=== PATIENT | female | born 1950 | race Caucasian/White ===

== ENCOUNTER 2020-01-25 08:37 | Emergency (ER) | payer MEDICAID, SELFPAY ==
[2020-01-25] VITALS (7 sets, daily range): BP systolic 109–136; BP diastolic 57–78; PULSE 83–100; RESP 20–95; TEMP 36.6–38.4; O2SAT 28–96
--- NOTE | ~2020-01-25 | XR_ITS ---
EXAMINATION: XR chest 1V portable INDICATION: Cough and shortness of breath TECHNIQUE: Portable AP chest at 0950 hours COMPARISON: 08/12/2019 FINDINGS: The lungs are free of acute opacities. There is no pleural effusion or pneumothorax. The ca rdiomediastinal silhouette is normal. The visualized bones and soft tissues are unremarkable. There i s chronic mild elevation of the right hemidiaphragm. IMPRESSION: 1. No acute cardiopulmonary abnormality. Reviewed, dictated and finalized at location A.
--- NOTE | 2020-01-25 08:50 | ED.CHESTPAIN ---
HPI - Chest Pain General Chief Complaint: Chest Pain <Sd Minor MD - Last Filed: 01/25/20 13:41> Stated Complaint: chest pain/diff breathing <Sd Minor MD - Last Filed: 01/25/20 13:41> Time Seen by Provider: 01/25/20 08:40 <Sd Minor MD - Last Filed: 01/25/20 13:41> History of Present Illness HPI narrative: Patient is a 70-year-old female who presents the ER with complaint of shortness of breath and cough. Mainly worsening over the last 3 days. Associated with fevers and chills. No nausea/vomiting/dizziness. Symptoms are worsened by lying down flat movement. Has been practicing social distancing. No alleviating factors. No history of CHF or COPD. Patient does endorse some mild chest discomfort centrally, seems pleuritic in nature. No history of cardiac disease.. <Sd Minor MD - Last Filed: 01/25/20 13:41> Related Data Home Medications: Home Medications Medication Instructions Recorded Confirmed amlodipine 5 mg PO DAILY 08/12/19 08/12/19 levothyroxine [Synthroid] 50 mcg PO DAILY 08/12/19 08/12/19 lisinopril 40 mg PO DAILY 08/12/19 08/12/19 lorazepam 0.5 mg PO DAILY PRN 08/12/19 08/12/19 venlafaxine [Effexor XR] 75 mg PO BID 08/12/19 08/12/19 bupropion HCl mg PO 01/25/20 hydrochlorothiazide 25 mg 01/25/20 metoprolol tartrate 50 mg 01/25/20 <Sd Minor MD - Last Filed: 01/25/20 13:41> Allergies/Adverse Reactions: Allergies Allergy/AdvReac Type Severity Reaction Status Date / Time codeine Allergy Severe SOB Verified 01/25/20 09:03 pseudoephedrine Allergy Severe RASH Verified 01/25/20 09:03 oxycodone Allergy Mild HALLUCINATI Verified 01/25/20 09:03 ONS Sulfa (Sulfonamide Allergy Unknown RASH Verified 01/25/20 09:03 Antibiotics) <Sd Minor MD - Last Filed: 01/25/20 13:41> Review of Systems Review of Systems: All systems reviewed & are unremarkable except as noted in HPI and below <Sd Minor MD - Last Filed: 01/25/20 13:41> Constitutional: Constitutional: Reports chills, Reports fatigue and Reports fever(s) <Sd Minor MD - Last Filed: 01/25/20 13:41> ENT: Denies dizziness, Denies nasal congestion and Denies sore throat <Sd Minor MD - Last Filed: 01/25/20 13:41> Cardiovascular: Cardiovascular: Reports chest pain <Sd Minor MD - Last Filed: 01/25/20 13:41> [facility] Past Medical History Medical History: Medical History (Updated 01/25/20 @ 13:41 by Sd Minor MD) Anxiety Asthma Depression with anxiety GERD (gastroesophageal reflux disease) Hypertension Hypothyroidism Overactive bladder <Sd Minor MD - Last Filed: 01/25/20 13:41> Surgical History Surgical History: Surgical History (Updated 08/12/19 @ 21:55 by Deepali Mary PA-C) H/O dilation and curettage H/O shoulder surgery Right rotator cuff repair. Previous section S/P appendectomy S/P cholecystectomy Tubal ligation status <Sd Minor MD - Last Filed: 01/25/20 13:41> Social History Social History: Social History Smoking status: Never smoker Alcohol intake: never Substance use: never Substance use type: does not use Gender identity (if verbalized by the patient): Female Spiritual care concerns: No Agree to blood products: Yes <Sd Minor MD - Last Filed: 01/25/20 13:41> Exam Narrative: Exam Narrative: GENERAL: Unwell/fatigued-appearing, obese, and in no acute distress. HEAD: Normocephalic, atraumatic. ENT: Mucous membranes moist. NECK: Supple. CHEST: Clear to auscultation. No respiratory distress. HEART: Regular rate and rhythm. Normal peripheral pulses. ABDOMEN: Soft, nontender, nondistended. EXTREMITIES: Normal range of motion. No edema. SKIN: Warm, dry, no rash. NEURO: Alert and oriented x3. <Sd Minor MD - Last Filed: 01/25/20 13:41> Course Co
[2020-01-25 09:23] LABS: Basophils Percent Auto 0.2 % (0.2-1.2); Hematocrit 43.7 % (37.0-47.0); Immature Granulocyte Absolute 0.04 K/mm3 (0.00-0.031); Immature Granulocyte Percent A 0.4 % (0-0.5); Lymphocytes Absolute Auto 1.71 K/mm3 (0.9-3.2); Mean Corpuscular Hemoglobin 28.6 pg (26-34); Mean Corpuscular Volume 89.2 fl (80-100); Mean Platelet Volume 11.7 fl (7.4-10.4); Monocytes Absolute Auto 1.6 K/mm3 (0.1-0.6); Monocytes Percent Auto 13.8 % (2.6-8.5); Neutrophils Absolute Auto 8.1 K/mm3 (1.3-6.7); Neutrophils Percent Auto 70.6 % (45.5-73.1); Platelet Count Result 330 k/mm3 (150-375); Red Cell Distribution Width 13.7 % (11.5-14.5); White Blood Count 11.4 K/mm3 (4.5-10.0)
[2020-01-25 09:32] LABS: Prothrombin Time 13.3 Seconds (11.1-14.7)
[2020-01-25 09:36] LABS: Alanine Aminotransferase 17 U/L (4-35); Albumin Level 3.9 g/dL (3.5-5.1); Alkaline Phosphatase 77 U/L (38-126); Aspartate Amino Transferase 31 U/L (14-36); Bilirubin,Total 1.4 mg/dL (0.2-1.3); Blood Urea Nitrogen 24 mg/dL (7-17); Carbon Dioxide 25 mmol/L (22-30); Chloride 98 mmol/L (98-107); Estimated CRCL calculation 41 ml/min; Estimated Glomerular Filt Rate 35; Glucose 135 mg/dL (65-105); Potassium 5.3 mmol/L (3.4-5.0); Sodium 130 mmol/L (137-145)
[2020-01-25 09:48] LABS: NT Pro B Type Natriuretic Pept 164 PG/ML (5-100); Troponin I < 0.012 ng/mL (0.000-0.034)
[2020-01-25] MEDS: SODIUM CHLORIDE 0.9% IV 1,000 ML 999 ML IV CONT (09:50)
--- NOTE | 2020-01-25 10:07 | PC.NURSE ---
straight cath being performed at this time.
[2020-01-25 10:35] LABS: Add Urine Microscopic? YES; Appearance Urine Clear (Clear); Bacteria Urine Trace /hpf; Bilirubin Urine Negative (Negative); Blood Urine Negative (Negative); Color Urine Yellow (Yellow); Glucose Urine UA Negative (Negative); Hyaline Casts Urine 20-29 /lpf; Ketones Urine Trace mg/dL (Negative); Leukocyte Esterase Ur Trace LEU/UL (Negative); Mucus Urine Rare /lpf; Nitrate Urine Negative (Negative); Protein Urine 1+ mg/dL (Negative); RBC Urine 0-2 /hpf (0-2); Squamous Epithelial Cell Urine Occasional /hpf (Few); WBC Urine 0-3 /hpf
--- NOTE | 2020-01-25 10:42 | ECG_ITS ---
Measurements Intervals [place] Rate: 99 P: 49 ID: [id number] QRS: 19 QRSD: 94 T: 32 QT: 308 QTc: 395 Interpretive Statements SINUS RHYTHM BASELINE ARTIFACT- I, II, III, AVR, AVL, AVF, V1 NORMAL ECG Electronically Signed On 01-25-2020 11:18:33 CDT by Michael Coates D.O.
--- NOTE | 2020-01-25 12:24 | PC.NURSE ---
Blood being drawn at this time.
[2020-01-25 13:10] LABS: Troponin I < 0.012 ng/mL (0.000-0.034)
[2020-01-26 11:48] LABS: SARS-CoV-2 RNA PCR Negative
== END 2020-01-25 14:16 | disposition home or self-care (01) ==
PROVIDERS: Emergency Provider Emergency Medicine; PCP Family Medicine
DX: B34.9 Viral infection, unspecified (principal); Z20.828 Contact with and (suspected) exposure to other viral communicable diseases; E86.0 Dehydration; F41.9 Anxiety disorder, unspecified; K21.9 Gastro-esophageal reflux disease without esophagitis; E03.9 Hypothyroidism, unspecified; N32.81 Overactive bladder
CPT/HCPCS: 36415; 51701; 71045; 80053; 81001; 83880; 84484; 85025; 85610; 85730; 87635; 87804; 93005; 96361; 96365; 99284; C9803; J0131; J7030; U0003

== ENCOUNTER 2020-07-14 13:50 | Inpatient (IN) | payer MEDICARE, MEDICAID, SELFPAY ==
[2020-07-14] VITALS (21 sets, daily range): BP systolic 115–132; BP diastolic 35–89; PULSE 91–124; RESP 16–34; TEMP 36.6–36.9; O2SAT 97–100; BMI 43.4
--- NOTE | ~2020-07-14 | XR_ITS ---
EXAMINATION: XR ankle LT min 3V EXAM DATE: 07/14/2020 14:28 INDICATION: Initial encounter following injury, with pain of the left ankle. TECHNIQUE: Left ankle frontal, lateral and oblique projections obtained and reviewed. There is no pr ior study for comparison. FINDINGS: The left ankle mortise appears intact. There are no acute fractures or dislocations ident ified. There is no subcutaneous gas. The soft tissue is unremarkable. There are no radiopaque for eign bodies. IMPRESSION: 1. XR ankle LT min 3V exam without acute osseous findings. Reviewed, dictated and finalized at location A.
--- NOTE | ~2020-07-14 | CT_ITS ---
EXAMINATION: CT brain wo con, CT cervical spine wo con EXAM DATE: 07/14/2020 14:21 INDICATION: Fell yesterday, head injury. Neck pain. TECHNIQUE: Spiral CT of the head was performed without contrast. Axial, coronal and sagittal images were reviewed. Spiral CT of the cervical spine was performed without contrast. Axial images were rev iewed. Coronal and sagittal reformatted images were also reviewed. The dose-length product (DLP) fo r this examination was 681.00 (accession [id number]), 448.02 (accession [id number]) mGy-cm. The exposure was tailored according to patient size, and iterative reconstruction (ASIR) was used as additional dose reduction technique. Comparison is made to prior examination from 08/12/2019. FINDINGS: HEAD CT: There is no acute intraparenchymal hemorrhage. No evidence of intraparenchymal brain mass l esion. No evidence of acute infarction. There is mild to moderate periventricular and subcortical hy podensity, nonspecific but probably related to small vessel ischemic disease. There is mild to mode rate prominence of the sulci and ventricles related to cerebral atrophy. There is intracranial zapata tid arteriosclerosis. There is no mass effect or midline shift. There is no obstructive hydrocephal us suspected. There are no extra-axial collections. There are no acute calvarial fractures. The or bits are unremarkable. Soft tissue is unremarkable. The visualized sinuses and mastoid air cells ar e well aerated. CERVICAL CT: Mild limitations from patient's body habitus. There is no evidence of acute cervical fra cture. The odontoid process is intact. Pre-dens space is normal. Prevertebral soft tissue is darnell l. There are no soft tissue abnormalities identified. There is no disc space widening or traumatic vertebral body subluxation suspected. Mild to moderate cervical spondylosis. A detailed level by phuc gerard evaluation of spondylosis can be added as addendum if requested. IMPRESSION: 1. No acute intracranial findings or cervical fracture. 2. Age-related intracranial findings. 3. Mild to moderate cervical spondylosis. Reviewed, dictated and finalized at location A. IMPRESSION: 1. No acute intracranial findings or cervical fracture. 2. Age-related intracranial findings. 3. Mild to moderate cervical spondylosis.
--- NOTE | ~2020-07-14 | XR_ITS ---
EXAMINATION: XR chest 1V portable DATE: 07/14/2020 16:28 INDICATION: Dyspnea TECHNIQUE: frontal view of the chest was obtained. COMPARISON: Chest radiograph dated 01/25/2020 FINDINGS: Chronic elevation of the right hemidiaphragm. No focal airspace opacities, pulmonary edema, pleural e ffusion or pneumothorax. The cardiomediastinal silhouette is normal. Visualized bones and soft tissue s are unremarkable. IMPRESSION: 1. No acute cardiopulmonary disease. Reviewed, dictated and finalized at location A.
--- NOTE | ~2020-07-14 | XR_ITS ---
EXAMINATION: XR hip RT 2V w AP pelvis EXAM DATE: 07/14/2020 14:29 INDICATION: Initial encounter following injury, with pain of the pelvis, right hip. TECHNIQUE: Right hip frontal, 'frog leg' projections for interpretation. Frontal projection pelvis. There is no prior study for comparison. FINDINGS: Right hip arthroplasty, hardware intact. There are no acute pelvic, hip fractures or disloc ations identified. There is no subcutaneous gas. The soft tissue is unremarkable. There are no ra diopaque foreign bodies. IMPRESSION: Intact right hip arthroplasty. Reviewed, dictated and finalized at location A.
--- NOTE | ~2020-07-14 | XR_ITS ---
EXAMINATION: XR hip LT min 2V DATE: 07/14/2020 15:14 INDICATION: Left hip pain post fall TECHNIQUE: Anteroposterior and frog leg lateral views of the left hip were obtained. COMPARISON: CT dated 08/12/2019 FINDINGS: Alignment is normal. No fracture. Mild left hip osteoarthritis. Mild left sacroiliitis. IMPRESSION: 1. Mild left hip osteoarthritis. No acute osseous abnormality. 2. Chronic mild sacroiliitis. Reviewed, dictated and finalized at location A.
--- NOTE | ~2020-07-14 | XR_ITS ---
EXAMINATION: XR abdomen obstructive series DATE: 07/17/2020 17:01 INDICATION: Constipation TECHNIQUE: Upright and supine views of the abdomen were obtained. COMPARISON: None. FINDINGS: There is mild elevation of the right hemidiaphragm. No free intraperitoneal gas is identifi ed. There are air-fluid levels involving several bowel loops of the right upper quadrant and epigastr ium. No definitely dilated loops of bowel are present. A moderate volume of colonic stool is present in the descending and sigmoid colon. Changes of right hip arthroplasty are noted. IMPRESSION: 1. Air-fluid levels in the right upper quadrant and epigastrium without definitely dilated loops of b owel, possible ileus. Reviewed, dictated and finalized at location A. IMPRESSION: 1. Air-fluid levels in the right upper quadrant and epigastrium without definit jayden dilated loops of bowel, possible ileus.
--- NOTE | ~2020-07-14 | XR_ITS ---
EXAMINATION: XR abdomen obstructive series EXAM DATE: 07/18/2020 08:43 INDICATION: Constipation. TECHNIQUE: Frontal upright projection of the upper abdomen, frontal projection of the lower abdomen f or interpretation. Comparison is made to prior examination from 07/17/2020. FINDINGS: Moderate amount of colonic stool and gas. No small bowel obstruction. Calcifications in th e pelvis are believed to be phleboliths. No suspicious calcifications overlying the renal contours. T here is no organomegaly. There is right hip replacement. No free intraperitoneal air, no evidence of basilar airspace disease. IMPRESSION: Moderate amount colonic stool and gas. Reviewed, dictated and finalized at location B.
--- NOTE | ~2020-07-14 | XR_ITS ---
XR ankle LT min 3V DATE: 07/18/2020 12:23 INDICATION: Twisting injury. Lateral bruising, ecchymosis, pain TECHNIQUE: 4 views COMPARISON: None FINDINGS: Mild plantar and slight posterior calcaneal enthesopathy. There is mild lateral ankle soft tissue swelling. No recent fracture or dislocation of the ankle or disruption of the ankle mortise. No periosteal reac tion or bone destruction. IMPRESSION: Lateral soft tissue swelling; no recent fracture or dislocation Reviewed, dictated and finalized at location A.
--- NOTE | ~2020-07-14 | US_ITS ---
EXAMINATION: US venous doppler LE EXAM DATE: 07/15/2020 08:06 INDICATION: Bilateral calf pain. TECHNIQUE: Multiple grayscale, color flow and Doppler images of the lower extremity deep venous syste ms bilaterally were obtained and reviewed. There is no prior study for comparison. FINDINGS: Right side: The right common femoral, femoral and profunda veins demonstrate normal color flow, respi ratory variation, augmentation and compressibility. Compressibility, color flow confirmed within the right popliteal, posterior tibial, peroneal, and greater saphenous veins. Left side: The left common femoral, femoral and profunda veins demonstrate normal color flow, respira tory variation, augmentation and compressibility. Compressibility, color flow confirmed within the l eft popliteal, posterior tibial, peroneal, and greater saphenous veins. IMPRESSION: No lower extremity deep venous thrombosis bilaterally. Reviewed, dictated and finalized at location A.
--- NOTE | 2020-07-14 13:54 | ECG_ITS ---
Measurements Intervals [place] Rate: 106 P: 78 RI: 124 QRS: 78 QRSD: 84 T: 44 QT: 329 QTc: 438 Interpretive Statements SINUS TACHYCARDIA BORDERLINE ST-T WAVE ABNORMALITY- DIFFUSE LEADS BASELINE ARTIFACT- II, III, AVR, AVL, AVF, V1-V3 ABNORMAL ECG Electronically Signed On 07-14-2020 15:12:12 CDT by Michael Coates D.O.
[2020-07-14 14:22] LABS: Basophils Absolute Auto 0.1 K/mm3 (0.0-0.1); Basophils Percent Auto 0.3 % (0.2-1.2); Hematocrit 44.5 % (37.0-47.0); Hemoglobin 14.9 g/dL (12.0-15.0); Immature Granulocyte Absolute 0.06 K/mm3 (0.00-0.031); Immature Granulocyte Percent A 0.4 % (0-0.5); Lymphocytes Absolute Auto 1.56 K/mm3 (0.9-3.2); Lymphocytes Percent Auto 9.3 % (18.3-44.2); Mean Corpuscular HGB Conc 33.5 g/dl (32-36); Mean Corpuscular Hemoglobin 29.7 pg (26-34); Mean Corpuscular Volume 88.6 fl (80-100); Mean Platelet Volume 12.5 fl (7.4-10.4); Monocytes Absolute Auto 1.5 K/mm3 (0.1-0.6); Neutrophils Absolute Auto 13.5 K/mm3 (1.3-6.7); Platelet Count Result 316 k/mm3 (150-375); Red Blood Count 5.02 M/mm3 (4.2-5.4); Red Cell Distribution Width 13.5 % (11.5-14.5); White Blood Count 16.7 K/mm3 (4.5-10.0)
[2020-07-14 14:34] LABS: Anion Gap 17 mmol/L (8-16); Blood Urea Nitrogen 29 mg/dL (7-17); Calcium 9.6 mg/dL (8.4-10.2); Carbon Dioxide 20 mmol/L (22-30); Chloride 100 mmol/L (98-107); Estimated CRCL calculation 38 ml/min; Estimated Glomerular Filt Rate 32; Glucose 114 mg/dL (65-105); Potassium 4.1 mmol/L (3.4-5.0); Sodium 137 mmol/L (137-145)
[2020-07-14] MEDS: SODIUM CHLORIDE 0.9% IV 1,000 ML 999 ML IV CONT ×2 (14:35→15:23)
--- NOTE | 2020-07-14 14:38 | ED.GENADULT ---
HPI - General Adult General Chief complaint: Syncope Stated complaint: fell yesterday- on floor till this afternoon Time Seen by Provider: 07/14/20 13:57 Source: RN notes reviewed History of Present Illness HPI narrative: Patient presents emergency department from home via EMS for syncopal episode. Patient states she has syncopal episode at 8 AM yesterday morning. States that she was able to get up at that time. She was initially able to drag herself to the front door and yelled for help. Currently complains of pain to the left ankle with ecchymosis present as well as some mild redness to the right hip. She states that she does not recall the incident she denies any fevers or chills chest pain shortness of breath abdominal pain nausea vomiting or any other symptoms Related Data Home Medications Medication Instructions Recorded Confirmed amlodipine 5 mg PO DAILY 08/12/19 08/12/19 levothyroxine [Synthroid] 50 mcg PO DAILY 08/12/19 08/12/19 lisinopril 40 mg PO DAILY 08/12/19 08/12/19 lorazepam 0.5 mg PO DAILY PRN 08/12/19 08/12/19 venlafaxine [Effexor XR] 75 mg PO BID 08/12/19 08/12/19 bupropion HCl mg PO 01/25/20 hydrochlorothiazide 25 mg 01/25/20 metoprolol tartrate 50 mg 01/25/20 Allergies Allergy/AdvReac Type Severity Reaction Status Date / Time codeine Allergy Severe SOB Verified 07/14/20 13:54 pseudoephedrine Allergy Severe RASH Verified 07/14/20 13:54 oxycodone Allergy Mild HALLUCINATI Verified 07/14/20 13:54 ONS Sulfa (Sulfonamide Allergy Unknown RASH Verified 07/14/20 13:54 Antibiotics) Review of Systems Review of Systems: Narrative: Gen.: Denies fevers or chills Eyes: Denies eye pain or visual change ENT: Denies congestion Respiratory: Denies shortness of breath or cough CV: Denies chest pain or palpitations, reports syncope GI: Denies abdominal pain nausea, emesis or diarrhea denies burning, urgency, frequency or hematuria Musculoskeletal: See HPI Neuro: Denies numbness, tingling, weakness or focal weakness Skin: Denies rash Except as documented, all other systems reviewed and negative PMF Past Medical History Medical History Anxiety Asthma Depression with anxiety GERD (gastroesophageal reflux disease) Hypertension Hypothyroidism Overactive bladder Surgical History Surgical History (Updated 08/12/19 @ 21:55 by Deepali Mary PA-C) H/O dilation and curettage H/O shoulder surgery Right rotator cuff repair. Previous section S/P appendectomy S/P cholecystectomy Tubal ligation status Social History Social History Smoking status: Never smoker Alcohol intake: never Substance use: never Substance use type: does not use Gender identity (if verbalized by the patient): Female Spiritual care concerns: No Agree to blood products: Yes Exam Narrative: Exam Narrative: APPEARANCE: No acute distress, nontoxic, resting in bed EYES: EOMI HEENT: Normocephalic, atraumatic, OMM RESPIRATORY: No respiratory distress Clear to auscultation bilaterally with no rhonchi wheezing or rales. CARDIOVASCULAR: Regular rate and rhythm without murmurs rubs or gallops. ABDOMINAL: Soft, nontender, nondistended, no rebound or guarding MUSCULOSKELETAl: Moves all extremities. No clubbing, cyanosis or edema. Tenderness of the bilateral upper extremity, mild tenderness the right lateral hip mild erythema present full motion of the hip without pain, no tenderness right knee or ankle, mild tenderness to left lateral hip no swelling or ecchymosis present no tenderness left knee, there is swelling and ecchymosis her left medial and lateral ankle pain with flexion of the ankle, bilateral dorsalis pedis pulse 2+, neurovascular intact NEURO: Awake and alert x 4. Following commands, speech normal, no focal deficits SKIN:: Warm, dry. No rashes lesions or abrasions PSYCHIATRIC: Normal affec
[2020-07-14 14:41] LABS: INR 1.2; Prothrombin Time 14.8 Seconds (11.1-14.7)
[2020-07-14 14:41] LABS: Add Urine Microscopic? YES; Appearance Urine Cloudy (Clear); Bacteria Urine Trace /hpf; Bilirubin Urine Negative (Negative); Blood Urine 1+ (Negative); Color Urine Yellow (Yellow); Glucose Urine UA Negative (Negative); Hyaline Casts Urine 30-49 /lpf; Ketones Urine Negative (Negative); Leukocyte Esterase Ur Negative LEU/UL (Negative); Mucus Urine Rare /lpf; Nitrate Urine Negative (Negative); Protein Urine 1+ mg/dL (Negative); RBC Urine 0-2 /hpf (0-2); Specific Grav Ur 1.021 (1.001-1.035); Squamous Epithelial Cell Urine Many /hpf (Few); WBC Urine 0-3 /hpf
[2020-07-14 14:42] LABS: Partial Thromboplastin Time 29.1 SECONDS (22.3-36.8)
[2020-07-14 14:48] LABS: Alkaline Phosphatase 79 U/L (38-126); Aspartate Amino Transferase 72 U/L (14-36); Bilirubin,Total 1.2 mg/dL (0.2-1.3); Creatine Kinase 1296 U/L (30-135)
[2020-07-14 14:54] LABS: Troponin I 0.012 ng/mL (0.000-0.034)
[2020-07-14 14:55] LABS: Alanine Aminotransferase 36 U/L (4-35)
[2020-07-14] MEDS: SODIUM CHLORIDE 0.9% IV 1,000 ML 125 ML IV CONT (18:27)
--- NOTE | 2020-07-14 20:00 | PM.IMHP ---
H&P: HPI History of Present Illness Date/Time: 07/14/20 20:00 Chief complaint: Syncope, weakness. Narrative: Sigifredo Barrera is a 70-year-old female with hypertension, hypothyroidism, and anxiety presented to the emergency department earlier today via EMS from home for evaluation after syncopal episode yesterday and generalized weakness. The patient is known to myself as I admitted her to the hospital in August 2019 after syncopal episode. Since that time she has had several syncopal episodes. With her last hospitalization she described feelings compatible with vasovagal syncope and also reported that she was probably hyperventilating prior to that episode. She does admit that sometime she gets anxious and short of breath with exertion, and will hyperventilate but she does not believe it is related to her syncopal episodes. She denies having prodrome yesterday but later on to the interview she tells me ?everything went black and I went down.? She fell onto her buttock and hit her head on the closet door and she came to immediately thereafter. Unfortunately she was not able to get herself up and she lie on the floor until she had enough strength to pull herself to the front door today and yell for help. She was incontinent of a large amount of diarrhea on EMS arrival, with further questioning she said is not uncommon for her to have loose stools most days. At the time my evaluation she has no complaints and denies injury in the fall yesterday, but tells me that she did injure her left foot after she fell in a similar fashion 2 weeks ago. She denies fever and sweats but occasionally has chills. No headache or neck ache. She denies cold and flu symptoms. No recent travel or sick contacts. She denies chest pain and pleuritic pain but occasionally experiences some fluttering. She reports chronic dyspnea on exertion which is unchanged. No orthopnea, PND, or significant lower extremity edema. Review of Systems Review of Systems: Narrative: Twelve systems were reviewed with pertinent positives and negatives as per HPI. No sick contacts or recent travel. She denies cold and flu symptoms. Reports chronic dyspnea on exertion. Denies orthopnea, PND, and edema. No history of DVT. Except as documented, all other systems were reviewed and are negative. [facility] Past Medical History Medical History (Updated 07/14/20 @ 23:20 by Deepali Mary PA-C) Anxiety Asthma Chronic kidney disease, stage 3 Baseline creatinine is between 1.1 and 1.50. Depression Diastolic dysfunction Echocardiogram in August 2019 showed normal left ventricular chamber size and systolic function with an estimated ejection fraction of 65 to 70%, mild asymmetric increased septal wall thickness, grade 1 diastolic dysfunction and mild aortic valve sclerosis as well as mild pulmonic regurgitation. Diverticulitis Gastroesophageal reflux disease Hypertension Hypothyroidism Osteoarthritis Overactive bladder Surgical History Surgical History (Updated 07/14/20 @ 23:13 by Deepali Mary PA-C) History of appendectomy History of section History of cholecystectomy History of dilatation and curettage History of repair of right rotator cuff History of total right hip arthroplasty History of tubal ligation Family History Family History Father Acute myocardial infarction Congestive heart failure Hypertension Sibling Hypertension Mother Breast cancer Social History Social History (Updated 07/14/20 @ 23:14 by Deepali Mary PA-C) Social History: Surrogate decision maker: Dhaval Bush, son. Code status: Full code. Smoking status: Never smoker Second hand tobacco smoke exposure: No Alcohol intake: never Substance use: never Substance use type: does not use Additional living arrangements comments: Resides in her own home in [place]. Additional occupati
[2020-07-14 20:20] LABS: Anion Gap 8 mmol/L (8-16); Blood Urea Nitrogen 27 mg/dL (7-17); Calcium 8.4 mg/dL (8.4-10.2); Carbon Dioxide 23 mmol/L (22-30); Chloride 104 mmol/L (98-107); Estimated CRCL calculation 40 ml/min; Estimated Glomerular Filt Rate 35; Glucose 160 mg/dL (65-105); Magnesium 1.4 mg/dL (1.6-2.3); Potassium 3.6 mmol/L (3.4-5.0); Sodium 135 mmol/L (137-145)
[2020-07-14 20:27] LABS: Creatine Kinase 2236 U/L (30-135)
[2020-07-14 20:35] LABS: Troponin I 0.016 ng/mL (0.000-0.034)
[2020-07-14] MEDS: VENLAFAXINE HCL XR 75 MG CAP.ER.24H PO (20:43)
[2020-07-14] MEDS: LORazepam (*CRX) 0.5 MG TABLET PO (23:04)
[2020-07-14 23:11] LABS: Troponin I 0.014 ng/mL (0.000-0.034)
[2020-07-15] VITALS (17 sets, daily range): BP systolic 108–158; BP diastolic 54–95; PULSE 75–117; RESP 18–20; TEMP 36.2–36.6; O2SAT 94–98
[2020-07-15] MEDS: MAGNESIUM SULF 2 GM/WATER 50ML 2 GM/50 ML BAG IVPB (01:10)
[2020-07-15] MEDS: SODIUM CHLORIDE 0.9% IV 1,000 ML 125 ML IV CONT ×3 (01:14→20:26)
[2020-07-15 06:15] LABS: Basophils Percent Auto 0.4 % (0.2-1.2); Hematocrit 38.2 % (37.0-47.0); Hemoglobin 12.1 g/dL (12.0-15.0); Immature Granulocyte Absolute 0.01 K/mm3 (0.00-0.031); Immature Granulocyte Percent A 0.1 % (0-0.5); Lymphocytes Absolute Auto 1.93 K/mm3 (0.9-3.2); Lymphocytes Percent Auto 27.2 % (18.3-44.2); Mean Corpuscular HGB Conc 31.7 g/dl (32-36); Mean Corpuscular Hemoglobin 29.2 pg (26-34); Monocytes Absolute Auto 0.7 K/mm3 (0.1-0.6); Monocytes Percent Auto 9.2 % (2.6-8.5); Neutrophils Absolute Auto 4.5 K/mm3 (1.3-6.7); Neutrophils Percent Auto 63.1 % (45.5-73.1); Platelet Count Result 159 k/mm3 (150-375); Red Blood Count 4.15 M/mm3 (4.2-5.4); Red Cell Distribution Width 14.2 % (11.5-14.5); White Blood Count 7.1 K/mm3 (4.5-10.0)
[2020-07-15] MEDS: LEVOTHYROXINE SODIUM 50 MCG TABLET PO (06:23)
[2020-07-15 08:41] LABS: Alanine Aminotransferase 28 U/L (4-35); Albumin Level 2.9 g/dL (3.5-5.1); Alkaline Phosphatase 60 U/L (38-126); Anion Gap 6 mmol/L (8-16); Aspartate Amino Transferase 97 U/L (14-36); Bilirubin,Total 1.6 mg/dL (0.2-1.3); Blood Urea Nitrogen 22 mg/dL (7-17); Calcium 8.1 mg/dL (8.4-10.2); Carbon Dioxide 22 mmol/L (22-30); Chloride 105 mmol/L (98-107); Creatine Kinase 2500 U/L (30-135); Estimated CRCL calculation 47 ml/min; Estimated Glomerular Filt Rate 41; Glucose 104 mg/dL (65-105); Magnesium 2.1 mg/dL (1.6-2.3); Potassium 3.6 mmol/L (3.4-5.0); Sodium 133 mmol/L (137-145)
[2020-07-15] MEDS: VENLAFAXINE HCL XR 75 MG CAP.ER.24H PO ×2 (09:04→16:59)
[2020-07-15] MEDS: METOPROLOL TARTRATE 50 MG TAB PO (09:04)
[2020-07-15] MEDS: ACETAMINOPHEN 325 MG TABLET 650 MG PO (11:52)
--- NOTE | 2020-07-15 14:09 | PM.IMPN ---
Progress Note: A&P Assessment and Plan (1) Syncope: Code(s): R55 - Syncope and collapse Status: Acute Assessment and Plan: The patient has been admitted to the hospitalist service for further treatment and evaluation of syncopal episode and generalized weakness for which she was on the ground for the past 24 hours, now with findings of rhabdomyolysis. She reports recurrent syncopal episodes since August 2019, the etiology of which is not entirely clear. Prior to her fall she had just gotten up out of bed and was walking to the bathroom and had a syncopal episode. She denies any warning prior to her syncopal episode and she woke up on the ground. She denies being confused at that time. Orthostatics showed an increase in blood pressure with laying to sitting she was unable to stand secondary to pain. Will apply Nate hose and continue monitoring her. Telemetry showed normal sinus rhythm with a heart rate of 96, with few PVCs noted. No acute arrhythmia or abnormality. She had an echocardiogram and further workup for such in August 2019 which will not be repeated and showed no acute abnormality for syncopal episodes At this time she has some dehydration with rhabdo since she was on the ground for 24 hours will continue IV fluid hydration. Continue Nate hose because her syncopal episodes could be secondary to orthostatic hypotension/vasovagal episodes. Continue monitoring. (2) Generalized weakness: Code(s): R53.1 - Weakness Status: Acute Assessment and Plan: Could have been slightly dehydrated prior to falls with associated orthostatic hypotension or vasovagal episode. Continue with physical and occupational therapy. Care coordination is working with family in states she could probably stay with the son and get some home health before returning home on her only can Will continue monitoring and see how she does in the morning and see what the official plan will be. (3) Rhabdomyolysis: Code(s): M62.82 - Rhabdomyolysis Status: Acute Assessment and Plan: Acute from fall. CK still slightly trending up and was 2500 today. Will continue IV fluids at this time LFTs and creatinine are improving with IV fluid hydration. Continue monitoring CK level during admission. (4) Chronic kidney disease, stage 3: Code(s): N18.30 - Chronic kidney disease, stage 3 unspecified Status: Acute Assessment and Plan: Patient's creatinine is improving with IV fluid hydration. It appears to also be back at her baseline which is around 1.1. Continue IV fluid hydration due to rhabdo myelitis and monitor renal function. (5) Hypertension: Qualifiers: Hypertension type: essential hypertension Qualified Code(s): I10 - Essential (primary) hypertension Code(s): I10 - Essential (primary) hypertension Status: Chronic Assessment and Plan: Has been stable. We held her hydrochlorothiazide due to her syncopal episode and concerns for dehydration. Her lisinopril and amlodipine is also on hold. Will make adjustments if necessary to prevent hypotension and recurrent syncopal episodes. Continue monitoring. (6) Hypothyroidism: Code(s): E03.9 - Hypothyroidism, unspecified Status: Chronic Assessment and Plan: Will check TSH. Continue her levothyroxine. (7) Anxiety: Code(s): F41.9 - Anxiety disorder, unspecified Status: Chronic Assessment and Plan: Continue home medications. (8) Depression: Code(s): F32.9 - Major depressive disorder, single episode, unspecified Status: Acute Assessm
[2020-07-15 15:15] LABS: Free T4 Free Thyroxine Reflex 1.29 ng/dL (0.78-2.19)
[2020-07-15 17:00] LABS: Total Triiodothyronine (T3) 0.82 NG/ML (0.97-1.69)
[2020-07-15] MEDS: MELATONIN 3 MG TABLET PO (20:24)
[2020-07-15 21:17] LABS: Glucose Point of Care 106 (65-105)
[2020-07-16] VITALS (10 sets, daily range): BP systolic 104–136; BP diastolic 52–74; PULSE 77–93; RESP 16–18; TEMP 36.2–37.2; O2SAT 96–98
[2020-07-16] MEDS: LORazepam (*CRX) 0.5 MG TABLET PO ×2 (04:35→19:22)
[2020-07-16] MEDS: ACETAMINOPHEN 325 MG TABLET 650 MG PO ×3 (04:35→19:23)
[2020-07-16] MEDS: SODIUM CHLORIDE 0.9% IV 1,000 ML 125 ML IV CONT (04:37)
[2020-07-16 06:29] LABS: Alanine Aminotransferase 27 U/L (4-35); Albumin Level 2.6 g/dL (3.5-5.1); Alkaline Phosphatase 56 U/L (38-126); Anion Gap 5 mmol/L (8-16); Aspartate Amino Transferase 86 U/L (14-36); Bilirubin,Total 0.8 mg/dL (0.2-1.3); Blood Urea Nitrogen 19 mg/dL (7-17); Calcium 7.8 mg/dL (8.4-10.2); Carbon Dioxide 21 mmol/L (22-30); Chloride 112 mmol/L (98-107); Creatine Kinase 1330 U/L (30-135); Estimated CRCL calculation 50 ml/min; Estimated Glomerular Filt Rate 45; Glucose 98 mg/dL (65-105); Potassium 3.5 mmol/L (3.4-5.0); Sodium 138 mmol/L (137-145)
[2020-07-16] MEDS: LEVOTHYROXINE SODIUM 50 MCG TABLET PO (06:35)
[2020-07-16] MEDS: METOPROLOL TARTRATE 50 MG TAB PO (09:04)
[2020-07-16] MEDS: VENLAFAXINE HCL XR 75 MG CAP.ER.24H PO ×2 (09:04→16:01)
[2020-07-16] MEDS: TOLNAFTATE 1% POWDER 45 GM BTL 1 APPLIC TOPICAL ×2 (10:11→21:21)
--- NOTE | 2020-07-16 12:58 | PM.IMPN ---
Progress Note: A&P Assessment and Plan (1) Syncope: Code(s): R55 - Syncope and collapse Status: Acute Assessment and Plan: The patient has been admitted to the hospitalist service for further treatment and evaluation of syncopal episode and generalized weakness for which she was on the ground for the past 24 hours, now with findings of rhabdomyolysis. She reports recurrent syncopal episodes since August 2019, the etiology of which is not entirely clear. Prior to her fall she had just gotten up out of bed and was walking to the bathroom and had a syncopal episode. She denies any warning prior to her syncopal episode and she woke up on the ground. She denies being confused at that time. Orthostatics showed an increase in blood pressure with laying to sitting she was unable to stand secondary to pain. Will apply Nate hose and continue monitoring her. Telemetry showed normal sinus rhythm with a heart rate of 96, with few PVCs noted. No acute arrhythmia or abnormality. She had an echocardiogram and further workup for such in August 2019 which will not be repeated and showed no acute abnormality for syncopal episodes At this time she has some dehydration with rhabdo since she was on the ground for 24 hours will continue IV fluid hydration. Continue Nate hose because her syncopal episodes could be secondary to orthostatic hypotension/vasovagal episodes. Continue monitoring. (2) Rhabdomyolysis: Code(s): M62.82 - Rhabdomyolysis Status: Acute Assessment and Plan: Acute from fall. CK still elevated at 1300. Would like to continue some IV fluids and repeat CK in the morning and continue working with PT/OT. Will continue IV fluids at this time LFTs and creatinine are improving with IV fluid hydration. Continue monitoring CK level during admission. (3) Generalized weakness: Code(s): R53.1 - Weakness Status: Acute Assessment and Plan: Could have been slightly dehydrated prior to falls with associated orthostatic hypotension or vasovagal episode. Continue with physical and occupational therapy. Care coordination is working with family in states she could probably stay with the son and get some home health before returning home on her only can Will continue monitoring and see how she does in the morning and see what the official plan will be. (4) Chronic kidney disease, stage 3: Code(s): N18.30 - Chronic kidney disease, stage 3 unspecified Status: Acute Assessment and Plan: Patient's creatinine is improving with IV fluid hydration. It appears to also be back at her baseline which is around 1.1. Continue IV fluid hydration due to rhabdomyelitis and monitor renal function. (5) Hypertension: Qualifiers: Hypertension type: essential hypertension Qualified Code(s): I10 - Essential (primary) hypertension Code(s): I10 - Essential (primary) hypertension Status: Chronic Assessment and Plan: Has been stable. We held her hydrochlorothiazide due to her syncopal episode and concerns for dehydration. Her lisinopril and amlodipine is also on hold. Will make adjustments if necessary to prevent hypotension and recurrent syncopal episodes. Continue monitoring. (6) Hypothyroidism: Code(s): E03.9 - Hypothyroidism, unspecified Status: Chronic Assessment and Plan: TSH was slightly elevated at 5, but normal T4 showing. Will not make any adjustments at this time and will have her PCP recheck TSH in 6 weeks. Continue her levothyroxine. (7) Anxiety: Code(s): F41.9 - Anxiety disorder, unspecified Status: Chronic Assessment and Plan: Contin
[2020-07-16] MEDS: SODIUM CHLORIDE 0.9% IV 1,000 ML 100 ML IV CONT ×2 (13:54→21:26)
[2020-07-16] MEDS: MELATONIN 3 MG TABLET PO (21:21)
[2020-07-17] VITALS (10 sets, daily range): BP systolic 123–138; BP diastolic 62–78; PULSE 70–87; RESP 16–18; TEMP 36.3–36.7; O2SAT 97–99
[2020-07-17] MEDS: ACETAMINOPHEN 325 MG TABLET 650 MG PO ×3 (03:01→22:14)
[2020-07-17] MEDS: TOLNAFTATE 1% POWDER 45 GM BTL 1 APPLIC TOPICAL ×2 (05:10→20:32)
[2020-07-17] MEDS: LEVOTHYROXINE SODIUM 50 MCG TABLET PO (05:10)
[2020-07-17 06:04] LABS: Alanine Aminotransferase 26 U/L (4-35); Albumin Level 2.5 g/dL (3.5-5.1); Alkaline Phosphatase 59 U/L (38-126); Anion Gap 4 mmol/L (8-16); Aspartate Amino Transferase 64 U/L (14-36); Bilirubin,Total 0.5 mg/dL (0.2-1.3); Blood Urea Nitrogen 20 mg/dL (7-17); Calcium 7.8 mg/dL (8.4-10.2); Carbon Dioxide 21 mmol/L (22-30); Chloride 113 mmol/L (98-107); Creatine Kinase 693 U/L (30-135); Estimated CRCL calculation 51 ml/min; Estimated Glomerular Filt Rate 45; Glucose 89 mg/dL (65-105); Potassium 3.7 mmol/L (3.4-5.0); Sodium 138 mmol/L (137-145)
[2020-07-17] MEDS: SODIUM CHLORIDE 0.9% IV 1,000 ML 100 ML IV CONT (07:31)
[2020-07-17] MEDS: LORazepam (*CRX) 0.5 MG TABLET PO ×2 (08:41→22:14)
[2020-07-17] MEDS: VENLAFAXINE HCL XR 75 MG CAP.ER.24H PO ×2 (08:42→17:41)
[2020-07-17] MEDS: METOPROLOL TARTRATE 50 MG TAB PO (08:42)
[2020-07-17] MEDS: MAGNESIUM HYDROXIDE SUSP 30 ML UDC PO (12:22)
--- NOTE | 2020-07-17 15:18 | PM.IMPN ---
Progress Note: A&P Assessment and Plan (1) Syncope: Code(s): R55 - Syncope and collapse Status: Acute Assessment and Plan: The patient reports recurrent syncope since August 2019. She had an echocardiogram and further workup in August 2019 which were unrevealing for an etiology for syncope. Echocardiogram demonstrated normal LV systolic function with EF 65-70%, grade 1 diastolic dysfunction, and mild aortic valve sclerosis and mild pulmonic regurgitation. Telemetry demonstrates sinus rhythm with infrequent PVCs and no other evidence of arrhythmia. She did not have significant orthostasis on orthostatic BP reading from 07/15. Plan to continue SALOMON hose. Dehydration and hypotension were felt to be possible contributing factors to her syncope and her blood pressure is at target with her prior to admission antihypertensives on hold. She did report diarrhea prior to admission. Plan for outpatient cardiac event monitoring. Her episodes may be reflex mediated. She has not had any further episodes. (2) Rhabdomyolysis: Code(s): M62.82 - Rhabdomyolysis Status: Acute Assessment and Plan: Secondary to fall and prolonged period on the ground. CK has improved to 693. She reports some residual muscle soreness but is feeling better overall. Continue IV fluids. LFTs and renal function continue to improved with IV fluids. Plan for repeat CK tomorrow. (3) Generalized weakness: Code(s): R53.1 - Weakness Status: Acute Assessment and Plan: Likely secondary to dehydration prior to falls with associated orthostatic hypotension or vasovagal episode. Plan to continue PT/OT. She will return home with home health to continue PT/OT and will stay with her son. (4) Chronic kidney disease, stage 3: Code(s): N18.30 - Chronic kidney disease, stage 3 unspecified Status: Acute Assessment and Plan: Baseline Cr appears to be 1.1. She had CLAIR at presentation which was likely secondary to profound dehydration and rhabdomyolysis. Cr has improved with IV fluid hydration and appears close to baseline with Cr of 1.2 and BUN 20 today. Continue to monitor. Avoid nephrotoxins and renally dose medications. (5) Hypertension: Qualifiers: Hypertension type: essential hypertension Qualified Code(s): I10 - Essential (primary) hypertension Code(s): I10 - Essential (primary) hypertension Status: Chronic Assessment and Plan: Blood pressures were reviewed and are well-controlled. Her prior to admission antihypertensives are on hold due to her syncopal episode and concern for dehydration. Continue to monitor. (6) Hypothyroidism: Code(s): E03.9 - Hypothyroidism, unspecified Status: Chronic Assessment and Plan: TSH was slightly elevated at 5, free T4 1.29, and total T3 0.82. Plan to continue levothyroxine at her current dosing and plan for repeat TSH with reflex in 6 weeks with further adjustments as necessary in the outpatient setting. (7) Anxiety: Code(s): F41.9 - Anxiety disorder, unspecified Status: Chronic Assessment and Plan: Continue prior to admission lorazepam PRN. (8) Depression: Code(s): F32.9 - Major depressive disorder, single episode, unspecified Status: Acute Assessment and Plan: Mood is stable. Continue venlafaxine. (9) Elevated LFTs: Code(s): R79.89 - Other specified abnormal findings of blood chemistry Status: Acute Assessment and Plan: Most likely secondary to rhabdomyolysis. LFTs are improving. Continue IV fluid hydration. (10) Constipation: Code(s): K59.00 - Constipation, unspecified Status: Acute Assessment and Plan: Last bowel movement was 07/15. She reports LLQ discomfort consistent with constipation. Check KUB. Plan for magnesium hydroxide PRN. Subjective Date/time seen: 07/17/20 15:18 Mrs. Barrera
[2020-07-17] MEDS: polyethylene glycoL 3350 17 GM POWD.PACK PO (17:41)
[2020-07-17] MEDS: MELATONIN 3 MG TABLET PO (20:29)
[2020-07-17] MEDS: DOCUSATE SODIUM 100 MG CAPSULE PO (20:30)
[2020-07-18] VITALS: PULSE 79
[2020-07-18] MEDS: SODIUM CHLORIDE 0.9% IV 1,000 ML 100 ML IV CONT (01:05)
[2020-07-18] MEDS: ACETAMINOPHEN 325 MG TABLET 650 MG PO ×2 (02:28→13:17)
[2020-07-18 04:00] VITALS: PULSE 74
[2020-07-18 06:00] VITALS: BP 117/67; PULSE 75; RESP 16; TEMP 36.3; O2SAT 96
[2020-07-18 06:29] LABS: Hematocrit 30.8 % (37.0-47.0); Hemoglobin 9.9 g/dL (12.0-15.0); Mean Corpuscular HGB Conc 32.1 g/dl (32-36); Mean Corpuscular Hemoglobin 28.9 pg (26-34); Mean Corpuscular Volume 90.1 fl (80-100); Mean Platelet Volume 12.3 fl (7.4-10.4); Platelet Count Result 196 k/mm3 (150-375); Red Blood Count 3.42 M/mm3 (4.2-5.4); Red Cell Distribution Width 14.4 % (11.5-14.5)
[2020-07-18 06:37] LABS: Alanine Aminotransferase 25 U/L (4-35); Albumin Level 2.6 g/dL (3.5-5.1); Alkaline Phosphatase 74 U/L (38-126); Anion Gap 2 mmol/L (8-16); Aspartate Amino Transferase 44 U/L (14-36); Bilirubin,Total 0.4 mg/dL (0.2-1.3); Blood Urea Nitrogen 20 mg/dL (7-17); Calcium 7.9 mg/dL (8.4-10.2); Carbon Dioxide 25 mmol/L (22-30); Chloride 112 mmol/L (98-107); Creatine Kinase 337 U/L (30-135); Estimated CRCL calculation 57 ml/min; Estimated Glomerular Filt Rate 49; Glucose 95 mg/dL (65-105); Potassium 3.9 mmol/L (3.4-5.0); Sodium 139 mmol/L (137-145)
[2020-07-18] MEDS: LEVOTHYROXINE SODIUM 50 MCG TABLET PO (07:26)
[2020-07-18 08:00] VITALS: PULSE 74
[2020-07-18 08:15] VITALS: PULSE 76
[2020-07-18] MEDS: TOLNAFTATE 1% POWDER 45 GM BTL 1 APPLIC TOPICAL (08:15)
[2020-07-18] MEDS: VENLAFAXINE HCL XR 75 MG CAP.ER.24H PO (08:15)
[2020-07-18] MEDS: BISACODYL 10 MG SUPPOSITORY RECTAL (08:15)
[2020-07-18] MEDS: DOCUSATE SODIUM 100 MG CAPSULE PO (08:15)
[2020-07-18] MEDS: METOPROLOL TARTRATE 50 MG TAB PO (08:15)
--- NOTE | 2020-07-18 08:42 | PCOTNOTE ---
Attempted to see patient this am, however patient off floor for testing at this time.
[2020-07-18 12:00] VITALS: PULSE 71
--- NOTE | 2020-07-18 13:20 | PM.DS ---
DS: Admitting Diagnosis Admitting Diagnosis Admitting Diagnosis: Syncope: Gait instability, L ankle contusion DS: Discharge Diagnosis Discharge Diagnosis (1) Syncope: Code(s): R55 - Syncope and collapse Status: Acute Assessment and Plan: Discharge Summary (Date of service 07/18/20): Mrs. Barrera is a 70 y.o. female with PMH significant for CKD stage III, diastolic dysfunction, depression, anxiety, GERD, HTN, and hypothyroidism who presented to the emergency department via EMS for the evaluation of syncope and generalized weakness. Initial workup in the emergency department was notable for WBC 16,700 and neutrophil predominance, CLAIR with Cr 1.6 and BUN 29, CO2 20, AST 72, ALT 36, ALP 79, CK 1296, CT cervical spine without acute fracture, CT brain with age-related findings and no acute infarct, hemorrhage, or mass lesion, hip and ankle plain films without evidence of fracture, CXR without evidence of consolidation, effusion, or other abnormality, and EKG with sinus tachycardia, non-specific ST abnormality, QTc 438. She was admitted for rhabdomyolysis and syncope. She reported recurrent syncope since August 2019. She had an echocardiogram and further workup in August 2019 which were unrevealing for an etiology for syncope. Echocardiogram demonstrated normal LV systolic function with EF 65-70%, grade 1 diastolic dysfunction, and mild aortic valve sclerosis and mild pulmonic regurgitation. She was monitored on telemetry which demonstrated sinus rhythm with infrequent PVCs and no other evidence of arrhythmia. She did not have significant orthostasis on orthostatic BP reading from 07/15. SALOMON hose were continued. Dehydration and hypotension were felt to be possible contributing factors to her syncope and her blood pressure is at target with her prior to admission antihypertensives on hold. She did report diarrhea prior to admission. Outpatient cardiac event monitoring was ordered for discharge. Her episodes may be reflex mediated. She did not have any further episodes. Her CK improved with IV fluid hydration and renal function returned to baseline. She was advised to monitor her blood pressure daily and keep a blood pressure log. She planned to stay with her son at discharge for closer monitoring and assistance. She worked with PT/OT and felt much better overall with resolution of her generalized weakness. She was discharged in hemodynamically stable condition on the afternoon of 07/18/20. The results of her outpatient telemetry monitoring will be sent to her PCP. (2) Rhabdomyolysis: Code(s): M62.82 - Rhabdomyolysis Status: Resolved Assessment and Plan: Secondary to fall and prolonged period on the ground. CK improved from 1296 to 337 with IV fluid hydration. (3) Generalized weakness: Code(s): R53.1 - Weakness Status: Acute Assessment and Plan: Likely secondary to dehydration prior to falls with associated orthostatic hypotension or vasovagal episode. She was evaluatred by PT/OT here and she will return home with home health to continue PT/OT and will stay with her son. (4) Chronic kidney disease, stage 3: Code(s): N18.30 - Chronic kidney disease, stage 3 unspecified Status: Acute Assessment and Plan: Baseline Cr appears to be 1.1. She had CLAIR at presentation which was likely secondary to profound dehydration and rhabdomyolysis. Cr improved with IV fluid hydration and appears close to baseline with Cr of 1.1 and BUN 20 the day of discharge. (5) Hypertension: Qualifiers: Hypertension type: essential hypertension Qualified Code(s): I10 - Essential (primary) hypertension Code(s): I10 - Essential (primary) hypertension Status: Chronic Assessment and Plan: Blood pressures were reviewed and well-controlled with some of her [employer] antihypertensives held. Metoprolol was continued but her HCTZ, lisinopril, and amlodipine were held until her follow
== END 2020-07-18 14:20 | disposition home health service (06) | DRG 312 ==
LOC: ANHED 17:00 → ANH3MEDSUR 17:00
PROVIDERS: Physician Assistant; Admitting Provider Internal Medicine; Emergency Provider Emergency Medicine; PCP Family Medicine; Visit Provider Family Medicine
DX: I95.1 Orthostatic hypotension (principal); E86.0 Dehydration; T79.6XXA Traumatic ischemia of muscle, initial encounter; E03.9 Hypothyroidism, unspecified; I12.9 Hypertensive chronic kidney disease with stage 1 through stage 4 chronic kidney disease, or unspecified chronic kidney disease; N18.30 Chronic kidney disease, stage 3 unspecified; K21.9 Gastro-esophageal reflux disease without esophagitis; R79.89 Other specified abnormal findings of blood chemistry; K59.00 Constipation, unspecified; F41.8 Other specified anxiety disorders; N32.81 Overactive bladder; S90.02XA Contusion of left ankle, initial encounter; N28.9 Disorder of kidney and ureter, unspecified; M19.90 Unspecified osteoarthritis, unspecified site; Z96.641 Presence of right artificial hip joint; Z90.49 Acquired absence of other specified parts of digestive tract; W18.30XA Fall on same level, unspecified, initial encounter
CPT/HCPCS: 36415; 51701; 70450; 71045; 72125; 73502; 73610; 74019; 80048; 80053; 80076; 81001; 82550; 83735; 84439; 84443; 84480; 84484; 85025; 85027; 85610; 85730; 93005; 93970; 96361; 96365; 96375; 97110; 97116; 97162; 97166; 97530; 97535; 99285; A9270; G0378; J0131; J3475; J7030

== ENCOUNTER 2020-10-09 11:30 | Outpatient (CLI) | payer MEDICAID, SELFPAY ==
--- NOTE | ~2020-10-09 | XR_ITS ---
XR humerus RT DATE: 10/09/2020 11:50 INDICATION: Right arm pain TECHNIQUE: AP and lateral views COMPARISON: None FINDINGS: Diffuse osteopenia. There is evidence of chronic rotator cuff atrophy. Osteoarthritic change at the right glenohumeral joint. No fracture or dislocation, periosteal reaction or bone destruction of the right humerus is detected. IMPRESSION: Osteopenia No fracture or dislocation Osteoarthritis at right glenohumeral joint Rotator cuff atrophy Reviewed, dictated and finalized at location [facility]. ING [employer] SIGNALER
== END 2020-10-09 11:31 | disposition home or self-care (01) ==
PROVIDERS: PCP Family Medicine
DX: M79.621 Pain in right upper arm (principal); M85.811 Other specified disorders of bone density and structure, right shoulder; M19.011 Primary osteoarthritis, right shoulder; M62.511 Muscle wasting and atrophy, not elsewhere classified, right shoulder
CPT/HCPCS: 73060

== ENCOUNTER 2021-05-06 08:52 | Outpatient (CLI) | payer MEDICARE, SELFPAY ==
--- NOTE | ~2021-05-06 | MM_ITS ---
EXAMINATION: MM screening zahra BI w marisela HISTORY: Screening mammogram TECHNIQUE: Craniocaudal and mediolateral oblique 3-D tomosynthesis images were obtained and synthetic 2-D images were generated. Bilateral rotated lateral CC views. CAD analysis was submitted and interp reted. COMPARISON: No prior mammogram is available for comparison at this institution. BREAST PARENCHYMAL COMPOSITION: The breasts are almost entirely fatty. FINDINGS: There is no evidence of suspicious mass, calcification, or architectural distortion to sugg est malignancy in either breast. There has been no suspicious interval change. IMPRESSION: 1. No mammographic evidence of malignancy. 2. Recommend routine screening mammography in one year. BI-RADS Category 1: Negative Reviewed, dictated and finalized at location [facility].
== END 2021-05-06 08:53 | disposition home or self-care (01) ==
LOC: ANHIMG 08:55
PROVIDERS: PCP Family Medicine; Visit Provider Physician Assistant Medical
DX: Z12.31 Encounter for screening mammogram for malignant neoplasm of breast (principal)
CPT/HCPCS: 77063; 77067

== ENCOUNTER 2021-11-25 08:16 | Outpatient (CLI) | payer MEDICARE, MEDICAID, SELFPAY ==
[2021-11-25 08:52] LABS: Hematocrit 41.3 % (37.0-47.0); Hemoglobin 13.3 g/dL (12.0-15.0); Immature Granulocyte Absolute 0.01 K/mm3 (0.00-0.031); Immature Granulocyte Percent A 0.2 % (0-0.5); Lymphocytes Absolute Auto 2.05 K/mm3 (0.9-3.2); Lymphocytes Percent Auto 31.3 % (18.3-44.2); Mean Corpuscular HGB Conc 32.2 g/dl (32-36); Mean Corpuscular Hemoglobin 28.9 pg (26-34); Mean Corpuscular Volume 89.6 fl (80-100); Mean Platelet Volume 11.4 fl (7.4-10.4); Monocytes Absolute Auto 0.8 K/mm3 (0.1-0.6); Monocytes Percent Auto 11.6 % (2.6-8.5); Neutrophils Absolute Auto 3.7 K/mm3 (1.3-6.7); Neutrophils Percent Auto 56.9 % (45.5-73.1); Platelet Count Result 306 k/mm3 (150-375); Red Blood Count 4.61 M/mm3 (4.2-5.4); Red Cell Distribution Width 13.3 % (11.5-14.5); White Blood Count 6.5 K/mm3 (4.5-10.0)
[2021-11-25 08:57] LABS: Alanine Aminotransferase 24 U/L (4-35); Albumin Level 4.2 g/dL (3.5-5.1); Alkaline Phosphatase 82 U/L (38-126); Anion Gap 13 mmol/L (8-16); Aspartate Amino Transferase 36 U/L (14-36); Bilirubin,Total 0.6 mg/dL (0.2-1.3); Blood Urea Nitrogen 22 mg/dL (7-17); Calcium 9.9 mg/dL (8.4-10.2); Carbon Dioxide 26 mmol/L (22-30); Chloride 98 mmol/L (98-107); Cholesterol 141 mg/dL (0-200); Estimated Glomerular Filt Rate 30; Glucose 121 mg/dL (65-110); HDL Direct 52 mg/dL; Potassium 4.1 mmol/L (3.4-5.0); Sodium 137 mmol/L (137-145); Triglycerides 104 mg/dL (<150)
[2021-11-25 09:08] LABS: LDL Cholesterol Direct 59 mg/dL
[2021-11-25 09:24] LABS: Erythrocyte Sedimentation Rate 17 mm/hr (0-20)
[2021-11-25 09:28] LABS: Thyroid Stimulating Hormone 0.555 uIU/mL (0.465-4.680)
[2021-11-25 10:00] LABS: Vitamin D 25 Hydroxy 46.3 ng/mL
== END 2021-11-25 08:17 | disposition home or self-care (01) ==
PROVIDERS: PCP Family Medicine; Visit Provider Physician Assistant Medical
DX: R53.83 Other fatigue (principal); Z68.37 Body mass index [BMI] 37.0-37.9, adult; E78.00 Pure hypercholesterolemia, unspecified
CPT/HCPCS: 36415; 80053; 80061; 82306; 84443; 85025; 85652

== ENCOUNTER 2022-04-08 11:33 | Outpatient (CLI) | payer MEDICARE, MEDICAID, SELFPAY ==
[2022-04-08 12:45] LABS: Anion Gap 11 mmol/L (8-16); Blood Urea Nitrogen 38 mg/dL (7-17); Calcium 8.3 mg/dL (8.4-10.2); Carbon Dioxide 20 mmol/L (22-30); Chloride 105 mmol/L (98-107); Estimated Glomerular Filt Rate 40; Glucose 116 mg/dL (65-110); Sodium 136 mmol/L (137-145)
== END 2022-04-08 11:34 | disposition home or self-care (01) ==
PROVIDERS: PCP Family Medicine; Visit Provider Physician Assistant Medical
DX: I12.9 Hypertensive chronic kidney disease with stage 1 through stage 4 chronic kidney disease, or unspecified chronic kidney disease (principal); N18.31 Chronic kidney disease, stage 3a
CPT/HCPCS: 36415; 80048

== ENCOUNTER 2023-01-24 10:39 | Inpatient (IN) | payer MEDICARE, MEDICAID, SELFPAY ==
[2023-01-24] VITALS (24 sets, daily range): BP systolic 92–128; BP diastolic 47–97; PULSE 89–122; RESP 15–33; TEMP 36.2–36.7; O2SAT 91–98; BMI 35.2
--- NOTE | ~2023-01-24 | CT_ITS ---
EXAMINATION: CT abdomen pelvis w con DATE: 01/26/2023 16:04 INDICATION: Colonic mass TECHNIQUE: Computed tomography (CT) of the abdomen and pelvis was performed with 100 CC Omnipaque 350 intravenous contrast. Automated exposure control and iterative reconstruction technique were employe d. Exam dose: 1244.69 mGy-cm total exam DLP. COMPARISON: 08/12/2019 CT abdomen pelvis FINDINGS: Mild bibasilar atelectasis. No pericardial or pleural effusion. The gallbladder is absent, which likely accounts for mild prominence of the bile ducts. No hepatic sp jae-occupying mass lesion. No pancreatic mass lesion or calcification. There is inhomogeneous enhancement of the spleen with some peripheral areas of hypoattenuation which might be due to splenic infarcts. Normal morphology of the adrenal glands. Bilateral cortical irregularity of the kidneys, likely due to bilateral chronic pyelonephritis. No re nal mass lesion or urinary tract calculus or hydroureteronephrosis is evident. The urinary bladder, u terus and adnexal areas appear unremarkable considering the extensive streak artifact from the right hip prosthesis. There is atherosclerotic calcification but normal caliber of the abdominal aorta and iliac arteries. No intraperitoneal or retroperitoneal or pelvic mass lesion or adenopathy or ascites. No evidence of bowel obstruction or intraperitoneal free air. Occasional colon diverticula.. There is prominent soft tissue thickening of the wall of the ascending colon, suspicious for colon carcinoma. Colon workup is recommended. IMPRESSION: Suspicious thickening of the wall of the ascending colon, suggesting adenocarcinoma of t he colon. Colon workup is recommended Diverticulosis of the colon Bilateral chronic pyelonephritis Small sliding hiatal hernia Status post cholecystectomy Reviewed, dictated and finalized at [facility]. Reviewed, dictated and finalized at location [facility]. IMPRESSION: Suspicious thickening of the wall of the ascending colon, suggesti ng adenocarcinoma of the colon. Colon workup is recommended Diverticulosis of the colon Bilateral chronic pyelonephritis Small sliding hiatal hernia Status post cholecystectomy
--- NOTE | ~2023-01-24 | CT_ITS ---
EXAMINATION: CT hip RT w con DATE: 01/24/2023 13:59 INDICATION: Swelling and bruising at the right hip. Unable to move right hip. TECHNIQUE: Computed tomography (CT) of the right hip was performed without intravenous contrast. [place] tional reconstructed images were obtained in the coronal and sagittal planes. Automated exposure cont rol and iterative reconstruction technique were employed. The dose-length product was 939.37 mGy-cm. COMPARISON: CT dated 08/12/2019 FINDINGS: Noncemented right total hip arthroplasty which appears well seated in near-anatomic alignment. Second darnell metallic streak artifact mildly limits evaluation of the immediately adjacent bone and soft tissu es. No fracture identified. No evident right hip joint effusion. Moderate osteoarthritis at the right sacroiliac joint and severe multilevel bilateral lower lumbar facet osteoarthritis. Mild osteitis pu bis. Multiple diverticula along the sigmoid colon without adjacent inflammation presenting to suggest diverticulitis. Bladder, uterus and bilateral adnexa are unremarkable. No free fluid in the pelvis. No pathologically enlarged right pelvic or inguinal lymphadenopathy. There is some heterotopic ossifi cation in the subcutaneous tissues at the posterior right flank. IMPRESSION: 1. Right total hip arthroplasty with no evident acute osseous abnormality. Reviewed, dictated and finalized at location A.
--- NOTE | ~2023-01-24 | XR_ITS ---
EXAMINATION: XR hip RT 2V w AP pelvis INDICATION: Right hip pain TECHNIQUE: AP view of the pelvis and two views of the right hip are obtained. COMPARISON: 07/14/2020 FINDINGS: There is a right hip arthroplasty. Bone alignment is normal. There is no fracture. There ar e phleboliths of the left pelvis. IMPRESSION: 1. No acute osseous abnormality. Reviewed, dictated and finalized at location A.
--- NOTE | ~2023-01-24 | CT_ITS ---
EXAMINATION: CT brain wo con INDICATION: Head injury COMPARISON: 07/14/2020 TECHNIQUE: Standard unenhanced head CT. The dose-length product (DLP) was 605.33 mGy-cm. The mA was a djusted according to patient size. Iterative reconstruction technique was employed. FINDINGS: There is no acute intraparenchymal hemorrhage. No evidence of mass lesion. No evidence of a cute infarction. There is mild periventricular and subcortical hypodensity probably related to small vessel ischemic disease. There is mild prominence of the sulci and ventricles related to cerebral atr ophy. Intracranial calcified cerebral atherosclerosis is noted. There are no extra-axial collections. There is no mass effect or midline shift. The orbits and soft tissues are unremarkable. The visualiz ed sinuses and mastoid air cells are well aerated. IMPRESSION: 1. No acute intracranial abnormality. 2. Age related findings. Reviewed, dictated and finalized at location A.
--- NOTE | 2023-01-24 10:45 | ECG_ITS ---
Measurements Intervals [place] Rate: 97 P: 49 MT: 130 QRS: 35 QRSD: 85 T: 5 QT: 335 QTc: 426 Interpretive Statements SINUS RHYTHM NONSPECIFIC ST & T-WAVE ABNORMALITY COMPARED TO ECG 07/14/2020 13:53:59 THE PATIENT IS NO LONGER TACHYCARDIC T-WAVE ABNORMALITY NOW PRESENT Electronically Signed On 01-24-2023 22:16:30 CDT by Nena Siu M.D.
[2023-01-24] MEDS: MORPHINE SULFATE (*CRX) 2 MG/ML INJ IV PUSH (11:31)
[2023-01-24 11:42] LABS: Basophils Percent Auto 0.2 % (0.2-1.2); Hematocrit 26.8 % (37.0-47.0); Hemoglobin 7.4 g/dL (12.0-15.0); Immature Granulocyte Absolute 0.05 K/mm3 (0.00-0.031); Immature Granulocyte Percent A 0.4 % (0-0.5); Lymphocytes Absolute Auto 1.16 K/mm3 (0.9-3.2); Lymphocytes Percent Auto 9.1 % (18.3-44.2); Mean Corpuscular HGB Conc 27.6 g/dl (32-36); Mean Corpuscular Hemoglobin 18.6 pg (26-34); Mean Corpuscular Volume 67.3 fl (80-100); Mean Platelet Volume 10.4 fl (7.4-10.4); Monocytes Absolute Auto 1.1 K/mm3 (0.1-0.6); Monocytes Percent Auto 8.4 % (2.6-8.5); Neutrophils Absolute Auto 10.4 K/mm3 (1.3-6.7); Neutrophils Percent Auto 81.9 % (45.5-73.1); Platelet Count Result 453 k/mm3 (150-375); Red Blood Count 3.98 M/mm3 (4.2-5.4); Red Cell Distribution Width 21.2 % (11.5-14.5); White Blood Count 12.7 K/mm3 (4.5-10.0)
[2023-01-24 11:53] LABS: Alanine Aminotransferase 24 U/L (6-35); Albumin Level 3.5 g/dL (3.5-5.1); Alkaline Phosphatase 80 U/L (38-126); Anion Gap 10 mmol/L (8-16); Aspartate Amino Transferase 40 U/L (14-36); Bilirubin,Total 0.7 mg/dL (0.2-1.3); Blood Urea Nitrogen 19 mg/dL (7-17); Calcium 8.6 mg/dL (8.4-10.2); Carbon Dioxide 20 mmol/L (22-30); Chloride 105 mmol/L (98-107); Estimated CRCL calculation 46 ml/min; Estimated Glomerular Filt Rate 49; Glucose 126 mg/dL (65-110); Potassium 4.2 mmol/L (3.4-5.0); Sodium 135 mmol/L (137-145)
[2023-01-24 11:58] LABS: Anisocytosis 3+ (NORMAL); Microcytosis 2+ (NORMAL); Ovalocytes 1+ (NORMAL); Platelet Estimate Increased (Adequate); Schistocytes None Seen (NORMAL)
--- NOTE | 2023-01-24 12:48 | ED.GENADULT ---
HPI - General Adult General Chief complaint: Fall Stated complaint: hip pain after fall Time Seen by Provider: 01/24/23 10:46 History of Present Illness HPI narrative: Patient is a 73-year-old female who presents to the ER with syncope. Reports she got up from a chair was walking towards the door when she lost consciousness. She has some pain in her right hip. Denies fevers or chills or sweats. No abdominal pain. She without chest pain or chest pressure or racing of the heart. She does not take blood thinners. No headache at this time. Related Data Home Medications Medication Instructions Recorded Confirmed amlodipine 5 mg tablet 5 mg PO DAILY 08/12/19 07/14/20 levothyroxine 50 mcg tablet 50 mcg PO DAILY 08/12/19 07/14/20 (Synthroid) lisinopril 40 mg tablet 40 mg PO DAILY 08/12/19 07/14/20 lorazepam 0.5 mg tablet 0.5 mg PO PRN PRN Anxiety 08/12/19 07/14/20 venlafaxine 75 mg capsule,extended 75 mg PO BID 08/12/19 07/14/20 release 24 hr (Effexor XR) hydrochlorothiazide 25 mg tablet 25 mg PO DAILY 01/25/20 07/14/20 metoprolol tartrate 100 mg tablet 50 mg PO DAILY 01/25/20 07/14/20 Allergies Allergy/AdvReac Type Severity Reaction Status Date / Time codeine Allergy Severe SOB Verified 01/24/23 10:48 pseudoephedrine Allergy Severe RASH Verified 01/24/23 10:48 oxycodone Allergy Mild HALLUCINATI Verified 01/24/23 10:48 ONS Sulfa (Sulfonamide Allergy Unknown RASH Verified 01/24/23 10:48 Antibiotics) Review of Systems Review of Systems: All systems reviewed & are unremarkable except as noted in HPI and below Constitutional: Constitutional: Denies chills, Denies fatigue and Denies fever(s) ENT: Denies nasal congestion and Denies sore throat Cardiovascular: Cardiovascular: Denies chest pain and Denies radiating jaw, neck or arm pain Respiratory: Respiratory: Denies cough and Denies dyspnea Gastrointestinal: Gastrointestinal: Denies abdominal pain, Denies diarrhea, Denies nausea and Denies vomiting Neurologic: Reports dizziness and Reports syncope [facility] Past Medical History Medical History Anxiety Asthma Chronic kidney disease, stage 3 Baseline creatinine is between 1.1 and 1.50. Depression Diastolic dysfunction Echocardiogram in August 2019 showed normal left ventricular chamber size and systolic function with an estimated ejection fraction of 65 to 70%, mild asymmetric increased septal wall thickness, grade 1 diastolic dysfunction and mild aortic valve sclerosis as well as mild pulmonic regurgitation. Diverticulitis Gastroesophageal reflux disease Hypertension Hypothyroidism Osteoarthritis Overactive bladder Surgical History Surgical History History of appendectomy History of section History of cholecystectomy History of dilatation and curettage History of repair of right rotator cuff History of total right hip arthroplasty History of tubal ligation Family History Family History Father Acute myocardial infarction Congestive heart failure Hypertension Sibling Hypertension Mother Breast cancer Social History Social History (Updated 01/24/23 @ 13:15 by Aminta Zaragoza NP) Social History: 2 sons 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 Surrogate decision maker: Dhaval Bush, son. Code status: Full code. Smoking status: Never smoker Second hand tobacco smoke exposure: No Alcohol intake: never Substance use: never Substance use type: does not use Additional living arrangements comments: Resides in her own home in [place]. 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 Gender identity (if verbalized by the patient): Female Sexual Orientation (if Verbalized by the Patient): Straight or Heterosexual Spiritual care concerns: No Agree to blood pr
[2023-01-24 13:06] LABS: Immature Reticulocyte Fraction 26.4 % (3.0-15.9); Reticulocyte Hemoglobin Conten 21.2 pg (28.2-35.7); Reticulocyte Percent 1.89 % (0.7-4.3); Reticulocytes Absolute 0.07 B/L (32.2-175.7)
--- NOTE | 2023-01-24 13:10 | PM.IMHP ---
H&P: HPI History of Present Illness Date/Time: 01/24/23 13:10 Chief Complaint: Fall Narrative: This is a 73-year-old female patient who lives home alone. The patient stated that she has been complaining of dizziness. The patient reported that she got up from the chair and was walking towards the door when she lost consciousness. The patient has had a total hip replacement and is now complaining of right hip pain. The patient stated that she laid on the floor for at least 2 days. She denies any fever chills. The patient has not been able to get up off the floor. No chest pain or palpitations. She does not take any blood thinners. Her white count is 12.7. H&H is 7.426.8. Patient's last known normal hemoglobin was 2 months ago with her H&H was 13.3 and 41.3. Reticular count is 21.2. Her sodium is noted to be 135. Her ferritin was found to be 6.69. Her iron is 13 and iron saturation is 3. Head CT was read as no acute intracranial abnormality. Age-related findings. Hip and pelvis x-ray no acute osseous abnormality. The patient is not able to reach her right leg remove it. Patient is unable to walk on that right hip she has swelling and bruising to the right hip. A CT of the hip was performed awaiting radiology review. The patient was given morphine in the emergency room. The patient is being admitted to observation status on the date of service of 01/24/2023. Review of Systems Review of Systems: All systems reviewed & are unremarkable except as noted in HPI and below Constitutional: Constitutional: Reports as per HPI and Reports no additional constitutional complaints Eyes: Eyes: Reports as per HPI and Reports no additional eye complaints ENT: Reports system reviewed and no additional complaints, except as documented and Reports Normal hearing present Cardiovascular: Cardiovascular: Reports no additional cardiovascular complaints Respiratory: Respiratory: Reports no additional respiratory complaints and Reports no additional respiratory complaints Gastrointestinal: Gastrointestinal: Reports as per HPI and Reports no additional gastrointestinal complaints Musculoskeletal: Musculoskeletal: Reports no additional musculoskeletal complaints Integumentary/Breasts: Skin/Breast: Reports system reviewed and no additional complaints, except as docu and Reports as per HPI Neurologic: Reports system reviewed and no additional complaints, except as documented, Reports as per HPI and Reports Normal hearing present Psychiatric: Psychiatric: Reports no additional psychiatric complaints and Reports as per HPI Endocrine: Endocrine: Reports no additional endocrine complaints Hematologic/Lymphatic: Hematologic/Lymphatic: Reports no additional hematologic/lymphatic complaints Allergic/Immunologic: Allergic/Immunologic: Reports no additional allergic/immunologic complaints [facility] Past Medical History Medical History (Updated 01/24/23 @ 15:22 by Aminta Zaragoza NP) Anxiety Asthma Chronic kidney disease, stage 3 Baseline creatinine is between 1.1 and 1.50. Depression Diastolic dysfunction Echocardiogram in August 2019 showed normal left ventricular chamber size and systolic function with an estimated ejection fraction of 65 to 70%, mild asymmetric increased septal wall thickness, grade 1 diastolic dysfunction and mild aortic valve sclerosis as well as mild pulmonic regurgitation. Diverticulitis Gastroesophageal reflux disease Hyperlipidemia Hypertension Hypothyroidism Osteoarthritis Overactive bladder Surgical History Surgical History History of appendectomy History of section History of cholecystectomy History of dilatation and curettage History of repair of right rotator cuff History of total right hip arthroplasty History of tubal ligation Family History Family History Father Acute myocardial infarct
[2023-01-24 13:14] LABS: Lactate Dehydrogenase 279 U/L (120-246)
[2023-01-24 13:18] LABS: Iron 13 ug/dL (37-170)
[2023-01-24 13:27] LABS: Percent Iron Saturation 3 % (20-50)
[2023-01-24 13:37] LABS: Creatine Kinase 367 U/L (30-135)
[2023-01-24 13:54] LABS: Ferritin 6.69 ng/mL (11.1-264)
--- NOTE | 2023-01-24 14:05 | ADMGEN ---
This patient, Sigifredo Bush, was admitted to Medical Room 348-01. Patient/family oriented to hospital policies and general routines including ID bracelet, bed and alarms, visiting hours, pain management, procedures, bathroom and other care routines, personal items, smoking policy, room service/diet, and visiting hours. Information on how to activate the Rapid Response Team has been discussed. Patient/Family are encouraged to report perceived risks to care and to ask questions if they do not understand what they are told or what they should do.
[2023-01-24 14:22] LABS: Folic Acid 11.6 ng/mL (2.76->20)
[2023-01-24] MEDS: SODIUM CHLORIDE 0.9% IV 500 ML 50 ML IV CONT (14:40)
[2023-01-24 16:32] LABS: Hematocrit 26.3 % (37.0-47.0); Hemoglobin 7.1 g/dL (12.0-15.0)
[2023-01-24] MEDS: HYDROcodone/acetaminophen (*CRX) 5-325 MG TABLET 1 TAB PO ×2 (16:58→22:21)
[2023-01-24] MEDS: VENLAFAXINE HCL XR 75 MG CAP.ER.24H PO (16:59)
--- NOTE | 2023-01-24 20:39 | PC.NURSE ---
NOTED ORDER FOR BLOOD PRODUCTS. ATTEMPTED TO ELECTRIC [employer]PERATOR BLOOD PRODUCTS. ANTIGEN SCREEN NOT DONE.
[2023-01-24] MEDS: FAMOTIDINE 20 MG/2 ML VIAL IV PUSH (22:16)
[2023-01-24 22:19] LABS: Hematocrit 25.2 % (37.0-47.0)
[2023-01-25] VITALS (20 sets, daily range): BP systolic 112–140; BP diastolic 51–76; PULSE 96–113; RESP 16–22; TEMP 36.2–37; O2SAT 91–100
[2023-01-25] MEDS: LORazepam (*CRX) 0.5 MG TABLET PO (07:32)
--- NOTE | 2023-01-25 07:39 | WPDANESEPPF ---
Anes - Initial Pre Proc Eval Procedure: Operation Date: 01/25/23 08:00 Proposed Procedures p Esophagogastroduodenoscopy - Clyde Hooks MD Date/Time: 01/25/23 07:39 Surgeon: Fatou Sutton DO Pre Op Diagnosis: Syncope,Anemia,Orthostasis Patient Data Age: 73 Gender: F Height: 1.63 m Weight: 93 kg Last Vital Signs Temp 36.6 C 01/25/23 06:40 Pulse 101 H 01/25/23 06:40 Resp 16 01/25/23 06:40 BP 113/59 L 01/25/23 06:40 Pulse Ox 99 01/25/23 06:40 O2 Del Method Room Air 01/24/23 20:00 Allergies Allergy/AdvReac Type Severity Reaction Status Date / Time codeine Allergy Severe SOB Verified 01/24/23 10:48 pseudoephedrine Allergy Severe RASH Verified 01/24/23 10:48 oxycodone Allergy Mild HALLUCINATI Verified 01/24/23 10:48 ONS Sulfa (Sulfonamide Allergy Unknown RASH Verified 01/24/23 10:48 Antibiotics) Home Medications Medication Instructions Recorded Confirmed Type amlodipine 5 mg tablet 10 mg PO DAILY 08/12/19 01/24/23 History levothyroxine 50 mcg tablet 75 mcg PO DAILY 08/12/19 01/24/23 History (Synthroid) lorazepam 0.5 mg tablet 0.5 mg PO PRN PRN Anxiety 08/12/19 01/24/23 History venlafaxine 75 mg capsule,extended 75 mg PO BID 08/12/19 01/24/23 History release 24 hr (Effexor XR) metoprolol tartrate 100 mg tablet 50 mg PO DAILY 01/25/20 01/24/23 History atorvastatin 20 mg tablet 20 mg PO QAM 01/24/23 01/24/23 History clonidine HCl 0.1 mg tablet 0.1 mg PO TID 01/24/23 01/24/23 History losartan 100 mg tablet 100 mg PO QAM 01/24/23 01/24/23 History tolnaftate 1 % topical powder 1 applic topical Q12HR PRN Rash 01/24/23 01/24/23 History Laboratory Tests 01/24/23 01/24/23 01/24/23 11:23 11:24 11:24 WBC 12.7 K/mm3 H K/mm3 (4.5-10.0) RBC 3.98 M/mm3 L M/mm3 (4.2-5.4) Hgb 7.4 g/dL L D g/dL (12.0-15.0) Hct 26.8 % L % (37.0-47.0) MCV 67.3 fl L fl (80-100) MCH 18.6 pg L pg (26-34) MCHC 27.6 g/dl L g/dl (32-36) RDW 21.2 % H % (11.5-14.5) Plt Count 453 k/mm3 H k/mm3 (150-375) MPV 10.4 fl fl (7.4-10.4) Immature Gran % (Auto) 0.4 % % (0-0.5) Neut % (Auto) 81.9 % H % (45.5-73.1) Lymph % (Auto) 9.1 % L % (18.3-44.2) [place] % (Auto) 8.4 % % (2.6-8.5) Eos % (Auto) 0.0 % % (0-4.4) Baso % (Auto) 0.2 % % (0.2-1.2) Lymph # (Auto) 1.16 K/mm3 K/mm3 (0.9-3.2) [place] # (Auto) 1.1 K/mm3 H K/mm3 (0.1-0.6) Eos # (Auto) 0.0 K/mm3 K/mm3 (0-0.3) Baso # (Auto) 0.0 K/mm3 K/mm3 (0.0-0.1) Abs Immat Gran (auto) 0.05 K/mm3 H K/mm3 (0.00-0.031) Absolute Neuts (auto) 10.4 K/mm3 H K/mm3 (1.3-6.7) Absolute Nucleated RBC 0.0 K/mm3 K/mm3 (0.0-0.012) Nucleated RBC % 0.0 % % (0.0-0.2) Platelet Estimate Increased (Adequate) Anisocytosis 3+ (NORMAL) Microcytosis 2+ (NORMAL) Ovalocytes 1+ (NORMAL) Schistocytes None seen (NORMAL) Absolute Retic Percent Retic Immature Retic Fraction Retic Hgb Content Sodium 135 mmol/L L mmol/L (137-145) Potassium 4.2 mmol/L mmol/L (3.4-5.0) Chloride 105 mmol/L mmol/L (98-107) Carbon Dioxide 20 mmol/L L mmol/L (22-30) Anion Gap 10 mmol/L mmol/L (8-16) BUN 19 mg/dL H D mg/dL (7-17) Creatinine 1.10 mg/dL H mg/dL (0.7-1.0) Estim Creat Clear Calc 46 ml/min ml/min Estimated GFR 49 L (59 - ) Glucose 126 mg/dL H mg/dL (65-110) Calcium 8.6 mg/dL mg/dL (8.4-10.2) Iron TIBC % Saturation Ferritin Total Bilirubin 0.7 mg/dL mg/dL (0.2-1.3) AST 40 U/L H U/L (14-36) ALT 24 U/L U/L
--- NOTE | 2023-01-25 07:55 | WPDGICN ---
Assessment and Plan Assessment and plan (1) Melena: Code(s): K92.1 - Melena Status: Acute Assessment and Plan: probably upper gib on iv protonix will proceed with urgent EGD to assess site of bleeding monitor for more signs of bleeding (2) Acute blood loss anemia: Code(s): D62 - Acute posthemorrhagic anemia Status: Acute Assessment and Plan: she is getting blood transfusion trend h/h urgent EGD (3) Syncope: Code(s): R55 - Syncope and collapse Status: Acute Assessment and Plan: CT head negative probably related to gib will monitor (4) Orthostatic syncope: Code(s): I95.1 - Orthostatic hypotension Status: Acute Assessment and Plan: improved after medical therapy GI Consult Note Consult date/time: 01/25/23 07:55 Reason for consult: gib, acute blood loss anemia HPI: Sigifredo Bush is a 73 year old female with history of HTN who was found in the floor at home (she lives home alone) after she had episode of syncope when she was walking after new onset of dizziness.? She had a total hip replacement and also was complaining of right hip pain. She does not take any blood thinners.?Blood work showed white count 12.7.? Hb 7.4.? Patient's last known normal hemoglobin was 2 months ago with her H&H was 13.3 and 41.3. Ferritin 6.69.? Her iron is 13. Head CT was read as no acute intracranial abnormality.? Age-related findings.? Hip and pelvis x-ray no acute osseous abnormality.? She noted dark stools, no hematemesis or abdominal pain. She could not remember if had a colonoscopy but if she did was over 10 years ago. She is getting blood transfusion. Review of Systems Review of Systems: All systems reviewed & are unremarkable except as noted in HPI and below Constitutional: Constitutional: Denies chills, Denies fatigue and Denies fever(s) Eyes: Eyes: Denies blurry vision ENT: Denies nasal congestion and Denies sore throat Cardiovascular: Cardiovascular: Denies chest pain and Denies radiating jaw, neck or arm pain Respiratory: Respiratory: Denies cough and Denies dyspnea Gastrointestinal: Gastrointestinal: Denies abdominal pain, Denies diarrhea, Denies nausea and Denies vomiting Genitourinary: Genitourinary: Denies hematuria Musculoskeletal: Musculoskeletal: Reports arthralgias Integumentary/Breasts: Skin/Breast: Denies rash Neurologic: Reports dizziness and Reports syncope Psychiatric: Psychiatric: Denies behavioral changes [facility] Past Medical History Medical History (Updated 01/25/23 @ 08:25 by Clyde Hooks MD) Acute blood loss anemia Anxiety Asthma Chronic kidney disease, stage 3 Baseline creatinine is between 1.1 and 1.50. Depression Diastolic dysfunction Echocardiogram in August 2019 showed normal left ventricular chamber size and systolic function with an estimated ejection fraction of 65 to 70%, mild asymmetric increased septal wall thickness, grade 1 diastolic dysfunction and mild aortic valve sclerosis as well as mild pulmonic regurgitation. Diverticulitis Gastroesophageal reflux disease Hyperlipidemia Hypertension Hypothyroidism Melena Osteoarthritis Overactive bladder Surgical History Surgical History History of appendectomy History of section History of cholecystectomy History of dilatation and curettage History of repair of right rotator cuff History of total right hip arthroplasty History of tubal ligation Family History Family History Father Acute myocardial infarction Congestive heart failure Hypertension Sibling Hypertension Mother Breast cancer Social History Social History (Updated 01/24/23 @ 14:59 by Aminta Zaragoza NP) Social History: She has 2 sons and is . 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 Surrogate decision maker: Dhaval Fitzgerald
--- NOTE | 2023-01-25 08:31 | PCOTNOTE ---
Attempted OT evaluation; pt. out of room for testing. Per RN hold evaluation until later afternoon or tomorrow. Will attempt again as able
[2023-01-25] MEDS: LACTATED RINGERS 1,000 ML 150 ML IV CONT (08:34)
[2023-01-25] MEDS: HYDROcodone/acetaminophen (*CRX) 5-325 MG TABLET 1 TAB PO ×3 (10:14→21:08)
[2023-01-25] MEDS: ATORVASTATIN 20 MG TABLET PO (10:16)
[2023-01-25] MEDS: VENLAFAXINE HCL XR 75 MG CAP.ER.24H PO ×2 (10:16→17:26)
[2023-01-25] MEDS: LEVOTHYROXINE SODIUM 75 MCG TABLET PO (10:16)
[2023-01-25] MEDS: FAMOTIDINE 20 MG/2 ML VIAL IV PUSH ×2 (10:17→21:03)
[2023-01-25] MEDS: amLODIPine BESYLATE 5 MG TABLET 10 MG PO (10:17)
[2023-01-25] MEDS: FERROUS SULFATE 324 MG TABLET PO (10:18)
[2023-01-25 10:23] LABS: Basophils Absolute Auto 0.1 K/mm3 (0.0-0.1); Basophils Percent Auto 0.6 % (0.2-1.2); Immature Granulocyte Absolute 0.05 K/mm3 (0.00-0.031); Immature Granulocyte Percent A 0.5 % (0-0.5); Lymphocytes Absolute Auto 1.41 K/mm3 (0.9-3.2); Mean Corpuscular HGB Conc 29.4 g/dl (32-36); Mean Corpuscular Hemoglobin 21.1 pg (26-34); Mean Corpuscular Volume 71.6 fl (80-100); Mean Platelet Volume 10.7 fl (7.4-10.4); Monocytes Absolute Auto 1.1 K/mm3 (0.1-0.6); Monocytes Percent Auto 10.9 % (2.6-8.5); Neutrophils Absolute Auto 7.4 K/mm3 (1.3-6.7); Nucleated Red Blood Cells Perc 0.3 % (0.0-0.2); Platelet Count Result 389 k/mm3 (150-375); Red Blood Count 4.75 M/mm3 (4.2-5.4); Red Cell Distribution Width 23.6 % (11.5-14.5)
[2023-01-25] MEDS: EUCERIN CREAM 120 GM JAR 1 APPLIC TOPICAL (10:28)
[2023-01-25 10:35] LABS: Alanine Aminotransferase 24 U/L (6-35); Albumin Level 3.4 g/dL (3.5-5.1); Alkaline Phosphatase 82 U/L (38-126); Anion Gap 7 mmol/L (8-16); Aspartate Amino Transferase 53 U/L (14-36); Bilirubin,Total 2.1 mg/dL (0.2-1.3); Blood Urea Nitrogen 17 mg/dL (7-17); Calcium 8.4 mg/dL (8.4-10.2); Carbon Dioxide 24 mmol/L (22-30); Chloride 105 mmol/L (98-107); Creatine Kinase 295 U/L (30-135); Estimated CRCL calculation 50 ml/min; Estimated Glomerular Filt Rate 55; Glucose 129 mg/dL (65-110); Magnesium 1.6 mg/dL (1.6-2.3); Potassium 3.8 mmol/L (3.4-5.0); Sodium 136 mmol/L (137-145)
[2023-01-25 10:36] LABS: Lactic Acid Reflex 1.5 mmol/L (0.7-2.0)
[2023-01-25 10:47] LABS: Anisocytosis 3+ (NORMAL); Hypochromasia 1+ (NORMAL); Platelet Estimate Adequate (Adequate); Schistocytes None Seen (NORMAL)
--- NOTE | 2023-01-25 11:00 | PM.IMPN ---
Progress Note: A&P Assessment and Plan (1) Orthostatic syncope: Code(s): I95.1 - Orthostatic hypotension Status: Acute Assessment and Plan: Positive orthostatic blood pressures, likely secondary to acute blood loss anemia, monitor (2) Anemia: Code(s): D64.9 - Anemia, unspecified Status: Acute Assessment and Plan: Appreciate GI consultation, EGD 01/25 and colonoscopy 01/26 (3) Depression: Code(s): F32.9 - Major depressive disorder, single episode, unspecified Status: Acute Assessment and Plan: Continue with Effexor (4) Generalized weakness: Code(s): R53.1 - Weakness Status: Acute Assessment and Plan: Likely secondary to positive orthostatic blood pressure from acute blood loss anemia Appreciate PT/OT/care coordination consultations (5) Syncope: Code(s): R55 - Syncope and collapse Status: Acute Assessment and Plan: As above (6) Chronic kidney disease, stage 3: Code(s): N18.30 - Chronic kidney disease, stage 3 unspecified Status: Acute Assessment and Plan: Improving, monitor (7) Rhabdomyolysis: Code(s): M62.82 - Rhabdomyolysis Status: Resolved Assessment and Plan: Resolving (8) Anxiety: Code(s): F41.9 - Anxiety disorder, unspecified Status: Chronic Assessment and Plan: Continue with lorazepam (9) Depression with anxiety: Code(s): F41.8 - Other specified anxiety disorders Status: Chronic Assessment and Plan: Continue with Effexor (10) Hypothyroidism: Code(s): E03.9 - Hypothyroidism, unspecified Status: Chronic Assessment and Plan: Continue levothyroxine, TSH wnl (11) Hypertension: Qualifiers: Hypertension type: essential hypertension Qualified Code(s): I10 - Essential (primary) hypertension Code(s): I10 - Essential (primary) hypertension Status: Chronic Assessment and Plan: Hold antihypertensives while hypotensive, restart when able (12) Hyperlipidemia: Code(s): E78.5 - Hyperlipidemia, unspecified Status: Acute Assessment and Plan: Continue with atorvastatin and monitor liver function tests. Plan DVT prophylaxis with SCDs GI prophylaxis not indicated Code status full code Subjective Date/time seen: 01/25/23 11:00 Interval history: 73-year-old female from home past medical history of heart failure, GERD, kidney disease is presenting with lightheadedness and dizziness with possible syncopal episode due to unwitnessed fall, found to be anemic in the ER. No overnight events noted. No chest pain or shortness of breath. No nausea, vomiting or diarrhea. No fevers or chills. She continues to feel similarly to when she presented. Review of Systems Review of Systems: 12 point review of systems was assessed and was negative except as noted in the HPI Exam Narrative: General: No acute distress, alert and oriented per baseline HEENT: Atraumatic, normocephalic, mucous membranes moist CV: Regular rate and rhythm, S1, S2 Lungs: Clear to auscultation bilaterally, no rales or crackles noted, no wheezes, good air entry Abdomen: Soft, nontender, nondistended Extremities: Normal to inspection Skin: No rashes noted, no lesions or wounds seen Psych: Euthymic, normal affect Objective Data Vital Signs Vital Signs: Vital Signs - 24 hr 01/24/23 11:57 01/24/23 11:58 01/24/23 11:02 Temperature Pulse Rate 95 114 H 98 Respiratory Rate 18 Blood Pressure 122/65 104/55 L Pulse Oximetry Oxygen Delivery Oxygen Flow Rate 01/24/23 11:20 01/24/23 11:26 01/24/23 11:30 Temperature Pulse Rate 94 92 95 Respiratory Rate 22 H 20 21 H Blood Pressure 128/51 L Pulse Oximetry 96 96 95 Oxygen Delivery Oxygen Flow Rate 01/24/23 11:31 01/24/23 11:45 01/24/23
[2023-01-25] MEDS: BISACODYL 5 MG TABLET EC 20 MG PO (17:25)
[2023-01-25] MEDS: polyethylene glycoL 3350 238 GM BOTTLE PO (17:25)
[2023-01-26] VITALS (13 sets, daily range): BP systolic 127–156; BP diastolic 56–86; PULSE 104–135; RESP 18–33; TEMP 36.3–36.9; O2SAT 91–97
[2023-01-26] MEDS: HYDROcodone/acetaminophen (*CRX) 5-325 MG TABLET 1 TAB PO ×4 (00:49→21:15)
[2023-01-26] MEDS: LORazepam (*CRX) 0.5 MG TABLET PO ×2 (00:51→21:15)
[2023-01-26] MEDS: LEVOTHYROXINE SODIUM 75 MCG TABLET PO (05:50)
--- NOTE | 2023-01-26 08:20 | WPDANESPN ---
Anes - Prog Note Post-Op Date/Time: 01/26/23 08:20 Cardiovascular status: normal Respiratory status: normal Airway patency: baseline Mental status: baseline Post-Op hydration status: normal Vital Signs: Last Vital Signs Temp 98.4 F 01/25/23 20:43 Pulse 116 H 01/26/23 04:00 Resp 22 H 01/25/23 20:43 BP 139/66 01/25/23 20:43 Pulse Ox 93 01/25/23 20:43 O2 Del Method Room Air 01/26/23 07:38 O2 Flow Rate 2 01/25/23 08:51 Pain Score (VAS): 0/10 I/O: Intake & Output 01/25/23 01/26/23 01/26/23 23:59 07:59 15:59 Intake Total 1340 Balance 1340 Laboratory Tests 01/25/23 10:17 01/25/23 10:17 01/24/23 01/25/23 01/25/23 13:00 10:17 10:17 WBC RBC Hgb Hct MCV MCH MCHC RDW Plt Count MPV Immature Gran % (Auto) Neut % (Auto) Lymph % (Auto) [facility] % (Auto) Eos % (Auto) Baso % (Auto) Lymph # (Auto) [facility] # (Auto) Eos # (Auto) Baso # (Auto) Abs Immat Gran (auto) Absolute Neuts (auto) Absolute Nucleated RBC Nucleated RBC % Platelet Estimate Hypochromasia Anisocytosis Schistocytes Sodium Potassium Chloride Carbon Dioxide Anion Gap BUN Creatinine Estim Creat Clear Calc Estimated GFR Glucose Lactic Acid 1.5 Calcium Magnesium Total Bilirubin AST ALT Alkaline Phosphatase Total Creatine Kinase Total Protein Albumin TSH (Reflex) 2.040 Crossmatch See Detail 01/25/23 01/25/23 10:17 10:17 WBC 10.0 RBC 4.75 Hgb 10.0 L D Hct 34.0 L MCV 71.6 L D MCH 21.1 L D MCHC 29.4 L RDW 23.6 H Plt Count 389 H MPV 10.7 H Immature Gran % (Auto) 0.5 Neut % (Auto) 74.0 H Lymph % (Auto) 14.[address] [facility] % (Auto) 10.9 H Eos % (Auto) 0.0 Baso % (Auto) 0.6 Lymph # (Auto) 1.41 [facility] # (Auto) 1.1 H Eos # (Auto) 0.0 Baso # (Auto) 0.1 Abs Immat Gran (auto) 0.05 H Absolute Neuts (auto) 7.4 H Absolute Nucleated RBC 0.0 Nucleated RBC % 0.3 H Platelet Estimate Adequate Hypochromasia 1+ Anisocytosis 3+ Schistocytes None seen Sodium 136 L Potassium 3.8 Chloride 105 Carbon Dioxide 24 Anion Gap 7 L BUN 17 Creatinine 1.00 Estim Creat Clear Calc 50 Estimated GFR 55 L Glucose 129 H Lactic Acid Calcium 8.4 Magnesium 1.6 Total Bilirubin 2.1 H AST 53 H ALT 24 Alkaline Phosphatase 82 Total Creatine Kinase 295 H Total Protein 7.0 Albumin 3.4 L TSH (Reflex) Crossmatch Post-procedural complaints: none Patient Feedback: Patient satisfied with anesthetic care.
[2023-01-26] MEDS: polyethylene glycoL 3350 238 GM BOTTLE PO (09:23)
[2023-01-26] MEDS: EUCERIN CREAM 120 GM JAR 1 APPLIC TOPICAL (09:24)
--- NOTE | 2023-01-26 12:44 | PC.NURSE ---
Patient off of unit to GI lab
[2023-01-26] MEDS: LACTATED RINGERS 1,000 ML 150 ML IV CONT (13:13)
--- NOTE | 2023-01-26 13:13 | WPDANESEPPF ---
Anes - Initial Pre Proc Eval Procedure: Operation Date: 01/25/23 08:00 Proposed Procedures p Esophagogastroduodenoscopy - Clyde Hooks MD Operation Date: 01/26/23 14:45 Proposed Procedures p Colonoscopy - Coy Burt MD Date/Time: 01/26/23 13:13 Surgeon: Fatou Sutton DO Pre Op Diagnosis: Syncope,Anemia,Orthostasis Patient Data Age: 73 Gender: F Height: 1.63 m Weight: 93 kg Last Vital Signs Temp 97.4 F L 01/26/23 13:01 Pulse 116 H 01/26/23 13:01 Resp 22 H 01/26/23 13:01 BP 127/76 01/26/23 13:01 Pulse Ox 95 01/26/23 13:01 O2 Del Method Room Air 01/26/23 13:01 O2 Flow Rate 2 01/25/23 08:51 Allergies Allergy/AdvReac Type Severity Reaction Status Date / Time codeine Allergy Severe SOB Verified 01/26/23 12:59 pseudoephedrine Allergy Severe RASH Verified 01/26/23 12:59 oxycodone Allergy Mild HALLUCINATI Verified 01/26/23 12:59 ONS Sulfa (Sulfonamide Allergy Unknown RASH Verified 01/26/23 12:59 Antibiotics) Home Medications Medication Instructions Recorded Confirmed Type amlodipine 5 mg tablet 10 mg PO DAILY 08/12/19 01/24/23 History levothyroxine 50 mcg tablet 75 mcg PO DAILY 08/12/19 01/24/23 History (Synthroid) lorazepam 0.5 mg tablet 0.5 mg PO PRN PRN Anxiety 08/12/19 01/24/23 History venlafaxine 75 mg capsule,extended 75 mg PO BID 08/12/19 01/24/23 History release 24 hr (Effexor XR) metoprolol tartrate 100 mg tablet 50 mg PO DAILY 01/25/20 01/24/23 History atorvastatin 20 mg tablet 20 mg PO QAM 01/24/23 01/24/23 History clonidine HCl 0.1 mg tablet 0.1 mg PO TID 01/24/23 01/24/23 History losartan 100 mg tablet 100 mg PO QAM 01/24/23 01/24/23 History tolnaftate 1 % topical powder 1 applic topical Q12HR PRN Rash 01/24/23 01/24/23 History Patient hx anesthesia problems: none Family hx anesthesia problems: none Results Review: All pre-operative results and documents have been reviewed as part of the pre-operative evaluation. [facility] Past Medical History Medical History (Updated 01/25/23 @ 08:25 by Clyde Hooks MD) Acute blood loss anemia Anxiety Asthma Chronic kidney disease, stage 3 Baseline creatinine is between 1.1 and 1.50. Depression Diastolic dysfunction Echocardiogram in August 2019 showed normal left ventricular chamber size and systolic function with an estimated ejection fraction of 65 to 70%, mild asymmetric increased septal wall thickness, grade 1 diastolic dysfunction and mild aortic valve sclerosis as well as mild pulmonic regurgitation. Diverticulitis Gastroesophageal reflux disease Hyperlipidemia Hypertension Hypothyroidism Melena Osteoarthritis Overactive bladder Surgical History Surgical History History of appendectomy History of section History of cholecystectomy History of dilatation and curettage History of repair of right rotator cuff History of total right hip arthroplasty History of tubal ligation Family History Family History Father Acute myocardial infarction Congestive heart failure Hypertension Sibling Hypertension Mother Breast cancer Social History Social History (Updated 01/24/23 @ 14:59 by Aminta Zaragoza NP) Social History: She has 2 sons and is . 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 Surrogate decision maker: Dhaval Bush, son. Code status: Full code. Smoking status: Never smoker Second hand tobacco smoke exposure: No Alcohol intake: never Substance use: never Substance use type: does not use Lack of Transportation: No Lack of Food: Never True Current Housing: I Have Housing Concerned About Future Housing: No Difficulty Paying Gas/Electric Bills: No Difficulty Paying for Meds: No Currently Unemployed: No Education: Decline to Answer Difficulty w/ Childcare or Family Care: No [place]
--- NOTE | 2023-01-26 13:30 | PM.IMPN ---
Progress Note: A&P Assessment and Plan (1) Orthostatic syncope: Code(s): I95.1 - Orthostatic hypotension Status: Acute Assessment and Plan: Positive orthostatic blood pressures, likely secondary to acute blood loss anemia, monitor (2) Anemia: Code(s): D64.9 - Anemia, unspecified Status: Acute Assessment and Plan: Appreciate GI consultation, EGD 01/25 and colonoscopy 01/26 (3) Depression: Code(s): F32.9 - Major depressive disorder, single episode, unspecified Status: Acute Assessment and Plan: Continue with Effexor (4) Generalized weakness: Code(s): R53.1 - Weakness Status: Acute Assessment and Plan: Likely secondary to positive orthostatic blood pressure from acute blood loss anemia Appreciate PT/OT/care coordination consultations (5) Syncope: Code(s): R55 - Syncope and collapse Status: Acute Assessment and Plan: As above (6) Chronic kidney disease, stage 3: Code(s): N18.30 - Chronic kidney disease, stage 3 unspecified Status: Acute Assessment and Plan: Improving, monitor (7) Rhabdomyolysis: Code(s): M62.82 - Rhabdomyolysis Status: Resolved Assessment and Plan: Resolving (8) Anxiety: Code(s): F41.9 - Anxiety disorder, unspecified Status: Chronic Assessment and Plan: Continue with lorazepam (9) Depression with anxiety: Code(s): F41.8 - Other specified anxiety disorders Status: Chronic Assessment and Plan: Continue with Effexor (10) Hypothyroidism: Code(s): E03.9 - Hypothyroidism, unspecified Status: Chronic Assessment and Plan: Continue levothyroxine, TSH wnl (11) Hypertension: Qualifiers: Hypertension type: essential hypertension Qualified Code(s): I10 - Essential (primary) hypertension Code(s): I10 - Essential (primary) hypertension Status: Chronic Assessment and Plan: Hold antihypertensives while hypotensive, restart when able (12) Hyperlipidemia: Code(s): E78.5 - Hyperlipidemia, unspecified Status: Acute Assessment and Plan: Continue with atorvastatin and monitor liver function tests. Subjective Date/time seen: 01/26/23 13:30 Interval history: 73-year-old female from home past medical history of heart failure, GERD, kidney disease is presenting with lightheadedness and dizziness with possible syncopal episode due to unwitnessed fall, found to be anemic in the ER. Pt going for colonoscopy today had egd yesterday for anemia today hopeful DC tomorrow Review of Systems Review of Systems: weakness tiredness All systems reviewed & are unremarkable except as noted in HPI and below Exam Narrative: General: Chronically ill appearing CV: Regular rate and rhythm, S1, S2 Lungs: Clear to auscultation bilaterally, no rales or crackles noted, no wheezes, good air entry Abdomen: Soft, nontender, nondistended Extremities: Normal to inspection Skin: No rashes noted, no lesions or wounds seen Objective Data Vital Signs Vital Signs: Vital Signs - 24 hr 01/25/23 15:48 01/25/23 16:00 01/25/23 20:43 Temperature 37.0 C 36.9 C Pulse Rate 108 H 107 H 113 H Respiratory Rate 18 22 H Blood Pressure 112/51 L 139/66 Pulse Oximetry 91 93 Oxygen Delivery 01/25/23 20:00 01/25/23 20:00 01/26/23 00:00 Temperature Pulse Rate 111 H 105 H Respiratory Rate Blood Pressure Pulse Oximetry Oxygen Delivery Room Air 01/26/23 04:00 01/26/23 07:38 01/26/23 09:24 Temperature Pulse Rate 116 H Respiratory Rate Blood Pressure Pulse Oximetry Oxygen Delivery Room Air Room Air 01/26/23 08:00 01/26/23 12:00 01/26/23 13:01 Temperature 36.3 C L Pulse Rate 126 H 110 H 116 H Respiratory Rate 22 H Blood Pressure 127/76 Pulse Oximetry 95 Oxy
--- NOTE | 2023-01-26 15:00 | PC.NURSE ---
Patient returned to unit from GI lab
[2023-01-26 15:49] LABS: Carcinoembryonic Antigen 10.4 ng/mL (0.0-3.0)
[2023-01-26] MEDS: VENLAFAXINE HCL XR 75 MG CAP.ER.24H PO (17:16)
[2023-01-26] MEDS: FAMOTIDINE 20 MG/2 ML VIAL IV PUSH (21:15)
[2023-01-26] MEDS: SODIUM CHLORIDE 0.9% IV 1,000 ML 999 ML IV CONT (21:44)
[2023-01-27] VITALS (12 sets, daily range): BP systolic 130–143; BP diastolic 59–69; PULSE 84–119; RESP 16–20; TEMP 36.3–36.9; O2SAT 92–97
[2023-01-27] MEDS: HYDROcodone/acetaminophen (*CRX) 5-325 MG TABLET 1 TAB PO ×2 (05:29→20:48)
[2023-01-27] MEDS: LEVOTHYROXINE SODIUM 75 MCG TABLET PO (05:29)
[2023-01-27 06:25] LABS: Hematocrit 35.4 % (37.0-47.0); Hemoglobin 10.1 g/dL (12.0-15.0); Mean Corpuscular HGB Conc 28.5 g/dl (32-36); Mean Corpuscular Hemoglobin 21.2 pg (26-34); Mean Corpuscular Volume 74.4 fl (80-100); Mean Platelet Volume 10.1 fl (7.4-10.4); Platelet Count Result 373 k/mm3 (150-375); Red Blood Count 4.76 M/mm3 (4.2-5.4); Red Cell Distribution Width 24.9 % (11.5-14.5); White Blood Count 15.4 K/mm3 (4.5-10.0)
[2023-01-27 06:38] LABS: Anion Gap 6 mmol/L (8-16); Blood Urea Nitrogen 8 mg/dL (7-17); Carbon Dioxide 25 mmol/L (22-30); Chloride 103 mmol/L (98-107); Estimated CRCL calculation 62 ml/min; Estimated Glomerular Filt Rate > 60; Glucose 126 mg/dL (65-110); Potassium 3.4 mmol/L (3.4-5.0); Sodium 134 mmol/L (137-145)
[2023-01-27] MEDS: FERROUS SULFATE 324 MG TABLET PO (08:25)
[2023-01-27] MEDS: amLODIPine BESYLATE 5 MG TABLET 10 MG PO (08:25)
[2023-01-27] MEDS: ATORVASTATIN 20 MG TABLET PO (08:25)
[2023-01-27] MEDS: VENLAFAXINE HCL XR 75 MG CAP.ER.24H PO ×2 (08:25→18:25)
[2023-01-27] MEDS: FAMOTIDINE 20 MG/2 ML VIAL IV PUSH ×2 (08:25→20:48)
[2023-01-27] MEDS: EUCERIN CREAM 120 GM JAR 1 APPLIC TOPICAL (08:26)
[2023-01-27] MEDS: METOPROLOL TARTRATE 50 MG TAB PO (12:14)
--- NOTE | 2023-01-27 12:58 | PM.IMPN ---
Progress Note: A&P Assessment and Plan (1) Orthostatic syncope: Code(s): I95.1 - Orthostatic hypotension Status: Acute Assessment and Plan: Continue to watch orthostatics on standing Sp fluid Hydration Hb is 10 now (2) Anemia: Code(s): D64.9 - Anemia, unspecified Status: Acute Assessment and Plan: Appreciate GI consultation, EGD 01/25 and colonoscopy 01/26 unfortunately colonoscopy is positive for colonic mass (3) Depression: Code(s): F32.9 - Major depressive disorder, single episode, unspecified Status: Acute Assessment and Plan: Continue with Effexor (4) Generalized weakness: Code(s): R53.1 - Weakness Status: Acute Assessment and Plan: continue to watch orthostatics Appreciate PT/OT/care coordination consultations (5) Syncope: Code(s): R55 - Syncope and collapse Status: Acute Assessment and Plan: As above (6) Chronic kidney disease, stage 3: Code(s): N18.30 - Chronic kidney disease, stage 3 unspecified Status: Acute Assessment and Plan: Improving, monitor (7) Rhabdomyolysis: Code(s): M62.82 - Rhabdomyolysis Status: Resolved Assessment and Plan: Resolving (8) Anxiety: Code(s): F41.9 - Anxiety disorder, unspecified Status: Chronic Assessment and Plan: Continue with lorazepam (9) Depression with anxiety: Code(s): F41.8 - Other specified anxiety disorders Status: Chronic Assessment and Plan: Continue with Effexor (10) Hypothyroidism: Code(s): E03.9 - Hypothyroidism, unspecified Status: Chronic Assessment and Plan: Continue levothyroxine, TSH wnl (11) Hypertension: Qualifiers: Hypertension type: essential hypertension Qualified Code(s): I10 - Essential (primary) hypertension Code(s): I10 - Essential (primary) hypertension Status: Chronic Assessment and Plan: Hold antihypertensives while hypotensive, restart when able (12) Hyperlipidemia: Code(s): E78.5 - Hyperlipidemia, unspecified Status: Acute Assessment and Plan: Continue with atorvastatin and monitor liver function tests. Subjective Date/time seen: 01/27/23 12:58 Interval history: 73-year-old female from home past medical history of heart failure, GERD, kidney disease is presenting with lightheadedness and dizziness with possible syncopal episode due to unwitnessed fall, found to be anemic in the ER. Pt is sp EGD and colonoscopy Unfortunately colonoscopy shows diverticulosis and colonic mass GI on board I will consult oncology today Pt is also very weak unable to walk much Review of Systems Review of Systems: Weakness, pt feels some fullness on evacuation of stools Exam Narrative: General: Chronically ill appearing tired and weak elderly lady CV: Regular rate and rhythm, S1, S2 Lungs: Clear to auscultation bilaterally, no rales or crackles noted, no wheezes, good air entry Abdomen: Soft, nontender, nondistended Extremities: Normal to inspection Skin: No rashes noted, no lesions or wounds seen Objective Data Vital Signs Vital Signs: Vital Signs - 24 hr 01/26/23 13:01 01/26/23 14:04 01/26/23 14:14 Temperature 36.3 C L Pulse Rate 116 H 115 H 116 H Respiratory Rate 22 H 33 H 21 H Blood Pressure 127/76 132/59 L 140/65 Pulse Oximetry 95 94 97 Oxygen Delivery Room Air Simple Face Mask Simple Face Mask Oxygen Flow Rate 8 6 01/26/23 14:24 01/26/23 14:34 01/26/23 14:42 Temperature Pulse Rate 120 H 107 H 122 H Respiratory Rate 24 H 23 H 22 H Blood Pressure 149/86 H 156/61 H 138/56 L Pulse Oximetry 91 93 97 Oxygen Delivery Nasal Cannula Nasal Cannula Nasal Cannula Oxygen Flow Rate 6 8 2 01/26/23 15:36 01/26/23 20:00 01/26/23 22:00 Temperature 36.9 C 36.9 C Pulse Rate 112 H 104 H R
--- NOTE | 2023-01-27 12:59 | WPDGIPROGNO ---
Progress Note: A&P Assessment and Plan (1) Colonic mass: Code(s): K63.89 - Other specified diseases of intestine Status: Acute Assessment and Plan: new diagnosis, pending biopsies but consistent with malignancy, also had CT Scan will ask surgery and oncology to see (2) Acute blood loss anemia: Code(s): D62 - Acute posthemorrhagic anemia Status: Acute Assessment and Plan: better after blood transfusion (3) Occult GI bleeding: Code(s): R19.5 - Other fecal abnormalities Status: Acute Assessment and Plan: from colon mass no active bleeding (4) Orthostatic syncope: Code(s): I95.1 - Orthostatic hypotension Status: Acute Assessment and Plan: resolved Subjective Date/time seen: 01/27/23 12:59 Interval history: colonoscopy yesterday with malignant appearing mass, no new events today Review of Systems Review of Systems: All systems reviewed & are unremarkable except as noted in HPI and below Exam Const: General: comfortable HENMT: Face/Nose/Sinus: Normal nares present Eyes: General: appearance normal, both eyes and all related structures Neck: Neck: supple Resp: Effort & Inspection: normal respiratory effort Cardio: Rate: regular rate GI: GI Palp: Yes Soft to palpation, No Tenderness to palpation present (GI) and No Guarding due to palpation present (GI) Auscultation: normal bowel sounds Skin: General skin exam: no rashes or lesions noted Neuro: Speech: normal speech Extrem: General: normal to inspection Other: pain rt hip Psych: Affect: normal affect Objective Data Vital Signs Vital Signs: Vital Signs - 24 hr 01/26/23 13:01 01/26/23 14:04 01/26/23 14:14 Temperature 97.4 F L Pulse Rate 116 H 115 H 116 H Respiratory Rate 22 H 33 H 21 H Blood Pressure 127/76 132/59 L 140/65 Pulse Oximetry 95 94 97 Oxygen Delivery Room Air Simple Face Mask Simple Face Mask Oxygen Flow Rate 8 6 01/26/23 14:24 01/26/23 14:34 01/26/23 14:42 Temperature Pulse Rate 120 H 107 H 122 H Respiratory Rate 24 H 23 H 22 H Blood Pressure 149/86 H 156/61 H 138/56 L Pulse Oximetry 91 93 97 Oxygen Delivery Nasal Cannula Nasal Cannula Nasal Cannula Oxygen Flow Rate 6 8 2 01/26/23 15:36 01/26/23 20:00 01/26/23 22:00 Temperature 98.4 F 98.5 F Pulse Rate 112 H 104 H Respiratory Rate 18 22 H Blood Pressure 133/70 130/64 Pulse Oximetry 92 93 Oxygen Delivery Room Air Oxygen Flow Rate 01/26/23 20:00 01/27/23 00:00 01/27/23 04:00 Temperature Pulse Rate 135 H 119 H 107 H Respiratory Rate Blood Pressure Pulse Oximetry Oxygen Delivery Oxygen Flow Rate 01/27/23 06:00 01/27/23 12:14 Temperature 98.5 F Pulse Rate 92 109 H Respiratory Rate 20 Blood Pressure 130/61 Pulse Oximetry 97 Oxygen Delivery Oxygen Flow Rate Intake/Output Intake/Output: Intake & Output 01/24/23 01/25/23 01/26/23 01/27/23 23:59 23:59 23:59 23:59 Intake Total 440 2915 540 120 Balance 440 2915 540 120 Meds/Results Medications: Active Medications Generic Name Dose Route Start Last Admin Trade Name Freq PRN Reason Stop Dose Admin Acetaminophen 650 mg 01/24/23 12:52 Acetaminophen 325 Mg Tablet PO Q4H PRN Mild Pain (1-3) or Fever Hydrocodone Bitart/Acetaminophen 1 tab 01/24/23 12:52 01/27/23 05:29 Hydrocodone/Acetaminophen (*Crx) 5-325 Mg Tablet PO 1 tab Q4H PRN Administration Pain Rated 4-6 Amlodipine Besylate 10 mg 01/25/23 09:00 01/27/23 08:25 Amlodipine Besylate 5 Mg Tablet PO 10 mg DAILY STEFANO Administration Atorvastatin Calcium 20 mg 01/25/23 09:00 01/27/23 08:25 Atorvastatin 20 Mg Tablet PO 20 mg QAM STEFANO Administration Famotidine 20 mg 01/24/23 21:00 01/27/23 08:25 Famotidine 20 Mg/2 Ml Vial IV PUSH 20 mg Q12HR STEFANO Administration Ferrous Sulfate 324 mg 01/25/23 08:00 01/27/23 08:25 Ferrous Sulfate 324 Mg Tablet PO
--- NOTE | 2023-01-27 13:17 | PCPTNOTE ---
Attempted to see patient at this time, however patient was very emotional and anxious, and reported she got bad news today. Patient too emotional at this time to work with therapy, will check back.
[2023-01-27] MEDS: LORazepam (*CRX) 0.5 MG TABLET PO ×2 (13:20→20:48)
--- NOTE | 2023-01-27 14:34 | PM.CNGS ---
Assessment and Plan Assessment and plan (1) Colonic mass: Code(s): K63.89 - Other specified diseases of intestine Status: Acute Assessment and Plan: Patient found to have a malignant-appearing colon mass on colonoscopy yesterday. Biopsies still pending. CEA elevated at 10.4. CT scan of the abdomen and pelvis suggests a mass is in the ascending colon suspicious for adenocarcinoma. No CT evidence of distant metastasis. She has not been having any obstructive symptoms and there was no evidence of an obstruction on CT. Oncology has also been consulted. Discussed with the patient that this is likely colon cancer and we discussed surgical versus nonoperative options. We would recommend proceeding with a hand-assisted laparoscopic right hemicolectomy under general anesthesia by Dr. Paris. Since she has eaten a solid diet, I gave her the option of trying to prep her for surgery over the next few days and proceeding with this while she is an inpatient versus coming back as an outpatient for surgery. She would prefer to stay and have the surgery done while she is here. We will start prepping her tomorrow and switch her back to a clear liquid diet in preparation for surgery. We have added her onto the surgery schedule for Thursday afternoon. (2) Acute blood loss anemia: Code(s): D62 - Acute posthemorrhagic anemia Status: Acute Assessment and Plan: Likely related to the colon mass. Received 2 units of PRBCs since admission and hemoglobin is currently stable at 10.1 today. (3) Rhabdomyolysis: Code(s): M62.82 - Rhabdomyolysis Status: Resolved (4) Chronic kidney disease, stage 3: Code(s): N18.30 - Chronic kidney disease, stage 3 unspecified Status: Acute (5) Hypertension: Qualifiers: Hypertension type: essential hypertension Qualified Code(s): I10 - Essential (primary) hypertension Code(s): I10 - Essential (primary) hypertension Status: Chronic (6) Syncope: Code(s): R55 - Syncope and collapse Status: Acute Plan I have discussed the patient's case and plan of care with Dr. Paris. Thank you for allowing us to see the patient in consultation and we will continue to follow along with you. History of Present Illness Consult details Consult date: 01/27/23 Reason for consult: other (Colon mass) Requesting physician: Clyde Hooks MD Narrative: This is a 73-year-old woman with a history of hypertension and hyperlipidemia who presented to the ER on 01/24/23 for evaluation of a syncopal episode. She apparently lost consciousness at home and fell on her right side. She was lying on the floor for two days prior to being brought into the ER by EMS. She was found to be anemic and had an elevated total CK on her initial workup. Her hemoglobin had dropped from 13.3 to 7.4 in comparison to labs two months ago. She was admitted and GI was consulted. She was also complaining of right hip pain and inability to move her right leg with a history of a right hip arthroplasty. She had x-rays and CT of her right hip that were negative for any acute findings. Head CT was also negative for any acute findings. Her hemoglobin has been as low as 7.0 and she received 2 units of PRBCs two days ago. Her hemoglobin has been stable since. She had an EGD two days ago that showed gastric retention, but no other findings. She then had a colonoscopy yesterday that showed a partially-obstructing malignant appearing mass in the transverse colon. Biopsies were taken and spot ink was injected. CT scan abdomen and pelvis was subsequently ordered and showed suspicious thickening of the wall of the ascending colon, suggesting adenocarcinoma of the colon. No evidence of an obstruction or distant metastasis. Also incidentally noted was diverticulosis, bilateral chronic pyelonephritis, small sliding hiatal hernia. CEA 10.4. Our service was consulted today for the colon mass. Biopsies are still pendin
[2023-01-27] MEDS: ONDANSETRON INJ 4 MG/2 ML VIAL IV PUSH (14:49)
[2023-01-28] VITALS (12 sets, daily range): BP systolic 129–143; BP diastolic 49–61; PULSE 72–92; RESP 18–20; TEMP 36.2–36.6; O2SAT 90–98
[2023-01-28] MEDS: LEVOTHYROXINE SODIUM 75 MCG TABLET PO (05:49)
[2023-01-28 07:25] LABS: Hematocrit 33.3 % (37.0-47.0); Hemoglobin 9.5 g/dL (12.0-15.0); Mean Corpuscular HGB Conc 28.5 g/dl (32-36); Mean Corpuscular Hemoglobin 20.7 pg (26-34); Mean Corpuscular Volume 72.4 fl (80-100); Mean Platelet Volume 10.4 fl (7.4-10.4); Platelet Count Result 299 k/mm3 (150-375); Red Cell Distribution Width 25.9 % (11.5-14.5); White Blood Count 6.9 K/mm3 (4.5-10.0)
[2023-01-28 07:35] LABS: Anion Gap 3 mmol/L (8-16); Blood Urea Nitrogen 10 mg/dL (7-17); Carbon Dioxide 29 mmol/L (22-30); Chloride 105 mmol/L (98-107); Estimated CRCL calculation 62 ml/min; Estimated Glomerular Filt Rate > 60; Glucose 100 mg/dL (65-110); Potassium 3.5 mmol/L (3.4-5.0); Sodium 137 mmol/L (137-145)
--- NOTE | 2023-01-28 07:47 | PM.IMPN ---
Progress Note: A&P Assessment and Plan (1) Orthostatic syncope: Code(s): I95.1 - Orthostatic hypotension Status: Acute Assessment and Plan: Continue to watch orthostatics on standing Sp fluid Hydration Hb is 10 now (2) Anemia: Code(s): D64.9 - Anemia, unspecified Status: Acute Assessment and Plan: Appreciate GI consultation, EGD 01/25 and colonoscopy 01/26 unfortunately colonoscopy is positive for colonic mass (3) Depression: Code(s): F32.9 - Major depressive disorder, single episode, unspecified Status: Acute Assessment and Plan: Continue with Effexor (4) Generalized weakness: Code(s): R53.1 - Weakness Status: Acute Assessment and Plan: continue to watch orthostatics Appreciate PT/OT/care coordination consultations (5) Syncope: Code(s): R55 - Syncope and collapse Status: Acute Assessment and Plan: As above (6) Chronic kidney disease, stage 3: Code(s): N18.30 - Chronic kidney disease, stage 3 unspecified Status: Acute Assessment and Plan: Improving, monitor (7) Rhabdomyolysis: Code(s): M62.82 - Rhabdomyolysis Status: Resolved Assessment and Plan: Resolving (8) Anxiety: Code(s): F41.9 - Anxiety disorder, unspecified Status: Chronic Assessment and Plan: Continue with lorazepam (9) Depression with anxiety: Code(s): F41.8 - Other specified anxiety disorders Status: Chronic Assessment and Plan: Continue with Effexor (10) Hypothyroidism: Code(s): E03.9 - Hypothyroidism, unspecified Status: Chronic Assessment and Plan: Continue levothyroxine, TSH wnl (11) Hypertension: Qualifiers: Hypertension type: essential hypertension Qualified Code(s): I10 - Essential (primary) hypertension Code(s): I10 - Essential (primary) hypertension Status: Chronic Assessment and Plan: Hold antihypertensives while hypotensive, restart when able (12) Hyperlipidemia: Code(s): E78.5 - Hyperlipidemia, unspecified Status: Acute Assessment and Plan: Continue with atorvastatin and monitor liver function tests. Subjective Date/time seen: 01/28/23 07:47 no new complaints Exam Narrative: General: Chronically ill appearing tired and weak elderly lady CV: Regular rate and rhythm, S1, S2 Lungs: Clear to auscultation bilaterally, no rales or crackles noted, no wheezes, good air entry Abdomen: Soft, nontender, nondistended Extremities: Normal to inspection Skin: No rashes noted, no lesions or wounds seen Objective Data Vital Signs Vital Signs: Vital Signs - 24 hr 01/27/23 12:14 01/27/23 14:00 01/27/23 15:56 Temperature 97.3 F L Pulse Rate 109 H 87 Respiratory Rate 16 Blood Pressure 136/69 Pulse Oximetry 95 94 Oxygen Delivery Nasal Cannula Oxygen Flow Rate 1 01/27/23 08:00 01/27/23 12:00 01/27/23 16:00 Temperature Pulse Rate 106 H 105 H 84 Respiratory Rate Blood Pressure Pulse Oximetry Oxygen Delivery Oxygen Flow Rate 01/27/23 20:58 01/27/23 21:02 01/27/23 20:00 Temperature 97.3 F L Pulse Rate 86 85 Respiratory Rate 16 Blood Pressure 140/59 L 143/59 H Pulse Oximetry 94 Oxygen Delivery Oxygen Flow Rate 01/27/23 20:00 01/28/23 04:18 01/28/23 00:00 Temperature 97.8 F Pulse Rate 89 74 Respiratory Rate 18 Blood Pressure 132/54 L Pulse Oximetry 92 92 Oxygen Delivery Nasal Cannula Oxygen Flow Rate 2 01/28/23 04:00 Temperature Pulse Rate 72 Respiratory Rate Blood Pressure Pulse Oximetry Oxygen Delivery Oxygen Flow Rate Intake/Output Intake/Output: Intake & Output 01/25/23 01/26/23 01/27/23 01/28/23 23:59 23:59 23:59 23:59 Intake Total 2915 540 440 Output Total 450 Balance 2915 540 440 -450
[2023-01-28] MEDS: FAMOTIDINE 20 MG/2 ML VIAL IV PUSH ×2 (08:53→20:28)
[2023-01-28] MEDS: amLODIPine BESYLATE 5 MG TABLET 10 MG PO (08:53)
[2023-01-28] MEDS: FERROUS SULFATE 324 MG TABLET PO (08:53)
[2023-01-28] MEDS: VENLAFAXINE HCL XR 75 MG CAP.ER.24H PO ×2 (08:53→17:14)
[2023-01-28] MEDS: ATORVASTATIN 20 MG TABLET PO (08:53)
[2023-01-28] MEDS: EUCERIN CREAM 120 GM JAR 1 APPLIC TOPICAL (08:54)
[2023-01-28] MEDS: METOPROLOL TARTRATE 50 MG TAB PO (08:54)
--- NOTE | 2023-01-28 12:38 | PDONCCN ---
HPI - Date of Consult Date/Time: 01/28/23 12:38 Requesting Physician: Fatou Sutton DO Primary Care Provider: Fabricio AmesMD - Consult Narrative Reason for consult: Colon cancer Narrative: Sigifredo Bush is a 73 year old female with history of hyperlipidemia, hypertension, hypothyroidism and gastroesophageal reflux disease brought into the hospital status post fall. According the patient she has been dealing with intermittent blood in the stool for last 4 years duration and was treated for diverticulitis by the primary care physician but she continues to have the bleeding. She also had intermittent constipation. She had her last colonoscopy done about [address] scan of the hip was performed that showed no acute bone abnormalities. CT abdomen and pelvis showed suspicious thickening of the wall of the ascending colon without any pelvic lymphadenopathy. EGD showed gastric retention. Colonoscopy showed malignant appearing mass in the transverse colon and biopsy came back positive for carcinoma. Labs showed hemoglobin of 7.0. CEA was elevated at 10.4. Review of Systems - Review of Systems All systems reviewed & are unremarkable except as noted in HPI and bel - Neurologic Reports system reviewed and no additional complaints, except as documented, Reports hearing normal, Reports syncope, Denies abnormal gait, Denies behavioral changes, Denies headache(s), Denies focal weakness, Denies numbness, Denies tingling PMFSH Medical History: Medical History (Last Reviewed 01/27/23 @ 14:35 by AN Carrera) Anxiety Asthma Chronic kidney disease, stage 3 Baseline creatinine is between 1.1 and 1.50. Colonic mass Depression Diastolic dysfunction Echocardiogram in August 2019 showed normal left ventricular chamber size and systolic function with an estimated ejection fraction of 65 to 70%, mild asymmetric increased septal wall thickness, grade 1 diastolic dysfunction and mild aortic valve sclerosis as well as mild pulmonic regurgitation. Diverticulitis Gastroesophageal reflux disease Hyperlipidemia Hypertension Hypothyroidism Osteoarthritis Overactive bladder Surgical History: Surgical History (Last Reviewed 01/27/23 @ 15:28 by AN Carrera) History of appendectomy History of section History of cholecystectomy Open cholecystectomy with incidental appendectomy History of dilatation and curettage History of repair of right rotator cuff History of total right hip arthroplasty History of tubal ligation Family History: Family History (Last Reviewed 01/27/23 @ 15:28 by AN Carrera) Father Acute myocardial infarction Congestive heart failure Hypertension Sibling Hypertension Mother Breast cancer - Social History Social History: Social History (Last Reviewed 01/27/23 @ 15:28 by AN Carrera) Gender Identity: Gender identity (if verbalized by the patient): Female Sexual Orientation: Sexual Orientation (if Verbalized by the Patient): Straight or Heterosexual Alcohol Use: Alcohol intake: never Substance Use: Substance use: never Substance use type: does not use Others: Spiritual care concerns: No Agree to blood products: Yes Smoking Status: Smoking status: Never smoker Second hand tobacco smoke exposure: No Social Determinants of Health: Has the Lack of Transportation Kept You From Medical Appointments or From Getting Medications?: No Within the Past 12 Months, Were You Worried Whether Your Food Would Run Out Before You Got Money to Buy More?: Never True What is Your Housing Situation Today?: I Have Housing Are You Worried That in the Next 2 Months, You May Not Have Your Own Housing to Live In?: No Do You Have Trouble Paying Your Heating Or Electricity Bill?: No Do You Have Trouble Paying For Medicines?: No Are You Currently Unemployed and Looking for Work?: No
--- NOTE | 2023-01-28 12:46 | PM.PNGS ---
Progress Note: A&P Assessment and Plan (1) Colonic mass: Code(s): K63.89 - Other specified diseases of intestine Status: Acute Assessment and Plan: Continue clear liquids She was added to the surgery schedule tomorrow. Will start her bowel prep. (2) Acute blood loss anemia: Code(s): D62 - Acute posthemorrhagic anemia Status: Acute Assessment and Plan: H/H remains stable. (3) Rhabdomyolysis: Code(s): M62.82 - Rhabdomyolysis Status: Resolved (4) Chronic kidney disease, stage 3: Code(s): N18.30 - Chronic kidney disease, stage 3 unspecified Status: Acute (5) Hypertension: Qualifiers: Hypertension type: essential hypertension Qualified Code(s): I10 - Essential (primary) hypertension Code(s): I10 - Essential (primary) hypertension Status: Chronic Plan I have discussed the patient's case and plan of care with Dr. Paris. Subjective Subjective Date/Time Seen: 01/28/23 10:46 Patient reports: no new complaints, flatus, no bowel movement and nausea Interval history: Patient seen this morning. She vomited yesterday afternoon and was then put back on clear liquids. She denies any vomiting overnight or this morning. She does still have some nausea. Passing flatus, but no BM since her colonoscopy. No other complaints at this time. Review of Systems Review of Systems: ROS unchanged Exam Const: General: comfortable, no acute distress and awake Orientation/consciousness: patient oriented x3 GI: Inspection: non-distended GI Palp: Yes Soft to palpation, No Tenderness to palpation present (GI), No Guarding due to palpation present (GI) and No Rebound tenderness present Auscultation: normal bowel sounds Neuro: General: moves all extremities and no focal motor deficits Extrem: General: no edema Psych: Mental Status: mental status grossly normal Insight: Good insight present (Psych) Objective Data Vital Signs Vital Signs: Vital Signs - 24 hr 01/27/23 14:00 01/27/23 15:56 01/27/23 16:00 Temperature 97.3 F L Pulse Rate 87 84 Respiratory Rate 16 Blood Pressure 136/69 Pulse Oximetry 95 94 Oxygen Delivery Nasal Cannula Oxygen Flow Rate 1 01/27/23 20:58 01/27/23 21:02 01/27/23 20:00 Temperature 97.3 F L Pulse Rate 86 85 Respiratory Rate 16 Blood Pressure 140/59 L 143/59 H Pulse Oximetry 94 Oxygen Delivery Oxygen Flow Rate 01/27/23 20:00 01/28/23 04:18 01/28/23 00:00 Temperature 97.8 F Pulse Rate 89 74 Respiratory Rate 18 Blood Pressure 132/54 L Pulse Oximetry 92 92 Oxygen Delivery Nasal Cannula Oxygen Flow Rate 2 01/28/23 04:00 01/28/23 08:54 01/28/23 08:00 Temperature Pulse Rate 72 92 Respiratory Rate Blood Pressure Pulse Oximetry 90 Oxygen Delivery Nasal Cannula Oxygen Flow Rate 2 01/28/23 08:00 Temperature Pulse Rate 83 Respiratory Rate Blood Pressure Pulse Oximetry Oxygen Delivery Oxygen Flow Rate Intake/Output Intake/Output: Intake & Output 01/25/23 01/26/23 01/27/23 01/28/23 23:59 23:59 23:59 23:59 Intake Total 2915 540 440 240 Output Total 1150 Balance 2915 540 440 -910 Meds/Results Medications: Active Medications Generic Name Dose Route Start Last Admin Trade Name Freq PRN Reason Stop Dose Admin Acetaminophen 650 mg 01/24/23 12:52 Acetaminophen 325 Mg Tablet PO Q4H PRN Mild Pain (1-3) or Fever Hydrocodone Bitart/Acetaminophen 1 tab 01/24/23 12:52 01/27/23 20:48 Hydrocodone/Acetaminophen (*Crx) 5-325 Mg Tablet PO 1 tab Q4H PRN Administration Pain Rated 4-6 Amlodipine Besylate 10 mg 01/25/23 09:00 01/28/23 08:53 Amlodipine Besylate 5 Mg Tablet PO 10 mg DAILY STEFANO Administration Atorvastatin Calcium 20 mg 01/25/23 09:00 01/28/23 08:53 Atorvastatin 20 Mg Tablet PO 20 mg QAM STEFANO Administration Bisacodyl 20 mg 01/28/23 14:00 Bisacodyl
--- NOTE | 2023-01-28 13:11 | WPDGIPROGNO ---
Progress Note: A&P Assessment and Plan (1) Colonic mass: Code(s): K63.89 - Other specified diseases of intestine Status: Acute Assessment and Plan: new diagnosis, bx c/w colon cancer surgery is planning partial colectomy tomorrow also was evaluated by oncology [place], call if questions (2) Acute blood loss anemia: Code(s): D62 - Acute posthemorrhagic anemia Status: Acute Assessment and Plan: better after blood transfusion (3) Occult GI bleeding: Code(s): R19.5 - Other fecal abnormalities Status: Acute Assessment and Plan: from colon mass no active bleeding (4) Orthostatic syncope: Code(s): I95.1 - Orthostatic hypotension Status: Acute Assessment and Plan: resolved Subjective Date/time seen: 01/28/23 13:11 Interval history: no changes Review of Systems Review of Systems: All systems reviewed & are unremarkable except as noted in HPI and below Exam Const: General: comfortable HENMT: Face/Nose/Sinus: Normal nares present Eyes: General: appearance normal, both eyes and all related structures Neck: Neck: supple Resp: Effort & Inspection: normal respiratory effort Cardio: Rate: regular rate GI: GI Palp: Yes Soft to palpation, No Tenderness to palpation present (GI) and No Guarding due to palpation present (GI) Auscultation: normal bowel sounds Skin: General skin exam: no rashes or lesions noted Neuro: Speech: normal speech Extrem: General: normal to inspection Other: pain rt hip Psych: Affect: normal affect Objective Data Vital Signs Vital Signs: Vital Signs - 24 hr 01/27/23 14:00 01/27/23 15:56 01/27/23 16:00 Temperature 97.3 F L Pulse Rate 87 84 Respiratory Rate 16 Blood Pressure 136/69 Pulse Oximetry 95 94 Oxygen Delivery Nasal Cannula Oxygen Flow Rate 1 01/27/23 20:58 01/27/23 21:02 01/27/23 20:00 Temperature 97.3 F L Pulse Rate 86 85 Respiratory Rate 16 Blood Pressure 140/59 L 143/59 H Pulse Oximetry 94 Oxygen Delivery Oxygen Flow Rate 01/27/23 20:00 01/28/23 04:18 01/28/23 00:00 Temperature 97.8 F Pulse Rate 89 74 Respiratory Rate 18 Blood Pressure 132/54 L Pulse Oximetry 92 92 Oxygen Delivery Nasal Cannula Oxygen Flow Rate 2 01/28/23 04:00 01/28/23 08:54 01/28/23 08:00 Temperature Pulse Rate 72 92 Respiratory Rate Blood Pressure Pulse Oximetry 90 Oxygen Delivery Nasal Cannula Oxygen Flow Rate 2 01/28/23 08:00 01/28/23 12:00 Temperature Pulse Rate 83 73 Respiratory Rate Blood Pressure Pulse Oximetry Oxygen Delivery Oxygen Flow Rate Intake/Output Intake/Output: Intake & Output 01/25/23 01/26/23 01/27/23 01/28/23 23:59 23:59 23:59 23:59 Intake Total 2915 540 440 240 Output Total 1150 Balance 2915 540 440 -910 Meds/Results Medications: Active Medications Generic Name Dose Route Start Last Admin Trade Name Freq PRN Reason Stop Dose Admin Acetaminophen 650 mg 01/24/23 12:52 Acetaminophen 325 Mg Tablet PO Q4H PRN Mild Pain (1-3) or Fever Hydrocodone Bitart/Acetaminophen 1 tab 01/24/23 12:52 01/27/23 20:48 Hydrocodone/Acetaminophen (*Crx) 5-325 Mg Tablet PO 1 tab Q4H PRN Administration Pain Rated 4-6 Amlodipine Besylate 10 mg 01/25/23 09:00 01/28/23 08:53 Amlodipine Besylate 5 Mg Tablet PO 10 mg DAILY STEFANO Administration Atorvastatin Calcium 20 mg 01/25/23 09:00 01/28/23 08:53 Atorvastatin 20 Mg Tablet PO 20 mg QAM STEFANO Administration Bisacodyl 20 mg 01/28/23 14:00 Bisacodyl 5 Mg Tablet Ec PO 01/28/23 14:01 ONCE ONE Ciprofloxacin 500 mg 01/28/23 14:00 Ciprofloxacin 500 Mg Tab PO 01/28/23 14:01 ONCE ONE Famotidine 20 mg 01/24/23 21:00 01/28/23 08:53 Famotidine 20 Mg/2 Ml Vial IV PUSH 20 mg Q12HR STEFANO Administration Ferrous Sulfate 324 mg 01/25/23 08:00 01/28/23 08:53
[2023-01-28] MEDS: polyethylene glycoL 3350 238 GM BOTTLE PO (15:31)
[2023-01-28] MEDS: metroNIDAZOLE 250 MG TABLET 500 MG PO ×3 (15:32→22:26)
[2023-01-28] MEDS: CIPROFLOXACIN 500 MG TAB PO (15:32)
[2023-01-28] MEDS: BISACODYL 5 MG TABLET EC 20 MG PO (15:34)
[2023-01-28] MEDS: ONDANSETRON INJ 4 MG/2 ML VIAL IV PUSH (17:14)
--- NOTE | 2023-01-28 18:46 | PC.NURSE ---
Pt encouraged to drink bowel prep. Pt struggling to get through even a small amount. Pt aware we may have to call MD.
[2023-01-28] MEDS: HYDROcodone/acetaminophen (*CRX) 5-325 MG TABLET 1 TAB PO (22:26)
[2023-01-28] MEDS: LACTATED RINGERS 1,000 ML 80 ML IV CONT (23:27)
[2023-01-29] VITALS (23 sets, daily range): BP systolic 104–149; BP diastolic 46–75; PULSE 61–97; RESP 16–22; TEMP 36.4–37; O2SAT 88–100
[2023-01-29] MEDS: LORazepam (*CRX) 0.5 MG TABLET PO (04:55)
[2023-01-29] MEDS: LEVOTHYROXINE SODIUM 75 MCG TABLET PO (05:53)
[2023-01-29] MEDS: HYDROcodone/acetaminophen (*CRX) 5-325 MG TABLET 1 TAB PO (06:01)
--- NOTE | 2023-01-29 06:20 | ECG_ITS ---
Measurements Intervals [place] Rate: 82 P: 57 TN: 155 QRS: 11 QRSD: 78 T: 20 QT: 370 QTc: 433 Interpretive Statements SINUS RHYTHM NONSPECIFIC ST AND T WAVE ABNORMALITY COMPARED TO ECG 01/24/2023 10:43:06 NO SIGNIFICANT CHANGES Electronically Signed On 01-29-2023 18:26:54 CDT by Paulette Sierra M.D.
[2023-01-29] MEDS: amLODIPine BESYLATE 5 MG TABLET 10 MG PO (08:18)
[2023-01-29] MEDS: METOPROLOL TARTRATE 50 MG TAB PO (08:18)
[2023-01-29] MEDS: VENLAFAXINE HCL XR 75 MG CAP.ER.24H PO ×2 (08:18→16:46)
[2023-01-29] MEDS: EUCERIN CREAM 120 GM JAR 1 APPLIC TOPICAL (08:20)
--- NOTE | 2023-01-29 09:16 | WPDANESEPPF ---
Anes - Initial Pre Proc Eval Procedure: Operation Date: 01/25/23 08:00 Proposed Procedures p Esophagogastroduodenoscopy - Clyde Hooks MD Operation Date: 01/26/23 14:45 Proposed Procedures p Colonoscopy - Coy Burt MD Operation Date: 01/29/23 10:30 Proposed Procedures p Hand Assisted Laparoscopic Right Hemicolectomy - Jose Maria Paris DO Operation Date: 01/30/23 14:30 Proposed Procedures p Hand Assisted Laparoscopic Right Hemicolectomy - Jose Maria Paris DO Date/Time: 01/29/23 09:16 Surgeon: Fatou Sutton DO Pre Op Diagnosis: Syncope,Anemia,Orthostasis Patient Data Age: 73 Gender: F Height: 1.63 m Weight: 93 kg Last Vital Signs Temp 36.4 C L 01/29/23 04:10 Pulse 93 01/29/23 08:18 Resp 16 01/29/23 08:00 BP 143/66 H 01/29/23 04:10 Pulse Ox 91 01/29/23 08:00 O2 Del Method Room Air 01/29/23 08:00 O2 Flow Rate 2 01/28/23 20:00 Allergies Allergy/AdvReac Type Severity Reaction Status Date / Time codeine Allergy Severe SOB Verified 01/26/23 12:59 pseudoephedrine Allergy Severe RASH Verified 01/26/23 12:59 oxycodone Allergy Mild HALLUCINATI Verified 01/26/23 12:59 ONS Sulfa (Sulfonamide Allergy Unknown RASH Verified 01/26/23 12:59 Antibiotics) Home Medications Medication Instructions Recorded Confirmed Type amlodipine 5 mg tablet 10 mg PO DAILY 08/12/19 01/24/23 History levothyroxine 50 mcg tablet 75 mcg PO DAILY 08/12/19 01/24/23 History (Synthroid) lorazepam 0.5 mg tablet 0.5 mg PO PRN PRN Anxiety 08/12/19 01/24/23 History venlafaxine 75 mg capsule,extended 75 mg PO BID 08/12/19 01/24/23 History release 24 hr (Effexor XR) metoprolol tartrate 100 mg tablet 50 mg PO DAILY 01/25/20 01/24/23 History atorvastatin 20 mg tablet 20 mg PO QAM 01/24/23 01/24/23 History clonidine HCl 0.1 mg tablet 0.1 mg PO TID 01/24/23 01/24/23 History losartan 100 mg tablet 100 mg PO QAM 01/24/23 01/24/23 History tolnaftate 1 % topical powder 1 applic topical Q12HR PRN Rash 01/24/23 01/24/23 History Laboratory Tests 01/28/23 07:16 Blood Type O Positive Antibody Screen Positive Antibody Identification Pending Antigen Identification Pending MIGUEL, IgG Interpret Not Performed MIGUEL, Poly Interpret Negative MIGUEL, Complement Interp Pending Patient hx anesthesia problems: none Family hx anesthesia problems: none Results Review: All pre-operative results and documents have been reviewed as part of the pre-operative evaluation. [facility] Past Medical History Medical History Anxiety Asthma Chronic kidney disease, stage 3 Baseline creatinine is between 1.1 and 1.50. Colonic mass Depression Diastolic dysfunction Echocardiogram in August 2019 showed normal left ventricular chamber size and systolic function with an estimated ejection fraction of 65 to 70%, mild asymmetric increased septal wall thickness, grade 1 diastolic dysfunction and mild aortic valve sclerosis as well as mild pulmonic regurgitation. Diverticulitis Gastroesophageal reflux disease Hyperlipidemia Hypertension Hypothyroidism Osteoarthritis Overactive bladder Surgical History Surgical History History of appendectomy History of section History of cholecystectomy Open cholecystectomy with incidental appendectomy History of dilatation and curettage History of repair of right rotator cuff History of total right hip arthroplasty History of tubal ligation Family History Family History Father Acute myocardial infarction Congestive heart failure Hypertension Sibling Hypertension Mother Breast cancer Social History Social History Social History: She has 2 sons and is . 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
--- NOTE | 2023-01-29 09:39 | WPDHPUPDATE1 ---
History and Physical Update Update Date/Time: 01/29/23 09:39 History and Physical has been reviewed, including an updated exam of the patient. There are NO changes in the patient's condition. Risks, benefits, and alternatives have been discussed and questions answered. Patient agrees to proceed with procedure.
[2023-01-29] MEDS: ceFAZolin 2 GM/D5W 50 ML 2 GM/50 ML BAG IVPB (10:09)
[2023-01-29] MEDS: metroNIDAZOLE 500 MG/ISO 100ML 500 MG/100 ML BAG 100 MG IVPB (10:31)
[2023-01-29] MEDS: BUPIVACAINE/EPINEPHRINE 0.5% 50 ML VIAL 30 ML INFILTRATE (10:45)
--- NOTE | 2023-01-29 10:59 | PM.IMPN ---
Progress Note: A&P Assessment and Plan (1) Orthostatic syncope: Code(s): I95.1 - Orthostatic hypotension Status: Acute Assessment and Plan: Continue to watch orthostatics on standing Sp fluid Hydration Hb is 10 now (2) Anemia: Code(s): D64.9 - Anemia, unspecified Status: Acute Assessment and Plan: Appreciate GI consultation, EGD 01/25 and colonoscopy 01/26 unfortunately colonoscopy is positive for colonic mass (3) Depression: Code(s): F32.9 - Major depressive disorder, single episode, unspecified Status: Acute Assessment and Plan: Continue with Effexor (4) Generalized weakness: Code(s): R53.1 - Weakness Status: Acute Assessment and Plan: continue to watch orthostatics Appreciate PT/OT/care coordination consultations (5) Syncope: Code(s): R55 - Syncope and collapse Status: Acute Assessment and Plan: As above (6) Chronic kidney disease, stage 3: Code(s): N18.30 - Chronic kidney disease, stage 3 unspecified Status: Acute Assessment and Plan: Improving, monitor (7) Rhabdomyolysis: Code(s): M62.82 - Rhabdomyolysis Status: Resolved Assessment and Plan: Resolving (8) Anxiety: Code(s): F41.9 - Anxiety disorder, unspecified Status: Chronic Assessment and Plan: Continue with lorazepam (9) Depression with anxiety: Code(s): F41.8 - Other specified anxiety disorders Status: Chronic Assessment and Plan: Continue with Effexor (10) Hypothyroidism: Code(s): E03.9 - Hypothyroidism, unspecified Status: Chronic Assessment and Plan: Continue levothyroxine, TSH wnl (11) Hypertension: Qualifiers: Hypertension type: essential hypertension Qualified Code(s): I10 - Essential (primary) hypertension Code(s): I10 - Essential (primary) hypertension Status: Chronic Assessment and Plan: Hold antihypertensives while hypotensive, restart when able (12) Hyperlipidemia: Code(s): E78.5 - Hyperlipidemia, unspecified Status: Acute Assessment and Plan: Continue with atorvastatin and monitor liver function tests. Subjective Date/time seen: 01/29/23 10:59 No complaints Exam Narrative: General: Chronically ill appearing tired and weak elderly lady CV: Regular rate and rhythm, S1, S2 Lungs: Clear to auscultation bilaterally, no rales or crackles noted, no wheezes, good air entry Abdomen: Soft, nontender, nondistended Extremities: Normal to inspection Skin: No rashes noted, no lesions or wounds seen Objective Data Vital Signs Vital Signs: Vital Signs - 24 hr 01/28/23 12:00 01/28/23 14:00 01/28/23 14:00 Temperature 97.6 F Pulse Rate 73 84 Respiratory Rate 20 Blood Pressure 129/53 L 129/53 L Pulse Oximetry 97 Oxygen Delivery Oxygen Flow Rate 01/28/23 15:16 01/28/23 16:00 01/28/23 20:17 Temperature 97.1 F L Pulse Rate 78 82 Respiratory Rate 18 Blood Pressure 133/49 L 139/60 Pulse Oximetry 98 Oxygen Delivery Oxygen Flow Rate 01/28/23 20:22 01/28/23 20:00 01/28/23 20:00 Temperature Pulse Rate 85 91 85 Respiratory Rate 18 Blood Pressure 143/61 H Pulse Oximetry 98 Oxygen Delivery Nasal Cannula Oxygen Flow Rate 2 01/29/23 00:00 01/29/23 04:10 01/29/23 04:00 Temperature 97.5 F L Pulse Rate 86 97 80 Respiratory Rate 16 Blood Pressure 143/66 H Pulse Oximetry 95 Oxygen Delivery Oxygen Flow Rate 01/29/23 08:18 01/29/23 08:00 01/29/23 09:16 Temperature 97.6 F Pulse Rate 93 93 88 Respiratory Rate 16 18 Blood Pressure 131/61 Pulse Oximetry 91 94 Oxygen Delivery Room Air Room Air Oxygen Flow Rate Intake/Output Intake/Output: Intake & Output 01/26/23 01/27/23 01/28/23 01/29/23 23:59 23:59 23:59 23:59 In
--- NOTE | 2023-01-29 12:11 | SUR.OPER ---
250mL of clear yellow urine drained from nettles catheter in operating room
--- NOTE | 2023-01-29 12:20 | W.PM.PROC2 ---
Procedure Note - Detailed Date of Procedure 01/29/23 Pre-op Diagnosis Ascending colon adenocarcinoma, anemia Post-op Diagnosis Same Procedure Performed Hand assisted laparoscopic right hemicolectomy with ileocolic anastomosis Surgeon Jose Maria Paris, DO Anesthesia General and Local (Exparel) Indications This is a 73-year-old woman who presented to the emergency department with a syncopal episode. On presentation she was found to be very anemic. He was admitted further workup was performed. She underwent EGD and colonoscopy and was found to have a malignant-appearing mass in the transverse colon. CT showed that the mass was likely in the ascending colon but showed no other evidence of metastases. Her CEA level was 10. Discussions were made with the patient about treatment options and decision was made to keep the patient in the hospital and proceed with hand assisted laparoscopic right hemicolectomy. Findings Hand assisted laparoscopic right hemicolectomy was performed. The mass and tattoo region was identified up near the hepatic flexure. She had some omental adhesions from prior open cholecystectomy, but no other intra-abdominal abnormalities noted. A right hemicolectomy was performed and specimen was sent to the lab for pathology. A [id number] ileocolic anastomosis was performed. Description of Procedure Procedure as well as risks benefits and alternatives were explained to the patient. Written consent was obtained and placed in chart prior to procedure. Patient was brought back to surgical suite. She was placed supine on operating table. Time-out was done to confirm patient procedure. She was then intubated by the anesthesia department. Her abdomen was prepped and draped in sterile fashion using chlorhexidine prep. A 7 centimeter vertical incision was made centered on the umbilicus using a 15 blade scalpel. Electrocautery was used for hemostasis and for dissection down through Dee Dee's fascia. The linea alba was identified, and incised using electrocautery. Two Gavin clamps were used to lift the fascia anteriorly, and the peritoneum was then entered using electrocautery. The abdomen was inspected and no acute abnormalities were noted. The wound protector was placed at this incision, and the GelPort was applied with a 5 millimeter port placed through it. Carbon dioxide insufflation was used to create a pneumoperitoneum. The camera was inserted and the abdominal cavity was inspected. The tattooed region was identified on the ascending colon near the hepatic flexure, and no other abnormalities were noted. The patient was placed in Trendelenburg position and rotated slightly to the left. A 5 millimeter incision was made in the lower midline and a 5 millimeter trocar was inserted under direct visualization. Another 5 millimeter incision was made in the left lower quadrant, and a 5 millimeter trocar was inserted under direct visualization. 0.5% bupivacaine with epinephrine was infiltrated locally around each of the incisions. After carefully inspecting the abdominal cavity, I began my dissection from a medial to lateral direction along the ileocolic pedicle. The cecum was tented anteriorly and laterally and this allowed me to visualize the ileocolic pedicle. The medial side and inferior side of the peritoneum was scored using hook electrocautery and the retroperitoneal plane was entered. Careful dissection was performed using hook electrocautery in this relatively avascular plane. The duodenum was identified and swept posteriorly. I then continued to dissect proximally along the ileocolic pedicle. I isolated the ileocolic vein and artery individually and performed a high ligation using bipolar cautery. Hemostasis appeared adequate. I then continued the medial to lateral dissection maintaining this avascular plane. I also dissected along the transverse colon to the right side all the way to the level of the hepatic flexure. The terminal il
[2023-01-29] MEDS: LACTATED RINGERS 1,000 ML 30 ML IV CONT (12:36)
--- NOTE | 2023-01-29 13:00 | PCRCNOTE ---
RT called from recovery stating that pt needed BIPAP. RT arrived, pt placed on BIPAP 10/ R 12 60%. Pt confused due to anesthesia. RN's stating that she was breathing very shallow and they could not bring sats above 85%. Upon placing BIPAP, pt's sats increased to 95-100% on 60% Fi02. Pt being monitored on BIPAP at this time by RT and staffing analyst. RN stating that we will allow her to rest on BIPAP until she is arousable and sats are consistently stable.
--- NOTE | 2023-01-29 14:39 | PCRCNOTE ---
NIV placed in standby by RN while in recovery and placed pt on simple mask. RT transferring NIV to pt room and keeping in S/B in case of desat/breathing issues due to surgery.
[2023-01-29] MEDS: LACTATED RINGERS 1,000 ML 100 ML IV CONT (16:44)
[2023-01-29] MEDS: ceFAZolin 1 GM/NS 50 ML 1 GM/50 ML BAG IVPB (17:49)
[2023-01-29] MEDS: ACETAMINOPHEN 500 MG TABLET PO ×2 (17:49→23:34)
[2023-01-29] MEDS: HYDROcodone/acetaminophen (*CRX) 7.5-325 MG TABLET 1 TAB PO (20:41)
--- NOTE | 2023-01-29 23:58 | PC.NURSE ---
Attempted to get patient up to chair per doctor's order. Patient initially agreed and then immediately refused as soon as we tried to help her sit up. Educated patient on importance of activity post surgery but patient unwilling to try at this time. Pt reports pain at a 3/10, scheduled tylenol given. Pt agreeable to try later this morning.
[2023-01-30] VITALS (17 sets, daily range): BP systolic 95–146; BP diastolic 58–76; PULSE 68–111; RESP 16–18; TEMP 36.4–36.8; O2SAT 92–97
[2023-01-30] MEDS: ceFAZolin 1 GM/NS 50 ML 1 GM/50 ML BAG IVPB (02:30)
[2023-01-30] MEDS: LACTATED RINGERS 1,000 ML 100 ML IV CONT (02:43)
[2023-01-30] MEDS: ACETAMINOPHEN 500 MG TABLET PO ×4 (05:24→23:53)
[2023-01-30] MEDS: LEVOTHYROXINE SODIUM 75 MCG TABLET PO (05:26)
[2023-01-30 05:45] LABS: Basophils Percent Auto 0.3 % (0.2-1.2); Eosinophils Absolute Auto 0.1 K/mm3 (0-0.3); Eosinophils Percent Auto 0.7 % (0-4.4); Hematocrit 32.6 % (37.0-47.0); Hemoglobin 9.3 g/dL (12.0-15.0); Immature Granulocyte Absolute 0.08 K/mm3 (0.00-0.031); Immature Granulocyte Percent A 0.7 % (0-0.5); Immature Platelet Fraction Pct 9.1 % (0.9-11.2); Lymphocytes Absolute Auto 0.76 K/mm3 (0.9-3.2); Lymphocytes Percent Auto 6.5 % (18.3-44.2); Mean Corpuscular HGB Conc 28.5 g/dl (32-36); Mean Corpuscular Hemoglobin 21.4 pg (26-34); Mean Corpuscular Volume 74.9 fl (80-100); Monocytes Percent Auto 8.5 % (2.6-8.5); Neutrophils Absolute Auto 9.7 K/mm3 (1.3-6.7); Neutrophils Percent Auto 83.3 % (45.5-73.1); Platelet Count Result 260 k/mm3 (150-375); Red Blood Count 4.35 M/mm3 (4.2-5.4); Red Cell Distribution Width 27.4 % (11.5-14.5); White Blood Count 11.6 K/mm3 (4.5-10.0)
[2023-01-30 06:06] LABS: Anion Gap 5 mmol/L (8-16); Blood Urea Nitrogen 10 mg/dL (7-17); Carbon Dioxide 25 mmol/L (22-30); Chloride 104 mmol/L (98-107); Estimated CRCL calculation 73 ml/min; Estimated Glomerular Filt Rate > 60; Glucose 124 mg/dL (65-110); Potassium 4.1 mmol/L (3.4-5.0); Sodium 134 mmol/L (137-145)
[2023-01-30 06:50] LABS: Anisocytosis 2+ (NORMAL); Hypochromasia 1+ (NORMAL); Microcytosis 1+ (NORMAL); Platelet Estimate Adequate (Adequate)
[2023-01-30 06:51] LABS: Burr Cells 1+ (NORMAL); Schistocytes None Seen (NORMAL)
[2023-01-30] MEDS: HYDROcodone/acetaminophen (*CRX) 7.5-325 MG TABLET 1 TAB PO (06:55)
--- NOTE | 2023-01-30 08:25 | PM.PNGS ---
Progress Note: A&P Assessment and Plan (1) Primary adenocarcinoma of ascending colon: Code(s): C18.2 - Malignant neoplasm of ascending colon Status: Acute Assessment and Plan: Start full liquids today and stop IV fluids Increase activity, continue PT/OT Await return of bowel function Final pathology pending (2) Acute blood loss anemia: Code(s): D62 - Acute posthemorrhagic anemia Status: Acute Assessment and Plan: hemodynamically stable after surgery can resume Iron once bowel function is returning (3) Syncope: Code(s): R55 - Syncope and collapse Status: Acute Subjective Subjective Date/Time Seen: 01/30/23 08:25 Interval history: Having pain at incision. No nausea or vomiting. No bloating. No flatus or BM yet. Exam GI: Inspection: non-distended GI Palp: Yes Soft to palpation and Yes Tenderness to palpation present (GI) (incisional) Objective Data Vital Signs Vital Signs: Vital Signs - 24 hr 01/29/23 09:16 01/29/23 12:36 01/29/23 12:47 Temperature 36.4 C 36.7 C Pulse Rate 88 73 Respiratory Rate 18 18 Blood Pressure 131/61 114/67 Pulse Oximetry 94 88 L 97 Oxygen Delivery Room Air Simple Face Mask Simple Face Mask Oxygen Flow Rate 10 15 Fraction of Inspired Oxygen 01/29/23 12:50 01/29/23 13:00 01/29/23 13:15 Temperature Pulse Rate 62 61 Respiratory Rate 19 20 Blood Pressure 131/59 L 132/69 Pulse Oximetry 100 100 100 Oxygen Delivery BiPAP BiPAP BiPAP Oxygen Flow Rate Fraction of Inspired Oxygen 60 60 60 01/29/23 12:50 01/29/23 12:45 01/29/23 13:47 Temperature Pulse Rate 71 69 66 Respiratory Rate 17 16 21 H Blood Pressure 106/46 L 104/51 L Pulse Oximetry 100 92 98 Oxygen Delivery BiPAP Simple Face Mask Simple Face Mask Oxygen Flow Rate 15 6 Fraction of Inspired Oxygen 01/29/23 13:30 01/29/23 14:00 01/29/23 14:15 Temperature Pulse Rate 61 69 72 Respiratory Rate 19 20 21 H Blood Pressure 138/58 L 130/75 135/57 L Pulse Oximetry 100 95 95 Oxygen Delivery BiPAP Simple Face Mask Simple Face Mask Oxygen Flow Rate 6 4 Fraction of Inspired Oxygen 60 01/29/23 14:28 01/29/23 14:46 01/29/23 15:05 Temperature 36.7 C 36.4 C 36.4 C Pulse Rate 69 73 78 Respiratory Rate 20 22 H 20 Blood Pressure 132/62 138/59 L 132/60 Pulse Oximetry 94 100 97 Oxygen Delivery Simple Face Mask Oxygen Flow Rate 4 Fraction of Inspired Oxygen 01/29/23 16:16 01/29/23 16:00 01/29/23 19:38 Temperature 37.0 C 36.6 C Pulse Rate 86 77 88 Respiratory Rate 20 16 Blood Pressure 141/69 H 149/68 H Pulse Oximetry 98 94 Oxygen Delivery Oxygen Flow Rate Fraction of Inspired Oxygen 01/29/23 20:00 01/29/23 20:00 01/30/23 00:00 Temperature Pulse Rate 86 88 88 Respiratory Rate 16 Blood Pressure Pulse Oximetry 94 Oxygen Delivery Nasal Cannula Oxygen Flow Rate 1 Fraction of Inspired Oxygen 60 01/30/23 00:15 01/30/23 04:00 01/30/23 05:44 Temperature 36.4 C L 36.7 C Pulse Rate 96 87 98 Respiratory Rate 16 16 Blood Pressure 146/62 H 144/68 H Pulse Oximetry 97 94 Oxygen Delivery Oxygen Flow Rate Fraction of Inspired Oxygen 01/30/23 06:24 Temperature Pulse Rate Respiratory Rate Blood Pressure Pulse Oximetry 92 Oxygen Delivery Oxygen Flow Rate Fraction of Inspired Oxygen Intake/Output Intake/Output: Intake & Output 01/27/23 01/28/23 01/29/23 01/30/23 23:59 23:59 23:59 23:59 Intake Total 440 547 134 8600 Output Total 1750 200 800 Balance 440 -8653 067 0011 Meds/Results Medications: Active Medications Generic Name Dose Route Start Last Admin Trade Name Freq PRN Reason Stop Dose Admin Acetaminophen 500 mg 01/29/23 18:00 01/30/23 05:24 Acetaminophen 500 Mg Tablet PO 500 mg Q6HR STEFANO Administration Hydrocodone Bitart/Acetaminophen 1 tab 01/29/23 14:31 Hydrocodone/Acetaminophen (*Crx) 5-325 Mg Tablet PO Q4H PRN
[2023-01-30] MEDS: MORPHINE SULFATE (*CRX) 2 MG/ML INJ IV PUSH (09:42)
[2023-01-30] MEDS: ENOXAPARIN 40 MG/0.4 ML SYRINGE SUB-Q (09:43)
[2023-01-30] MEDS: VENLAFAXINE HCL XR 75 MG CAP.ER.24H PO ×2 (09:44→17:37)
[2023-01-30] MEDS: METOPROLOL TARTRATE 50 MG TAB PO (09:44)
[2023-01-30] MEDS: amLODIPine BESYLATE 5 MG TABLET 10 MG PO (09:44)
[2023-01-30] MEDS: ATORVASTATIN 20 MG TABLET PO (09:45)
[2023-01-30] MEDS: EUCERIN CREAM 120 GM JAR 1 APPLIC TOPICAL (09:46)
[2023-01-30] MEDS: LORazepam (*CRX) 0.5 MG TABLET PO (11:46)
--- NOTE | 2023-01-30 12:04 | PM.IMPN ---
Progress Note: A&P Assessment and Plan (1) Orthostatic syncope: Code(s): I95.1 - Orthostatic hypotension Status: Acute Assessment and Plan: Resolved (2) Anemia: Code(s): D64.9 - Anemia, unspecified Status: Acute Assessment and Plan: Status post colon resection for colonic mass. (3) Depression: Code(s): F32.9 - Major depressive disorder, single episode, unspecified Status: Acute Assessment and Plan: Continue with Effexor (4) Generalized weakness: Code(s): R53.1 - Weakness Status: Acute Assessment and Plan: continue to watch orthostatics Appreciate PT/OT/care coordination consultations (5) Syncope: Code(s): R55 - Syncope and collapse Status: Acute Assessment and Plan: As above (6) Chronic kidney disease, stage 3: Code(s): N18.30 - Chronic kidney disease, stage 3 unspecified Status: Acute Assessment and Plan: Improving, monitor (7) Rhabdomyolysis: Code(s): M62.82 - Rhabdomyolysis Status: Resolved Assessment and Plan: Resolving (8) Anxiety: Code(s): F41.9 - Anxiety disorder, unspecified Status: Chronic Assessment and Plan: Continue with lorazepam (9) Depression with anxiety: Code(s): F41.8 - Other specified anxiety disorders Status: Chronic Assessment and Plan: Continue with Effexor (10) Hypothyroidism: Code(s): E03.9 - Hypothyroidism, unspecified Status: Chronic Assessment and Plan: Continue levothyroxine, TSH wnl (11) Hypertension: Qualifiers: Hypertension type: essential hypertension Qualified Code(s): I10 - Essential (primary) hypertension Code(s): I10 - Essential (primary) hypertension Status: Chronic Assessment and Plan: Hold antihypertensives while hypotensive, restart when able (12) Hyperlipidemia: Code(s): E78.5 - Hyperlipidemia, unspecified Status: Acute Assessment and Plan: Continue with atorvastatin and monitor liver function tests. (13) Primary adenocarcinoma of ascending colon: Code(s): C18.2 - Malignant neoplasm of ascending colon Status: Acute Assessment and Plan: Status post colon resection. Subjective Date/time seen: 01/30/23 12:04 Still having some abdominal pain. Doing well after her surgery. Exam Narrative: General: Chronically ill appearing tired and weak elderly lady CV: Regular rate and rhythm, S1, S2 Lungs: Clear to auscultation bilaterally, no rales or crackles noted, no wheezes, good air entry Abdomen: Soft, nontender, nondistended Extremities: Normal to inspection Skin: No rashes noted, no lesions or wounds seen Objective Data Vital Signs Vital Signs: Vital Signs - 24 hr 01/29/23 12:36 01/29/23 12:47 01/29/23 12:50 Temperature 98.1 F Pulse Rate 73 Respiratory Rate 18 Blood Pressure 114/67 Pulse Oximetry 88 L 97 100 Oxygen Delivery Simple Face Mask Simple Face Mask BiPAP Oxygen Flow Rate 10 15 Fraction of Inspired Oxygen 60 01/29/23 13:00 01/29/23 13:15 01/29/23 12:50 Temperature Pulse Rate 62 61 71 Respiratory Rate 19 20 17 Blood Pressure 131/59 L 132/69 Pulse Oximetry 100 100 100 Oxygen Delivery BiPAP BiPAP BiPAP Oxygen Flow Rate Fraction of Inspired Oxygen 60 60 01/29/23 12:45 01/29/23 13:47 01/29/23 13:30 Temperature Pulse Rate 69 66 61 Respiratory Rate 16 21 H 19 Blood Pressure 106/46 L 104/51 L 138/58 L Pulse Oximetry 92 98 100 Oxygen Delivery Simple Face Mask Simple Face Mask BiPAP Oxygen Flow Rate 15 6 Fraction of Inspired Oxygen 60 01/29/23 14:00 01/29/23 14:15 01/29/23 14:28 Temperature 98.1 F Pulse Rate 69 72 69 Respiratory Rate 20 21 H 20 Blood Pressure 130/75 135/57 L 132/62 Pulse Oximetry 95 95 94 Oxygen Delivery Simple Face Mask Simple Face Mask Si
[2023-01-31] VITALS (10 sets, daily range): BP systolic 123–141; BP diastolic 51–66; PULSE 74–97; RESP 18–20; TEMP 36.6–37.1; O2SAT 93–98
[2023-01-31] MEDS: ACETAMINOPHEN 500 MG TABLET PO ×4 (06:01→23:58)
[2023-01-31] MEDS: LEVOTHYROXINE SODIUM 75 MCG TABLET PO (06:01)
[2023-01-31 06:59] LABS: Hematocrit 28.4 % (37.0-47.0); Hemoglobin 8.1 g/dL (12.0-15.0); Mean Corpuscular HGB Conc 28.5 g/dl (32-36); Mean Corpuscular Hemoglobin 21.4 pg (26-34); Mean Corpuscular Volume 74.9 fl (80-100); Mean Platelet Volume 10.6 fl (7.4-10.4); Platelet Count Result 317 k/mm3 (150-375); Red Blood Count 3.79 M/mm3 (4.2-5.4); Red Cell Distribution Width 27.4 % (11.5-14.5); White Blood Count 10.6 K/mm3 (4.5-10.0)
[2023-01-31 07:08] LABS: Anion Gap 3 mmol/L (8-16); Blood Urea Nitrogen 11 mg/dL (7-17); Calcium 8.1 mg/dL (8.4-10.2); Carbon Dioxide 30 mmol/L (22-30); Chloride 104 mmol/L (98-107); Estimated CRCL calculation 58 ml/min; Estimated Glomerular Filt Rate > 60; Glucose 102 mg/dL (65-110); Potassium 3.5 mmol/L (3.4-5.0); Sodium 137 mmol/L (137-145)
[2023-01-31] MEDS: ENOXAPARIN 40 MG/0.4 ML SYRINGE SUB-Q (08:45)
[2023-01-31] MEDS: METOPROLOL TARTRATE 50 MG TAB PO (08:46)
[2023-01-31] MEDS: amLODIPine BESYLATE 5 MG TABLET 10 MG PO (08:46)
[2023-01-31] MEDS: ATORVASTATIN 20 MG TABLET PO (08:47)
[2023-01-31] MEDS: EUCERIN CREAM 120 GM JAR 1 APPLIC TOPICAL (08:47)
[2023-01-31] MEDS: VENLAFAXINE HCL XR 75 MG CAP.ER.24H PO ×2 (08:47→17:38)
[2023-01-31] MEDS: HYDROcodone/acetaminophen (*CRX) 5-325 MG TABLET 1 TAB PO (09:00)
--- NOTE | 2023-01-31 09:46 | PM.IMPN ---
Progress Note: A&P Assessment and Plan (1) Orthostatic syncope: Code(s): I95.1 - Orthostatic hypotension Status: Acute Assessment and Plan: Resolved (2) Anemia: Code(s): D64.9 - Anemia, unspecified Status: Acute Assessment and Plan: Status post colon resection for colonic mass. (3) Depression: Code(s): F32.9 - Major depressive disorder, single episode, unspecified Status: Acute Assessment and Plan: Continue with Effexor (4) Generalized weakness: Code(s): R53.1 - Weakness Status: Acute Assessment and Plan: continue to watch orthostatics Appreciate PT/OT/care coordination consultations (5) Syncope: Code(s): R55 - Syncope and collapse Status: Acute Assessment and Plan: As above (6) Chronic kidney disease, stage 3: Code(s): N18.30 - Chronic kidney disease, stage 3 unspecified Status: Acute Assessment and Plan: Improving, monitor (7) Rhabdomyolysis: Code(s): M62.82 - Rhabdomyolysis Status: Resolved Assessment and Plan: Resolving (8) Anxiety: Code(s): F41.9 - Anxiety disorder, unspecified Status: Chronic Assessment and Plan: Continue with lorazepam (9) Depression with anxiety: Code(s): F41.8 - Other specified anxiety disorders Status: Chronic Assessment and Plan: Continue with Effexor (10) Hypothyroidism: Code(s): E03.9 - Hypothyroidism, unspecified Status: Chronic Assessment and Plan: Continue levothyroxine, TSH wnl (11) Hypertension: Qualifiers: Hypertension type: essential hypertension Qualified Code(s): I10 - Essential (primary) hypertension Code(s): I10 - Essential (primary) hypertension Status: Chronic Assessment and Plan: Hold antihypertensives while hypotensive, restart when able (12) Hyperlipidemia: Code(s): E78.5 - Hyperlipidemia, unspecified Status: Acute Assessment and Plan: Continue with atorvastatin and monitor liver function tests. (13) Primary adenocarcinoma of ascending colon: Code(s): C18.2 - Malignant neoplasm of ascending colon Status: Acute Assessment and Plan: Status post colon resection. Subjective Date/time seen: 01/31/23 09:47 Feeling better, no nausea vomiting Exam Narrative: General: Chronically ill appearing tired and weak elderly lady CV: Regular rate and rhythm, S1, S2 Lungs: Clear to auscultation bilaterally, no rales or crackles noted, no wheezes, good air entry Abdomen: Soft, nontender, nondistended Extremities: Normal to inspection Skin: No rashes noted, no lesions or wounds seen Objective Data Vital Signs Vital Signs: Vital Signs - 24 hr 01/30/23 11:14 01/30/23 14:21 01/30/23 13:00 Temperature Pulse Rate 96 Respiratory Rate Blood Pressure 142/62 H Pulse Oximetry Oxygen Delivery Nasal Cannula Nasal Cannula Oxygen Flow Rate 1 1 Fraction of Inspired Oxygen 01/30/23 15:04 01/30/23 13:08 01/30/23 12:00 Temperature Pulse Rate 90 111 H 87 Respiratory Rate Blood Pressure 139/65 95/58 L Pulse Oximetry Oxygen Delivery Oxygen Flow Rate Fraction of Inspired Oxygen 01/30/23 16:00 01/30/23 10:00 01/30/23 14:00 Temperature 98.0 F 98 F Pulse Rate 75 68 70 Respiratory Rate 16 16 Blood Pressure 142/65 H 140/62 Pulse Oximetry 92 94 Oxygen Delivery Oxygen Flow Rate Fraction of Inspired Oxygen 01/30/23 18:00 01/30/23 20:00 01/30/23 20:00 Temperature 98.2 F 98.1 F Pulse Rate 72 94 88 Respiratory Rate 16 18 Blood Pressure 138/76 141/61 H Pulse Oximetry 93 96 Oxygen Delivery Oxygen Flow Rate Fraction of Inspired Oxygen 01/30/23 20:00 01/31/23 00:00 01/31/23 04:00 Temperature Pulse Rate 88 83 75 Respiratory Rate 18 Blood Pressure P
[2023-01-31] MEDS: LORazepam (*CRX) 0.5 MG TABLET PO (10:52)
--- NOTE | 2023-01-31 11:22 | PM.PNGS ---
Progress Note: A&P Assessment and Plan (1) Primary adenocarcinoma of ascending colon: Code(s): C18.2 - Malignant neoplasm of ascending colon Status: Acute Assessment and Plan: exam benign, cont to await ROBF, encourage OOB/IS Subjective Subjective Date/Time Seen: 01/31/23 11:22 feels ok, some incisional soreness, no bowel fxn, diane full liquids Review of Systems Review of Systems: All systems reviewed & are unremarkable except as noted in HPI and below Exam Const: General: cooperative, comfortable and no acute distress Resp: Auscultation: clear to auscultation bilaterally Cardio: Rate: regular rate Rhythm: regular rhythm GI: Inspection: normal to inspection, distended and incision GI Palp: Yes abdominal tenderness, Yes Soft to palpation, Yes Tenderness to palpation present (GI), No Guarding due to palpation present (GI) and No Rigid due to palpation Objective Data Vital Signs Vital Signs: Vital Signs - 24 hr 01/30/23 14:21 01/30/23 13:00 01/30/23 15:04 Temperature Pulse Rate 96 90 Respiratory Rate Blood Pressure 142/62 H 139/65 Pulse Oximetry Oxygen Delivery Nasal Cannula Oxygen Flow Rate 1 Fraction of Inspired Oxygen 01/30/23 13:08 01/30/23 12:00 01/30/23 16:00 Temperature Pulse Rate 111 H 87 75 Respiratory Rate Blood Pressure 95/58 L Pulse Oximetry Oxygen Delivery Oxygen Flow Rate Fraction of Inspired Oxygen 01/30/23 14:00 01/30/23 18:00 01/30/23 20:00 Temperature 36.6 C 36.8 C Pulse Rate 70 72 94 Respiratory Rate 16 16 Blood Pressure 140/62 138/76 Pulse Oximetry 94 93 Oxygen Delivery Oxygen Flow Rate Fraction of Inspired Oxygen 01/30/23 20:00 01/30/23 20:00 01/31/23 00:00 Temperature 36.7 C Pulse Rate 88 88 83 Respiratory Rate 18 18 Blood Pressure 141/61 H Pulse Oximetry 96 96 Oxygen Delivery Nasal Cannula Oxygen Flow Rate 1 Fraction of Inspired Oxygen 60 01/31/23 04:00 01/31/23 08:46 01/31/23 08:00 Temperature Pulse Rate 75 90 97 Respiratory Rate Blood Pressure Pulse Oximetry Oxygen Delivery Oxygen Flow Rate Fraction of Inspired Oxygen Intake/Output Intake/Output: Intake & Output 01/28/23 01/29/23 01/30/2301/31/23 23:59 23:59 23:59 23:59 Intake Total 521 114 3726 240 Output Total 5718 370 8343 400 Balance -1854 348 5751 -160 Meds/Results Medications: Active Medications Generic Name Dose Route Start Last Admin Trade Name Freq PRN Reason Stop Dose Admin Acetaminophen 500 mg 01/29/23 18:00 01/31/23 06:01 Acetaminophen 500 Mg Tablet PO 500 mg Q6HR STEFANO Administration Hydrocodone Bitart/Acetaminophen 1 tab 01/29/23 14:31 01/31/23 09:00 Hydrocodone/Acetaminophen (*Crx) 5-325 Mg Tablet PO 1 tab Q4H PRN Administration Pain Rated 4-6 Hydrocodone Bitart/Acetaminophen 1 tab 01/29/23 14:31 01/30/23 06:55 Hydrocodone/Acetaminophen (*Crx) 7.5-325 Mg Tablet PO 1 tab Q4H PRN Administration Pain Rated 7-10 Amlodipine Besylate 10 mg 01/25/23 09:00 01/31/23 08:46 Amlodipine Besylate 5 Mg Tablet PO 10 mg DAILY STEFANO Administration Atorvastatin Calcium 20 mg 01/25/23 09:00 01/31/23 08:47 Atorvastatin 20 Mg Tablet PO 20 mg QAM STEFANO Administration Enoxaparin Sodium 40 mg 01/30/23 09:00 01/31/23 08:45 Enoxaparin 40 Mg/0.4 Ml Syringe SUB-Q 40 mg DAILY STEFANO Administration Levothyroxine Sodium 75 mcg 01/25/23 06:30 01/31/23 06:01 Levothyroxine Sodium 75 Mcg Tablet PO 75 mcg DAILY@0630 STEFANO Administration Lorazepam 0.5 mg 01/24/23 15:26 01/31/23 10:52 Lorazepam (*Crx) 0.5 Mg Tablet PO 0.5 mg Q6H PRN Administration Anxiety Metoprolol Tartrate 50 mg 01/27/23 11:15 01/31/23 08:46 Metoprolol Tartrate 50 Mg Tab PO 50 mg DAILY STEFANO Administration Morphine Sulfate 2 mg 01/29/23 14:31 01/30/23 09:42 Morphine Sulfate (*Crx) 2 Mg/Ml Inj IV PUSH 2 mg Q2H
[2023-01-31] MEDS: HYDROcodone/acetaminophen (*CRX) 7.5-325 MG TABLET 1 TAB PO (13:35)
[2023-02-01] VITALS (11 sets, daily range): BP systolic 130–143; BP diastolic 55–71; PULSE 74–98; RESP 18–20; TEMP 36.6–36.8; O2SAT 95–100
[2023-02-01 05:46] LABS: Hematocrit 28.6 % (37.0-47.0); Hemoglobin 8.1 g/dL (12.0-15.0); Mean Corpuscular HGB Conc 28.3 g/dl (32-36); Mean Corpuscular Hemoglobin 21.3 pg (26-34); Mean Corpuscular Volume 75.3 fl (80-100); Mean Platelet Volume 10.3 fl (7.4-10.4); Platelet Count Result 337 k/mm3 (150-375); Red Cell Distribution Width 27.1 % (11.5-14.5); White Blood Count 7.7 K/mm3 (4.5-10.0)
[2023-02-01] MEDS: LEVOTHYROXINE SODIUM 75 MCG TABLET PO (05:56)
[2023-02-01] MEDS: ACETAMINOPHEN 500 MG TABLET PO ×3 (05:56→17:45)
[2023-02-01 06:07] LABS: Anion Gap 2 mmol/L (8-16); Blood Urea Nitrogen 15 mg/dL (7-17); Calcium 7.7 mg/dL (8.4-10.2); Carbon Dioxide 30 mmol/L (22-30); Chloride 105 mmol/L (98-107); Estimated CRCL calculation 73 ml/min; Estimated Glomerular Filt Rate > 60; Glucose 92 mg/dL (65-110); Potassium 3.5 mmol/L (3.4-5.0); Sodium 137 mmol/L (137-145)
[2023-02-01] MEDS: ENOXAPARIN 40 MG/0.4 ML SYRINGE SUB-Q (08:37)
[2023-02-01] MEDS: amLODIPine BESYLATE 5 MG TABLET 10 MG PO (08:37)
[2023-02-01] MEDS: METOPROLOL TARTRATE 50 MG TAB PO (08:38)
[2023-02-01] MEDS: VENLAFAXINE HCL XR 75 MG CAP.ER.24H PO ×2 (08:38→17:45)
[2023-02-01] MEDS: ATORVASTATIN 20 MG TABLET PO (08:38)
[2023-02-01] MEDS: EUCERIN CREAM 120 GM JAR 1 APPLIC TOPICAL (08:40)
--- NOTE | 2023-02-01 10:33 | PM.PNGS ---
Progress Note: A&P Assessment and Plan (1) Primary adenocarcinoma of ascending colon: Code(s): C18.2 - Malignant neoplasm of ascending colon Status: Acute Assessment and Plan: better today, +bowel fxn, ADAT, OOB/IS Subjective Subjective Date/Time Seen: 02/01/23 10:33 feels better today, +multiple BMs yesterday Review of Systems Review of Systems: All systems reviewed & are unremarkable except as noted in HPI and below Exam Const: General: cooperative, comfortable and no acute distress Resp: Auscultation: clear to auscultation bilaterally Cardio: Rate: regular rate Rhythm: regular rhythm GI: Inspection: normal to inspection, non-distended and incision GI Palp: Yes abdominal tenderness, Yes Soft to palpation, Yes Tenderness to palpation present (GI), No Guarding due to palpation present (GI) and No Rigid due to palpation Objective Data Vital Signs Vital Signs: Vital Signs - 24 hr 01/31/23 12:00 01/31/23 15:26 01/31/23 16:00 Temperature 37.1 C Pulse Rate 86 90 82 Respiratory Rate 20 Blood Pressure 124/65 Pulse Oximetry 93 Oxygen Delivery Oxygen Flow Rate Fraction of Inspired Oxygen 01/31/23 20:00 01/31/23 20:09 01/31/23 20:00 Temperature 36.6 C Pulse Rate 86 74 97 Respiratory Rate 20 Blood Pressure 141/66 H 123/51 L Pulse Oximetry 98 Oxygen Delivery Oxygen Flow Rate Fraction of Inspired Oxygen 01/31/23 20:00 02/01/23 00:00 02/01/23 04:00 Temperature Pulse Rate 74 74 86 Respiratory Rate 20 Blood Pressure Pulse Oximetry 98 Oxygen Delivery Room Air Oxygen Flow Rate Fraction of Inspired Oxygen 60 02/01/23 05:50 02/01/23 08:38 02/01/23 09:49 Temperature 36.6 C Pulse Rate 83 87 94 Respiratory Rate 20 Blood Pressure 143/62 H Pulse Oximetry 98 95 Oxygen Delivery Nasal Cannula Oxygen Flow Rate 1 Fraction of Inspired Oxygen Intake/Output Intake/Output: Intake & Output 01/29/23 01/30/23 01/31/23 02/01/23 23:59 23:59 23:59 23:59 Intake Total 690 3782 1240 480 Output Total 200 1800 1800 Balance 490 1982 -560 480 Meds/Results Medications: Active Medications Generic Name Dose Route Start Last Admin Trade Name Freq PRN Reason Stop Dose Admin Acetaminophen 500 mg 01/29/23 18:00 02/01/23 05:56 Acetaminophen 500 Mg Tablet PO 500 mg Q6HR STEFANO Administration Hydrocodone Bitart/Acetaminophen 1 tab 01/29/23 14:31 01/31/23 09:00 Hydrocodone/Acetaminophen (*Crx) 5-325 Mg Tablet PO 1 tab Q4H PRN Administration Pain Rated 4-6 Hydrocodone Bitart/Acetaminophen 1 tab 01/29/23 14:31 01/31/23 13:35 Hydrocodone/Acetaminophen (*Crx) 7.5-325 Mg Tablet PO 1 tab Q4H PRN Administration Pain Rated 7-10 Amlodipine Besylate 10 mg 01/25/23 09:00 02/01/23 08:37 Amlodipine Besylate 5 Mg Tablet PO 10 mg DAILY STEFANO Administration Atorvastatin Calcium 20 mg 01/25/23 09:00 02/01/23 08:38 Atorvastatin 20 Mg Tablet PO 20 mg QAM STEFANO Administration Enoxaparin Sodium 40 mg 01/30/23 09:00 02/01/23 08:37 Enoxaparin 40 Mg/0.4 Ml Syringe SUB-Q 40 mg DAILY STEFANO Administration Levothyroxine Sodium 75 mcg 01/25/23 06:30 02/01/23 05:56 Levothyroxine Sodium 75 Mcg Tablet PO 75 mcg DAILY@0630 [facility] Administration Lorazepam 0.5 mg 01/24/23 15:26 01/31/23 10:52 Lorazepam (*Crx) 0.5 Mg Tablet PO 0.5 mg Q6H PRN Administration Anxiety Metoprolol Tartrate 50 mg 01/27/23 11:15 02/01/23 08:38 Metoprolol Tartrate 50 Mg Tab PO 50 mg DAILY STEFANO Administration Morphine Sulfate 2 mg 01/29/23 14:31 01/30/23 09:42 Morphine Sulfate (*Crx) 2 Mg/Ml Inj IV PUSH 2 mg Q2H PRN Administration Pain Rated 4-6 Morphine Sulfate 4 mg 01/29/23 14:31 Morphine Sulfate (*Crx) 4 Mg/Ml Inj IV PUSH Q2H PRN Pain Rated 7-10 Multi-Ingred Cream/Lotion/Oil/Oint 1 applic 01/25/23 09:00 02/01/23 08:40 Eucerin Cream 120 Gm Jar
--- NOTE | 2023-02-01 11:38 | PM.IMPN ---
Progress Note: A&P Assessment and Plan (1) Orthostatic syncope: Code(s): I95.1 - Orthostatic hypotension Status: Acute Assessment and Plan: Resolved (2) Anemia: Code(s): D64.9 - Anemia, unspecified Status: Acute Assessment and Plan: Status post colon resection for colonic mass. (3) Depression: Code(s): F32.9 - Major depressive disorder, single episode, unspecified Status: Acute Assessment and Plan: Continue with Effexor (4) Generalized weakness: Code(s): R53.1 - Weakness Status: Acute Assessment and Plan: continue to watch orthostatics Appreciate PT/OT/care coordination consultations (5) Syncope: Code(s): R55 - Syncope and collapse Status: Acute Assessment and Plan: As above (6) Chronic kidney disease, stage 3: Code(s): N18.30 - Chronic kidney disease, stage 3 unspecified Status: Acute Assessment and Plan: Improving, monitor (7) Rhabdomyolysis: Code(s): M62.82 - Rhabdomyolysis Status: Resolved Assessment and Plan: Resolving (8) Anxiety: Code(s): F41.9 - Anxiety disorder, unspecified Status: Chronic Assessment and Plan: Continue with lorazepam (9) Depression with anxiety: Code(s): F41.8 - Other specified anxiety disorders Status: Chronic Assessment and Plan: Continue with Effexor (10) Hypothyroidism: Code(s): E03.9 - Hypothyroidism, unspecified Status: Chronic Assessment and Plan: Continue levothyroxine, TSH wnl (11) Hypertension: Qualifiers: Hypertension type: essential hypertension Qualified Code(s): I10 - Essential (primary) hypertension Code(s): I10 - Essential (primary) hypertension Status: Chronic Assessment and Plan: Hold antihypertensives while hypotensive, restart when able (12) Hyperlipidemia: Code(s): E78.5 - Hyperlipidemia, unspecified Status: Acute Assessment and Plan: Continue with atorvastatin and monitor liver function tests. (13) Primary adenocarcinoma of ascending colon: Code(s): C18.2 - Malignant neoplasm of ascending colon Status: Acute Assessment and Plan: Status post colon resection. Subjective Date/time seen: 02/01/23 11:38 No complaints Exam Narrative: General: Chronically ill appearing tired and weak elderly lady CV: Regular rate and rhythm, S1, S2 Lungs: Clear to auscultation bilaterally, no rales or crackles noted, no wheezes, good air entry Abdomen: Soft, nontender, nondistended Extremities: Normal to inspection Skin: No rashes noted, no lesions or wounds seen Objective Data Vital Signs Vital Signs: Vital Signs - 24 hr 01/31/23 12:00 01/31/23 15:26 01/31/23 16:00 Temperature 98.7 F Pulse Rate 86 90 82 Respiratory Rate 20 Blood Pressure 124/65 Pulse Oximetry 93 Oxygen Delivery Oxygen Flow Rate Fraction of Inspired Oxygen 01/31/23 20:00 01/31/23 20:09 01/31/23 20:00 Temperature 97.8 F Pulse Rate 86 74 97 Respiratory Rate 20 Blood Pressure 141/66 H 123/51 L Pulse Oximetry 98 Oxygen Delivery Oxygen Flow Rate Fraction of Inspired Oxygen 01/31/23 20:00 02/01/23 00:00 02/01/23 04:00 Temperature Pulse Rate 74 74 86 Respiratory Rate 20 Blood Pressure Pulse Oximetry 98 Oxygen Delivery Room Air Oxygen Flow Rate Fraction of Inspired Oxygen 60 02/01/23 05:50 02/01/23 08:38 02/01/23 09:49 Temperature 97.9 F Pulse Rate 83 87 94 Respiratory Rate 20 Blood Pressure 143/62 H Pulse Oximetry 98 95 Oxygen Delivery Nasal Cannula Oxygen Flow Rate 1 Fraction of Inspired Oxygen Intake/Output Intake/Output: Intake & Output 01/29/23 01/30/23 01/31/23 02/01/23 23:59 23:59 23:59 23:59 Intake Total 785 3782 1240 480 Output Total 200 1800 1800
[2023-02-01] MEDS: ONDANSETRON INJ 4 MG/2 ML VIAL IV PUSH (21:45)
[2023-02-02] VITALS (8 sets, daily range): BP systolic 126–131; BP diastolic 57–72; PULSE 82–90; RESP 20; TEMP 36.6–36.9; O2SAT 95–98
[2023-02-02] MEDS: HYDROcodone/acetaminophen (*CRX) 5-325 MG TABLET 1 TAB PO ×2 (00:26→15:35)
[2023-02-02] MEDS: ACETAMINOPHEN 500 MG TABLET PO ×2 (05:19→12:00)
[2023-02-02] MEDS: LEVOTHYROXINE SODIUM 75 MCG TABLET PO (05:20)
[2023-02-02 05:58] LABS: Hematocrit 29.4 % (37.0-47.0); Hemoglobin 8.5 g/dL (12.0-15.0); Mean Corpuscular HGB Conc 28.9 g/dl (32-36); Mean Corpuscular Hemoglobin 21.9 pg (26-34); Mean Corpuscular Volume 75.8 fl (80-100); Mean Platelet Volume 10.8 fl (7.4-10.4); Platelet Count Result 386 k/mm3 (150-375); Red Blood Count 3.88 M/mm3 (4.2-5.4); Red Cell Distribution Width 27.8 % (11.5-14.5); White Blood Count 8.7 K/mm3 (4.5-10.0)
[2023-02-02 06:08] LABS: Anion Gap 0 mmol/L (8-16); Blood Urea Nitrogen 17 mg/dL (7-17); Calcium 7.8 mg/dL (8.4-10.2); Carbon Dioxide 33 mmol/L (22-30); Chloride 102 mmol/L (98-107); Estimated CRCL calculation 73 ml/min; Estimated Glomerular Filt Rate > 60; Glucose 104 mg/dL (65-110); Potassium 3.9 mmol/L (3.4-5.0); Sodium 135 mmol/L (137-145)
[2023-02-02] MEDS: VENLAFAXINE HCL XR 75 MG CAP.ER.24H PO (08:25)
[2023-02-02] MEDS: ATORVASTATIN 20 MG TABLET PO (08:25)
[2023-02-02] MEDS: amLODIPine BESYLATE 5 MG TABLET 10 MG PO (08:25)
[2023-02-02] MEDS: METOPROLOL TARTRATE 50 MG TAB PO (08:25)
[2023-02-02] MEDS: EUCERIN CREAM 120 GM JAR 1 APPLIC TOPICAL (08:25)
[2023-02-02] MEDS: ENOXAPARIN 40 MG/0.4 ML SYRINGE SUB-Q (08:26)
--- NOTE | 2023-02-02 11:31 | PM.DS ---
DS: Admitting Diagnosis Discharge Date February 02, 2023 Admitting Diagnosis Adenocarcinoma of the colon DS: Discharge Diagnosis Discharge Diagnosis (1) Orthostatic syncope: Code(s): I95.1 - Orthostatic hypotension Status: Acute Assessment and Plan: Resolved (2) Anemia: Code(s): D64.9 - Anemia, unspecified Status: Acute Assessment and Plan: Status post colon resection for colonic mass. (3) Depression: Code(s): F32.9 - Major depressive disorder, single episode, unspecified Status: Acute Assessment and Plan: Continue with Effexor (4) Generalized weakness: Code(s): R53.1 - Weakness Status: Acute Assessment and Plan: continue to watch orthostatics Appreciate PT/OT/care coordination consultations (5) Syncope: Code(s): R55 - Syncope and collapse Status: Acute Assessment and Plan: As above (6) Chronic kidney disease, stage 3: Code(s): N18.30 - Chronic kidney disease, stage 3 unspecified Status: Acute Assessment and Plan: Improving, monitor (7) Rhabdomyolysis: Code(s): M62.82 - Rhabdomyolysis Status: Resolved Assessment and Plan: Resolving (8) Anxiety: Code(s): F41.9 - Anxiety disorder, unspecified Status: Chronic Assessment and Plan: Continue with lorazepam (9) Depression with anxiety: Code(s): F41.8 - Other specified anxiety disorders Status: Chronic Assessment and Plan: Continue with Effexor (10) Hypothyroidism: Code(s): E03.9 - Hypothyroidism, unspecified Status: Chronic Assessment and Plan: Continue levothyroxine, TSH wnl (11) Hypertension: Qualifiers: Hypertension type: essential hypertension Qualified Code(s): I10 - Essential (primary) hypertension Code(s): I10 - Essential (primary) hypertension Status: Chronic Assessment and Plan: Hold antihypertensives while hypotensive, restart when able (12) Hyperlipidemia: Code(s): E78.5 - Hyperlipidemia, unspecified Status: Acute Assessment and Plan: Continue with atorvastatin and monitor liver function tests. (13) Primary adenocarcinoma of ascending colon: Code(s): C18.2 - Malignant neoplasm of ascending colon Status: Acute Assessment and Plan: Status post colon resection. DS: Summary Hospital Course Hospital Course: 73-year-old female came in with colonic mass. Underwent colon resection. Also found to be dehydrated and orthostatic and anemic. This has subsequently improved. Patient will need to follow up with surgery and get appropriate referral for any type of oncologic evaluation as an outpatient. She is tolerating diet going to the bathroom without any issues. Time Spent with Patient Time attestation: Total time spent providing and/or coordinating discharge services: Exam Narrative: General: Chronically ill appearing tired and weak elderly lady CV: Regular rate and rhythm, S1, S2 Lungs: Clear to auscultation bilaterally, no rales or crackles noted, no wheezes, good air entry Abdomen: Soft, nontender, nondistended Extremities: Normal to inspection Skin: No rashes noted, no lesions or wounds seen DS: Data Data Completed and Pending Completed studies during hospitalization: Pending at discharge 01/26/23 14:00 Surgical [PTH] Routine Pending studies at discharge: Pending at discharge 01/29/23 11:33 Surgical [PTH] Routine Labs on day of discharge: Labs from last 24 hours 02/02/23 02/02/23 05:46 05:46 WBC 8.7 RBC 3.88 L Hgb 8.5 L Hct 29.4 L MCV 75.8 L MCH 21.9 L MCHC 28.9 L RDW 27.8 H Plt Count 386 H MPV 10.8 H Sodium 135 L Potassium 3.9 Chloride 102 Carbon Dioxide 33 H Anion Gap 0 L BUN 17 Creatinine 0.70 Estim Creat Clear Calc 73 Es
--- NOTE | 2023-02-02 12:51 | PM.PNGS ---
Progress Note: A&P Assessment and Plan (1) Primary adenocarcinoma of ascending colon: Code(s): C18.2 - Malignant neoplasm of ascending colon Status: Acute Assessment and Plan: Continues to improve. Tolerating a solid diet and bowels are moving. Pathology still pending. Okay from our standpoint to discharge the patient today. Plan is for the patient to discharge to [facility] for rehab and eventually go to her son's house once able. Follow-up in [address] Paris. Plan I have discussed the patient's case and plan of care with Dr. Paris. Subjective Subjective Date/Time Seen: 02/02/23 12:51 Post Op day: 4 (Hand assisted laparoscopic right hemicolectomy with ileocolic anastomosis) Patient reports: no new complaints, feels better, tolerating a regular diet, voiding w/o difficulty, flatus, bowel movement and afebrile Review of Systems Review of Systems: All systems reviewed & are unremarkable except as noted in HPI and below Exam Const: General: comfortable and no acute distress Orientation/consciousness: patient oriented x3 GI: Inspection: non-distended and incision (dry and intact) GI Palp: Yes Soft to palpation, No Tenderness to palpation present (GI) and No Guarding due to palpation present (GI) Auscultation: normal bowel sounds Extrem: General: no edema Psych: Mental Status: mental status grossly normal Insight: Good insight present (Psych) Objective Data Vital Signs Vital Signs: Vital Signs - 24 hr 02/01/23 14:00 02/01/23 16:00 02/01/23 20:17 Temperature 98.2 F 97.8 F Pulse Rate 80 84 92 Respiratory Rate 18 20 Blood Pressure 130/55 L 141/66 H Pulse Oximetry 100 98 Oxygen Delivery Oxygen Flow Rate Fraction of Inspired Oxygen 02/01/23 20:00 02/01/23 20:00 02/01/23 20:00 Temperature Pulse Rate 98 87 92 Respiratory Rate 20 Blood Pressure 142/71 H Pulse Oximetry 98 Oxygen Delivery Nasal Cannula Oxygen Flow Rate 1 Fraction of Inspired Oxygen 60 02/02/23 00:00 02/02/23 04:00 02/02/23 05:47 Temperature 97.9 F Pulse Rate 90 82 83 Respiratory Rate 20 Blood Pressure 131/57 L Pulse Oximetry 98 Oxygen Delivery Oxygen Flow Rate Fraction of Inspired Oxygen 02/02/23 08:25 02/02/23 08:00 02/02/23 08:00 Temperature Pulse Rate 84 82 Respiratory Rate Blood Pressure Pulse Oximetry 95 Oxygen Delivery Room Air Oxygen Flow Rate Fraction of Inspired Oxygen Intake/Output Intake/Output: Intake & Output 01/30/23 01/31/23 02/01/23 02/02/23 23:59 23:59 23:59 23:59 Intake Total 3782 1240 1200 1240 Output Total 1800 1800 Balance 1982 -560 1200 1240 Meds/Results Medications: Active Medications Generic Name Dose Route Start Last Admin Trade Name Freq PRN Reason Stop Dose Admin Acetaminophen 500 mg 01/29/23 18:00 02/02/23 12:00 Acetaminophen 500 Mg Tablet PO 500 mg Q6HR STEFANO Administration Hydrocodone Bitart/Acetaminophen 1 tab 01/29/23 14:31 02/02/23 00:26 Hydrocodone/Acetaminophen (*Crx) 5-325 Mg Tablet PO 1 tab Q4H PRN Administration Pain Rated 4-6 Hydrocodone Bitart/Acetaminophen 1 tab 01/29/23 14:31 01/31/23 13:35 Hydrocodone/Acetaminophen (*Crx) 7.5-325 Mg Tablet PO 1 tab Q4H PRN Administration Pain Rated 7-10 Amlodipine Besylate 10 mg 01/25/23 09:00 02/02/23 08:25 Amlodipine Besylate 5 Mg Tablet PO 10 mg DAILY STEFANO Administration Atorvastatin Calcium 20 mg 01/25/23 09:00 02/02/23 08:25 Atorvastatin 20 Mg Tablet PO 20 mg QAM STEFANO Administration Enoxaparin Sodium 40 mg 01/30/23 09:00 02/02/23 08:26 Enoxaparin 40 Mg/0.4 Ml Syringe SUB-Q 40 mg DAILY STEFANO Administration Levothyroxine Sodium 75 mcg 01/25/23 06:30 02/02/23 05:20 Levothyroxine Sodium 75 Mcg Tablet PO 75 mcg DAILY@0630 STEFANO Administration Lorazepam 0.5 mg 01/24/23 15:26 01/31/23 10:52 Lorazepam (*Crx) 0.5 Mg Tablet PO 0.5 mg
[2023-02-02 14:29] LABS: EDCOVIDSCREEN Negative (Negative)
== END 2023-02-02 16:59 | disposition home health service (06) | DRG 330 ==
LOC: ANHED 12:56 → ANH3MED 13:19
PROVIDERS: Family Medicine; Internal Medicine Gastroenterology; Nurse Practitioner; Surgery; Admitting Provider Student in an Organized Health Care Education/Training Program; Emergency Provider Emergency Medicine; PCP Family Medicine; Visit Provider Chiropractor
PROC: 0DJ08ZZ Inspection of Upper Intestinal Tract, Via Natural or Artificial Opening Endoscopic (ICD-10-PCS; CPT 43235; principal; 2023-01-25 08:00)
PROC: 0DJD8ZZ Inspection of Lower Intestinal Tract, Via Natural or Artificial Opening Endoscopic (ICD-10-PCS; CPT 45378; principal; 2023-01-26 14:45)
PROC: 0DTF4ZZ Resection of Right Large Intestine, Percutaneous Endoscopic Approach (ICD-10-PCS; CPT 44204; principal; 2023-01-29 10:30)
DX: C18.4 Malignant neoplasm of transverse colon (principal); D62 Acute posthemorrhagic anemia; M62.82 Rhabdomyolysis; K31.84 Gastroparesis; K57.30 Diverticulosis of large intestine without perforation or abscess without bleeding; I95.1 Orthostatic hypotension; F32.9 Major depressive disorder, single episode, unspecified; N18.30 Chronic kidney disease, stage 3 unspecified; F41.8 Other specified anxiety disorders; E03.9 Hypothyroidism, unspecified; I12.9 Hypertensive chronic kidney disease with stage 1 through stage 4 chronic kidney disease, or unspecified chronic kidney disease; E78.5 Hyperlipidemia, unspecified; Z20.822 Contact with and (suspected) exposure to COVID-19; Z79.899 Other long term (current) drug therapy
CPT/HCPCS: 36415; 36430; 70450; 73502; 73701; 74177; 80048; 80053; 82378; 82550; 82607; 82728; 82746; 83540; 83550; 83605; 83615; 83735; 84443; 85014; 85018; 85025; 85027; 85046; 85055; 86850; 86880; 86900; 86901; 86902; 86920; 86922; 86999; 87426; 88305; 88309; 93005; 94002; 96374; 97110; 97161; 97164; 97165; 97530; 97535; 99285; A9270; C9290; C9803; G0378; J0690; J1100; J1650; J2250; J2270; J2405; J2704; J2710; J3010; J7030; J7040; J7120; P9016; Q9967

== ENCOUNTER 2023-03-07 19:09 | Emergency (ER) | payer MEDICARE, MEDICAID, SELFPAY ==
--- NOTE | ~2023-03-07 | XR_ITS ---
EXAMINATION: XR chest 1V portable DATE: 03/07/2023 19:35 INDICATION: Syncope TECHNIQUE: Portable AP upright view of the chest was obtained. COMPARISON: Chest radiograph dated 07/14/2020 FINDINGS: The lungs remain clear with no focal airspace opacities, pulmonary edema, pleural effusion or pneumot horax. The cardiomediastinal silhouette is normal. Mild to moderate degenerative skeletal changes in the spine and at both shoulders. IMPRESSION: 1. No acute cardiopulmonary disease. Reviewed, dictated and finalized at location A.
--- NOTE | ~2023-03-07 | CT_ITS ---
EXAMINATION: CT abdomen pelvis w con DATE: 03/07/2023 20:16 INDICATION: Abdominal pain, nausea and vomiting TECHNIQUE: Computed tomography (CT) of the abdomen and pelvis was performed with 100 mL Omnipaque-350 intravenous contrast. Automated exposure control and iterative reconstruction technique were employe d. The dose-length product was 946.45 mGy-cm. COMPARISON: 01/26/2023 FINDINGS: Lung bases are clear. Heart size is normal. No pericardial or pleural effusion. No significant change in mild intrahepatic ductal or ductal dilation likely related to prior cholecystectomy with normal c aliber common bile duct and no evident obstructing stones or masses. Pancreas, spleen, bilateral adre nal glands are normal. Multiple small region of cortical scarring at both kidneys likely sequela of p rior infection or infarction. Interval proximal right hemicolectomy with ileocolic anastomosis in the right abdomen. No dilated bowel to suggest obstruction. There is moderate diverticulosis along the s igmoid colon without adjacent inflammatory change to suggest diverticulitis. There is some fluid cons istent with nonspecific diarrhea in the descending and proximal sigmoid colon where there appears be mild associated wall thickening and subtle hyperemia to vasa recta consistent with a mild colitis. Po rtions of the deep pelvis are obscured by metallic streak artifact from a right total hip arthroplast y. Bladder, uterus and bilateral adnexa are unremarkable. No abscess or free intraperitoneal gas or f luid. Chronic mild superior endplate compression fractures at the left sides of L2 and L3. There is a dditional superior endplate compression fracture with 20% anterior and central vertebral body height loss at T12 which is new since the prior study from one month prior. IMPRESSION: 1. Fluid in the descending and proximal sigmoid colon where there is mild wall thickening and subtle hyperemia to the basilar recta suspicious for a mild colitis. 2. Acute to subacute T12 compression fracture with 20% anterior to central vertebral body height loss which is new since the prior study on 01/26/2023. Reviewed, dictated and finalized at location A. IMPRESSION: 1. Fluid in the descending and proximal sigmoid colon where there is mild wall thickening and subtle hyperemia to the basilar recta suspicious for a mild coli tis. 2. Acute to subacute T12 compression fracture with 20% anterior to central vert ebral body height loss which is new since the prior study on 01/26/2023.
[2023-03-07 19:09] VITALS: PULSE 74; RESP 18; TEMP 36.5; O2SAT 100
[2023-03-07 19:16] VITALS: BP 204/180
--- NOTE | 2023-03-07 19:16 | ECG_ITS ---
Measurements Intervals [place] Rate: 73 P: 17 MS: 139 QRS: 19 QRSD: 79 T: 39 QT: 367 QTc: 407 Interpretive Statements SINUS RHYTHM BASELINE ARTIFACT- I, II, III, AVR, AVL, AVF, V1-V6 NORMAL ECG COMPARED TO ECG 01/29/2023 06:41:14 NO SIGNIFICANT CHANGES Electronically Signed On 03-08-2023 7:01:11 CDT by Michael Coates D.O.
--- NOTE | 2023-03-07 19:28 | ED.GENADULT ---
HPI - General Adult General Chief complaint: Fall Stated complaint: NAUSEA/DIZZINESS/FALL History of Present Illness HPI narrative: 73-year-old female with history of colon cancer with colon resection presented the emergency department for evaluation of abdominal pain and generalized weakness. Patient states that she had been feeling well today but started having some lower abdominal pain. Patient states she went to walk to the bathroom but had some onset of lightheaded dizziness and decided to go lay in the bed and states that she almost passed out when she made to the bed. Patient denies striking head denies loss consciousness. Patient states that she has no chest pain or shortness of breath. Patient denies any history of CA. Patient states that she does feel improved, patient reports she does have some anxiety related to the situation and patient is also complaining of some lower abdominal pain that is significantly improved compared to earlier in the day. Related Data Home Medications Medication Instructions Recorded Confirmed amlodipine 5 mg tablet 10 mg PO DAILY 08/12/19 02/20/23 levothyroxine 50 mcg tablet 75 mcg PO DAILY 08/12/19 02/20/23 (Synthroid) lorazepam 0.5 mg tablet 0.5 mg PO PRN PRN Anxiety 08/12/19 02/20/23 venlafaxine 75 mg capsule,extended 75 mg PO BID 08/12/19 02/20/23 release 24 hr (Effexor XR) metoprolol tartrate 100 mg tablet 50 mg PO DAILY 01/25/20 02/20/23 atorvastatin 20 mg tablet 20 mg PO QAM 01/24/23 02/20/23 clonidine HCl 0.1 mg tablet 0.1 mg PO TID 01/24/23 02/20/23 losartan 100 mg tablet 100 mg PO QAM 01/24/23 02/20/23 tolnaftate 1 % topical powder 1 applic topical Q12HR PRN Rash 01/24/23 02/20/23 Allergies Allergy/AdvReac Type Severity Reaction Status Date / Time codeine Allergy Severe SOB Verified 02/20/23 14:04 pseudoephedrine Allergy Severe RASH Verified 02/20/23 14:04 oxycodone Allergy Mild HALLUCINATI Verified 02/20/23 14:04 ONS Sulfa (Sulfonamide Allergy Unknown RASH Verified 02/20/23 14:04 Antibiotics) Review of Systems Review of Systems: All systems reviewed & are unremarkable except as noted in HPI and below PMFSH Past Medical History Medical History Anxiety Asthma Chronic kidney disease, stage 3 Baseline creatinine is between 1.1 and 1.50. Colonic mass Depression Diastolic dysfunction Echocardiogram in August 2019 showed normal left ventricular chamber size and systolic function with an estimated ejection fraction of 65 to 70%, mild asymmetric increased septal wall thickness, grade 1 diastolic dysfunction and mild aortic valve sclerosis as well as mild pulmonic regurgitation. Diverticulitis Gastroesophageal reflux disease Hyperlipidemia Hypertension Hypothyroidism Osteoarthritis Overactive bladder Surgical History Surgical History History of appendectomy History of section History of cholecystectomy Open cholecystectomy with incidental appendectomy History of colon surgery 01/29/23 Hand assisted laparoscopic right hemicolectomy with ileocolic anastomosis History of dilatation and curettage History of repair of right rotator cuff History of total right hip arthroplasty History of tubal ligation Family History Family History Father Acute myocardial infarction Congestive heart failure Hypertension Sibling Hypertension Mother Breast cancer Social History Social History Social History: She has 2 sons and is . 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 Surrogate decision maker: Dhaval Bush, son. Code status: Full code. Smoking status: Never smoker Second hand tobacco smoke exposure: No Alcohol intake: never Substance use: never Substance use type: does not use Lack of Trans
[2023-03-07 19:35] LABS: Basophils Percent Auto 0.5 % (0.2-1.2); Hemoglobin 8.7 g/dL (12.0-15.0); Immature Granulocyte Absolute 0.03 K/mm3 (0.00-0.031); Immature Granulocyte Percent A 0.4 % (0-0.5); Lymphocytes Absolute Auto 1.19 K/mm3 (0.9-3.2); Mean Corpuscular HGB Conc 28.1 g/dl (32-36); Mean Corpuscular Hemoglobin 21.3 pg (26-34); Mean Corpuscular Volume 75.8 fl (80-100); Mean Platelet Volume 10.3 fl (7.4-10.4); Monocytes Percent Auto 12.2 % (2.6-8.5); Neutrophils Absolute Auto 6.2 K/mm3 (1.3-6.7); Neutrophils Percent Auto 72.9 % (45.5-73.1); Platelet Count Result 452 k/mm3 (150-375); Red Blood Count 4.09 M/mm3 (4.2-5.4); Red Cell Distribution Width 22.7 % (11.5-14.5); White Blood Count 8.5 K/mm3 (4.5-10.0)
[2023-03-07 19:45] LABS: Alanine Aminotransferase 25 U/L (6-35); Albumin Level 3.7 g/dL (3.5-5.1); Alkaline Phosphatase 102 U/L (38-126); Anion Gap 6 mmol/L (8-16); Aspartate Amino Transferase 33 U/L (14-36); Bilirubin,Total 0.5 mg/dL (0.2-1.3); Blood Urea Nitrogen 16 mg/dL (7-17); Calcium 8.7 mg/dL (8.4-10.2); Carbon Dioxide 26 mmol/L (22-30); Chloride 106 mmol/L (98-107); Estimated CRCL calculation 50 ml/min; Estimated Glomerular Filt Rate 55; Glucose 109 mg/dL (65-110); Lipase 117 U/L (23-300); Sodium 138 mmol/L (137-145)
[2023-03-07 19:52] LABS: Hypochromasia 1+ (NORMAL); Platelet Estimate Increased (Adequate); Schistocytes None Seen (NORMAL)
[2023-03-07 19:53] LABS: Anisocytosis 3+ (NORMAL)
[2023-03-07 20:50] LABS: Appearance Urine Clear (Clear); Bacteria Urine None Seen /hpf; Bilirubin Urine Negative (Negative); Blood Urine Negative (Negative); Color Urine Yellow (Yellow); Glucose Urine UA Negative (Negative); Ketones Urine Trace mg/dL (Negative); Leukocyte Esterase Ur Negative LEU/UL (Negative); Nitrate Urine Negative (Negative); Non Pathogenic Casts 0-2; Protein Urine Trace mg/dL (Negative); RBC Urine 0-2 /hpf (0-2); Squamous Epithelial Cell Urine None seen /hpf (Few); WBC Urine 0-5 /hpf; pH Urine 6.5 (5.0-9.0)
[2023-03-07 20:58] LABS: Add Urine Microscopic? YES; Specific Grav Ur 1.055 (1.001-1.035)
[2023-03-07 21:27] VITALS: BP 124/64; PULSE 78; RESP 16; O2SAT 100
[2023-03-07] MEDS: AMOXICILLIN/CLAVULANATE K 875-125 MG TAB 1 TABLET PO (21:28)
== END 2023-03-07 21:41 | disposition home or self-care (01) ==
PROVIDERS: Emergency Provider Emergency Medicine; PCP Otolaryngology
DX: K52.9 Noninfective gastroenteritis and colitis, unspecified (principal); F41.9 Anxiety disorder, unspecified; J45.909 Unspecified asthma, uncomplicated; I13.10 Hypertensive heart and chronic kidney disease without heart failure, with stage 1 through stage 4 chronic kidney disease, or unspecified chronic kidney disease; N18.30 Chronic kidney disease, stage 3 unspecified; F32.A Depression, unspecified; E03.9 Hypothyroidism, unspecified; M19.90 Unspecified osteoarthritis, unspecified site
CPT/HCPCS: 36415; 71045; 74177; 80053; 81001; 83690; 85025; 93005; 99284; A9270; Q9967

== ENCOUNTER 2025-07-15 16:10 | Inpatient (IN) | payer MEDICARE, MEDICAID, SELFPAY ==
[2025-07-15] VITALS (18 sets, daily range): BP systolic 108–149; BP diastolic 54–79; PULSE 66–89; RESP 12–23; TEMP 36.7–37.1; O2SAT 82–97
--- NOTE | ~2025-07-15 | XR_ITS ---
EXAMINATION: XR chest 2V, 07/15/2025 16:58 CDT HISTORY: weakness COMPARISON: No comparisons available. Technique: 2 views obtained. Findings: The lungs are clear, no effusion. No pneumothorax. Heart is normal size. Mediastinal and hilar contours are within normal limits. Bony thorax no acute abnormality. Impression: No acute cardiopulmonary abnormality. Reviewed, dictated and finalized at location P. Impression: No acute cardiopulmonary abnormality.
--- NOTE | ~2025-07-15 | CT_ITS ---
Sigifredo Bush EXAMINATION: CT abdomen pelvis w con COMPARISON: None HISTORY: Abdominal pain TECHNIQUE: Axial images were obtained through the abdomen, pelvis post administration of IV contrast. Oral contrast was also administered. Coronal reconstruction images were obtained from the axial views. CT scan performed using dose optimization techniques including the following automated exposure control; adjustment of mA and/or kV; use of iterative reconstruction technique. Automatic exposure control was used to reduce radiation dose. Permanent radiation dose record is archived to PACS. FINDINGS: CT abdomen: LUNG BASES: The lung bases are clear. The visualized portions of the heart and pericardium are unremarkable. LIVER: Mild hepatic steatosis. Portal vein patent. No intrahepatic biliary duct dilatation. SPLEEN: Unremarkable. KIDNEYS: Right Kidney: Right kidney there are solid-appearing renal lesions noted the largest in the mid to superior pole measuring 1.5 x 1.6 cm incompletely evaluated concerning for neoplasm. The right kidney is lobulated with sequelae of previous insult noted. Left Kidney: Left kidney is lobulated with sequelae of previous insult. ADRENAL GLANDS: Unremarkable. PANCREAS: Moderate pancreatic atrophy. GALLBLADDER/BILIARY: Unremarkable. No biliary dilatation. STOMACH AND ESOPHAGUS: Visualized stomach and esophagus within normal limits. BOWEL/MESENTERY: There are inflammatory changes surrounding the sigmoid colon consistent with colitis, there is no perforation or abscess identified. Postsurgical changes noted involving the large bowel. Appendix not identified. Remaining mesentery normal. No thickened or dilated loops of small bowel. There is a small fluid collection adjacent to the sigmoid colon measuring 2 x 2 cm consistent with small probable abscess. ADENOPATHY/RETROPERITONEUM: No lymphadenopathy. AORTA/VASCULATURE: Normal caliber aorta. FREE FLUID OR FREE AIR: Small amount of free fluid in the pelvis.. CT pelvis: SOLID ORGANS/REPRODUCTIVE: Uterine cavity is abnormally prominent in this postmenopausal patient, outpatient pelvic ultrasound recommended. No adnexal mass. BLADDER: Hyperemia of the bladder noted with circumferential bladder wall thickening. OSSEOUS STRUCTURES: Right hip arthroplasty. OVERLYING SOFT TISSUES: Unremarkable. IMPRESSION: 1. Colitis with superimposed probable diverticulitis. Small abscess detailed above. 2. Lobulation of the renal contours, distinction from right renal neoplasm limited. Contrast-enhanced MRI recommended Reviewed, dictated and finalized at location P. IMPRESSION: 1. Colitis with superimposed probable diverticulitis. Small abscess detailed ab ove. 2. Lobulation of the renal contours, distinction from right renal neoplasm limi markel. Contrast-enhanced MRI recommended
--- NOTE | 2025-07-15 16:13 | ECG_ITS ---
Test Date: 2025-07-15 16:17:04 Measurements Intervals [place] Rate: 78 P: 57 VT: 135 QRS: 19 QRSD: 93 T: 28 QT: 373 QTc: 426 Interpretive Statements SINUS RHYTHM CONSIDER INFERIOR INFARCT, AGE INDETERMINATE BASELINE ARTIFACT- I, II, III, AVR, AVL, AVF, V1-V6 ABNORMAL ECG No previous ECG available for comparison Electronically Signed On 07-16-2025 08:27:33 CDT by Michael Caotes D.O.
--- NOTE | 2025-07-15 16:26 | ED.GENADULT ---
HPI - General Adult General Chief complaint: Weakness Stated complaint: weakness Time Seen by Provider: 07/15/25 16:13 History of Present Illness HPI narrative: Patient is a 75-year-old female who presents emergency department with chief complaint nausea vomiting diarrhea for the last several days patient states she unable to get off couch this reports that she has had incontinence of urine reports that she has had bowel movement on herself. Patient states she had cramping throughout her abdomen reports no fever reports that she has had no recent antibiotics Related Data Home Medications ?Medication ?Instructions ?Recorded ?Confirmed ?Last Taken ?Type amlodipine 5 mg tablet 10 mg PO DAILY 08/12/19 03/27/23 07/12/20 09:00 History levothyroxine 50 mcg tablet 75 mcg PO DAILY 08/12/19 03/27/23 07/12/20 09:00 History (Synthroid) lorazepam 0.5 mg tablet 0.5 mg PO PRN PRN Anxiety 08/12/19 03/27/23 Unknown History venlafaxine 75 mg capsule,extended 75 mg PO BID 08/12/19 03/27/23 07/12/20 09:00 History release 24 hr (Effexor XR) metoprolol tartrate 100 mg tablet 50 mg PO DAILY 01/25/20 03/27/23 07/12/20 09:00 History atorvastatin 20 mg tablet 20 mg PO QAM 01/24/23 03/27/23 Unknown History clonidine HCl 0.1 mg tablet 0.1 mg PO TID 01/24/23 03/27/23 Unknown History losartan 100 mg tablet 100 mg PO QAM 01/24/23 03/27/23 Unknown History tolnaftate 1 % topical powder 1 applic topical Q12HR PRN Rash 01/24/23 03/27/23 Unknown History Allergies Allergy/AdvReac Type Severity Reaction Status Date / Time codeine Allergy Severe SOB Verified 07/15/25 16:39 pseudoephedrine Allergy Severe RASH Verified 07/15/25 16:39 oxycodone Allergy Mild HALLUCINATI Verified 07/15/25 16:39 ONS Sulfa (Sulfonamide Allergy Unknown RASH Verified 07/15/25 16:39 Antibiotics) Review of Systems Review of Systems: A 10 system review of systems was completed on the patient and is negative except for what is stated in the HPI. Nursing and ancillary documentation was reviewed. [facility] Past Medical History Medical History Colonic mass Hyperlipidemia Depression Chronic kidney disease, stage 3 Baseline creatinine is between 1.1 and 1.50. Diastolic dysfunction Echocardiogram in August 2019 showed normal left ventricular chamber size and systolic function with an estimated ejection fraction of 65 to 70%, mild asymmetric increased septal wall thickness, grade 1 diastolic dysfunction and mild aortic valve sclerosis as well as mild pulmonic regurgitation. Osteoarthritis Diverticulitis Gastroesophageal reflux disease Anxiety Asthma Overactive bladder Hypothyroidism Hypertension Surgical History Surgical History History of colon surgery 01/29/23 Hand assisted laparoscopic right hemicolectomy with ileocolic anastomosis History of total right hip arthroplasty History of section History of tubal ligation History of cholecystectomy Open cholecystectomy with incidental appendectomy History of appendectomy History of repair of right rotator cuff History of dilatation and curettage Family History Family History Father Acute myocardial infarction Congestive heart failure Hypertension Sibling Hypertension Mother Breast cancer Social History Social History Social History: She has 2 sons and is . 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 Surrogate decision maker: Dhaval Bush, son. Code status: Full code. Smoking status: Never smoker Second hand tobacco smoke exposure: No Alcohol intake: never Substance use: never Substance use type: does not use Lack of Transportation: No Lack of Food: Never True Current Housing: I Have Housing Concerned About Future Housing: No Difficulty Paying Gas/Electric Bills: No Difficulty Paying for Meds: No Currently Unemployed: No Education: Decline to Answer Difficulty w/ Childcare or Family Care: No Additional living arrangements comments: Resides in her own home in [place]. 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 Gender identity (if verbalized by the patient): Female Sexual Orientation (if Verbalized by the Patient): Straight or Heterosexual Spiritual care concerns: No Agree to blood products: Yes Exam Narrative: GENERAL: Well-appearing, well-nourished, and in no acute distress. HEAD: Normocephalic, atraumatic. EYES: PERRLA and EOMI. ENT: Nares clear, no rhinorrhea or epistaxis. Mucous membranes moist. NECK: Supple. CHEST: Clear to auscultation. No respiratory distress. HEART: Regular rate and rhythm. No murmur heard. Normal peripheral pulses. ABDOMEN: Soft, diffuse mild tenderness, nondistended, normal active bowel sounds. EXTREMITIES: Normal range of motion. No edema. SKIN: Warm, dry, no rash. NEURO: No focal deficits. Alert and oriented x3. PSYCH: Normal mood and affect. Course Vital Signs Vital signs: Vital Signs Pulse Rate 82 07/15/25 16:13 Respiratory Rate 12 07/15/25 16:13 Blood Pressure 147/74 H 07/15/25 16:13 Pulse Oximetry 97 07/15/25 16:13 Temperature 37.1 C 07/15/25 16:14 Pulse Rate 80 07/15/25 17:18 Respiratory Rate 17 07/15/25 17:18 Blood Pressure 131/54 L 07/15/25 17:18 Pulse Oximetry 96 07/15/25 17:18 Medical Decision Making Vital Signs Vital Signs: Vital Signs Pulse Rate 82 07/15/25 16:13 Respiratory Rate 12 07/15/25 16:13 Blood Pressure 147/74 H 07/15/25 16:13 Pulse Oximetry 97 07/15/25 16:13 Temperature 37.1 C 07/15/25 16:14 Pulse Rate 80 07/15/25 17:18 Respiratory Rate 17 07/15/25 17:18 Blood Pressure 131/54 L 07/15/25 17:18 Pulse Oximetry 96 07/15/25 17:18 Lab Data 07/15/25 16:35 07/15/25 16:35 Labs: Lab Results 07/15/25 07/15/25 07/15/25 Range/Units 16:35 16:35 16:35 WBC 9.3 (4.5-10.0) K/mm3 RBC 4.41 (4.2-5.4) M/mm3 Hgb 12.6 D (12.0-15.0) g/dL Hct 39.2 (37.0-47.0) % MCV 88.9 (80-100) fl MCH 28.6 (26-34) pg MCHC 32.1 (32-36) g/dl RDW 13.2 (11.5-14.5) % Plt Count 435 H (150-375) k/mm3 MPV 10.9 H (7.4-10.4) fl Immature Gran % (Auto) 0.4 (0-0.5) % Neut % (Auto) 74.8 H (45.5-73.1) % Lymph % (Auto) 14.0 L (18.3-44.2) % [place] % (Auto) 10.2 H (2.6-8.5) % Eos % (Auto) 0.0 (0-4.4) % Baso % (Auto) 0.6 (0.2-1.2) % Lymph # (Auto) 1.31 (0.9-3.2) K/mm3 [place] # (Auto) 1.0 H (0.1-0.6) K/mm3 Eos # (Auto) 0.0 (0-0.3) K/mm3 Baso # (Auto) 0.1 (0.0-0.1) K/mm3 Abs Immat Gran (auto) 0.04 H (0.00-0.031) K/mm3 Absolute Neuts (auto) 7.0 H (1.3-6.7) K/mm3 Absolute Nucleated RBC 0.000 (0.0-0.012) K/mm3 Nucleated RBC % 0.0 (0.0-0.2) % Sodium Cancelled 134 L Potassium Cancelled 2.9 L Chloride Cancelled Carbon Dioxide Anion Gap BUN Creatinine Estim Creat Clear Calc Estimated GFR Glucose Lactic Acid (0.7-2.0) mmol/L Calcium Magnesium (1.6-2.3) mg/dL Total Bilirubin AST ALT Alkaline Phosphatase Troponin I (0.000-0.034) ng/mL Total Protein Albumin Lipase (23-300) U/L Urine Color (Yellow) Urine Appearance (Clear) Urine pH (5.0-9.0) Ur Specific [place] (1.001-1.035) Urine Protein (Negative) mg/dL Urine Glucose (UA) (Negative) mg/dL Urine Ketones (Negative) mg/dL Ur Blood (Man) (Negative) Urine Nitrate (Negative) Urine Bilirubin (Negative) Urine Urobilinogen (<2.0) mg/dL Leukocyte Esterase Rfl (Negative) ROMEO/UL Influenza A (RT-PCR) (Negative) Influenza B (RT-PCR) (Negative) RSV (RT-PCR) (Negative) SARS-CoV-2 RNA (RT-PCR) (Negative) 07/15/25 07/15/25 07/15/25 Range/Units 16:35 16:35 16:35 WBC (4.5-10.0) K/mm3 RBC (4.2-5.4) M/mm3 Hgb (12.0-15.0) g/dL Hct (37.0-47.0) % MCV (80-100) fl MCH (26-34) pg MCHC (32-36) g/dl RDW (11.5-14.5) % Plt Count (150-375) k/mm3 MPV (7.4-10.4) fl Immature Gran % (Auto) (0-0.5) % Neut % (Auto) (45.5-73.1) % Lymph % (Auto) (18.3-44.2) % [place] % (Auto) (2.6-8.5) % Eos % (Auto) (0-4.4) % Baso % (Auto) (0.2-1.2) % Lymph # (Auto) (0.9-3.2) K/mm3 [place] # (Auto) (0.1-0.6) K/mm3 Eos # (Auto) (0-0.3) K/mm3 Baso # (Auto) (0.0-0.1) K/mm3 Abs Immat Gran (auto) (0.00-0.031) K/mm3 Absolute Neuts (auto) (1.3-6.7) K/mm3 Absolute Nucleated RBC (0.0-0.012) K/mm3 Nucleated RBC % (0.0-0.2) % Sodium Potassium Chloride 101 Carbon Dioxide Cancelled 23 Anion Gap Cancelled 10 BUN Cancelled Creatinine Estim Creat Clear Calc Estimated GFR Glucose Lactic Acid (0.7-2.0) mmol/L Calcium Magnesium (1.6-2.3) mg/dL Total Bilirubin AST ALT Alkaline Phosphatase Troponin I (0.000-0.034) ng/mL Total Protein Albumin Lipase (23-300) U/L Urine Color (Yellow) Urine Appearance (Clear) Urine pH (5.0-9.0) Ur Specific [place] (1.001-1.035) Urine Protein (Negative) mg/dL Urine Glucose (UA) (Negative) mg/dL Urine Ketones (Negative) mg/dL Ur Blood (Man) (Negative) Urine Nitrate (Negative) Urine Bilirubin (Negative) Urine Urobilinogen (<2.0) mg/dL Leukocyte Esterase Rfl (Negative) ROMEO/UL Influenza A (RT-PCR) (Negative) Influenza B (RT-PCR) (Negative) RSV (RT-PCR) (Negative) SARS-CoV-2 RNA (RT-PCR) (Negative) 07/15/25 07/15/25 07/15/25 Range/Units 16:35 16:35 16:35 WBC (4.5-10.0) K/mm3 RBC (4.2-5.4) M/mm3 Hgb (12.0-15.0) g/dL Hct (37.0-47.0) % MCV (80-100) fl MCH (26-34) pg MCHC (32-36) g/dl RDW (11.5-14.5) % Plt Count (150-375) k/mm3 MPV (7.4-10.4) fl Immature Gran % (Auto) (0-0.5) % Neut % (Auto) (45.5-73.1) % Lymph % (Auto) (18.3-44.2) % [place] % (Auto) (2.6-8.5) % Eos % (Auto) (0-4.4) % Baso % (Auto) (0.2-1.2) % Lymph # (Auto) (0.9-3.2) K/mm3 [place] # (Auto) (0.1-0.6) K/mm3 Eos # (Auto) (0-0.3) K/mm3 Baso # (Auto) (0.0-0.1) K/mm3 Abs Immat Gran (auto) (0.00-0.031) K/mm3 Absolute Neuts (auto) (1.3-6.7) K/mm3 Absolute Nucleated RBC (0.0-0.012) K/mm3 Nucleated RBC % (0.0-0.2) % Sodium Potassium Chloride Carbon Dioxide Anion Gap BUN 14 Creatinine Cancelled 1.61 H Estim Creat Clear Calc Cancelled Not Reportable Estimated GFR Cancelled Glucose Lactic Acid (0.7-2.0) mmol/L Calcium Magnesium (1.6-2.3) mg/dL Total Bilirubin AST ALT Alkaline Phosphatase Troponin I (0.000-0.034) ng/mL Total Protein Albumin Lipase (23-300) U/L Urine Color (Yellow) Urine Appearance (Clear) Urine pH (5.0-9.0) Ur Specific [place] (1.001-1.035) Urine Protein (Negative) mg/dL Urine Glucose (UA) (Negative) mg/dL Urine Ketones (Negative) mg/dL Ur Blood (Man) (Negative) Urine Nitrate (Negative) Urine Bilirubin (Negative) Urine Urobilinogen (<2.0) mg/dL Leukocyte Esterase Rfl (Negative) ROMEO/UL Influenza A (RT-PCR) (Negative) Influenza B (RT-PCR) (Negative) RSV (RT-PCR) (Negative) SARS-CoV-2 RNA (RT-PCR) (Negative) 07/15/25 07/15/25 07/15/25 Range/Units 16:35 16:35 16:35 WBC (4.5-10.0) K/mm3 RBC (4.2-5.4) M/mm3 Hgb (12.0-15.0) g/dL Hct (37.0-47.0) % MCV (80-100) fl MCH (26-34) pg MCHC (32-36) g/dl RDW (11.5-14.5) % Plt Count (150-375) k/mm3 MPV (7.4-10.4) fl Immature Gran % (Auto) (0-0.5) % Neut % (Auto) (45.5-73.1) % Lymph % (Auto) (18.3-44.2) % [place] % (Auto) (2.6-8.5) % Eos % (Auto) (0-4.4) % Baso % (Auto) (0.2-1.2) % Lymph # (Auto) (0.9-3.2) K/mm3 [place] # (Auto) (0.1-0.6) K/mm3 Eos # (Auto) (0-0.3) K/mm3 Baso # (Auto) (0.0-0.1) K/mm3 Abs Immat Gran (auto) (0.00-0.031) K/mm3 Absolute Neuts (auto) (1.3-6.7) K/mm3 Absolute Nucleated RBC (0.0-0.012) K/mm3 Nucleated RBC % (0.0-0.2) % Sodium Potassium Chloride Carbon Dioxide Anion Gap BUN Creatinine Estim Creat Clear Calc Estimated GFR 31 L Glucose Cancelled 142 H Lactic Acid 2.3 H (0.7-2.0) mmol/L Calcium Cancelled 7.9 L Magnesium 0.8 L (1.6-2.3) mg/dL Total Bilirubin Cancelled AST ALT Alkaline Phosphatase Troponin I (0.000-0.034) ng/mL Total Protein Albumin Lipase (23-300) U/L Urine Color (Yellow) Urine Appearance (Clear) Urine pH (5.0-9.0) Ur Specific [place] (1.001-1.035) Urine Protein (Negative) mg/dL Urine Glucose (UA) (Negative) mg/dL Urine Ketones (Negative) mg/dL Ur Blood (Man) (Negative) Urine Nitrate (Negative) Urine Bilirubin (Negative) Urine Urobilinogen (<2.0) mg/dL Leukocyte Esterase Rfl (Negative) ROMEO/UL Influenza A (RT-PCR) (Negative) Influenza B (RT-PCR) (Negative) RSV (RT-PCR) (Negative) SARS-CoV-2 RNA (RT-PCR) (Negative) 07/15/25 07/15/25 07/15/25 Range/Units 16:35 16:35 16:35 WBC (4.5-10.0) K/mm3 RBC (4.2-5.4) M/mm3 Hgb (12.0-15.0) g/dL Hct (37.0-47.0) % MCV (80-100) fl MCH (26-34) pg MCHC (32-36) g/dl RDW (11.5-14.5) % Plt Count (150-375) k/mm3 MPV (7.4-10.4) fl Immature Gran % (Auto) (0-0.5) % Neut % (Auto) (45.5-73.1) % Lymph % (Auto) (18.3-44.2) % [place] % (Auto) (2.6-8.5) % Eos % (Auto) (0-4.4) % Baso % (Auto) (0.2-1.2) % Lymph # (Auto) (0.9-3.2) K/mm3 [place] # (Auto) (0.1-0.6) K/mm3 Eos # (Auto) (0-0.3) K/mm3 Baso # (Auto) (0.0-0.1) K/mm3 Abs Immat Gran (auto) (0.00-0.031) K/mm3 Absolute Neuts (auto) (1.3-6.7) K/mm3 Absolute Nucleated RBC (0.0-0.012) K/mm3 Nucleated RBC % (0.0-0.2) % Sodium Potassium Chloride Carbon Dioxide Anion Gap BUN Creatinine Estim Creat Clear Calc Estimated GFR Glucose Lactic Acid (0.7-2.0) mmol/L Calcium Magnesium (1.6-2.3) mg/dL Total Bilirubin 1.0 AST Cancelled 28 ALT Cancelled 19 Alkaline Phosphatase Cancelled Troponin I (0.000-0.034) ng/mL Total Protein Albumin Lipase (23-300) U/L Urine Color (Yellow) Urine Appearance (Clear) Urine pH (5.0-9.0) Ur Specific [place] (1.001-1.035) Urine Protein (Negative) mg/dL Urine Glucose (UA) (Negative) mg/dL Urine Ketones (Negative) mg/dL Ur Blood (Man) (Negative) Urine Nitrate (Negative) Urine Bilirubin (Negative) Urine Urobilinogen (<2.0) mg/dL Leukocyte Esterase Rfl (Negative) ROMEO/UL Influenza A (RT-PCR) (Negative) Influenza B (RT-PCR) (Negative) RSV (RT-PCR) (Negative) SARS-CoV-2 RNA (RT-PCR) (Negative) 07/15/25 07/15/25 07/15/25 Range/Units 16:35 16:35 16:35 WBC (4.5-10.0) K/mm3 RBC (4.2-5.4) M/mm3 Hgb (12.0-15.0) g/dL Hct (37.0-47.0) % MCV (80-100) fl MCH (26-34) pg MCHC (32-36) g/dl RDW (11.5-14.5) % Plt Count (150-375) k/mm3 MPV (7.4-10.4) fl Immature Gran % (Auto) (0-0.5) % Neut % (Auto) (45.5-73.1) % Lymph % (Auto) (18.3-44.2) % [place] % (Auto) (2.6-8.5) % Eos % (Auto) (0-4.4) % Baso % (Auto) (0.2-1.2) % Lymph # (Auto) (0.9-3.2) K/mm3 [place] # (Auto) (0.1-0.6) K/mm3 Eos # (Auto) (0-0.3) K/mm3 Baso # (Auto) (0.0-0.1) K/mm3 Abs Immat Gran (auto) (0.00-0.031) K/mm3 Absolute Neuts (auto) (1.3-6.7) K/mm3 Absolute Nucleated RBC (0.0-0.012) K/mm3 Nucleated RBC % (0.0-0.2) % Sodium Potassium Chloride Carbon Dioxide Anion Gap BUN Creatinine Estim Creat Clear Calc Estimated GFR Glucose Lactic Acid (0.7-2.0) mmol/L Calcium Magnesium (1.6-2.3) mg/dL Total Bilirubin AST ALT Alkaline Phosphatase 84 Troponin I < 0.012 (0.000-0.034) ng/mL Total Protein Cancelled 6.7 Albumin Cancelled 3.1 L Lipase 70 (23-300) U/L Urine Color Yellow (Yellow) Urine Appearance Clear (Clear) Urine pH 6.0 (5.0-9.0) Ur Specific [place] 1.006 (1.001-1.035) Urine Protein Negative (Negative) mg/dL Urine Glucose (UA) Negative (Negative) mg/dL Urine Ketones Negative (Negative) mg/dL Ur Blood (Man) Negative (Negative) Urine Nitrate Negative (Negative) Urine Bilirubin Negative (Negative) Urine Urobilinogen 0.2 (<2.0) mg/dL Leukocyte Esterase Rfl Negative (Negative) ROMEO/UL Influenza A (RT-PCR) Negative (Negative) Influenza B (RT-PCR) Negative (Negative) RSV (RT-PCR) Negative (Negative) SARS-CoV-2 RNA (RT-PCR) Negative (Negative) Discharge Plan Discharge Clinical Impression: Colitis, Hypomagnesemia, Hypokalemia Patient Disposition: Still a Patient Condition: Stable Patient Language: Salvadorean Prescriptions: No Action venlafaxine [Effexor XR] 75 mg Capsule,Extended Release 24hr 75 mg PO BID amlodipine 5 mg Tablet 10 mg PO DAILY Rx Instructions: dose increased to 10 mg levothyroxine [Synthroid] 50 mcg Tablet 75 mcg PO DAILY Rx Instructions: dose increased to 75 mg lorazepam 0.5 mg Tablet 0.5 mg PO PRN PRN (Reason: Anxiety) metoprolol tartrate 100 mg tablet 50 mg PO DAILY Patient Comments: PT is taking 50 mg daily ( half a tablet for cost savings) tolnaftate 1 % powder 1 applic topical Q12HR PRN (Reason: Rash) Rx Instructions: Area of redness under bilateral breasts and groin as needed clonidine HCl 0.1 mg tablet 0.1 mg PO TID atorvastatin 20 mg tablet 20 mg PO QAM losartan 100 mg tablet 100 mg PO QAM Follow-up/Referrals: Marcial,Harjinder Schultz MD [Non-Staff, Ear, Nose, Throat]
[2025-07-15] MEDS: ONDANSETRON INJ 4 MG/2 ML VIAL IV PUSH (16:41)
[2025-07-15] MEDS: SODIUM CHLORIDE 0.9% IV 1,000 ML 999 ML IV CONT (16:42)
[2025-07-15 16:43] LABS: Add Urine Microscopic? NO; Appearance Urine Clear (Clear); Glucose Urine UA Negative (Negative); Leukocyte Esterase Ur Negative LEU/UL (Negative); Nitrate Urine Negative (Negative); Specific Grav Ur 1.006 (1.001-1.035)
[2025-07-15 16:44] LABS: Hematocrit 39.2 % (37.0-47.0); Hemoglobin 12.6 g/dL (12.0-15.0); Immature Granulocyte Percent A 0.4 % (0-0.5); Lymphocytes Absolute Auto 1.31 K/mm3 (0.9-3.2); Mean Corpuscular HGB Conc 32.1 g/dl (32-36); Mean Corpuscular Hemoglobin 28.6 pg (26-34); Mean Corpuscular Volume 88.9 fl (80-100); Nucleated Red Blood Cells Absolute Auto 0.000 K/mm3 (0.0-0.012); Nucleated Red Blood Cells Perc 0.0 % (0.0-0.2); Platelet Count Result 435 k/mm3 (150-375); Red Blood Count 4.41 M/mm3 (4.2-5.4); White Blood Count 9.3 K/mm3 (4.5-10.0)
--- OUTSIDE RECORDS SUMMARY | 2025-07-15 16:49 | XMS_ITS | Clinical Summary ---
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 Name Role Phone Unavailable Primary Care Provider Unavailabl e Social History Tobacco Use Types Packs/Day Years Used Date Smoking Tobacco: Never Assessed Comments Unknown Sex and Gender Information Value Date Recorded Sex Assigned at Not on file Legal Sex Female 8:10 PM CDT Gender Identity Not on file Sexual Orientation Not on file Plan of Treatment Health Maintenance Due Date Last Done Comments Colorectal Cancer Screening Colonoscopy (10 Years) 1950 Hepatitis C 01/19/1970 DTaP, Tdap and Td Vaccines ( 1 - Tdap) 01/19/1971 Mammogram Screening 1992 Pneumococcal Vaccine: 50+ Ye ars (1 of 1 - PCV) 01/19/2002 Zoster Vaccines (1 of 2) 01/19/2002 Dexa Scan (General) 01/19/2017 COVID-19 Vaccine (2023-2 5 season) 2025 RSV Immunization or 60+ Years (1 - 1-dose 75+ series) 01/19/2027 Meningococcal B Vaccine Aged Out No l onger eligible based on patient's age to complete this topic Meningococcal Vaccine Aged Out No ashish larissa eligible based on patient's age to complete this topic RSV Immunizations Under 20 Months Aged Out No longer eligible based on patient's age to complete this topic
--- OUTSIDE RECORDS SUMMARY | 2025-07-15 16:49 | XMS_ITS | Clinical Summary ---
Author Organization [facility] [place] [facility] Address [address] [place] [id number] Care Team Providers Care Food Selector Name Role Phone Grover Randhawa Primary Care Provider [phone] Allergies Active Allergy Reactions Criticality Noted Date Comments Codeine Shortness of breath High 07/26/2020 Gemifloxacin Anaphylaxis High 01/11/2019 Oxycodone Hallucinations Medium 01/11/2019 Sulfa (Sulfonamide Antibiotics) Anaphylaxis High 11/2018 Medications miscellaneous medical supply misc Admit to in patient rehabilitation to [facility] and treatment 1 each 2022 Active acetaminophen (TYLENOL) 325 mg tablet Take 2 tablets (650 mg total) by mouth every 4 (four) hours as needed for pain 2022 Active polyethylene glycol (MIRALAX) 17 gram/dose powderIndications:Slow transit constipation Take 17 g by mouth daily 2022 Active Additional Information Patient not taking.Reported on 03/14/2025 senna-docusate (PERICOLACE) 8.6-50 mgIndications:Slow transit constipation Take 2 tablets by mouth daily 2022 Active Additional Information Patient not taking.Reported on 03/14/2025 amLODIPine (NORVASC) 10 mg tabletIndications:Javan gn essential HTN Take 1 tablet (10 mg total) by mouth daily 90 tablet 3 2024 Active celecoxib (CeleBREX) 200 mg capsuleIndications:Radhika jarvis osteoarthritis of right shoulder Take 1 capsule (200 mg total) by mouth daily 90 capsule 3 2024 Active atorvastatin (LIPITOR) 20 mg tabletIndications:Pure hypercholesterolemia Take 1 tablet (20 mg total) by mouth daily 90 tablet [address] (PROTONIX) 40 mg EC tabletIndications:Juan Miguel roesophageal reflux disease without esophagitis Take 1 tablet (40 mg total) by mouth daily 90 tablet 3 2024 Active venlafaxine (EFFEXOR) 75 mg tabletIndications:Mode rate episode of recurrent major depressive disorder (HCC) Take 1 tablet (75 mg total) by mouth 2 (two) times a day 180 tablet 3 2024 Active metoprolol (LOPRESSOR) 100 mg tabletIndications:Javan gn essential HTN Take 0.5 tablets (50 mg total) by mouth daily 45 tablet 3 2024 Active levothyroxine (SYNTHROID) 100 mcg tabletIndications:Acqu ired hypothyroidism TAKE 1 TABLET BY MOUTH ONCE DAILY IN THE MORNING BEFORE BREAKFAST 90 tablet 2024 Active losartan (COZAAR) 100 mg tabletIndications:Javan gn essential HTN Take 1 tablet by mouth once daily 90 tablet 2024 Active busPIRone (BUSPAR) 7.5 mg tabletIndications:SHANNAN (generalized anxiety disorder) Take 1 tablet by mouth twice daily 60 tablet 2024 Active busPIRone (BUSPAR) 7.5 mg tabletIndications:SHANNAN (generalized anxiety disorder) Take 1 tablet by mouth twice daily 60 tablet 07/05 Discontinued Active Problems Problem Noted Date Diagnosed Date Primary osteoarthritis, left shoulder 01/19/2024 Assessment & Plan (11/22/2024 1:46 PM CHIEF OF STAFF DOCTOR): RISKS AND BENEFITS OF PROCEDURE WERE EXPLAINED TO PATIENT AND CONSENT FORM WAS SIGNED. AREA WAS PREPPED WITH BETADINE TO SKIN AND DRAPED IN A STERILE MANOR. 1 1/2CC kenolog AND 1 1/2 CC LIDOCAINE WAS INJECTED INTO left shoulder JOINT WITH LATERAL APPROACH. PATIENT TOLERATED PROCEDURE WELL WITHOUT COMPLICATION. APPROPRIATE BANDAGE APPLIED. PATIENT ADVISED TO CALL WITH ANY CONCERNS/COMPLICATIONS. Assessment & Plan (08/01/2024 12:22 PM CDT): Chronic worsening Inject today RISKS AND BENEFITS OF PROCEDURE WERE EXPLAINED TO PATIENT AND CONSENT FORM WAS SIGNED. AREA WAS PREPPED WITH BETADINE TO SKIN AND DRAPED IN A STERILE MANOR. 1 1/2CC kenolog AND 1 1/2 CC LIDOCAINE WAS INJECTED INTO left shoulder JOINT WITH LATERAL APPROACH. PATIENT TOLERATED PROCEDURE WELL WITHOUT COMPLICATION. APPROPRIATE BANDAGE APPLIED. PATIENT ADVISED TO CALL WITH ANY CONCERNS/COMPLICATIONS. Assessment & Plan (04/28/2024 1:34 PM CDT): Chronic worsening Inject today RISKS AND BENEFITS OF PROCEDURE WERE EXPLAINED TO PATIENT AND CONSENT FORM WAS SIGNED. AREA WAS PREPPED WITH BETADINE TO SKIN AND DRAPED IN A STERILE MANOR. 1 1/2CC kenolog AND 1 1/2 CC LIDOCAINE WAS INJECTED INTO left shoulder JOINT WITH LATERAL APPROACH. PATIENT TOLERATED PROCEDURE WELL WITHOUT COMPLICATION. APPROPRIATE BANDAGE APPLIED. PATIENT ADVISED TO CALL WITH ANY CONCERNS/COMPLICATIONS. Assessment & Plan (01/19/2024 4:19 PM CDT): Chronic worsening Inject today RISKS AND BENEFITS OF PROCEDURE WERE EXPLAINED TO PATIENT AND CONSENT FORM WAS SIGNED. AREA WAS PREPPED WITH BETADINE TO SKIN AND DRAPED IN A STERILE MANOR. 1 1/2CC kenolog AND 1 1/2 CC LIDOCAINE WAS INJECTED INTO left shoulder JOINT WITH LATERAL APPROACH. PATIENT TOLERATED PROCEDURE WELL WITHOUT COMPLICATION. APPROPRIATE BANDAGE APPLIED. PATIENT ADVISED TO CALL WITH ANY CONCERNS/COMPLICATIONS. Iron deficiency anemia secon ryan to inadequate dietary iron intake 01/19/2024 Assessment & Plan (11/22/2024 1:40 PM CHIEF OF STAFF DOCTOR): Chronic last labs stable Order labs today Assessment & Plan (01/19/2024 9:51 PM CDT): Chronic stable and well controlled Continue iron supplement Class 3 severe obesity due t o excess calories with serious comorbidity and body mass index (BMI) of 40.0 to 44.9 in adult 01/19/2024 Assessment & Plan (11/22/2024 1:48 PM CHIEF OF STAFF DOCTOR): Chronic uncontrolled, reduce processed carb/starch, exercise as diane, whole foods Assessment & Plan (04/28/2024 1:36 PM CDT): Chronic uncontrolled, reduce processed carb/starch, exercise as diane, whole foods Limited mobility Assessment & Plan (01/19/2024 4:36 PM CDT): Chronic uncontrolled, reduce processed carb/starch, exercise as diane, whole foods Slow transit constipation 02/24/2023 Assessment & Plan (02/25/2023 10:58 PM CDT): Much improved, continue daily MiraLax, senna S Assessment & Plan (02/24/2023 11:18 AM CDT): We will give suppository x1, add daily MiraLax, senna S q.h.s. Primary insomnia 02/23/2023 Assessment & Plan (02/25/2023 10:59 PM CDT): Much improved with scheduled melatonin Assessment & Plan (02/23/2023 11:38 AM CDT): Will add scheduled melatonin. Encouraged improved sleep hygiene. Other specified anemias 02/09/2023 Assessment & Plan (02/17/2023 12:05 PM CDT): H/H continues to slowly improve. Assessment & Plan (02/11/2023 1:17 PM CDT): H&H slowly improving, no active bleeding noted. Continue only SCDs for DVT prophylaxis Assessment & Plan (02/09/2023 4:40 PM CDT): Hemoglobin stable at 7.5. Will not start on DVT prophylaxis for now. Continue SCDs. Monitor H&H Adenocarcinoma of colon 02/07/2023 Assessment & Plan (02/25/2023 10:59 PM CDT): Incision is healed, occasional constipation relieved by OTC medications. Follow- up in March per surgery office. Assessment & Plan (02/23/2023 9:35 PM CDT): Patient had follow-up last Thursday, no further treatment plans made, will need routine lab work and follow-up which is scheduled in March. Incision has healed. Assessment & Plan (02/07/2023 9:21 PM CDT): colonoscopy on 01/26, biopsy result positive for adenocarcinoma. Follow up surgery on 02/16/2023 Assessment & Plan (02/07/2023 12:15 PM CDT): Surgery fu 02/16. Fall, initial encounter 02/03/2023 Assessment & Plan (02/09/2023 4:39 PM CDT): Imaging ruled out any acute fracture or dislocation. Complains of right hip, right lower back pain. Continue Tylenol 650 Q 6, lidocaine patch topical. Continue PT/OT Assessment & Plan (02/07/2023 12:14 PM CDT): PT/OT. Primary osteoarthritis of both hips 09/26/2021 Assessment & Plan (04/28/2024 1:37 PM CDT): Chronic Needs handicap placard Assessment & Plan (10/01/2022 3:32 PM CHIEF OF STAFF DOCTOR): Chronic and worsening Order xray left hip Assessment & Plan (09/26/2021 3:11 PM CHIEF OF STAFF DOCTOR): Chronic conditon Not well controlled S/p right hip replacement 2011 Would benefit From seated wheeled walker for reduction in pain, reduction in fall risk, to improve completion of ADLS. Pure hypercholesterolemia 01/22/2021 Assessment & Plan (02/25/2023 10:56 PM CDT): Stable, continue statin Assessment & Plan (02/07/2023 9:15 PM CDT): Chronic, stable. Continue Lipitor 20 mg daily Assessment & Plan (04/01/2022 4:57 PM CDT): Chronic stable continue atorvastatin Assessment & Plan (09/26/2021 3:18 PM CHIEF OF STAFF DOCTOR): Chronic condition on statin Order lipid panel Assessment & Plan (05/02/2021 2:44 PM CDT): Chronic condition improved at goal LDL less than 70 continue with Lipitor Assessment & Plan (01/22/2021 10:42 AM CDT): Chronic condition Not at goal of ldl<100 Start lipitor 20mg Start coq10 Order lipid cmp in 3 mo Hypertensive kidney disease with stage 3a chronic kidney disease 01/22/2021 Assessment & Plan (01/19/2024 9:51 PM CDT): Chronic stable improved GFR increased from 30-40. Assessment & Plan (02/25/2023 10:58 PM CDT): Renal function stable, p.o. intake is improved. Follow-up labs on day of discharge Assessment & Plan (02/24/2023 8:30 PM CDT): Push p.o. fluid, repeat labs 02/27/2023 to assure patient is not becoming dehydrated. Assessment & Plan (02/23/2023 9:49 PM CDT): Creatinine increased, we will place Lasix on hold, continue to monitor Assessment & Plan (07/02/2022 12:55 PM CDT): Chronic stable improved GFR increased from 30-40. Assessment & Plan (12/30/2021 3:24 PM CDT): Chronic condition with worsening of the renal function her last GFR is 53 this GFR is 30. Patient states no ibuprofen or other NSAIDs. States he is drinking significant water. Assessment & Plan (09/26/2021 3:18 PM CHIEF OF STAFF DOCTOR): Chronic condition Order CBC CMP Assessment & Plan (01/22/2021 10:45 AM CDT): Reviewed dietary restriction including low protein, low sodium and reduced processed foods Increase h20 intake minimiu, 64 oz per day Primary osteoarthritis of right shoulder Assessment & Plan (11/22/2024 1:46 PM CHIEF OF STAFF DOCTOR): RISKS AND BENEFITS OF PROCEDURE WERE EXPLAINED TO PATIENT AND CONSENT FORM WAS SIGNED. AREA WAS PREPPED WITH BETADINE TO SKIN AND DRAPED IN A STERILE MANOR. 1 1/2CC kenolog AND 1 1/2 CC LIDOCAINE WAS INJECTED INTO right shoulder JOINT WITH LATERAL APPROACH. PATIENT TOLERATED PROCEDURE WELL WITHOUT COMPLICATION. APPROPRIATE BANDAGE APPLIED. PATIENT ADVISED TO CALL WITH ANY CONCERNS/COMPLICATIONS. Assessment & Plan (08/01/2024 12:23 PM CDT): Chronic worsening Order xray tamar shoulders RISKS AND BENEFITS OF PROCEDURE WERE EXPLAINED TO PATIENT AND CONSENT FORM WAS SIGNED. AREA WAS PREPPED WITH BETADINE TO SKIN AND DRAPED IN A STERILE MANOR. 1 1/2CC kenolog AND 1 1/2 CC LIDOCAINE WAS INJECTED INTO right shoulder JOINT WITH LATERAL APPROACH. PATIENT TOLERATED PROCEDURE WELL WITHOUT COMPLICATION. APPROPRIATE BANDAGE APPLIED. PATIENT ADVISED TO CALL WITH ANY CONCERNS/COMPLICATIONS. Assessment & Plan (04/28/2024 1:34 PM CDT): Chronic worsening Order xray tamar shoulders RISKS AND BENEFITS OF PROCEDURE WERE EXPLAINED TO PATIENT AND CONSENT FORM WAS SIGNED. AREA WAS PREPPED WITH BETADINE TO SKIN AND DRAPED IN A STERILE MANOR. 1 1/2CC kenolog AND 1 1/2 CC LIDOCAINE WAS INJECTED INTO right shoulder JOINT WITH LATERAL APPROACH. PATIENT TOLERATED PROCEDURE WELL WITHOUT COMPLICATION. APPROPRIATE BANDAGE APPLIED. PATIENT ADVISED TO CALL WITH ANY CONCERNS/COMPLICATIONS. Assessment & Plan (01/19/2024 4:19 PM CDT): Chronic worsening Order xray tamar shoulders RISKS AND BENEFITS OF PROCEDURE WERE EXPLAINED TO PATIENT AND CONSENT FORM WAS SIGNED. AREA WAS PREPPED WITH BETADINE TO SKIN AND DRAPED IN A STERILE MANOR. 1 1/2CC kenolog AND 1 1/2 CC LIDOCAINE WAS INJECTED INTO right shoulder JOINT WITH LATERAL APPROACH. PATIENT TOLERATED PROCEDURE WELL WITHOUT COMPLICATION. APPROPRIATE BANDAGE APPLIED. PATIENT ADVISED TO CALL WITH ANY CONCERNS/COMPLICATIONS. Assessment & Plan (09/24/2023 11:53 AM CHIEF OF STAFF DOCTOR): Chronic with current worsening Patient requesting injection Continue Celebrex RISKS AND BENEFITS OF PROCEDURE WERE EXPLAINED TO PATIENT AND CONSENT FORM WAS SIGNED. AREA WAS PREPPED WITH BETADINE TO SKIN AND DRAPED IN A STERILE MANOR. 1 1/2CC kenolog AND 1 1/2 CC LIDOCAINE WAS INJECTED INTO right shoulder JOINT WITH LATERAL APPROACH. PATIENT TOLERATED PROCEDURE WELL WITHOUT COMPLICATION. APPROPRIATE BANDAGE APPLIED. PATIENT ADVISED TO CALL WITH ANY CONCERNS/COMPLICATIONS. Assessment & Plan (06/25/2023 11:23 AM CDT): Chronic and not wellcontrolled with current exacerbation Start celebrex 200mg Should injection tod RISKS AND BENEFITS OF PROCEDURE WERE EXPLAINED TO PATIENT AND CONSENT FORM WAS SIGNED. AREA WAS PREPPED WITH BETADINE TO SKIN AND DRAPED IN A STERILE MANOR. 1 1/2CC kenolog AND 1 1/2 CC LIDOCAINE WAS INJECTED INTO right shoulder JOINT WITH LATERAL APPROACH. PATIENT TOLERATED PROCEDURE WELL WITHOUT COMPLICATION. APPROPRIATE BANDAGE APPLIED. PATIENT ADVISED TO CALL WITH ANY CONCERNS/COMPLICATIONS. Assessment & Plan (07/02/2022 12:53 PM CDT): Chronic condition persistent symptoms with pain decreased range of motion Inject shoulder today. RISKS AND BENEFITS OF PROCEDURE WERE EXPLAINED TO PATIENT AND CONSENT FORM WAS SIGNED. AREA WAS PREPPED WITH BETADINE TO SKIN AND DRAPED IN A STERILE MANOR. 1 1/2CC kenolog AND 1 1/2 CC LIDOCAINE WAS INJECTED INTO right shoulder JOINT WITH LATERAL APPROACH. PATIENT TOLERATED PROCEDURE WELL WITHOUT COMPLICATION. APPROPRIATE BANDAGE APPLIED. PATIENT ADVISED TO CALL WITH ANY CONCERNS/COMPLICATIONS. Assessment & Plan (04/01/2022 4:56 PM CDT): Chronic condition acute worsening. RISKS AND BENEFITS OF PROCEDURE WERE EXPLAINED TO PATIENT AND CONSENT FORM WAS SIGNED. AREA WAS PREPPED WITH BETADINE TO SKIN AND DRAPED IN A STERILE MANOR. 1 1/2CC kenolog AND 1 1/2 CC LIDOCAINE WAS INJECTED INTO right shoulder JOINT WITH LATERAL APPROACH. PATIENT TOLERATED PROCEDURE WELL WITHOUT COMPLICATION. APPROPRIATE BANDAGE APPLIED. PATIENT ADVISED TO CALL WITH ANY CONCERNS/COMPLICATIONS. Assessment & Plan (12/30/2021 3:23 PM CDT): Chronic condition with current exacerbation Cortisone injection right shoulder today RISKS AND BENEFITS OF PROCEDURE WERE EXPLAINED TO PATIENT AND CONSENT FORM WAS SIGNED. AREA WAS PREPPED WITH BETADINE TO SKIN AND DRAPED IN A STERILE MANOR. 1 1/2CC kenolog AND 1 1/2 CC LIDOCAINE WAS INJECTED INTO right shoulder JOINT WITH LATERAL APPROACH. PATIENT TOLERATED PROCEDURE WELL WITHOUT COMPLICATION. APPROPRIATE BANDAGE APPLIED. PATIENT ADVISED TO CALL WITH ANY CONCERNS/COMPLICATIONS. Assessment & Plan (01/22/2021 10:52 AM CDT): Chronic condition Uncontrolled with pain and reduced rom RISKS AND BENEFITS OF PROCEDURE WERE EXPLAINED TO PATIENT AND CONSENT FORM WAS SIGNED. AREA WAS PREPPED WITH BETADINE TO SKIN AND DRAPED IN A STERILE MANOR. 1 1/2CC kenolog AND 1 1/2 CC LIDOCAINE WAS INJECTED INTO right shoulder JOINT WITH LATERAL APPROACH. PATIENT TOLERATED PROCEDURE WELL WITHOUT COMPLICATION. APPROPRIATE BANDAGE APPLIED. PATIENT ADVISED TO CALL WITH ANY CONCERNS/COMPLICATIONS. Tendinitis of right rotator cuff 10/22/2020 Overview (10/22/2020): Assessment & Plan (05/02/2021 2:45 PM CDT): Chronic condition persistent Joint injection today. RISKS AND BENEFITS OF PROCEDURE WERE EXPLAINED TO PATIENT AND CONSENT FORM WAS SIGNED. AREA WAS PREPPED WITH BETADINE TO SKIN AND DRAPED IN A STERILE MANOR. 1 1/2CC kenolog AND 1 1/2 CC LIDOCAINE WAS INJECTED INTO Right shoulder JOINT WITH LATERAL APPROACH. PATIENT TOLERATED PROCEDURE WELL WITHOUT COMPLICATION. APPROPRIATE BANDAGE APPLIED. PATIENT ADVISED TO CALL WITH ANY CONCERNS/COMPLICATIONS. Assessment & Plan (10/22/2020 11:40 AM CHIEF OF STAFF DOCTOR): RISKS AND BENEFITS OF PROCEDURE WERE EXPLAINED TO PATIENT AND CONSENT FORM WAS SIGNED. AREA WAS PREPPED WITH BETADINE TO SKIN AND DRAPED IN A STERILE MANOR. 1 1/2CC kenolog AND 1 1/2 CC LIDOCAINE WAS INJECTED INTO right shoulder JOINT WITH LATERAL APPROACH. PATIENT TOLERATED PROCEDURE WELL WITHOUT COMPLICATION. APPROPRIATE BANDAGE APPLIED. PATIENT ADVISED TO CALL WITH ANY CONCERNS/COMPLICATIONS. Moderate episode of recurrent major depressive d isorder 12/28/2019 Assessment & Plan (11/22/2024 1:40 PM CHIEF OF STAFF DOCTOR): Chronic stable and currently well controlled Continue venlafaxine Assessment & Plan (06/25/2023 11:18 AM CDT): Chronic and not well controlled Decrease venlafaxine 1 tab bid Start abilify 2mg Assessment & Plan (02/07/2023 9:19 PM CDT): Continue venlafaxine 75 mg b.i.d. Assessment & Plan (10/01/2022 3:35 PM CHIEF OF STAFF DOCTOR): Chronic stable Continue andf refill venlafazine Assessment & Plan (07/02/2022 12:55 PM CDT): Chronic stable well controlled continue with Effexor. Patient reports no suicidal thoughts. Assessment & Plan (04/01/2022 4:57 PM CDT): Chronic condition stable continue venlafaxine Assessment & Plan (10/01/2020 11:19 AM CHIEF OF STAFF DOCTOR): Well controlled on current regimen, no rx changes needed. Continue lifestyle modifications improved Assessment & Plan (09/03/2020 11:56 AM CHIEF OF STAFF DOCTOR): D/c wellbutrin Assessment & Plan (08/09/2020 11:17 AM CDT): Well controlled on current regimen, no rx changes needed. Continue lifestyle modifications Assessment & Plan (07/26/2020 12:08 PM CDT): Well controlled on current regimen, no rx changes needed. Continue lifestyle modifications Benign essential HTN 01/30/2016 Assessment & Plan (11/22/2024 1:39 PM CHIEF OF STAFF DOCTOR): Chronic and well controlled Continue clonidione, Losartan, and metoprolol Assessment & Plan (04/28/2024 1:36 PM CDT): Chronic and well controlled Continue clonidione, Losartan, and metoprolol Assessment & Plan (01/19/2024 9:51 PM CDT): Chronic and well controlled Continue clonidione, Losartan, and metoprolol Assessment & Plan (09/24/2023 11:42 AM CHIEF OF STAFF DOCTOR): Chronic and well controlled Continue clonidione, Losartan, and metoprolol Assessment & Plan (02/25/2023 10:56 PM CDT): Blood pressure well controlled, continue only metoprolol, losartan, Norvasc. Lasix and clonidine have been discontinued Assessment & Plan (02/23/2023 9:47 PM CDT): Blood pressure lower at times, Lasix being held due to increased creatinine, continue metoprolol, losartan. Continue Norvasc but add hold parameters. Clonidine remains on hold Assessment & Plan (02/20/2023 8:31 PM CDT): Blood pressure remained stable, continue Lasix, metoprolol, losartan, Norvasc. Assessment & Plan (02/17/2023 12:05 PM CDT): BP had been lower - clonidine placed on hold. BP now controlled without hypotension. Continue Norvasc, losartan, metoprolol and lasix. Assessment & Plan (02/11/2023 1:18 PM CDT): Blood pressure generally well controlled, continue Norvasc, clonidine, furosemide, losartan, metoprolol Assessment & Plan (02/07/2023 9:15 PM CDT): Blood pressure controlled. Continue clonidine 0.1 mg, amlodipine 10 mg Lopressor 50 mg, Lasix 20 mg every other day, meds accordingly Assessment & Plan (02/07/2023 12:13 PM CDT): BP elevated currently. Monitor. Assessment & Plan (10/01/2022 3:35 PM CHIEF OF STAFF DOCTOR): Chronic and well controlled Continue and refill clonidione, Losartan, and metoprolol Assessment & Plan (07/02/2022 12:55 PM CDT): Chronic condition stable well controlled at goal Continue clonidine and amlodipine and losartan. Assessment & Plan (04/01/2022 4:56 PM CDT): Chronic condition stable well controlled continue metoprolol losartan amlodipine Assessment & Plan (12/30/2021 3:19 PM CDT): Chronic and uncontrolled with hypotension and bradycardia Decrease clonidine to 0.1mg tid Assessment & Plan (09/26/2021 3:18 PM CHIEF OF STAFF DOCTOR): Chronic condition well-controlled at goal continue losartan continue metoprolol and amlodipine. Assessment & Plan (05/02/2021 2:44 PM CDT): Chronic condition stable well controlled continue current regimen Assessment & Plan (10/22/2020 11:35 AM CHIEF OF STAFF DOCTOR): Well controlled on current regimen, no rx changes needed. Continue lifestyle modifications Order cmp, cbc Assessment & Plan (10/01/2020 11:21 AM CHIEF OF STAFF DOCTOR): Increase losartan 100mg Assessment & Plan (08/23/2020 10:53 AM CHIEF OF STAFF DOCTOR): Start amlodipine 10 mg q.d.. Patient advised to call us seek EMS or emergency room if blood pressure elevates be on pressure that is currently being red. Patient also advised to seek above as wound well with any chest pain, shortness of breath or headaches that are unusual for her. If her blood pressure does not respond in the next 10 days we will start workup for secondary hypertension. Assessment & Plan (08/09/2020 11:14 AM CDT): Start losartan 50mg Assessment & Plan (08/01/2020 12:06 PM CDT): Advised patient to increase her clonidine to 0.2 mg 3 times a day. Advised to make that change immediately she will take 2 tablets now they will recheck blood pressure in 1-2 hours. Also home health will be coming today to evaluate this. I will wait to hear back from them to see doubling up is able to get control of her blood pressure reduce her risk at this point. Assessment & Plan (07/26/2020 12:07 PM CDT): D/c amlodipine D/c hctz D/c lisinopril Start clonidine 0.1mg tid Assessment & Plan (11/08/2019 5:09 PM CHIEF OF STAFF DOCTOR): Start metoprolol 50 mg q.d. Reduce amlodipine 5mg SHANNAN (generalized anxiety disorder) 01/30/2016 Assessment & Plan (11/22/2024 1:36 PM CHIEF OF STAFF DOCTOR): Chronic stable with intermittent exaceration D/c lorazepam Assessment & Plan (02/25/2023 10:59 PM CDT): Stable, continue Effexor, p.r.n. lorazepam Assessment & Plan (02/24/2023 8:31 PM CDT): Overall stable, continue p.r.n. lorazepam, scheduled Effexor Assessment & Plan (02/17/2023 12:08 PM CDT): Mood overall stable - concerned anxiety contributing to GI symptoms. Encouraged pt to request prn lorazepam if needed, continue scheduled effexor Assessment & Plan (02/11/2023 1:21 PM CDT): Mood stable, pt cooperative with care. Continue venlafaxine, p.r.n. lorazepam Assessment & Plan (02/09/2023 4:40 PM CDT): Continue Ativan 0.5 mg b.i.d. p.r.n.. Prescription sent Assessment & Plan (07/02/2022 12:55 PM CDT): Chronic stable well controlled continue lorazepam on a p.r.n. basis. Assessment & Plan (04/01/2022 4:56 PM CDT): Chronic condition continue Ativan Assessment & Plan (10/22/2020 11:35 AM CHIEF OF STAFF DOCTOR): Well controlled on current regimen, no rx changes needed. Continue lifestyle modifications Assessment & Plan (10/01/2020 11:19 AM CHIEF OF STAFF DOCTOR): Decrease buspar 7.5mg bid Assessment & Plan (09/03/2020 11:55 AM CHIEF OF STAFF DOCTOR): Increase buspar 15mg bid. Refill lorazepam Assessment & Plan (08/09/2020 11:13 AM CDT): Start buspar 7.5mg bid Gastroesophageal reflux disease without esophagi tis 01/30/2016 Assessment & Plan (11/22/2024 1:39 PM CHIEF OF STAFF DOCTOR): Chornic stable and well controlled Continue pantorprazole Assessment & Plan (02/25/2023 10:57 PM CDT): Symptoms improved, continue PPI. Assessment & Plan (02/20/2023 8:30 PM CDT): Symptoms improved, continue nightly Pepcid, daily PPI, p.r.n. Zofran. Assessment & Plan (02/17/2023 12:04 PM CDT): Pt now with increased nausea. Will add nightly pepcid, prn zofran. Continue PPI daily. Monitor. Assessment & Plan (02/07/2023 9:17 PM CDT): Symptoms controlled with Protonix 40 mg daily Assessment & Plan (10/01/2022 3:37 PM CHIEF OF STAFF DOCTOR): Chronic with recent worsening Start protonix 40mg qd Start carafate 2 weeks Acquired hypothyroidism 01/30/2016 Assessment & Plan (04/28/2024 1:35 PM CDT): Chronic and on levothyyroxine Tsh at goal Assessment & Plan (01/19/2024 9:51 PM CDT): Chronic and on levothyyroxine Tsh at goal Assessment & Plan (09/24/2023 11:43 AM CHIEF OF STAFF DOCTOR): Chronic and on levothyyroxine Tsh at goal Assessment & Plan (02/25/2023 10:57 PM CDT): TSH stable, continue levothyroxine 75 mcg daily Assessment & Plan (02/09/2023 4:39 PM CDT): TSH 4.66, T4 1.74 both elevated>> today recheck TSH 3.69. Continue levothyroxine 75 mcg daily, follow-up PCP outpatient Assessment & Plan (10/01/2022 3:35 PM CHIEF OF STAFF DOCTOR): Chronic and on levothyyroxine Order tsh Assessment & Plan (04/01/2022 4:56 PM CDT): Chronic condition stable continue with levothyroxine Assessment & Plan (09/26/2021 3:18 PM CHIEF OF STAFF DOCTOR): Chronic condition unknown control last TSH at goal Order TSH Assessment & Plan (05/02/2021 2:44 PM CDT): Chronic condition improved with increased dose of levothyroxine Assessment & Plan (01/22/2021 10:55 AM CDT): Chronic condition Not at goal with elevated tsh Increase to 75mcg Repeat tsh in 3 mo Assessment & Plan (10/22/2020 11:35 AM CHIEF OF STAFF DOCTOR): Continue thyroid Order tsh today Assessment & Plan (10/01/2020 11:19 AM CHIEF OF STAFF DOCTOR): Compliant with dosing. Continue with current dose. Continue with ice cutter empty stomach dosing Assessment & Plan (08/09/2020 11:13 AM CDT): Well controlled on current regimen, no rx changes needed. Continue lifestyle modifications Assessment & Plan (07/26/2020 12:11 PM CDT): Well controlled on current regimen, no rx changes needed. Continue lifestyle modifications OAB (overactive bladder) 01/30/2016 Acute on chronic congestive heart failure Assessment & Plan (02/25/2023 10:56 PM CDT): Compensated, will remain off Lasix. Continue to monitor electrolytes, renal function, weight as an outpatient Assessment & Plan (02/20/2023 8:32 PM CDT): Remains controlled, continue Lasix. Continue to monitor weight, renal function, electrolytes. Therapies are in place, monitor patient's progress Assessment & Plan (02/17/2023 12:06 PM CDT): Now compensated, no increased edema. Continue low dose lasix 20mg every other day. Cr mildly elevated at 1.1 - continue to monitor renal function and electrolytes. Assessment & Plan (02/07/2023 9:14 PM CDT): Patient c/o exertional dyspnea and cough for about a week. Had bilateral lower extremity swelling and bibasilar crackles. ProBNP elevated. TTE with EF 65-70%, grade 1 DD. Treated with IV Lasix, later transition to oral Lasix 20 mg every other day, continue losartan, beta-alex monitor lytes weight, renal function. Assessment & Plan (02/07/2023 12:13 PM CDT): Appears compensated now. Transthoracic echo which revealed a EF of 65-70%, grade 1 diastolic dysfunction. Continue Lasix 20mg every other day, ARB, BB, stain. Montior. Immunizations Immunization Administration Dates Next Due Influenza, Unspecified 08/01/2024(Deferr ed: Patient decision),09/24/2023(Deferred: Patient decision),06/18/2022(Deferred: Patient decision),06/12/2022(Deferred: Patient decision),06/12/2022(Deferred: Patient decision),06/12/2020(Deferred: Patient Refused) Moderna SARS-CoV-2 Monovalen t Vaccination (12+ YRS) 03/24/2021,02/24/2021 Surgical History Surgery Date Site/Laterality Comments TOTAL HIP ARTHROPLASTY Right ROTATOR CUFF REPAIR Right CHOLECYSTECTOMY APPENDECTOMY SECTION x1 HM FIT COLON RECTAL CANCER SCREENING COLON SURGERY 01/29/2023 Medical History Medical History Date Comments Anxiety GERD (gastroesophageal reflux disease) Hypertension Thyroid disease Overactive bladder Family History Medical History Relation Name Comments No Known Problems Brother Heart disease Father Hypertension Mother No Known Problems Son 1 Diabetes Son 2 Relation Name Status Comments Brother Alive Father Mother Son 1 Alive Son 2 Alive Social History Tobacco Use Types Packs/Day Years Used Date Smoking Tobacco: Never Smokeless Tobacco: Never Tobacco Cessation:Counseling Given: Not Answered Alcohol Use Standard Drinks/Week Comments Not Currently 0 (1 standard drink = 0.6 oz pur e alcohol) Social Connection and Isolation Panel Answer Date Recorded In a typical week, how many times do you talk on the phone with family, friends, or neighbors? Three times a week 02/04/2023 How often do you get togethe r with friends or relatives? Twice a week 02/04/2023 How often do you attend chur ch or methodist services? Never 02/04/2023 Do you belong to any clubs o r organizations such as religious groups, unions, fraternal or athletic groups, or school groups? No 02/04/2023 How often do you attend meet ings of the clubs or organizations you belong to? Never 02/04/2023 Are you , , di vorced, , never , or living with a partner? 02/04/2023 AUDIT-C Answer Date Recorded Q1: How often do you have a drink containing alcohol? Never 01/26/2025 Q2: How many drinks containi ng alcohol do you have on a typical day when you are drinking? Patient does not drink Q3: How often do you have si x or more drinks on one occasion? Never 01/26/2025 Overall Financial Resource Strain (CARDIA) Answe r Date Recorded How hard is it for you to pa y for the very basics like food, housing, medical care, and heating? Not hard at all 02/04/2023 PHQ-2 Answer Date Recorded PHQ-2 Total Score (If total score is 3 or more points, staff should administer the PHQ-9) 0 01/26/2025 Hunger Vital Sign Answer Date Recorded Within the past 12 months, y ou worried that your food would run out before you got the money to buy more. Never true 02/05/20 23 Within the past 12 months, t he food you bought just didn't last and you didn't have money to get more. Never true 02/04/2023 PRAPARE - Transportation Answer Date Re corded In the past 12 months, has l ack of transportation kept you from medical appointments or from getting medications? No 01/11 In the past 12 months, has l ack of transportation kept you from meetings, work, or from getting things needed for daily living? No 02/04/2023 Housing Stability Vital Sign Answer Ede e Recorded In the last 12 months, was t here a time when you were not able to pay the mortgage or rent on time? No 02/04/2023 In the last 12 months, how many places have you lived? 1 02/04/2023 In the last 12 months, was t here a time when you did not have a steady place to sleep or slept in a penitentiary (including now)? No 02/04/2023 PHQ-9 Answer Date Recorded PHQ-9 Total Score 12 08/01/2024 Personal Safety Answer Date Recorded Have you ever been in or are you currently in a harmful physical or emotional relationship or is someone making you feel afraid or unsafe? Denies 02/03/2023 Comments Unknown Sex and Gender Information Value Date Recorded Sex Assigned at Not on file Legal Sex Female 8:13 PM CHIEF OF STAFF DOCTOR Gender Identity Not on file Sexual Orientation Not on file Obstetrics History Last Filed Vital Signs Vital Sign Reading Time Taken Comments Blood Pressure 118/74 03/14/2025 12:30 PM CDT Pulse 78 03/14/2025 12:30 PM CDT Temperature 36.1 C (97 F) 11/22/2024 12:43 PM CHIEF OF STAFF DOCTOR Respiratory Rate 18 03/14/2025 12:3 0 PM CDT Oxygen Saturation 94% 11/22/2024 12: 43 PM CHIEF OF STAFF DOCTOR Inhaled Oxygen Concentration - - Weight 111.5 kg (245 lb 14.4 oz) 2024 12:30 PM CDT Height 162.6 cm (5' 4.02) 03/14/2025 1 2:30 PM CDT Body Mass Index 42.19 03/14/2025 12:30 PM CDT Plan of Treatment Health Maintenance Due Date Last Done Comments DTaP/Tdap/Td Vaccine (1 - Tdap) 01/19/1963 Hepatitis B Screening 01/19/1970 Zoster Vaccine (1 of 2) 01/19/2002 Breast Cancer Screening-Mammogram 05/06/2022 021 Covid-19 Vaccine (3 - 2024-2 6 season) 2025 03/24/2021, 02/24/2021 Influenza Vaccine (#1) 2025 Fall Risk Assessment 08/01/2025 08/01/2024, 06/25/2023, 03/06/2023, Additional history exists Well Visit 65+ 08/01/2025 08/01/2024, 06/25/2023 Depression Screening 01/26/2026 01/26/2025, 08/01/2024, 08/01/2024, Additional history exists Hepatitis C Screening Completed 04/17/2021 Colon Cancer Screening-CT Colonography Discontinued 01/26/2023 Colon Cancer Screening-Colonoscopy Discontinued 01/26/2023 Colon Cancer Screening-DNA Stool Discontinued 01/27/20 Colon Cancer Screening-FIT Discontinued 01/26/2023 Colon Cancer Screening-Sigmoidoscopy Discontinued 01/26/2023 Osteoporosis Screening-Bone Density Scan Discontinued Pneumococcal vaccine 65+ Discontinued Procedures Procedure Name Priority Date/Time Associated Diagnosis Comments COLONOSCOPY Routine 01/26/2023 DIAGNOSTIC MAMMOGRAM Schedule Routine, Read Routine (OP Routine) 05/06/2021 HEPATITIS C ANTIBODY Routine 04/17/2021 9:15 AM CDT Need for hepatitis C screening test from Last 3 Months or Most Recently Relevant to Health Maintenance Results * Colonoscopy (01/26/2023) Anatomical Region Laterality Modality Other us Historical Provider ENDOSCOPY PROCEDURES Debbie l Result * Diagnostic Mammogram (05/06/2021) Anatomical Region Laterality Modality Breast Mammography Historical Provider IMG MAMMO PROCEDURES Debbie l Result * Hepatitis C antibody (04/17/2021 9:15 AM CDT) Hep C Ab Nonreactive Nonreactive OLIMPIACHAY JOSHUA Comment: Interpretive Data Nonreactive: Antibodies to HCV not detected. Does NOT exclude the possibility of recent exposure to HCV. Equivocal: Equivocal for HCV antibodies. Supplemental molecular testing will be automatically performed to determine infection status in accordance with current CDC screening recommendations. Reactive: Positive for HCV antibodies. This may represent current or past HCV infection. Supplemental molecular testing will be automatically performed to determine current infection status in accordance with current CDC screening recommendations. Interpretive data was last revised on 2019. Blood specimen (specimen) 04/17/2021 9:15 AM CDT 04/17/2021 11:37 AM CDT [facility] BEATRIZ AGUILAR Final Result JULISSA [address] [facility] [place] [address] from Last 3 Months or Most Recently Relevant to Health Maintenance Insurance MEDICARE [facility] Address: [address] [address] [facility] MEDICARE [facility] Advance Directives For more information, please contact: [phone] * Full Code (Latest Code Status on File) Date Activated Date Inactivated Comments 02/04/2023 1:21 AM 02/05/2023 8:18 PM Care Teams Food Selector Relationship Specialty Start Date End Date Grover Randhawa PA [address] [place] [address] PCP - General Family Medicine 06/16/25
--- OUTSIDE RECORDS SUMMARY | 2025-07-15 16:49 | XMS_ITS | Clinical Summary ---
Author Organization [facility] (Formerly [facility]) Thomas grissom [facility] Address [address] [place] [address] Care Team Providers Care Industrial Relations Officer Name Role Phone Unavailable Primary Care Provider Unavailabl e Social History Tobacco Use Types Packs/Day Years Used Date Smoking Tobacco: Never Assessed Comments Unknown Sex and Gender Information Value Date Recorded Sex Assigned at Not on file Legal Sex Female 1:58 PM CDT Gender Identity Not on file Sexual Orientation Not on file Plan of Treatment Health Maintenance Due Date Last Done Comments DTAP/TDAP/TD VACCINES (1 - Tdap) 01/19/1971 BREAST CANCER SCREENING 1992 COLORECTAL SCREENING 01/19/1997 Colorectal Cancer Screening 01/19/1997 FIT-DNA Q 3 years 01/19/1997 FIT/FOBT Q 1 year 01/19/1997 Flex Sig/CT Colonography Q 5 years 01/19/1997 PNEUMOCOCCAL VACCINE 50+ YEARS (1 of 1 - PCV) 01/20/20 02 ZOSTER VACCINE (1 of 2) 01/19/2002 OSTEOPOROSIS SCREENING 01/19/2017 INFLUENZA VACCINE (#1) 2025 RSV VACCINE (60+ or ) (1 - 1-dose 75+ series) 01/19/2027 Insurance MEDICAID [place] MEDICARE PART A AND B
[2025-07-15 17:01] LABS: Alanine Aminotransferase 19 U/L (6-35); Albumin Level 3.1 g/dL (3.5-5.1); Alkaline Phosphatase 84 U/L (38-126); Anion Gap 10 mmol/L (4-12); Aspartate Amino Transferase 28 U/L (14-36); Bilirubin,Total 1.0 mg/dL (0.2-1.3); Blood Urea Nitrogen 14 mg/dL (7-17); Calcium 7.9 mg/dL (8.4-10.2); Carbon Dioxide 23 mmol/L (22-30); Chloride 101 mmol/L (98-107); Estimated Glomerular Filt Rate 31; Glucose 142 mg/dL (65-110); Lipase 70 U/L (23-300); Magnesium 0.8 mg/dL (1.6-2.3); Potassium 2.9 mmol/L (3.4-5.0); Sodium 134 mmol/L (137-145); Total Protein 6.7 g/dL (6.3-8.2)
[2025-07-15] MEDS: MAGNESIUM SULF 2 GM/WATER 50ML 2 GM/50 ML BAG IVPB (17:17)
[2025-07-15 17:18] LABS: Influenza A QL RT-PCR Negative (Negative); Influenza B QL RT-PCR Negative (Negative); RSV RNA, RT-PCR Negative (Negative); SARS-CoV-2 RNA PCR Negative (Negative)
[2025-07-15 17:41] LABS: Troponin I < 0.012 ng/mL (0.000-0.034)
[2025-07-15] MEDS: KCL 20 MEQ/SW 100 ML 100 ML 50 MEQ IVPB (17:49)
--- NOTE | 2025-07-15 18:03 | PM.IMHP ---
H&P: HPI History of Present Illness Date/Time: 07/15/25 18:03 Chief Complaint: N/V/D, Abdominal Cramping Narrative: 75 y/o F with PMH of CKD stage 3, diastolic dysfunction, hyperlipidemia, diverticulitis, GERD, colon cancer s/p resection, asthma, anxiety/depression, OAB, hypothyroidism, and hypertension presents here with nausea, vomiting, diarrhea, and abdominal cramping. The patient presents here from home on 07/15 for further evaluation of nausea, vomiting, diarrhea, and abdominal cramping. She reports onset 2-3 weeks ago. Abdominal cramping is accompanied by abdominal pain. She describes this as achy, cramping, lower and bilateral but more so on the right, nonradiating, and intermittent. She estimates within the last 24 hours she has had 5-6 episodes of diarrhea. She is also reporting generalized weakness that has been ongoing for the past few weeks, became more significant this morning. She was unable to get off of the couch due to the weakness. Denies associated hematochezia or melena. She denies associated fever, chills, body aches, or urinary symptoms. She reports a history significant for diverticulitis, last episode 2-3 months ago. She reports it was uncomplicated, did not require admission, and treated with PO antibiotics. Initial VS at presentation: To move 98.8? F, HR 82, R 12, 147/74, and 97% on RA. ED workup showed: WBC 9.3, hemoglobin 12.6, potassium 2.9, creatinine 1.61 and GFR 31 (previously 1.0 and GFR 55 in 2022), lactic 2.3, calcium 7.9/albumin 3.1, magnesium 0.18 and initial troponin negative. UA unremarkable. Viral PCR negative. CXR showed no acute cardiopulmonary abnormality. CT of the abdomen/pelvis showed some colitis with superimposed probable diverticulitis, small abscess, lobulation of the renal contours decision from right renal neoplasm limited. Review of Systems Review of Systems: All systems reviewed & are unremarkable except as noted in HPI and below [facility] Past Medical History Medical History Colonic mass Hyperlipidemia Depression Chronic kidney disease, stage 3 Baseline creatinine is between 1.1 and 1.50. Diastolic dysfunction Echocardiogram in August 2019 showed normal left ventricular chamber size and systolic function with an estimated ejection fraction of 65 to 70%, mild asymmetric increased septal wall thickness, grade 1 diastolic dysfunction and mild aortic valve sclerosis as well as mild pulmonic regurgitation. Osteoarthritis Diverticulitis Gastroesophageal reflux disease Anxiety Asthma Overactive bladder Hypothyroidism Hypertension Surgical History Surgical History History of colon surgery 01/29/23 Hand assisted laparoscopic right hemicolectomy with ileocolic anastomosis History of total right hip arthroplasty History of section History of tubal ligation History of cholecystectomy Open cholecystectomy with incidental appendectomy History of appendectomy History of repair of right rotator cuff History of dilatation and curettage Family History Family History Father Acute myocardial infarction Congestive heart failure Hypertension Sibling Hypertension Mother Breast cancer Social History Social History Social History: She has 2 sons and is . 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 Surrogate decision maker: Dhaval Bush, son. Code status: Full code. Smoking status: Never smoker Second hand tobacco smoke exposure: No Alcohol intake: never Substance use: never Substance use type: does not use Lack of Transportation: No Lack of Food: Never True Current Housing: I Have Housing Concerned About Future Housing: No Difficulty Paying Gas/Electric Bills: No Difficulty Paying for Meds: No Currently Unemployed: No Education: Decline to Answer Difficulty w/ Childcare or Family Care: No Additional living arrangements comments: Resides in her own home in [place]. 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 Gender identity (if verbalized by the patient): Female Sexual Orientation (if Verbalized by the Patient): Straight or Heterosexual Spiritual care concerns: No Agree to blood products: Yes Meds Home Medications and Allergies Home Medications ?Medication ?Instructions ?Recorded ?Confirmed ?Type amlodipine 5 mg tablet 10 mg PO DAILY 08/12/19 03/27/23 History levothyroxine 50 mcg tablet 75 mcg PO DAILY 08/12/19 03/27/23 History (Synthroid) lorazepam 0.5 mg tablet 0.5 mg PO PRN PRN Anxiety 08/12/19 03/27/23 History venlafaxine 75 mg capsule,extended 75 mg PO BID 08/12/19 03/27/23 History release 24 hr (Effexor XR) metoprolol tartrate 100 mg tablet 50 mg PO DAILY 01/25/20 03/27/23 History atorvastatin 20 mg tablet 20 mg PO QAM 01/24/23 03/27/23 History clonidine HCl 0.1 mg tablet 0.1 mg PO TID 01/24/23 03/27/23 History losartan 100 mg tablet 100 mg PO QAM 01/24/23 03/27/23 History tolnaftate 1 % topical powder 1 applic topical Q12HR PRN Rash 01/24/23 03/27/23 History Allergies Allergy/AdvReac Type Severity Reaction Status Date / Time codeine Allergy Severe SOB Verified 07/15/25 16:39 pseudoephedrine Allergy Severe RASH Verified 07/15/25 16:39 oxycodone Allergy Mild HALLUCINATI Verified 07/15/25 16:39 ONS Sulfa (Sulfonamide Allergy Unknown RASH Verified 07/15/25 16:39 Antibiotics) Vital Signs Vital Signs - 24 hr 07/15/25 16:13 07/15/25 16:14 07/15/25 17:18 Temperature 98.8 F Pulse Rate 82 81 80 Respiratory Rate 12 13 17 Blood Pressure 147/74 H 147/74 H 131/54 L Pulse Oximetry 97 96 96 Exam Const: General: comfortable and no acute distress Other: , female, elderly, nontoxic appearance HENMT: Face/Nose/Sinus: Normal nares present Mouth: Yes dry mucous membranes Eyes: General: appearance normal, both eyes and all related structures Sclera: sclerae normal Pupils: Equal, round and reactive pupils present EOM: EOMs intact bilaterally Resp: Effort & Inspection: normal respiratory effort Auscultation: clear to auscultation bilaterally Cardio: Rate: regular rate Rhythm: regular rhythm Other: S1-S2 present without murmur, rub, ectopy GI: Other: Abdomen soft, nondistended, normoactive bowel sounds in all quadrants. Tender in the lower quadrants, more so suprapubic. Skin: General skin exam: normal color and no rashes or lesions noted Wounds: no wounds Neuro: Speech: normal speech Motor exam (neuro): 5/5 motor strength present throughout Sensory Exam: normal sensation Other: A/Ox4 Extrem: General: normal to inspection Psych: Mental Status: mental status grossly normal Affect: normal affect Other: good to fair insight and judgement, pleasant H&P: Results Labs Labs: Short CBC 07/15/25 Range/Units 16:35 WBC 9.3 (4.5-10.0) K/mm3 Hgb 12.6 D (12.0-15.0) g/dL Hct 39.2 (37.0-47.0) % Plt Count 435 H (150-375) k/mm3 BMP 07/15/25 07/15/25 07/15/25 16:35 16:35 16:35 Sodium Cancelled 134 L Potassium Cancelled 2.9 L Chloride Cancelled Carbon Dioxide BUN Creatinine Glucose Calcium 07/15/25 07/15/25 07/15/25 16:35 16:35 16:35 Sodium Potassium Chloride 101 Carbon Dioxide Cancelled 23 BUN Cancelled 14 Creatinine Cancelled Glucose Calcium 07/15/25 07/15/25 07/15/25 16:35 16:35 16:35 Sodium Potassium Chloride Carbon Dioxide BUN Creatinine 1.61 H Glucose Cancelled 142 H Calcium Cancelled 7.9 L Cardiac Enzymes 07/15/25 Range/Units 16:35 Troponin I < 0.012 (0.000-0.034) ng/mL Liver Function 07/15/25 07/15/25 07/15/25 Range/Units 16:35 16:35 16:35 Total Bilirubin Cancelled 1.0 AST Cancelled 28 ALT Cancelled Alkaline Phosphatase Albumin 07/15/25 07/15/25 07/15/25 Range/Units 16:35 16:35 16:35 Total Bilirubin AST ALT 19 Alkaline Phosphatase Cancelled 84 Albumin Cancelled 3.1 L Urine 07/15/25 Range/Units 16:35 Urine Color Yellow (Yellow) Urine Appearance Clear (Clear) Urine pH 6.0 (5.0-9.0) Ur Specific [place] 1.006 (1.001-1.035) Urine Protein Negative (Negative) mg/dL Urine Glucose (UA) Negative (Negative) mg/dL Assessment and Plan Assessment and plan (1) Colitis: Code(s): K52.9 - Noninfective gastroenteritis and colitis, unspecified Status: Acute Assessment and Plan: - CT abd/pelvis: 1. Colitis with superimposed probable diverticulitis. Small abscess detailed above >> There are inflammatory changes surrounding the sigmoid colon consistent with colitis, there is no perforation or abscess identified. Postsurgical changes noted involving the large bowel. Appendix not identified. Remaining mesentery normal. No thickened or dilated loops of small bowel. There is a small fluid collection adjacent to the sigmoid colon measuring 2 x 2 cm consistent with small probable abscess. 2. Lobulation of the renal contours, distinction from right renal neoplasm limited. Contrast-enhanced MRI recommended - started on Zosyn on 07/15 - IV fluids: 1L bolus, now on 125 mL/hr - lactic 2.3 upon admission, trend down. did not meet SIRS criteria, blood cultures were obtained in the ED, follow. checking procalcitonin. - clear liquid diet, NPO at midnight - general surgery consulted due to abscess presence - pain medication prn - daily clinical reassessment for improvement (2) Chronic kidney disease, stage 3: Qualifiers: Chronic kidney disease stage 3 subtype: unspecified whether 3a or 3b Qualified Code(s): N18.30 - Chronic kidney disease, stage 3 unspecified Code(s): N18.30 - Chronic kidney disease, stage 3 unspecified Status: Acute Assessment and Plan: CLAIR superimposed on CKD. High suspicion for hypovolemia due to ongoing nausea, vomiting, diarrhea secondary to colitis. Trial IV fluids over the next 24 hours, if no improvement consider further workup in nephrology consultation. - creatinine 1.61, BUN 14, GFR 31 upon admission - baseline creatinine: 0.7 - 1.0 - IV fluids: 1L bolus, now on 125 mL/hr - trend renal function - trend electrolytes, correct as needed (3) Hypomagnesemia: Code(s): E83.42 - Hypomagnesemia Status: Acute Assessment and Plan: - Mag 0.8 upon admission, given 2 g IVPB in the ED. Recheck this evening -> remains low, giving 1G IVPB. Suspect depletion secondary to vomiting/diarrhea. - trend (4) Hypokalemia: Code(s): E87.6 - Hypokalemia Status: Acute Assessment and Plan: - K 2.9 upon admission, given 20 meq IVPB in the ED. Recheck this evening, remains low -> giving 40 PO. Suspect depletion secondary to vomiting/diarrhea. - trend (5) Hypertension: Qualifiers: Hypertension type: essential hypertension Qualified Code(s): I10 - Essential (primary) hypertension Code(s): I10 - Essential (primary) hypertension Status: Chronic Assessment and Plan: - chronic, currently 131/54, stable. - continue home medications - monitor (6) Hyperlipidemia: Qualifiers: Hyperlipidemia type: unspecified Qualified Code(s): E78.5 - Hyperlipidemia, unspecified Code(s): E78.5 - Hyperlipidemia, unspecified Status: Chronic Assessment and Plan: - continue atorvastatin (7) Hypothyroidism: Qualifiers: Hypothyroidism type: unspecified Qualified Code(s): E03.9 - Hypothyroidism, unspecified Code(s): E03.9 - Hypothyroidism, unspecified Status: Chronic Assessment and Plan: - continue Synthroid Plan Diet: clear liquid, NPO at midnight GI Prophylaxis: n/a DVT Prophylaxis: SCDs IV fluids: 1L bolus -> 125 mL/hr Lines/Tubes: peripheral IV Code Status: full code Quality VTE Prophylaxis VTE prophylaxis: mechanical ordered Hospitalist MIPS Advance Care Plan I have confirmed that the patient's Advanced Care Plan is present, code status is documented, or surrogate decision maker is listed in patient medical record.: Yes Medication Reconciliation I have utilized all available resources to obtain, update and review the patients current medications (includes all prescriptions, OTC, herbals, cannabis, and nutritional supplements).: Yes
[2025-07-15] MEDS: PROCHLORPERAZINE EDISYLATE 10 MG/2 ML VIAL IV PUSH (18:11)
[2025-07-15 18:26] LABS: Anion Gap 6 mmol/L (4-12); Blood Urea Nitrogen 13 mg/dL (7-17); Calcium 7.4 mg/dL (8.4-10.2); Carbon Dioxide 28 mmol/L (22-30); Chloride 100 mmol/L (98-107); Estimated CRCL calculation 34 ml/min; Estimated Glomerular Filt Rate 33; Glucose 101 mg/dL (65-110); Magnesium 1.3 mg/dL (1.6-2.3); Potassium 2.9 mmol/L (3.4-5.0); Sodium 134 mmol/L (137-145)
[2025-07-15] MEDS: PIPERACILLIN/TAZOBACTAM SOD 3.375 GM in SODIUM CHLORIDE 0.9% IV 50 ML 100 ML IVPB (18:39)
[2025-07-15] MEDS: SODIUM CHLORIDE 0.9% IV 1,000 ML 125 ML IV CONT (19:24)
[2025-07-15 19:34] LABS: Procalcitonin 0.1 ng/mL
[2025-07-15] MEDS: POTASSIUM CHLORIDE 20 MEQ ER TABLET 40 MEQ PO (19:46)
[2025-07-15] MEDS: MAGNESIUM SULF 1 GM/D5W 100 ML 1 GM/100 ML BAG IVPB (19:52)
--- NOTE | 2025-07-15 20:09 | PC.NURSE ---
Pt did not tolerate Potassium infusion well and complaint of burning at IV site even with NS running at 125ml/hr and K slowed to 25ml/hr. Per Dr. Hein, okay to increase NS fluid rate to 200ml/hr. Pt is tolerating infusion better at this time. Denies additional needs.
[2025-07-15] MEDS: SODIUM CHLORIDE 0.9% IV 1,000 ML 200 ML IV CONT (22:00)
[2025-07-16] VITALS (8 sets, daily range): BP systolic 128–144; BP diastolic 55–60; PULSE 81–94; RESP 16–18; TEMP 36.3–37.1; O2SAT 93–99
[2025-07-16] MEDS: PIPERACILLIN/TAZOBACTAM SOD 2.25 GM in SODIUM CHLORIDE 0.9% IV 50 ML 100 ML IVPB ×4 (00:01→20:20)
[2025-07-16 06:49] LABS: Hematocrit 36.2 % (37.0-47.0); Hemoglobin 11.2 g/dL (12.0-15.0); Immature Granulocyte Percent A 0.5 % (0-0.5); Lymphocytes Absolute Auto 1.13 K/mm3 (0.9-3.2); Mean Corpuscular HGB Conc 30.9 g/dl (32-36); Mean Corpuscular Hemoglobin 28.4 pg (26-34); Mean Corpuscular Volume 91.6 fl (80-100); Nucleated Red Blood Cells Absolute Auto 0.000 K/mm3 (0.0-0.012); Nucleated Red Blood Cells Perc 0.0 % (0.0-0.2); Platelet Count Result 382 k/mm3 (150-375); Red Blood Count 3.95 M/mm3 (4.2-5.4); White Blood Count 10.6 K/mm3 (4.5-10.0)
[2025-07-16 07:11] LABS: Alanine Aminotransferase 12 U/L (6-35); Albumin Level 2.7 g/dL (3.5-5.1); Alkaline Phosphatase 77 U/L (38-126); Anion Gap 8 mmol/L (4-12); Aspartate Amino Transferase 28 U/L (14-36); Bilirubin,Total 1.0 mg/dL (0.2-1.3); Blood Urea Nitrogen 12 mg/dL (7-17); Calcium 7.4 mg/dL (8.4-10.2); Carbon Dioxide 22 mmol/L (22-30); Chloride 105 mmol/L (98-107); Estimated CRCL calculation 35 ml/min; Estimated Glomerular Filt Rate 34; Glucose 99 mg/dL (65-110); Magnesium 1.8 mg/dL (1.6-2.3); Potassium 3.7 mmol/L (3.4-5.0); Sodium 135 mmol/L (137-145); Total Protein 6.0 g/dL (6.3-8.2)
--- NOTE | 2025-07-16 07:14 | P.PNIM_ITS ---
Progress Note: A&P Assessment and Plan (1) Colitis: Code(s): K52.9 - Noninfective gastroenteritis and colitis, unspecified Status: Acute Assessment and Plan: - CT abd/pelvis showed colitis with superimposed diverticulitis, small abscess. - IV fluids: 1L bolus, now on 125 mL/hr - lactic 2.3 upon admission, trended down. did not meet SIRS criteria, blood cultures were obtained in the ED, follow. checking procalcitonin. - clear liquid diet, NPO at midnight - general surgery consulted due to abscess presence - pain medication PRN (2) Chronic kidney disease, stage 3: Qualifiers: Chronic kidney disease stage 3 subtype: unspecified whether 3a or 3b Qualified Code(s): N18.30 - Chronic kidney disease, stage 3 unspecified Code(s): N18.30 - Chronic kidney disease, stage 3 unspecified Status: Acute Assessment and Plan: - creatinine 1.61, BUN 14, GFR 31 upon admission - baseline creatinine: 0.7 - 1.0 - trend renal function - trend electrolytes, correct as needed - dehydration likely contributing, some improvement with IV fluids - patient required straight cath overnight. Monitor bladder scans and straight cath PRN - continue IV fluids until diet is advanced (3) Hypertension: Qualifiers: Hypertension type: essential hypertension Qualified Code(s): I10 - Essential (primary) hypertension Code(s): I10 - Essential (primary) hypertension Status: Chronic Assessment and Plan: - BP stable - continue home medications once able to take PO - monitor (4) Hypothyroidism: Qualifiers: Hypothyroidism type: unspecified Qualified Code(s): E03.9 - Hypothyroidism, unspecified Code(s): E03.9 - Hypothyroidism, unspecified Status: Chronic Assessment and Plan: - continue Synthroid (5) Abnormal CT of the abdomen: Code(s): R93.5 - Abnormal findings on diagnostic imaging of other abdominal regions, including retroperitoneum Status: Acute Assessment and Plan: - CT showed lobulation of the renal contours, cannot rule out right renal neoplasm. Contrast-enhanced MRI recommended. Plan DVT Prophylaxis: SCDs Code Status: full code Dispo: likely home in 1-2 days. Follow-up PT/OT recs. Subjective Date/time seen: 07/16/25 07:14 Interval history: Patient seen and examined at bedside. Pain resolved. Denied further nausea/vomiting. Had BM last night. Reported urinary retention overnight. Review of Systems Review of Systems: All systems reviewed & are unremarkable except as noted in HPI and below Exam Narrative: General: NAD Eyes: EOMI ENT: neck supple Cardiovascular: Regular rate and rhythm Respiratory: Clear to auscultation, respirations even and unlabored on RA Gastrointestinal: Soft, non tender Genitourinary: no suprapubic tenderness Musculoskeletal: No edema Skin: warm, dry Neuro: Alert. Psych: Mood appropriate Objective Data Vital Signs Vital Signs: Vital Signs - 24 hr 07/15/25 16:13 07/15/25 16:14 07/15/25 17:18 Temperature 98.8 F Pulse Rate 82 81 80 Respiratory Rate 12 13 17 Blood Pressure 147/74 H 147/74 H 131/54 L Pulse Oximetry 97 96 96 Oxygen Delivery 07/15/25 17:31 07/15/25 18:30 07/15/25 18:31 Temperature Pulse Rate 75 67 66 Respiratory Rate 12 22 H 23 H Blood Pressure 121/60 110/67 Pulse Oximetry 93 82 L 89 L Oxygen Delivery 07/15/25 18:45 07/15/25 18:52 07/15/25 19:00 Temperature Pulse Rate 68 66 66 Respiratory Rate 14 20 21 H Blood Pressure 110/67 Pulse Oximetry 93 89 L 91 Oxygen Delivery 07/15/25 19:15 07/15/25 19:16 07/15/25 19:30 Temperature Pulse Rate 69 70 Respiratory Rate 20 19 16 Blood Pressure 134/67 Pulse Oximetry 93 93 96 Oxygen Delivery 07/15/25 19:45 07/15/25 20:00 07/15/25 20:01 Temperature Pulse Rate 68 69 69 Respiratory Rate 12 13 13 Blood Pressure 149/70 H Pulse Oximetry 97 95 Oxygen Delivery 07/15/25 20:15 07/15/25 20:18 07/15/25 22:29 Temperature Pulse Rate 68 72 Respiratory Rate 22 H 17 Blood Pressure 108/72 Pulse Oximetry 91 95 Oxygen Delivery Room Air 07/15/25 22:46 07/16/25 04:00 Temperature 98.1 F Pulse Rate 89 81 Respiratory Rate 16 Blood Pressure 130/79 Pulse Oximetry 97 Oxygen Delivery Intake/Output Intake/Output: Intake & Output 07/13/25 07/14/25 07/15/25 07/16/25 23:59 23:59 23:59 23:59 Intake Total 1565.0 50 Output Total 100 380 Balance 1465.0 -330 Meds/Results Medications: Active Medications Generic Name Dose Route Start Last Admin Trade Name Freq PRN Reason Stop Dose Admin Acetaminophen 650 mg 07/15/25 17:56 Acetaminophen 325 Mg Tablet PO Q4H PRN Mild Pain (1-3) or Fever Sodium Chloride 1,000 mls @ 125 mls/hr 07/15/25 18:00 07/15/25 22:00 Normal Saline Iv IV CONT 200 mls/hr .Q8H STEFANO Administration Piperacillin Sod/Tazobactam 50 mls @ 100 mls/hr 07/16/25 01:00 07/16/25 06:05 Sod 2.25 gm/ Sodium Chloride IVPB 100 mls/hr Q6H STEFANO Administration Morphine Sulfate 2 mg 07/15/25 18:05 Morphine Sulfate (*Crx) 4 Mg/Ml Inj IV PUSH Q2H PRN Pain Rated 7-10 Ondansetron HCl 4 mg 07/15/25 18:00 Ondansetron Inj 4 Mg/2 Ml Vial IV PUSH Q4H PRN Nausea Radiology Results: ITS Impressions Chest X-Ray 07/15/25 17:15 Impression: No acute cardiopulmonary abnormality. Abdomen/Pelvis CT 07/15/25 17:34 IMPRESSION: 1. Colitis with superimposed probable diverticulitis. Small abscess detailed above. 2. Lobulation of the renal contours, distinction from right renal neoplasm limited. Contrast-enhanced MRI recommended Labs Labs: Laboratory Results - last 24 hr 07/15/25 07/15/25 07/15/25 16:35 16:35 16:35 WBC 9.3 RBC 4.41 Hgb 12.6 D Hct 39.2 MCV 88.9 MCH 28.6 MCHC 32.1 RDW 13.2 Plt Count 435 H MPV 10.9 H Immature Gran % (Auto) 0.4 Neut % (Auto) 74.8 H Lymph % (Auto) 14.0 L [place] % (Auto) 10.2 H Eos % (Auto) 0.0 Baso % (Auto) 0.6 Lymph # (Auto) 1.31 [place] # (Auto) 1.0 H Eos # (Auto) 0.0 Baso # (Auto) 0.1 Abs Immat Gran (auto) 0.04 H Absolute Neuts (auto) 7.0 H Absolute Nucleated RBC 0.000 Nucleated RBC % 0.0 Sodium Cancelled 134 L Potassium Cancelled 2.9 L Chloride Cancelled Carbon Dioxide Anion Gap BUN Creatinine Estim Creat Clear Calc Estimated GFR Glucose Lactic Acid Calcium Magnesium Total Bilirubin AST ALT Alkaline Phosphatase Troponin I Total Protein Albumin Lipase Procalcitonin Urine Color Urine Appearance Urine pH Ur Specific [place] Urine Protein Urine Glucose (UA) Urine Ketones Ur Blood (Man) Urine Nitrate Urine Bilirubin Urine Urobilinogen Leukocyte Esterase Rfl Influenza A (RT-PCR) Influenza B (RT-PCR) RSV (RT-PCR) SARS-CoV-2 RNA (RT-PCR) 07/15/25 07/15/25 07/15/25 16:35 16:35 16:35 WBC RBC Hgb Hct MCV MCH MCHC RDW Plt Count MPV Immature Gran % (Auto) Neut % (Auto) Lymph % (Auto) [place] % (Auto) Eos % (Auto) Baso % (Auto) Lymph # (Auto) [place] # (Auto) Eos # (Auto) Baso # (Auto) Abs Immat Gran (auto) Absolute Neuts (auto) Absolute Nucleated RBC Nucleated RBC % Sodium Potassium Chloride 101 Carbon Dioxide Cancelled 23 Anion Gap Cancelled 10 BUN Cancelled Creatinine Estim Creat Clear Calc Estimated GFR Glucose Lactic Acid Calcium Magnesium Total Bilirubin AST ALT Alkaline Phosphatase Troponin I Total Protein Albumin Lipase Procalcitonin Urine Color Urine Appearance Urine pH Ur Specific [place] Urine Protein Urine Glucose (UA) Urine Ketones Ur Blood (Man) Urine Nitrate Urine Bilirubin Urine Urobilinogen Leukocyte Esterase Rfl Influenza A (RT-PCR) Influenza B (RT-PCR) RSV (RT-PCR) SARS-CoV-2 RNA (RT-PCR) 07/15/25 07/15/25 07/15/25 16:35 16:35 16:35 WBC RBC Hgb Hct MCV MCH MCHC RDW Plt Count MPV Immature Gran % (Auto) Neut % (Auto) Lymph % (Auto) [place] % (Auto) Eos % (Auto) Baso % (Auto) Lymph # (Auto) [place] # (Auto) Eos # (Auto) Baso # (Auto) Abs Immat Gran (auto) Absolute Neuts (auto) Absolute Nucleated RBC Nucleated RBC % Sodium Potassium Chloride Carbon Dioxide Anion Gap BUN 14 Creatinine Cancelled 1.61 H Estim Creat Clear Calc Cancelled Not Reportable Estimated GFR Cancelled Glucose Lactic Acid Calcium Magnesium Total Bilirubin AST ALT Alkaline Phosphatase Troponin I Total Protein Albumin Lipase Procalcitonin Urine Color Urine Appearance Urine pH Ur Specific [place] Urine Protein Urine Glucose (UA) Urine Ketones Ur Blood (Man) Urine Nitrate Urine Bilirubin Urine Urobilinogen Leukocyte Esterase Rfl Influenza A (RT-PCR) Influenza B (RT-PCR) RSV (RT-PCR) SARS-CoV-2 RNA (RT-PCR) 07/15/25 07/15/25 07/15/25 16:35 16:35 16:35 WBC RBC Hgb Hct MCV MCH MCHC RDW Plt Count MPV Immature Gran % (Auto) Neut % (Auto) Lymph % (Auto) [place] % (Auto) Eos % (Auto) Baso % (Auto) Lymph # (Auto) [place] # (Auto) Eos # (Auto) Baso # (Auto) Abs Immat Gran (auto) Absolute Neuts (auto) Absolute Nucleated RBC Nucleated RBC % Sodium Potassium Chloride Carbon Dioxide Anion Gap BUN Creatinine Estim Creat Clear Calc Estimated GFR 31 L Glucose Cancelled 142 H Lactic Acid 2.3 H Calcium Cancelled 7.9 L Magnesium 0.8 L Total Bilirubin Cancelled AST ALT Alkaline Phosphatase Troponin I Total Protein Albumin Lipase Procalcitonin Urine Color Urine Appearance Urine pH Ur Specific [place] Urine Protein Urine Glucose (UA) Urine Ketones Ur Blood (Man) Urine Nitrate Urine Bilirubin Urine Urobilinogen Leukocyte Esterase Rfl Influenza A (RT-PCR) Influenza B (RT-PCR) RSV (RT-PCR) SARS-CoV-2 RNA (RT-PCR) 07/15/25 07/15/25 07/15/25 16:35 16:35 16:35 WBC RBC Hgb Hct MCV MCH MCHC RDW Plt Count MPV Immature Gran % (Auto) Neut % (Auto) Lymph % (Auto) [place] % (Auto) Eos % (Auto) Baso % (Auto) Lymph # (Auto) [place] # (Auto) Eos # (Auto) Baso # (Auto) Abs Immat Gran (auto) Absolute Neuts (auto) Absolute Nucleated RBC Nucleated RBC % Sodium Potassium Chloride Carbon Dioxide Anion Gap BUN Creatinine Estim Creat Clear Calc Estimated GFR Glucose Lactic Acid Calcium Magnesium Total Bilirubin 1.0 AST Cancelled 28 ALT Cancelled 19 Alkaline Phosphatase Cancelled Troponin I Total Protein Albumin Lipase Procalcitonin Urine Color Urine Appearance Urine pH Ur Specific [place] Urine Protein Urine Glucose (UA) Urine Ketones Ur Blood (Man) Urine Nitrate Urine Bilirubin Urine Urobilinogen Leukocyte Esterase Rfl Influenza A (RT-PCR) Influenza B (RT-PCR) RSV (RT-PCR) SARS-CoV-2 RNA (RT-PCR) 07/15/25 07/15/25 07/15/25 16:35 16:35 16:35 WBC RBC Hgb Hct MCV MCH MCHC RDW Plt Count MPV Immature Gran % (Auto) Neut % (Auto) Lymph % (Auto) [place] % (Auto) Eos % (Auto) Baso % (Auto) Lymph # (Auto) [place] # (Auto) Eos # (Auto) Baso # (Auto) Abs Immat Gran (auto) Absolute Neuts (auto) Absolute Nucleated RBC Nucleated RBC % Sodium Potassium Chloride Carbon Dioxide Anion Gap BUN Creatinine Estim Creat Clear Calc Estimated GFR Glucose Lactic Acid Calcium Magnesium Total Bilirubin AST ALT Alkaline Phosphatase 84 Troponin I < 0.012 Total Protein Cancelled 6.7 Albumin Cancelled 3.1 L Lipase 70 Procalcitonin 0.1 Urine Color Yellow Urine Appearance Clear Urine pH 6.0 Ur Specific [place] 1.006 Urine Protein Negative Urine Glucose (UA) Negative Urine Ketones Negative Ur Blood (Man) Negative Urine Nitrate Negative Urine Bilirubin Negative Urine Urobilinogen 0.2 Leukocyte Esterase Rfl Negative Influenza A (RT-PCR) Negative Influenza B (RT-PCR) Negative RSV (RT-PCR) Negative SARS-CoV-2 RNA (RT-PCR) Negative 07/15/25 07/15/25 07/16/25 18:05 18:51 05:52 WBC 10.6 H RBC 3.95 L Hgb 11.2 L Hct 36.2 L MCV 91.6 MCH 28.4 MCHC 30.9 L RDW 13.5 Plt Count 382 H MPV 11.5 H Immature Gran % (Auto) 0.5 Neut % (Auto) 78.6 H Lymph % (Auto) 10.6 L [place] % (Auto) 9.9 H Eos % (Auto) 0.0 Baso % (Auto) 0.4 Lymph # (Auto) 1.13 [place] # (Auto) 1.1 H Eos # (Auto) 0.0 Baso # (Auto) 0.0 Abs Immat Gran (auto) 0.05 H Absolute Neuts (auto) 8.4 H Absolute Nucleated RBC 0.000 Nucleated RBC % 0.0 Sodium 134 L 135 L Potassium 2.9 L 3.7 Chloride 100 105 Carbon Dioxide 28 22 Anion Gap 6 8 BUN 13 12 Creatinine 1.55 H 1.51 H Estim Creat Clear Calc 34 35 Estimated GFR 33 L 34 L Glucose 101 99 Lactic Acid 1.4 Calcium 7.4 L 7.4 L Magnesium 1.3 L 1.8 Total Bilirubin 1.0 AST 28 ALT 12 Alkaline Phosphatase 77 Troponin I Total Protein 6.0 L Albumin 2.7 L Lipase Procalcitonin Urine Color Urine Appearance Urine pH Ur Specific [place] Urine Protein Urine Glucose (UA) Urine Ketones Ur Blood (Man) Urine Nitrate Urine Bilirubin Urine Urobilinogen Leukocyte Esterase Rfl Influenza A (RT-PCR) Influenza B (RT-PCR) RSV (RT-PCR) SARS-CoV-2 RNA (RT-PCR) Quality VTE Prophylaxis VTE prophylaxis: mechanical ordered
--- NOTE | 2025-07-16 13:24 | WPDCN ---
Assessment and Plan Assessment and plan (1) Diverticulitis of sigmoid colon: Code(s): K57.32 - Diverticulitis of large intestine without perforation or abscess without bleeding Status: Acute Assessment and Plan: Patient appears to have sigmoid diverticulitis. She may have had a small perforation with a small fluid collection in the pelvis. Does not appear to be a large organized abscess which can be drained. Clinically she has improved today. She is on Zosyn for IV antibiotics. Her white blood cell count did increase from 9300 to 22299 today. However she has no evidence of sepsis. Continue Zosyn for IV antibiotic coverage. Will let her have a few ice chips but otherwise keep her NPO today. If she continues to improve then can maybe start on clear liquids tomorrow. She has a history of colon cancer and had a right hemicolectomy hand assisted laparoscopic surgery by Dr. Paris 2 years ago. She has not had a colonoscopy since that surgery. She might need a colonoscopy prior to discharge she could be prepped versus as an outpatient. Continue supportive management. No acute surgical abdomen at this time. HPI Data of Consult Date/Time: 07/16/25 13:24 Requesting Physician: Shireen Clinton MD Primary Care Provider: Grover Randhawa, PA Consult Narrative Reason for consult: Sigmoid diverticulitis with small pelvic fluid collection Narrative: Sigifredo Bush is a 75 year old female admitted to the hospital through the emergency room with worsening lower abdominal pain mostly located in left lower quadrant the abdomen. No nausea or vomiting. She has had 2 bowel movements today which were loose. No blood in her bowel movements. Patient states she has had episodes of diverticulitis for several years. Her last 1 was about 2 years ago. She also stated that 2 years ago she underwent a colon resection for colon cancer by Dr. Paris. Review of the record shows that Dr. Paris did a hand assisted laparoscopic right hemicolectomy with ileocolonic anastomosis. Patient has not had a colonoscopy since that surgery. She did see oncology but I do not see any notes that she needed any adjuvant treatment after her surgery. Presently she states her pain is much improved over yesterday. No fever or tachycardia. She wants something to drink. White blood cell count on admission was 9300. It has increased to 10,600 today. Review of Systems Review of Systems: The remainder of the review of systems to include constitutional, HEENT, cardiovascular, respiratory, GI, , integumentary, musculoskeletal, endocrine, immunologic, hematologic, psychiatric, and neurologic are all negative except for which is mentioned above in the HPI. [facility] Past Medical History Medical History Colonic mass Hyperlipidemia Depression Chronic kidney disease, stage 3 Baseline creatinine is between 1.1 and 1.50. Diastolic dysfunction Echocardiogram in August 2019 showed normal left ventricular chamber size and systolic function with an estimated ejection fraction of 65 to 70%, mild asymmetric increased septal wall thickness, grade 1 diastolic dysfunction and mild aortic valve sclerosis as well as mild pulmonic regurgitation. Osteoarthritis Diverticulitis Gastroesophageal reflux disease Anxiety Asthma Overactive bladder Hypothyroidism Hypertension Surgical History Surgical History History of colon surgery 01/29/23 Hand assisted laparoscopic right hemicolectomy with ileocolic anastomosis History of total right hip arthroplasty History of section History of tubal ligation History of cholecystectomy Open cholecystectomy with incidental appendectomy History of appendectomy History of repair of right rotator cuff History of dilatation and curettage Family History Family History Father Acute myocardial infarction Congestive heart failure Hypertension Sibling Hypertension Mother Breast cancer Social History Social History Social History: She has 2 sons and is . 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 Surrogate decision maker: Dhaval Bush, son. Code status: Full code. Smoking status: Never smoker Second hand tobacco smoke exposure: No Alcohol intake: never Substance use: never Substance use type: does not use Lack of Transportation: No Lack of Food: Never True Current Housing: I Have Housing Concerned About Future Housing: No Difficulty Paying Gas/Electric Bills: No Difficulty Paying for Meds: No Currently Unemployed: No Education: High School Diploma/GED Difficulty w/ Childcare or Family Care: No Additional living arrangements comments: Resides in her own home in [place]. 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 Gender identity (if verbalized by the patient): Female Sexual Orientation (if Verbalized by the Patient): Straight or Heterosexual Spiritual care concerns: No Agree to blood products: Yes Meds Home Medications and Allergies Home Medications ?Medication ?Instructions ?Recorded ?Confirmed ?Type amlodipine 5 mg tablet 10 mg PO DAILY 08/12/19 07/15/25 History levothyroxine 50 mcg tablet 100 mcg PO DAILY 08/12/19 07/15/25 History (Synthroid) lorazepam 0.5 mg tablet 0.5 mg PO PRN PRN Anxiety 08/12/19 07/15/25 History Held on 07/15/25. Instructions: Patient no longer taking venlafaxine 75 mg capsule,extended 75 mg PO BID 08/12/19 07/15/25 History release 24 hr (Effexor XR) metoprolol tartrate 100 mg tablet 50 mg PO DAILY 01/25/20 07/15/25 History atorvastatin 20 mg tablet 20 mg PO .nightly 01/24/23 07/15/25 History losartan 100 mg tablet 100 mg PO QAM 01/24/23 07/15/25 History Held on 07/15/25. Instructions: Patient no longer taking tolnaftate 1 % topical powder 1 applic topical Q12HR PRN Rash 01/24/23 07/15/25 History buspirone 7.5 mg tablet 7.5 mg PO BID 07/15/25 07/15/25 History celecoxib 200 mg capsule 200 mg PO Q24H 07/15/25 07/15/25 History pantoprazole 40 mg tablet,delayed 40 mg PO DAILY 07/15/25 07/15/25 History release Allergies Allergy/AdvReac Type Severity Reaction Status Date / Time codeine Allergy Severe SOB Verified 07/15/25 21:23 pseudoephedrine Allergy Severe RASH Verified 07/15/25 21:23 oxycodone Allergy Mild HALLUCINATI Verified 07/15/25 21:23 ONS Sulfa (Sulfonamide Allergy Unknown RASH Verified 07/15/25 21:23 Antibiotics) Vital Signs Vital Signs - 24 hr 07/15/25 16:13 07/15/25 16:14 07/15/25 17:18 Temperature 37.1 C Pulse Rate 82 81 80 Respiratory Rate 12 13 17 Blood Pressure 147/74 H 147/74 H 131/54 L Pulse Oximetry 97 96 96 Oxygen Delivery 07/15/25 17:31 07/15/25 18:30 07/15/25 18:31 Temperature Pulse Rate 75 67 66 Respiratory Rate 12 22 H 23 H Blood Pressure 121/60 110/67 Pulse Oximetry 93 82 L 89 L Oxygen Delivery 07/15/25 18:45 07/15/25 18:52 07/15/25 19:00 Temperature Pulse Rate 68 66 66 Respiratory Rate 14 20 21 H Blood Pressure 110/67 Pulse Oximetry 93 89 L 91 Oxygen Delivery 07/15/25 19:15 07/15/25 19:16 07/15/25 19:30 Temperature Pulse Rate 69 70 Respiratory Rate 20 19 16 Blood Pressure 134/67 Pulse Oximetry 93 93 96 Oxygen Delivery 07/15/25 19:45 07/15/25 20:00 07/15/25 20:01 Temperature Pulse Rate 68 69 69 Respiratory Rate 12 13 13 Blood Pressure 149/70 H Pulse Oximetry 97 95 Oxygen Delivery 07/15/25 20:15 07/15/25 20:18 07/15/25 22:29 Temperature Pulse Rate 68 72 Respiratory Rate 22 H 17 Blood Pressure 108/72 Pulse Oximetry 91 95 Oxygen Delivery Room Air 07/15/25 22:46 07/16/25 04:00 07/16/25 06:00 Temperature 36.7 C 37.1 C Pulse Rate 89 81 88 Respiratory Rate 16 16 Blood Pressure 130/79 130/55 L Pulse Oximetry 97 95 Oxygen Delivery Exam Const: General: comfortable and no acute distress HENMT: Ears: TM's normal bilaterally Face/Nose/Sinus: Normal nares present Mouth: Yes moist mucous membranes Eyes: General: appearance normal, both eyes and all related structures Sclera: sclerae normal Pupils: Equal, round and reactive pupils present EOM: EOMs intact bilaterally Neck: Neck: supple and no JVD Resp: Effort & Inspection: normal respiratory effort Auscultation: clear to auscultation bilaterally Cardio: Rate: regular rate Rhythm: regular rhythm GI: Other: Abdomen is soft and nondistended. Morbidly obese. Well-healed surgical scars without evidence of incisional hernias. Minimal tenderness to palpation left lower quadrant suprapubic regions of the abdomen. No rebound tenderness and no guarding. Exam is pretty benign. Skin: General skin exam: normal color and no rashes or lesions noted Neuro: General: gait normal Speech: normal speech Motor exam (neuro): 5/5 motor strength present throughout Sensory Exam: normal sensation Extrem: General: normal to inspection Psych: Mental Status: mental status grossly normal Affect: normal affect Results Labs 07/16/25 05:52 07/16/25 05:52 Labs: Short CBC 07/15/25 07/16/25 Range/Units 16:35 05:52 WBC 9.3 10.6 H (4.5-10.0) K/mm3 Hgb 12.6 D 11.2 L (12.0-15.0) g/dL Hct 39.2 36.2 L (37.0-47.0) % Plt Count 435 H 382 H (150-375) k/mm3 BMP 07/15/25 07/15/25 07/15/25 16:35 16:35 16:35 Sodium Cancelled 134 L Potassium Cancelled 2.9 L Chloride Cancelled Carbon Dioxide BUN Creatinine Glucose Calcium 07/15/25 07/15/25 07/15/25 16:35 16:35 16:35 Sodium Potassium Chloride 101 Carbon Dioxide Cancelled 23 BUN Cancelled 14 Creatinine Cancelled Glucose Calcium 07/15/25 07/15/25 07/15/25 16:35 16:35 16:35 Sodium Potassium Chloride Carbon Dioxide BUN Creatinine 1.61 H Glucose Cancelled 142 H Calcium Cancelled 7.9 L 07/15/25 07/16/25 18:05 05:52 Sodium 134 L 135 L Potassium 2.9 L 3.7 Chloride 100 105 Carbon Dioxide 28 22 BUN 13 12 Creatinine 1.55 H 1.51 H Glucose 101 99 Calcium 7.4 L 7.4 L Cardiac Enzymes 07/15/25 Range/Units 16:35 Troponin I < 0.012 (0.000-0.034) ng/mL Liver Function 07/15/25 07/15/25 07/15/25 Range/Units 16:35 16:35 16:35 Total Bilirubin Cancelled 1.0 AST Cancelled 28 ALT Cancelled Alkaline Phosphatase Albumin 07/15/25 07/15/25 07/15/25 Range/Units 16:35 16:35 16:35 Total Bilirubin AST ALT 19 Alkaline Phosphatase Cancelled 84 Albumin Cancelled 3.1 L 07/16/25 Range/Units 05:52 Total Bilirubin 1.0 AST 28 ALT 12 Alkaline Phosphatase 77 Albumin 2.7 L Urine 07/15/25 Range/Units 16:35 Urine Color Yellow (Yellow) Urine Appearance Clear (Clear) Urine pH 6.0 (5.0-9.0) Ur Specific [place] 1.006 (1.001-1.035) Urine Protein Negative (Negative) mg/dL Urine Glucose (UA) Negative (Negative) mg/dL Imaging Radiologist's impression: CT Scan Report Signed Patient: Sigifredo Bush : 1950 MR#: [id number] Age: 75 Acct:[id number] Loc: [facility] ADM Date: 07/15/[address]: Ordering Physician: Jose R Hein MD Date of Service: 07/15/25 Procedure(s): CT abdomen pelvis w con Accession Number(s): [id number] cc: Edis, Grover DEUTSCH; Jose R Hein MD~ Sigifredo Bush EXAMINATION: CT abdomen pelvis w con COMPARISON: None HISTORY: Abdominal pain TECHNIQUE: Axial images were obtained through the abdomen, pelvis post administration of IV contrast. Oral contrast was also administered. Coronal reconstruction images were obtained from the axial views. CT scan performed using dose optimization techniques including the following automated exposure control; adjustment of mA and/or kV; use of iterative reconstruction technique. Automatic exposure control was used to reduce radiation dose. Permanent radiation dose record is archived to PACS. FINDINGS: CT abdomen: LUNG BASES: The lung bases are clear. The visualized portions of the heart and pericardium are unremarkable. LIVER: Mild hepatic steatosis. Portal vein patent. No intrahepatic biliary duct dilatation. SPLEEN: Unremarkable. KIDNEYS: Right Kidney: Right kidney there are solid-appearing renal lesions noted the largest in the mid to superior pole measuring 1.5 x 1.6 cm incompletely evaluated concerning for neoplasm. The right kidney is lobulated with sequelae of previous insult noted. Left Kidney: Left kidney is lobulated with sequelae of previous insult. ADRENAL GLANDS: Unremarkable. PANCREAS: Moderate pancreatic atrophy. GALLBLADDER/BILIARY: Unremarkable. No biliary dilatation. STOMACH AND ESOPHAGUS: Visualized stomach and esophagus within normal limits. BOWEL/MESENTERY: There are inflammatory changes surrounding the sigmoid colon consistent with colitis, there is no perforation or abscess identified. Postsurgical changes noted involving the large bowel. Appendix not identified. Remaining mesentery normal. No thickened or dilated loops of small bowel. There is a small fluid collection adjacent to the sigmoid colon measuring 2 x 2 cm consistent with small probable abscess. ADENOPATHY/RETROPERITONEUM: No lymphadenopathy. AORTA/VASCULATURE: Normal caliber aorta. FREE FLUID OR FREE AIR: Small amount of free fluid in the pelvis.. CT pelvis: SOLID ORGANS/REPRODUCTIVE: Uterine cavity is abnormally prominent in this postmenopausal patient, outpatient pelvic ultrasound recommended. No adnexal mass. BLADDER: Hyperemia of the bladder noted with circumferential bladder wall thickening. OSSEOUS STRUCTURES: Right hip arthroplasty. OVERLYING SOFT TISSUES: Unremarkable. IMPRESSION: 1. Colitis with superimposed probable diverticulitis. Small abscess detailed above. 2. Lobulation of the renal contours, distinction from right renal neoplasm limited. Contrast-enhanced MRI recommended Reviewed, dictated and finalized at location P. Please be advised this is a medical document. It is intended for [id number] communication. It is written in medical language and may contain unfamiliar abbreviations or verbiage. Medical documents are intended to carry relevant information, facts as evident, and the clinical opinion of the practitioner at the time of the encounter. This report may have been done utilizing a voice recognition system. Attempts have been made to correct errors. However, there may be uncorrected grammatical, spelling, and recognition errors present. The file time of this note does not necessarily represent the time of service. Dictated By: Adi Zuñiga MD 07/15/25 1734 Signed By: <Electronically signed by Adi Zuñiga MD in [place]> 07/15/25 1738
[2025-07-16] MEDS: ACETAMINOPHEN 325 MG TABLET 650 MG PO ×2 (14:35→23:50)
[2025-07-16] MEDS: SODIUM CHLORIDE 0.9% IV 1,000 ML 100 ML IV CONT ×2 (14:38→20:21)
[2025-07-16] MEDS: busPIRone HCL 2.5 MG TABLET PO (18:01)
[2025-07-16] MEDS: VENLAFAXINE HCL XR 75 MG CAP.ER.24H PO (21:23)
[2025-07-17] VITALS (10 sets, daily range): BP systolic 130–149; BP diastolic 62–63; PULSE 69–94; RESP 16–20; TEMP 36.1–37.4; O2SAT 93–96; BMI 39.7
[2025-07-17] MEDS: PIPERACILLIN/TAZOBACTAM SOD 2.25 GM in SODIUM CHLORIDE 0.9% IV 50 ML 100 ML IVPB ×4 (01:27→18:02)
[2025-07-17] MEDS: DICLOFENAC SODIUM 1% 100 GM GEL (*BKC) 1 APPLIC TOPICAL ×5 (02:57→20:37)
[2025-07-17] MEDS: SODIUM CHLORIDE 0.9% IV 1,000 ML 100 ML IV CONT ×2 (03:51→18:02)
[2025-07-17] MEDS: LEVOTHYROXINE SODIUM 100 MCG TABLET PO (05:37)
[2025-07-17 07:15] LABS: Hematocrit 34.6 % (37.0-47.0); Hemoglobin 10.7 g/dL (12.0-15.0); Immature Granulocyte Percent A 0.4 % (0-0.5); Lymphocytes Absolute Auto 1.22 K/mm3 (0.9-3.2); Mean Corpuscular HGB Conc 30.9 g/dl (32-36); Mean Corpuscular Hemoglobin 28.5 pg (26-34); Mean Corpuscular Volume 92.3 fl (80-100); Nucleated Red Blood Cells Absolute Auto 0.000 K/mm3 (0.0-0.012); Nucleated Red Blood Cells Perc 0.0 % (0.0-0.2); Platelet Count Result 349 k/mm3 (150-375); Red Blood Count 3.75 M/mm3 (4.2-5.4); White Blood Count 8.9 K/mm3 (4.5-10.0)
[2025-07-17 07:40] LABS: Alanine Aminotransferase 10 U/L (6-35); Albumin Level 2.6 g/dL (3.5-5.1); Alkaline Phosphatase 86 U/L (38-126); Anion Gap 7 mmol/L (4-12); Aspartate Amino Transferase 24 U/L (14-36); Bilirubin,Total 1.0 mg/dL (0.2-1.3); Blood Urea Nitrogen 8 mg/dL (7-17); Calcium 7.6 mg/dL (8.4-10.2); Carbon Dioxide 21 mmol/L (22-30); Chloride 109 mmol/L (98-107); Estimated CRCL calculation 39 ml/min; Estimated Glomerular Filt Rate 37; Glucose 87 mg/dL (65-110); Potassium 3.2 mmol/L (3.4-5.0); Sodium 137 mmol/L (137-145); Total Protein 5.8 g/dL (6.3-8.2)
--- NOTE | 2025-07-17 07:58 | P.PNIM_ITS ---
Progress Note: A&P Assessment and Plan (1) Colitis: Code(s): K52.9 - Noninfective gastroenteritis and colitis, unspecified Status: Acute Assessment and Plan: - CT abd/pelvis showed colitis with superimposed diverticulitis, small abscess. - I s/p IV fluids - lactic 2.3 upon admission, trended down. did not meet SIRS criteria, blood cultures were obtained in the ED, follow. checking procalcitonin. - clear liquid diet, NPO at midnight - general surgery consulted due to abscess presence. No surgical intervention planned. CLD. Advance diet per general surgery recs - continue Zosyn - pain medication PRN (2) Chronic kidney disease, stage 3: Qualifiers: Chronic kidney disease stage 3 subtype: unspecified whether 3a or 3b Qualified Code(s): N18.30 - Chronic kidney disease, stage 3 unspecified Code(s): N18.30 - Chronic kidney disease, stage 3 unspecified Status: Acute Assessment and Plan: - creatinine 1.61, BUN 14, GFR 31 upon admission - baseline creatinine: 0.7 - 1.0 - trend renal function - trend electrolytes, correct as needed - dehydration likely contributing, some improvement with IV fluids - patient required straight cath overnight. Monitor bladder scans and straight cath PRN - continue IV fluids until diet is advanced (3) Hypertension: Qualifiers: Hypertension type: essential hypertension Qualified Code(s): I10 - Essential (primary) hypertension Code(s): I10 - Essential (primary) hypertension Status: Chronic Assessment and Plan: - BP stable - continue home Norvasc, metoprolol - monitor (4) Hypothyroidism: Qualifiers: Hypothyroidism type: unspecified Qualified Code(s): E03.9 - Hypothyroidism, unspecified Code(s): E03.9 - Hypothyroidism, unspecified Status: Chronic Assessment and Plan: - continue Synthroid (5) Abnormal CT of the abdomen: Code(s): R93.5 - Abnormal findings on diagnostic imaging of other abdominal regions, including retroperitoneum Status: Acute Assessment and Plan: - CT showed lobulation of the renal contours, cannot rule out right renal neoplasm. Contrast-enhanced MRI recommended. (6) Generalized weakness: Code(s): R53.1 - Weakness Status: Acute Assessment and Plan: - patient normally ambulatory with a walker, now having significant weakness. Also having lightheadedness upon standing. - Orthostatic vitals pending Plan DVT Prophylaxis: SCDs Code Status: full code Dispo: likely home in 1-2 days. Follow-up PT/OT recs. Subjective Date/time seen: 07/17/25 07:58 Interval history: Patient seen and examined up in chair this AM. Abdominal pain resolved. Having some loose stools. Also getting lightheaded upon standing. Review of Systems Review of Systems: All systems reviewed & are unremarkable except as noted in HPI and below Exam Narrative: General: NAD Eyes: EOMI ENT: neck supple Cardiovascular: Regular rate and rhythm Respiratory: Clear to auscultation, respirations even and unlabored on RA Gastrointestinal: Soft, non tender Genitourinary: no suprapubic tenderness Musculoskeletal: No edema Skin: warm, dry Neuro: Alert. Psych: Mood appropriate Objective Data Vital Signs Vital Signs: Vital Signs - 24 hr 07/16/25 08:00 07/16/25 08:00 07/16/25 12:00 Temperature Pulse Rate 87 88 Respiratory Rate Blood Pressure Pulse Oximetry Oxygen Delivery Room Air 07/16/25 14:00 07/16/25 16:00 07/16/25 19:55 Temperature 97.9 F Pulse Rate 93 82 86 Respiratory Rate 18 Blood Pressure 144/60 H Pulse Oximetry 93 Oxygen Delivery 07/16/25 22:00 07/17/25 00:00 07/17/25 04:00 Temperature 97.4 F L Pulse Rate 94 90 86 Respiratory Rate 16 Blood Pressure 128/59 L Pulse Oximetry 99 Oxygen Delivery Intake/Output Intake/Output: Intake & Output 07/14/25 07/15/25 07/16/25 07/17/25 23:59 23:59 23:59 23:59 Intake Total 1565.0 2131.7 800 Output Total 100 380 Balance 1465.0 1751.7 800 Meds/Results Medications: Active Medications Generic Name Dose Route Start Last Admin Trade Name Freq PRN Reason Stop Dose Admin Acetaminophen 650 mg 07/15/25 17:56 07/16/25 23:50 Acetaminophen 325 Mg Tablet PO 650 mg Q4H PRN Administration Mild Pain (1-3) or Fever Amlodipine Besylate 10 mg 07/17/25 09:00 Amlodipine Besylate 10 Mg Tablet PO DAILY STEFANO Buspirone HCl 2.5 mg 07/16/25 17:00 07/16/25 18:01 Buspirone Hcl 2.5 Mg Tablet PO 2.5 mg BID STEFANO Administration Buspirone HCl 5 mg 07/16/25 17:00 07/16/25 18:01 Buspirone Hcl 5 Mg Tablet PO 5 mg BID STEFANO Administration Diclofenac Sodium 1 applic 07/17/25 02:55 07/17/25 02:57 Diclofenac Sodium 1% 100 Gm Gel (*Bkc) TOPICAL 1 applic QID STEFANO Administration Sodium Chloride 1,000 mls @ 100 mls/hr 07/15/25 18:00 07/17/25 03:51 Normal Saline Iv IV CONT 100 mls/hr .Q10H STEFANO Administration Piperacillin Sod/Tazobactam 50 mls @ 100 mls/hr 07/16/25 01:00 07/17/25 06:41 Sod 2.25 gm/ Sodium Chloride IVPB 100 mls/hr Q6H STEFANO Administration Levothyroxine Sodium 100 mcg 07/17/25 06:30 07/17/25 05:37 Levothyroxine Sodium 100 Mcg Tablet PO 100 mcg DAILY@0630 STEFANO Administration Metoprolol Tartrate 50 mg 07/17/25 09:00 Metoprolol Tartrate 50 Mg Tab PO DAILY [facility] Morphine Sulfate 2 mg 07/15/25 18:05 Morphine Sulfate (*Crx) 4 Mg/Ml Inj IV PUSH Q2H PRN Pain Rated 7-10 Ondansetron HCl 4 mg 07/15/25 18:00 Ondansetron Inj 4 Mg/2 Ml Vial IV PUSH Q4H PRN Nausea Pantoprazole Sodium 40 mg 07/17/25 09:00 Pantoprazole 40 Mg Tablet PO DAILY [facility] Potassium Chloride 40 meq 07/17/25 07:56 Potassium Chloride 20 Meq Packet (For Liquid) PO 07/17/25 07:57 ONCE ONE Venlafaxine HCl 75 mg 07/16/25 21:00 07/16/25 21:23 Venlafaxine Hcl Xr 75 Mg Cap.Er.24h PO 75 mg Q12HR STEFANO Administration Radiology Results: ITS Impressions Chest X-Ray 07/15/25 17:15 Impression: No acute cardiopulmonary abnormality. Abdomen/Pelvis CT 07/15/25 17:34 IMPRESSION: 1. Colitis with superimposed probable diverticulitis. Small abscess detailed above. 2. Lobulation of the renal contours, distinction from right renal neoplasm limited. Contrast-enhanced MRI recommended Labs Labs: Laboratory Results - last 24 hr 10/04/0507/17/25 07/17/25 00:14 05:36 06:22 WBC 8.9 RBC 3.75 L Hgb 10.7 L Hct 34.6 L MCV 92.3 MCH 28.5 MCHC 30.9 L RDW 13.7 Plt Count 349 MPV 11.4 H Immature Gran % (Auto) 0.4 Neut % (Auto) 72.9 Lymph % (Auto) 13.6 L [place] % (Auto) 12.5 H Eos % (Auto) 0.0 Baso % (Auto) 0.6 Lymph # (Auto) 1.22 [place] # (Auto) 1.1 H Eos # (Auto) 0.0 Baso # (Auto) 0.1 Abs Immat Gran (auto) 0.04 H Absolute Neuts (auto) 6.5 Absolute Nucleated RBC 0.000 Nucleated RBC % 0.0 Sodium 137 Potassium 3.2 L Chloride 109 H Carbon Dioxide 21 L Anion Gap 7 BUN 8 Creatinine 1.38 H Estim Creat Clear Calc 39 Estimated GFR 37 L Glucose 87 POC Capillary Glucose 97 86 Calcium 7.6 L Total Bilirubin 1.0 AST 24 ALT 10 Alkaline Phosphatase 86 Total Protein 5.8 L Albumin 2.6 L Quality VTE Prophylaxis VTE prophylaxis: mechanical ordered
[2025-07-17] MEDS: busPIRone HCL 2.5 MG TABLET PO ×2 (08:38→17:11)
[2025-07-17] MEDS: VENLAFAXINE HCL XR 75 MG CAP.ER.24H PO ×2 (08:38→20:37)
[2025-07-17] MEDS: PANTOPRAZOLE 40 MG TABLET PO (08:39)
[2025-07-17] MEDS: METOPROLOL TARTRATE 50 MG TAB PO (08:39)
[2025-07-17] MEDS: POTASSIUM CHLORIDE 20 MEQ PACKET (FOR LIQUID) 40 MEQ PO (08:39)
--- NOTE | 2025-07-17 12:45 | P.PNGS_ITS ---
Progress Note: A&P Assessment and Plan (1) Diverticulitis of sigmoid colon: Code(s): K57.32 - Diverticulitis of large intestine without perforation or abscess without bleeding Status: Acute Assessment and Plan: Patient doing well today. Denies abdominal pain. Afebrile with normal WBC. Advanced to clear liquids today. Will continue to advance as tolerated. Will follow with serial abdominal exams and labs. Continue IV Zosyn. Plan Discussed patient's case and plan of care with Dr. Sanders. Subjective Subjective Date/Time Seen: 07/17/25 12:45 Patient reports: no new complaints, feels better, tolerating liquids well and b owel movement (diarrhea) Interval history: Patient doing well this morning. No complaints of abdominal pain. Asked for clear liquids and is tolerating well. She does express concern for still not being able to walk. She started working with PT/OT today. WBC 8.9 today. Exam Const: General: comfortable and no acute distress GI: Inspection: non-distended GI Palp: Yes Soft to palpation, No Tenderness to palpation present (GI) and No Guarding due to palpation present (GI) Objective Data Vital Signs Vital Signs: Vital Signs - 24 hr 07/16/25 14:00 07/16/25 16:00 07/16/25 19:55 Temperature 97.9 F Pulse Rate 93 82 86 Respiratory Rate 18 Blood Pressure 144/60 H Pulse Oximetry 93 Oxygen Delivery 07/16/25 22:00 07/17/25 00:00 07/17/25 04:00 Temperature 97.4 F L Pulse Rate 94 90 86 Respiratory Rate 16 Blood Pressure 128/59 L Pulse Oximetry 99 Oxygen Delivery 07/17/25 06:00 07/17/25 08:00 07/17/25 08:00 Temperature 97.0 F L Pulse Rate 69 92 Respiratory Rate 16 Blood Pressure 149/62 H Pulse Oximetry 95 Oxygen Delivery Room Air 07/17/25 08:39 07/17/25 10:30 07/17/25 11:35 Temperature Pulse Rate 94 Respiratory Rate Blood Pressure Pulse Oximetry Oxygen Delivery Room Air Room Air 07/17/25 12:00 Temperature Pulse Rate 77 Respiratory Rate Blood Pressure Pulse Oximetry Oxygen Delivery Intake/Output Intake/Output: Intake & Output 07/14/25 07/15/25 07/16/25 07/17/25 23:59 23:59 23:59 23:59 Intake Total 1565.0 2131.7 1250 Output Total 100 380 Balance 1465.0 1751.7 1250 Meds/Results Medications: Active Medications Generic Name Dose Route Start Last Admin Trade Name Freq PRN Reason Stop Dose Admin Acetaminophen 650 mg 07/15/25 17:56 07/16/25 23:50 Acetaminophen 325 Mg Tablet PO 650 mg Q4H PRN Administration Mild Pain (1-3) or Fever Amlodipine Besylate 10 mg 07/17/25 09:00 07/17/25 08:39 Amlodipine Besylate 10 Mg Tablet PO 10 mg DAILY STEFANO Administration Buspirone HCl 2.5 mg 07/16/25 17:00 07/17/25 08:38 Buspirone Hcl 2.5 Mg Tablet PO 2.5 mg BID STEFANO Administration Buspirone HCl 5 mg 07/16/25 17:00 07/17/25 08:39 Buspirone Hcl 5 Mg Tablet PO 5 mg BID STEFANO Administration Diclofenac Sodium 1 applic 07/17/25 02:55 07/17/25 12:17 Diclofenac Sodium 1% 100 Gm Gel (*Bkc) TOPICAL 1 applic QID STEFANO Administration Sodium Chloride 1,000 mls @ 100 mls/hr 07/15/25 18:00 07/17/25 03:51 Normal Saline Iv IV CONT 100 mls/hr .Q10H STEFANO Administration Piperacillin Sod/Tazobactam 50 mls @ 100 mls/hr 07/16/25 01:00 07/17/25 12:16 Sod 2.25 gm/ Sodium Chloride IVPB 100 mls/hr Q6H STEFANO Administration Levothyroxine Sodium 100 mcg 07/17/25 06:30 07/17/25 05:37 Levothyroxine Sodium 100 Mcg Tablet PO 100 mcg DAILY@0630 STEFANO Administration Metoprolol Tartrate 50 mg 07/17/25 09:00 07/17/25 08:39 Metoprolol Tartrate 50 Mg Tab PO 50 mg DAILY STEFANO Administration Morphine Sulfate 2 mg 07/15/25 18:05 Morphine Sulfate (*Crx) 4 Mg/Ml Inj IV PUSH Q2H PRN Pain Rated 7-10 Ondansetron HCl 4 mg 07/15/25 18:00 Ondansetron Inj 4 Mg/2 Ml Vial IV PUSH Q4H PRN Nausea Pantoprazole Sodium 40 mg 07/17/25 09:00 07/17/25 08:39 Pantoprazole 40 Mg Tablet PO 40 mg DAILY STEFANO Administration Venlafaxine HCl 75 mg 07/16/25 21:00 07/17/25 08:38 Venlafaxine Hcl Xr 75 Mg Cap.Er.24h PO 75 mg Q12HR STEFANO Administration Radiology Results: ITS Impressions Chest X-Ray 07/15/25 17:15 Impression: No acute cardiopulmonary abnormality. Abdomen/Pelvis CT 07/15/25 17:34 IMPRESSION: 1. Colitis with superimposed probable diverticulitis. Small abscess detailed above. 2. Lobulation of the renal contours, distinction from right renal neoplasm limited. Contrast-enhanced MRI recommended Labs Labs: Laboratory Results - last 24 hr 07/17/25 07/17/25 07/17/25 00:14 05:36 06:22 WBC 8.9 RBC 3.75 L Hgb 10.7 L Hct 34.6 L MCV 92.3 MCH 28.5 MCHC 30.9 L RDW 13.7 Plt Count 349 MPV 11.4 H Immature Gran % (Auto) 0.4 Neut % (Auto) 72.9 Lymph % (Auto) 13.6 L [place] % (Auto) 12.5 H Eos % (Auto) 0.0 Baso % (Auto) 0.6 Lymph # (Auto) 1.22 [place] # (Auto) 1.1 H Eos # (Auto) 0.0 Baso # (Auto) 0.1 Abs Immat Gran (auto) 0.04 H Absolute Neuts (auto) 6.5 Absolute Nucleated RBC 0.000 Nucleated RBC % 0.0 Sodium 137 Potassium 3.2 L Chloride 109 H Carbon Dioxide 21 L Anion Gap 7 BUN 8 Creatinine 1.38 H Estim Creat Clear Calc 39 Estimated GFR 37 L Glucose 87 POC Capillary Glucose 97 86 Calcium 7.6 L Total Bilirubin 1.0 AST 24 ALT 10 Alkaline Phosphatase 86 Total Protein 5.8 L Albumin 2.6 L
[2025-07-17 14:37] LABS: Toxigenic C. Diff NEGATIVE (NEGATIVE)
[2025-07-17] MEDS: ACETAMINOPHEN 325 MG TABLET 650 MG PO (17:11)
[2025-07-18] VITALS (13 sets, daily range): BP systolic 121–139; BP diastolic 58–69; PULSE 60–97; RESP 16–20; TEMP 36.2–36.9; O2SAT 96–98
[2025-07-18] MEDS: PIPERACILLIN/TAZOBACTAM SOD 2.25 GM in SODIUM CHLORIDE 0.9% IV 50 ML 100 ML IVPB ×5 (00:03→23:59)
[2025-07-18] MEDS: ACETAMINOPHEN 325 MG TABLET 650 MG PO (00:03)
[2025-07-18] MEDS: DEXTROSE 5%/0.9% SOD CHL 1,000 ML 100 ML IV CONT ×2 (02:03→15:09)
[2025-07-18] MEDS: LEVOTHYROXINE SODIUM 100 MCG TABLET PO (06:01)
[2025-07-18 06:02] LABS: Hematocrit 34.5 % (37.0-47.0); Hemoglobin 10.5 g/dL (12.0-15.0); Immature Granulocyte Percent A 0.5 % (0-0.5); Lymphocytes Absolute Auto 1.23 K/mm3 (0.9-3.2); Mean Corpuscular HGB Conc 30.4 g/dl (32-36); Mean Corpuscular Hemoglobin 28.5 pg (26-34); Mean Corpuscular Volume 93.5 fl (80-100); Nucleated Red Blood Cells Absolute Auto 0.000 K/mm3 (0.0-0.012); Nucleated Red Blood Cells Perc 0.0 % (0.0-0.2); Platelet Count Result 359 k/mm3 (150-375); Red Blood Count 3.69 M/mm3 (4.2-5.4); White Blood Count 12.4 K/mm3 (4.5-10.0)
[2025-07-18 06:26] LABS: Alanine Aminotransferase 13 U/L (6-35); Albumin Level 2.5 g/dL (3.5-5.1); Alkaline Phosphatase 87 U/L (38-126); Anion Gap 8 mmol/L (4-12); Aspartate Amino Transferase 29 U/L (14-36); Bilirubin,Total 0.7 mg/dL (0.2-1.3); Blood Urea Nitrogen 8 mg/dL (7-17); Calcium 7.6 mg/dL (8.4-10.2); Carbon Dioxide 19 mmol/L (22-30); Chloride 109 mmol/L (98-107); Estimated CRCL calculation 37 ml/min; Estimated Glomerular Filt Rate 36; Glucose 123 mg/dL (65-110); Potassium 3.0 mmol/L (3.4-5.0); Sodium 136 mmol/L (137-145); Total Protein 5.8 g/dL (6.3-8.2)
[2025-07-18 08:00] LABS: Magnesium 1.3 mg/dL (1.6-2.3)
--- NOTE | 2025-07-18 08:08 | P.PNIM_ITS ---
Progress Note: A&P Assessment and Plan (1) Colitis: Code(s): K52.9 - Noninfective gastroenteritis and colitis, unspecified Status: Acute Assessment and Plan: - CT abd/pelvis showed colitis with superimposed diverticulitis, small abscess. - WBC 12.4 today, possibly worsening due to diarrhea - continue 0.9 NS/D5. Monitor volume status. - general surgery consulted due to abscess presence. No current surgical intervention planned. CLD. Advance diet per general surgery recs - continue Zosyn - pain medication PRN (2) Diarrhea: Qualifiers: Diarrhea type: unspecified type Qualified Code(s): R19.7 - Diarrhea, unspecified Code(s): R19.7 - Diarrhea, unspecified Status: Acute Assessment and Plan: - C diff negative. Stool PCR pending - avoiding Imodium due to diverticulitis - continue IV fluids, replace electrolytes (3) Chronic kidney disease, stage 3: Qualifiers: Chronic kidney disease stage 3 subtype: unspecified whether 3a or 3b Qualified Code(s): N18.30 - Chronic kidney disease, stage 3 unspecified Code(s): N18.30 - Chronic kidney disease, stage 3 unspecified Status: Acute Assessment and Plan: - creatinine 1.61, BUN 14, GFR 31 upon admission - baseline creatinine: 0.7 - 1.0 - dehydration likely contributing, initially some improvement with IV fluids. Cr trende dup to 1.43 this AM likely due to diarrhea. - patient required straight cath overnight 07/17, no further episodes of retention. Monitor bladder scans and straight cath PRN - continue IV fluids until diet is advanced and diarrhea improved - trend renal function - trend electrolytes, correct as needed (4) Hypokalemia: Code(s): E87.6 - Hypokalemia Status: Acute Assessment and Plan: - K+ 3.0. Mag 1.3. - replacement ordered - recheck in AM (5) Hypertension: Qualifiers: Hypertension type: essential hypertension Qualified Code(s): I10 - Essential (primary) hypertension Code(s): I10 - Essential (primary) hypertension Status: Chronic Assessment and Plan: - BP stable - continue home Norvasc, metoprolol - monitor (6) Hypothyroidism: Qualifiers: Hypothyroidism type: unspecified Qualified Code(s): E03.9 - Hypothyroidism, unspecified Code(s): E03.9 - Hypothyroidism, unspecified Status: Chronic Assessment and Plan: - continue Synthroid (7) Abnormal CT of the abdomen: Code(s): R93.5 - Abnormal findings on diagnostic imaging of other abdominal regions, including retroperitoneum Status: Acute Assessment and Plan: - CT showed lobulation of the renal contours, cannot rule out right renal neoplasm. Contrast-enhanced MRI recommended. - discussed importance of outpatient follow-up with patient (8) Generalized weakness: Code(s): R53.1 - Weakness Status: Acute Assessment and Plan: - patient normally ambulatory with a walker, now having significant weakness. Also having lightheadedness upon standing. - Orthostatic vitals ordered - PT/OT recommended SNF. Care coordination following for placement. Plan DVT Prophylaxis: SCDs Code Status: full code Dispo: SNF. Care coordination following. Subjective Date/time seen: 07/18/25 08:08 Interval history: Patient seen and examined up in chair this AM. Still having a lot of diarrhea. Denies abdominal pain. Review of Systems Review of Systems: All systems reviewed & are unremarkable except as noted in HPI and below Exam Narrative: General: NAD Eyes: EOMI ENT: neck supple Cardiovascular: Regular rate and rhythm Respiratory: Clear to auscultation, respirations even and unlabored on RA Gastrointestinal: Soft, mild lower abdominal tenderness with palpation Genitourinary: no suprapubic tenderness Musculoskeletal: No edema Skin: warm, dry Neuro: Alert. Psych: Mood appropriate Objective Data Vital Signs Vital Signs: Vital Signs - 24 hr 07/17/25 08:39 07/17/25 10:30 07/17/25 11:35 Temperature Pulse Rate 94 Respiratory Rate Blood Pressure Pulse Oximetry Oxygen Delivery Room Air Room Air Fraction of Inspired Oxygen 10/06/25 12:00 07/17/25 14:50 07/17/25 16:00 Temperature Pulse Rate 77 77 Respiratory Rate Blood Pressure 130/63 Pulse Oximetry Oxygen Delivery Fraction of Inspired Oxygen 07/17/25 20:26 07/17/25 20:43 07/17/25 20:55 Temperature 99.3 F Pulse Rate 83 83 Respiratory Rate 20 16 Blood Pressure 132/63 Pulse Oximetry 93 96 Oxygen Delivery Room Air Room Air Fraction of Inspired Oxygen 21 07/18/25 00:00 07/18/25 04:00 07/18/25 04:19 Temperature 98.4 F Pulse Rate 92 75 79 Respiratory Rate 18 Blood Pressure 132/66 Pulse Oximetry 97 Oxygen Delivery Fraction of Inspired Oxygen Intake/Output Intake/Output: Intake & Output 07/15/25 07/16/25 07/17/25 07/18/25 23:59 23:59 23:59 23:59 Intake Total 1565.0 2131.7 3190 1031.7 Output Total 100 380 Balance 1465.0 1751.7 3190 1031.7 Meds/Results Medications: Active Medications Generic Name Dose Route Start Last Admin Trade Name Freq PRN Reason Stop Dose Admin Acetaminophen 650 mg 07/15/25 17:56 07/18/25 00:03 Acetaminophen 325 Mg Tablet PO 650 mg Q4H PRN Administration Mild Pain (1-3) or Fever Amlodipine Besylate 10 mg 07/17/25 09:00 07/17/25 08:39 Amlodipine Besylate 10 Mg Tablet PO 10 mg DAILY STEFANO Administration Buspirone HCl 2.5 mg 07/16/25 17:00 07/17/25 17:11 Buspirone Hcl 2.5 Mg Tablet PO 2.5 mg BID STEFANO Administration Buspirone HCl 5 mg 07/16/25 17:00 07/17/25 17:11 Buspirone Hcl 5 Mg Tablet PO 5 mg BID STEFANO Administration Diclofenac Sodium 1 applic 07/17/25 02:55 07/17/25 20:37 Diclofenac Sodium 1% 100 Gm Gel (*Bkc) TOPICAL 1 applic QID STEFANO Administration Sodium Chloride 1,000 mls @ 100 mls/hr 07/15/25 18:00 07/18/25 02:03 Normal Saline Iv IV CONT 0 mls/hr .Q10H STEFANO Infusion Piperacillin Sod/Tazobactam 50 mls @ 100 mls/hr 07/16/25 01:00 07/18/25 06:01 Sod 2.25 gm/ Sodium Chloride IVPB 100 mls/hr Q6H STEFANO Administration Dextrose/Sodium Chloride 1,000 mls @ 100 mls/hr 07/18/25 02:00 07/18/25 02:03 Dextrose 5% Sodium Chloride 0.9% IV CONT 100 mls/hr .Q10H STEFANO Administration Levothyroxine Sodium 100 mcg 07/17/25 06:30 07/18/25 06:01 Levothyroxine Sodium 100 Mcg Tablet PO 100 mcg DAILY@0630 STEFANO Administration Metoprolol Tartrate 50 mg 07/17/25 09:00 07/17/25 08:39 Metoprolol Tartrate 50 Mg Tab PO 50 mg DAILY STEFANO Administration Morphine Sulfate 2 mg 07/15/25 18:05 Morphine Sulfate (*Crx) 4 Mg/Ml Inj IV PUSH Q2H PRN Pain Rated 7-10 Ondansetron HCl 4 mg 07/15/25 18:00 Ondansetron Inj 4 Mg/2 Ml Vial IV PUSH Q4H PRN Nausea Pantoprazole Sodium 40 mg 07/17/25 09:00 07/17/25 08:39 Pantoprazole 40 Mg Tablet PO 40 mg DAILY STEFANO Administration Venlafaxine HCl 75 mg 07/16/25 21:00 07/17/25 20:37 Venlafaxine Hcl Xr 75 Mg Cap.Er.24h PO 75 mg Q12HR STEFANO Administration Radiology Results: ITS Impressions Chest X-Ray 07/15/25 17:15 Impression: No acute cardiopulmonary abnormality. Abdomen/Pelvis CT 07/15/25 17:34 IMPRESSION: 1. Colitis with superimposed probable diverticulitis. Small abscess detailed above. 2. Lobulation of the renal contours, distinction from right renal neoplasm limited. Contrast-enhanced MRI recommended Labs Labs: Laboratory Results - last 24 hr 07/17/25 07/18/25 07/18/25 13:27 01:04 01:21 WBC RBC Hgb Hct MCV MCH MCHC RDW Plt Count MPV Immature Gran % (Auto) Neut % (Auto) Lymph % (Auto) [place] % (Auto) Eos % (Auto) Baso % (Auto) Lymph # (Auto) [place] # (Auto) Eos # (Auto) Baso # (Auto) Abs Immat Gran (auto) Absolute Neuts (auto) Absolute Nucleated RBC Nucleated RBC % Sodium Potassium Chloride Carbon Dioxide Anion Gap BUN Creatinine Estim Creat Clear Calc Estimated GFR Glucose POC Capillary Glucose 50 L* 133 H Calcium Phosphorus Magnesium Total Bilirubin AST ALT Alkaline Phosphatase Total Protein Albumin C. difficile (PCR) Negative 07/18/25 07/18/25 05:25 05:28 WBC 12.4 H RBC 3.69 L Hgb 10.5 L Hct 34.5 L MCV 93.5 MCH 28.5 MCHC 30.4 L RDW 13.6 Plt Count 359 MPV 11.4 H Immature Gran % (Auto) 0.5 Neut % (Auto) 78.0 H Lymph % (Auto) 9.9 L [place] % (Auto) 11.2 H Eos % (Auto) 0.0 Baso % (Auto) 0.4 Lymph # (Auto) 1.23 [place] # (Auto) 1.4 H Eos # (Auto) 0.0 Baso # (Auto) 0.1 Abs Immat Gran (auto) 0.06 H Absolute Neuts (auto) 9.7 H Absolute Nucleated RBC 0.000 Nucleated RBC % 0.0 Sodium 136 L Potassium 3.0 L Chloride 109 H Carbon Dioxide 19 L Anion Gap 8 BUN 8 Creatinine 1.43 H Estim Creat Clear Calc 37 Estimated GFR 36 L Glucose 123 H POC Capillary Glucose 123 H Calcium 7.6 L Phosphorus 3.1 Magnesium 1.3 L Total Bilirubin 0.7 AST 29 ALT 13 Alkaline Phosphatase 87 Total Protein 5.8 L Albumin 2.5 L C. difficile (PCR) Quality VTE Prophylaxis VTE prophylaxis: mechanical ordered
[2025-07-18] MEDS: METOPROLOL TARTRATE 50 MG TAB PO (08:11)
[2025-07-18] MEDS: PANTOPRAZOLE 40 MG TABLET PO (08:11)
[2025-07-18] MEDS: VENLAFAXINE HCL XR 75 MG CAP.ER.24H PO ×2 (08:11→21:22)
[2025-07-18] MEDS: busPIRone HCL 2.5 MG TABLET PO ×2 (08:11→16:44)
[2025-07-18] MEDS: DICLOFENAC SODIUM 1% 100 GM GEL (*BKC) 1 APPLIC TOPICAL ×2 (08:20→18:11)
[2025-07-18 08:55] LABS: CRP 15.0 mg/dL (<1.0)
[2025-07-18] MEDS: MAGNESIUM SULF 2 GM/WATER 50ML 2 GM/50 ML BAG IVPB (10:01)
[2025-07-18] MEDS: POTASSIUM CHLORIDE 20 MEQ ER TABLET 40 MEQ PO (10:28)
--- NOTE | 2025-07-18 14:21 | P.PNGS_ITS ---
Progress Note: A&P Assessment and Plan (1) Diverticulitis of sigmoid colon: Code(s): K57.32 - Diverticulitis of large intestine without perforation or abscess without bleeding Status: Acute Assessment and Plan: [place] is stable clinically. Abdominal pain decreased, but now complains of diarrhea. WBC 12.4, up from 8.9. Clinically the patient is been stable. No increase in abdominal pain. No fever or tachycardia suggest ongoing sepsis. White blood count elevated to 14,000 today. Will trend the white blood cell count but if it continues to rise then would likely get a CT scan abdomen pelvis with IV contrast to evaluate for development of a pelvic abscess. For now she has tolerated clear liquids and having bowel movements. I think she can have full liquids today. Continue serial abdominal exams and expected management with IV antibiotics.. No acute surgical abdomen at this time. Subjective Subjective Date/Time Seen: 07/18/25 14:21 Patient reports: no new complaints, bowel movement (diarrhea) and afebrile Interval history: Patient doing well. Still states she doesn't feel great, but better than yesterday. She notes she has been having a lot of diarrhea. C. diff negative. WBC up to 12.4. Exam Const: General: comfortable and no acute distress Cardio: Rate: regular rate GI: GI Palp: Yes Soft to palpation and Yes Tenderness to palpation present (GI) (minimal) Auscultation: normal bowel sounds Skin: General skin exam: normal color and no rashes or lesions noted Extrem: General: normal to inspection Psych: Mental Status: mental status grossly normal Objective Data Vital Signs Vital Signs: Vital Signs - 24 hr 07/17/25 14:50 07/17/25 16:00 07/17/25 20:26 Temperature Pulse Rate 77 83 Respiratory Rate 20 Blood Pressure 130/63 Pulse Oximetry 93 Oxygen Delivery Room Air Fraction of Inspired Oxygen 21 07/17/25 20:43 07/17/25 20:55 07/18/25 00:00 Temperature 99.3 F Pulse Rate 83 92 Respiratory Rate 16 Blood Pressure 132/63 Pulse Oximetry 96 Oxygen Delivery Room Air Fraction of Inspired Oxygen 07/18/25 04:00 07/18/25 04:19 07/18/25 08:01 Temperature 98.4 F Pulse Rate 75 79 69 Respiratory Rate 18 Blood Pressure 132/66 Pulse Oximetry 97 Oxygen Delivery Fraction of Inspired Oxygen 07/18/25 08:11 07/18/25 10:05 07/18/25 10:14 Temperature 97.3 F L Pulse Rate 97 69 Respiratory Rate 18 Blood Pressure 134/62 Pulse Oximetry 96 Oxygen Delivery Room Air Fraction of Inspired Oxygen 07/18/25 10:20 07/18/25 10:25 Temperature 97.1 F L 97.6 F Pulse Rate 78 78 Respiratory Rate 18 20 Blood Pressure 135/69 121/69 Pulse Oximetry 97 98 Oxygen Delivery Fraction of Inspired Oxygen Intake/Output Intake/Output: Intake & Output 07/15/25 07/16/25 07/17/25 07/18/25 23:59 23:59 23:59 23:59 Intake Total 1565.0 2131.7 3190 1521.7 Output Total 100 380 Balance 1465.0 1751.7 3190 1521.7 Meds/Results Medications: Active Medications Generic Name Dose Route Start Last Admin Trade Name Freq PRN Reason Stop Dose Admin Acetaminophen 650 mg 07/15/25 17:56 07/18/25 00:03 Acetaminophen 325 Mg Tablet PO 650 mg Q4H PRN Administration Mild Pain (1-3) or Fever Amlodipine Besylate 10 mg 07/17/25 09:00 07/18/25 08:20 Amlodipine Besylate 10 Mg Tablet PO 10 mg DAILY STEFANO Administration Buspirone HCl 2.5 mg 07/16/25 17:00 07/18/25 08:11 Buspirone Hcl 2.5 Mg Tablet PO 2.5 mg BID STEFANO Administration Buspirone HCl 5 mg 07/16/25 17:00 07/18/25 08:11 Buspirone Hcl 5 Mg Tablet PO 5 mg BID STEFANO Administration Diclofenac Sodium 1 applic 07/18/25 12:44 Diclofenac Sodium 1% 100 Gm Gel (*Bkc) TOPICAL QID PRN muscle pain Piperacillin Sod/Tazobactam 50 mls @ 100 mls/hr 07/16/25 01:00 07/18/25 12:38 Sod 2.25 gm/ Sodium Chloride IVPB 100 mls/hr Q6H STEFANO Administration Dextrose/Sodium Chloride 1,000 mls @ 100 mls/hr 07/18/25 02:00 07/18/25 02:03 Dextrose 5% Sodium Chloride 0.9% IV CONT 100 mls/hr .Q10H TSEFANO Administration Levothyroxine Sodium 100 mcg 07/17/25 06:30 07/18/25 06:01 Levothyroxine Sodium 100 Mcg Tablet PO 100 mcg DAILY@0630 STEFANO Administration Metoprolol Tartrate 50 mg 07/17/25 09:00 07/18/25 08:11 Metoprolol Tartrate 50 Mg Tab PO 50 mg DAILY STEFANO Administration Morphine Sulfate 2 mg 07/15/25 18:05 Morphine Sulfate (*Crx) 4 Mg/Ml Inj IV PUSH Q2H PRN Pain Rated 7-10 Ondansetron HCl 4 mg 07/15/25 18:00 Ondansetron Inj 4 Mg/2 Ml Vial IV PUSH Q4H PRN Nausea Pantoprazole Sodium 40 mg 07/17/25 09:00 07/18/25 08:11 Pantoprazole 40 Mg Tablet PO 40 mg DAILY STEFANO Administration Venlafaxine HCl 75 mg 07/16/25 21:00 07/18/25 08:11 Venlafaxine Hcl Xr 75 Mg Cap.Er.24h PO 75 mg Q12HR STEFANO Administration Radiology Results: ITS Impressions Chest X-Ray 07/15/25 17:15 Impression: No acute cardiopulmonary abnormality. Abdomen/Pelvis CT 07/15/25 17:34 IMPRESSION: 1. Colitis with superimposed probable diverticulitis. Small abscess detailed above. 2. Lobulation of the renal contours, distinction from right renal neoplasm limited. Contrast-enhanced MRI recommended Labs Labs: Laboratory Results - last 24 hr 07/17/25 07/18/25 07/18/25 13:27 01:04 01:21 WBC RBC Hgb Hct MCV MCH MCHC RDW Plt Count MPV Immature Gran % (Auto) Neut % (Auto) Lymph % (Auto) [place] % (Auto) Eos % (Auto) Baso % (Auto) Lymph # (Auto) [place] # (Auto) Eos # (Auto) Baso # (Auto) Abs Immat Gran (auto) Absolute Neuts (auto) Absolute Nucleated RBC Nucleated RBC % Sodium Potassium Chloride Carbon Dioxide Anion Gap BUN Creatinine Estim Creat Clear Calc Estimated GFR Glucose POC Capillary Glucose 50 L* 133 H Calcium Phosphorus Magnesium Total Bilirubin AST ALT Alkaline Phosphatase C-Reactive Protein Total Protein Albumin C. difficile (PCR) Negative 07/18/25 07/18/25 07/18/25 05:25 05:28 08:25 WBC 12.4 H RBC 3.69 L Hgb 10.5 L Hct 34.5 L MCV 93.5 MCH 28.5 MCHC 30.4 L RDW 13.6 Plt Count 359 MPV 11.4 H Immature Gran % (Auto) 0.5 Neut % (Auto) 78.0 H Lymph % (Auto) 9.9 L [place] % (Auto) 11.2 H Eos % (Auto) 0.0 Baso % (Auto) 0.4 Lymph # (Auto) 1.23 [place] # (Auto) 1.4 H Eos # (Auto) 0.0 Baso # (Auto) 0.1 Abs Immat Gran (auto) 0.06 H Absolute Neuts (auto) 9.7 H Absolute Nucleated RBC 0.000 Nucleated RBC % 0.0 Sodium 136 L Potassium 3.0 L Chloride 109 H Carbon Dioxide 19 L Anion Gap 8 BUN 8 Creatinine 1.43 H Estim Creat Clear Calc 37 Estimated GFR 36 L Glucose 123 H POC Capillary Glucose 123 H 133 H Calcium 7.6 L Phosphorus 3.1 Magnesium 1.3 L Total Bilirubin 0.7 AST 29 ALT 13 Alkaline Phosphatase 87 C-Reactive Protein 15.0 H Total Protein 5.8 L Albumin 2.5 L C. difficile (PCR) 07/18/25 11:52 WBC RBC Hgb Hct MCV MCH MCHC RDW Plt Count MPV Immature Gran % (Auto) Neut % (Auto) Lymph % (Auto) [place] % (Auto) Eos % (Auto) Baso % (Auto) Lymph # (Auto) [place] # (Auto) Eos # (Auto) Baso # (Auto) Abs Immat Gran (auto) Absolute Neuts (auto) Absolute Nucleated RBC Nucleated RBC % Sodium Potassium Chloride Carbon Dioxide Anion Gap BUN Creatinine Estim Creat Clear Calc Estimated GFR Glucose POC Capillary Glucose 150 H Calcium Phosphorus Magnesium Total Bilirubin AST ALT Alkaline Phosphatase C-Reactive Protein Total Protein Albumin C. difficile (PCR)
[2025-07-18] MEDS: LOPERAMIDE HCL 2 MG CAPSULE PO (18:11)
[2025-07-19] VITALS (11 sets, daily range): BP systolic 130–163; BP diastolic 59–71; PULSE 60–102; RESP 16–18; TEMP 36.1–37.2; O2SAT 94–98
[2025-07-19] MEDS: DEXTROSE 5%/0.9% SOD CHL 1,000 ML 100 ML IV CONT ×3 (01:39→22:08)
[2025-07-19] MEDS: LEVOTHYROXINE SODIUM 100 MCG TABLET PO (05:59)
[2025-07-19] MEDS: PIPERACILLIN/TAZOBACTAM SOD 2.25 GM in SODIUM CHLORIDE 0.9% IV 50 ML 100 ML IVPB ×3 (05:59→18:38)
[2025-07-19 06:16] LABS: Hematocrit 34.1 % (37.0-47.0); Hemoglobin 10.4 g/dL (12.0-15.0); Immature Granulocyte Percent A 0.5 % (0-0.5); Lymphocytes Absolute Auto 1.16 K/mm3 (0.9-3.2); Mean Corpuscular HGB Conc 30.5 g/dl (32-36); Mean Corpuscular Hemoglobin 28.3 pg (26-34); Mean Corpuscular Volume 92.7 fl (80-100); Nucleated Red Blood Cells Absolute Auto 0.000 K/mm3 (0.0-0.012); Nucleated Red Blood Cells Perc 0.0 % (0.0-0.2); Platelet Count Result 355 k/mm3 (150-375); Red Blood Count 3.68 M/mm3 (4.2-5.4); White Blood Count 8.0 K/mm3 (4.5-10.0)
[2025-07-19 06:42] LABS: Alanine Aminotransferase 14 U/L (6-35); Albumin Level 2.3 g/dL (3.5-5.1); Alkaline Phosphatase 84 U/L (38-126); Anion Gap 7 mmol/L (4-12); Aspartate Amino Transferase 32 U/L (14-36); Bilirubin,Total 0.4 mg/dL (0.2-1.3); Blood Urea Nitrogen 5 mg/dL (7-17); Calcium 7.7 mg/dL (8.4-10.2); Carbon Dioxide 18 mmol/L (22-30); Chloride 112 mmol/L (98-107); Estimated CRCL calculation 42 ml/min; Estimated Glomerular Filt Rate 42; Glucose 109 mg/dL (65-110); Magnesium 1.6 mg/dL (1.6-2.3); Potassium 3.2 mmol/L (3.4-5.0); Sodium 137 mmol/L (137-145); Total Protein 5.4 g/dL (6.3-8.2)
--- NOTE | 2025-07-19 07:41 | P.PNIM_ITS ---
Progress Note: A&P Assessment and Plan (1) Colitis: Code(s): K52.9 - Noninfective gastroenteritis and colitis, unspecified Status: Acute Assessment and Plan: - CT abd/pelvis showed colitis with superimposed diverticulitis, small abscess. - WBC 12.4 today, possibly worsening due to diarrhea - continue 0.9 NS/D5. Monitor volume status. - general surgery consulted due to abscess presence. No current surgical intervention planned. CLD. Advance diet per general surgery recs - continue Zosyn - pain medication PRN - advance diet to full diet tonight (2) Diarrhea: Qualifiers: Diarrhea type: unspecified type Qualified Code(s): R19.7 - Diarrhea, unspecified Code(s): R19.7 - Diarrhea, unspecified Status: Acute Assessment and Plan: - C diff negative. Stool PCR pending - avoiding Imodium due to diverticulitis - continue IV fluids, replace electrolytes (3) Chronic kidney disease, stage 3: Qualifiers: Chronic kidney disease stage 3 subtype: unspecified whether 3a or 3b Qualified Code(s): N18.30 - Chronic kidney disease, stage 3 unspecified Code(s): N18.30 - Chronic kidney disease, stage 3 unspecified Status: Acute Assessment and Plan: - creatinine 1.61, BUN 14, GFR 31 upon admission - baseline creatinine: 0.7 - 1.0 - dehydration likely contributing, initially some improvement with IV fluids. Cr trende dup to 1.43 this AM likely due to diarrhea. - patient required straight cath overnight 07/17, no further episodes of retention. Monitor bladder scans and straight cath PRN - continue IV fluids until diet is advanced and diarrhea improved - trend renal function - trend electrolytes, correct as needed (4) Hypokalemia: Code(s): E87.6 - Hypokalemia Status: Acute Assessment and Plan: - K+ 3.2. Mag 1.3. - replacement ordered - recheck in AM (5) Hypertension: Qualifiers: Hypertension type: essential hypertension Qualified Code(s): I10 - Essential (primary) hypertension Code(s): I10 - Essential (primary) hypertension Status: Chronic Assessment and Plan: - BP stable - continue home Norvasc, metoprolol - monitor (6) Hypothyroidism: Qualifiers: Hypothyroidism type: unspecified Qualified Code(s): E03.9 - Hypoth yroidism, unspecified Code(s): E03.9 - Hypothyroidism, unspecified Status: Chronic Assessment and Plan: - continue Synthroid (7) Abnormal CT of the abdomen: Code(s): R93.5 - Abnormal findings on diagnostic imaging of other abdominal regions, including retroperitoneum Status: Acute Assessment and Plan: - CT showed lobulation of the renal contours, cannot rule out right renal neoplasm. Contrast-enhanced MRI recommended. - discussed importance of outpatient follow-up with patient (8) Generalized weakness: Code(s): R53.1 - Weakness Status: Acute Assessment and Plan: - patient normally ambulatory with a walker, now having significant weakness. Also having lightheadedness upon standing. - Orthostatic vitals ordered - PT/OT recommended SNF. Care coordination following for placement. Plan DVT Prophylaxis: SCDs Code Status: full code Dispo: SNF. Care coordination following. Subjective Date/time seen: 07/19/25 07:41 Interval history: 75 y/o F with PMH of CKD stage 3, diastolic dysfunction, hyperlipidemia, diverticulitis, GERD, colon cancer s/p resection, asthma, anxiety/depression, OAB, hypothyroidism, and hypertension presents here with nausea, vomiting, diarrhea, and abdominal cramping. 07/19/2025 Patient sitting comfortably in bed at time of examination. Will advance low- fiber diet today. Continues to pass flatus, leukocytosis down trending, remains afebrile. Denies any chest pain, shortness of breath, or nausea/vomiting. Still has some abdominal discomfort but minimal and improving. Will look to discharge tomorrow as long as full diet, tolerated tonight for dinner. Plan to discharge to SNF Review of Systems Review of Systems: All systems reviewed & are unremarkable except as noted in HPI and below Exam Narrative: General: NAD Eyes: EOMI ENT: neck supple Cardiovascular: Regular rate and rhythm Respiratory: Clear to auscultation, respirations even and unlabored on RA Gastrointestinal: Soft, mild lower abdominal tenderness with palpation Genitourinary: no suprapubic tenderness Musculoskeletal: No edema Skin: warm, dry Neuro: Alert. Psych: Mood appropriate Const: General: comfortable and no acute distress Other: , female, elderly, nontoxic appearance HENMT: Face/Nose/Sinus: Normal nares present Mouth: Yes dry mucous membranes Eyes: General: appearance normal, both eyes and all related structures Sclera: sclerae normal Pupils: Equal, round and reactive pupils present EOM: EOMs intact bilaterally Resp: Effort & Inspection: normal respiratory effort Auscultation: clear to auscultation bilaterally Cardio: Rate: regular rate Rhythm: regular rhythm Other: S1-S2 present without murmur, rub, ectopy GI: Other: Abdomen soft, nondistended, normoactive bowel sounds in all quadrants. Tender in the lower quadrants, more so suprapubic. Skin: General skin exam: normal color and no rashes or lesions noted Wounds: no wounds Neuro: Cranial nerves: Yes Equal, round and reactive pupils present Speech: normal speech Motor exam (neuro): 5/5 motor strength present throughout Sensory Exam: normal sensation Other: A/Ox4 Extrem: General: normal to inspection Psych: Mental Status: mental status grossly normal Affect: normal affect Other: good to fair insight and judgement, pleasant Objective Data Vital Signs Vital Signs: Vital Signs - 24 hr 07/18/25 08:01 07/18/25 08:11 07/18/25 10:05 Temperature Pulse Rate 69 97 Respiratory Rate Blood Pressure Pulse Oximetry Oxygen Delivery Room Air 07/18/25 10:14 07/18/25 10:20 07/18/25 10:25 Temperature 97.3 F L 97.1 F L 97.6 F Pulse Rate 69 78 78 Respiratory Rate 18 18 20 Blood Pressure 134/62 135/69 121/69 Pulse Oximetry 96 97 98 Oxygen Delivery 07/18/25 12:05 07/18/25 16:01 07/18/25 16:16 Temperature 97.9 F Pulse Rate 60 68 71 Respiratory Rate 18 Blood Pressure 131/58 L Pulse Oximetry 96 Oxygen Delivery 07/18/25 20:00 07/18/25 20:36 07/19/25 00:00 Temperature 97.8 F Pulse Rate 73 73 76 Respiratory Rate 16 Blood Pressure 139/65 Pulse Oximetry 97 Oxygen Delivery 07/19/25 04:00 07/19/25 05:34 Temperature 98.3 F Pulse Rate 76 89 Respiratory Rate 16 Blood Pressure 130/62 Pulse Oximetry 97 Oxygen Delivery Intake/Output Intake/Output: Intake & Output 07/16/25 07/17/25 07/18/25 07/19/25 23:59 23:59 23:59 23:59 Intake Total 2131.7 3190 3441.7 1290 Output Total 380 Balance 1751.7 3190 3441.7 1290 Meds/Results Medications: Active Medications Generic Name Dose Route Start Last Admin Trade Name Freq PRN Reason Stop Dose Admin Acetaminophen 650 mg 07/15/25 17:56 07/18/25 00:03 Acetaminophen 325 Mg Tablet PO 650 mg Q4H PRN Administration Mild Pain (1-3) or Fever Amlodipine Besylate 10 mg 07/17/25 09:00 07/18/25 08:20 Amlodipine Besylate 10 Mg Tablet PO 10 mg DAILY STEFANO Administration Buspirone HCl 2.5 mg 07/16/25 17:00 07/18/25 16:44 Buspirone Hcl 2.5 Mg Tablet PO 2.5 mg BID STEFANO Administration Buspirone HCl 5 mg 07/16/25 17:00 07/18/25 16:44 Buspirone Hcl 5 Mg Tablet PO 5 mg BID STEFANO Administration Diclofenac Sodium 1 applic 07/18/25 12:44 07/18/25 18:11 Diclofenac Sodium 1% 100 Gm Gel (*Bkc) TOPICAL 1 applic QID PRN Administration muscle pain Piperacillin Sod/Tazobactam 50 mls @ 100 mls/hr 07/16/25 01:00 07/19/25 05:59 Sod 2.25 gm/ Sodium Chloride IVPB 100 mls/hr Q6H STEFANO Administration Dextrose/Sodium Chloride 1,000 mls @ 100 mls/hr 07/18/25 02:00 07/19/25 01:39 Dextrose 5% Sodium Chloride 0.9% IV CONT 100 mls/hr .Q10H STEFANO Administration Levothyroxine Sodium 100 mcg 07/17/25 06:30 07/19/25 05:59 Levothyroxine Sodium 100 Mcg Tablet PO 100 mcg DAILY@0630 STEFANO Administration Metoprolol Tartrate 50 mg 07/17/25 09:00 07/18/25 08:11 Metoprolol Tartrate 50 Mg Tab PO 50 mg DAILY STEFANO Administration Morphine Sulfate 2 mg 07/15/25 18:05 Morphine Sulfate (*Crx) 4 Mg/Ml Inj IV PUSH Q2H PRN Pain Rated 7-10 Ondansetron HCl 4 mg 07/15/25 18:00 Ondansetron Inj 4 Mg/2 Ml Vial IV PUSH Q4H PRN Nausea Pantoprazole Sodium 40 mg 07/17/25 09:00 07/18/25 08:11 Pantoprazole 40 Mg Tablet PO 40 mg DAILY STEFANO Administration Potassium Chloride 40 meq 07/19/25 07:45 Potassium Chloride 20 Meq Er Tablet PO 07/19/25 07:46 ONCE ONE Venlafaxine HCl 75 mg 07/16/25 21:00 07/18/25 21:22 Venlafaxine Hcl Xr 75 Mg Cap.Er.24h PO 75 mg Q12HR STEFANO Administration Radiology Results: ITS Impressions Chest X-Ray 07/15/25 17:15 Impression: No acute cardiopulmonary abnormality. Abdomen/Pelvis CT 07/15/25 17:34 IMPRESSION: 1. Colitis with superimposed probable diverticulitis. Small abscess detailed above. 2. Lobulation of the renal contours, distinction from right renal neoplasm limited. Contrast-enhanced MRI recommended Labs Labs: Laboratory Results - last 24 hr 07/18/25 07/18/25 07/18/25 05:25 08:25 11:52 WBC RBC Hgb Hct MCV MCH MCHC RDW Plt Count MPV Immature Gran % (Auto) Neut % (Auto) Lymph % (Auto) [place] % (Auto) Eos % (Auto) Baso % (Auto) Lymph # (Auto) [place] # (Auto) Eos # (Auto) Baso # (Auto) Abs Immat Gran (auto) Absolute Neuts (auto) Absolute Nucleated RBC Nucleated RBC % Sodium 136 L Potassium 3.0 L Chloride 109 H Carbon Dioxide 19 L Anion Gap 8 BUN 8 Creatinine 1.43 H Estim Creat Clear Calc 37 Estimated GFR 36 L Glucose 123 H POC Capillary Glucose 133 H 150 H Calcium 7.6 L Phosphorus 3.1 Magnesium 1.3 L Total Bilirubin 0.7 AST 29 ALT 13 Alkaline Phosphatase 87 C-Reactive Protein 15.0 H Total Protein 5.8 L Albumin 2.5 L 07/18/25 07/19/25 07/19/25 17:17 00:18 05:22 WBC 8.0 RBC 3.68 L Hgb 10.4 L Hct 34.1 L MCV 92.7 MCH 28.3 MCHC 30.5 L RDW 13.9 Plt Count 355 MPV 11.6 H Immature Gran % (Auto) 0.5 Neut % (Auto) 71.5 Lymph % (Auto) 14.4 L [place] % (Auto) 13.2 H Eos % (Auto) 0.0 Baso % (Auto) 0.4 Lymph # (Auto) 1.16 [place] # (Auto) 1.1 H Eos # (Auto) 0.0 Baso # (Auto) 0.0 Abs Immat Gran (auto) 0.04 H Absolute Neuts (auto) 5.8 Absolute Nucleated RBC 0.000 Nucleated RBC % 0.0 Sodium 137 Potassium 3.2 L Chloride 112 H Carbon Dioxide 18 L Anion Gap 7 BUN 5 L Creatinine 1.26 H Estim Creat Clear Calc 42 Estimated GFR 42 L Glucose 109 POC Capillary Glucose 146 H 131 H Calcium 7.7 L Phosphorus Magnesium 1.6 Total Bilirubin 0.4 AST 32 ALT 14 Alkaline Phosphatase 84 C-Reactive Protein Total Protein 5.4 L Albumin 2.3 L 07/19/25 05:50 WBC RBC Hgb Hct MCV MCH MCHC RDW Plt Count MPV Immature Gran % (Auto) Neut % (Auto) Lymph % (Auto) [place] % (Auto) Eos % (Auto) Baso % (Auto) Lymph # (Auto) [place] # (Auto) Eos # (Auto) Baso # (Auto) Abs Immat Gran (auto) Absolute Neuts (auto) Absolute Nucleated RBC Nucleated RBC % Sodium Potassium Chloride Carbon Dioxide Anion Gap BUN Creatinine Estim Creat Clear Calc Estimated GFR Glucose POC Capillary Glucose 102 Calcium Phosphorus Magnesium Total Bilirubin AST ALT Alkaline Phosphatase C-Reactive Protein Total Protein Albumin Quality VTE Prophylaxis VTE prophylaxis: mechanical ordered
[2025-07-19] MEDS: VENLAFAXINE HCL XR 75 MG CAP.ER.24H PO ×2 (09:10→22:07)
[2025-07-19] MEDS: METOPROLOL TARTRATE 50 MG TAB PO (09:10)
[2025-07-19] MEDS: PANTOPRAZOLE 40 MG TABLET PO (09:10)
[2025-07-19] MEDS: POTASSIUM CHLORIDE 20 MEQ ER TABLET 40 MEQ PO (09:10)
[2025-07-19] MEDS: busPIRone HCL 2.5 MG TABLET PO ×2 (09:10→16:09)
--- NOTE | 2025-07-19 10:25 | P.PNGS_ITS ---
Progress Note: A&P Assessment and Plan (1) Diverticulitis of sigmoid colon: Code(s): K57.32 - Diverticulitis of large intestine without perforation or abscess without bleeding <Ciara Roach PA-C - Last Filed: 07/19/25 10:34> Status: Acute <Ciara Roach PA-C - Last Filed: 07/19/25 10:34> Assessment and Plan: * Tolerated full liquid diet yesterday. Will advance to low fiber diet today. * Patient had multiple episodes of diarrhea yesterday. Cdiff negative. Patient passing flatus today. WBC down to 8.0. Afebrile. * Patient expresses concern for her ambulation status. According to PT note, patient was able to ambulate around the room with her walker today. <Ciara Roach PA-C - Last Filed: 07/19/25 10:34> * Tolerated full liquid diet yesterday. Will advance to low fiber diet today. * Patient had multiple episodes of diarrhea yesterday. Cdiff negative. Patient passing flatus today. WBC down to 8.0. Afebrile. * Patient expresses concern for her ambulation status. According to PT note, patient was able to ambulate around the room with her walker today. * * * Ok to advance to low fiber diet today. Likely home in next 1-2 days on oral abx. <Ricardo Sanders MD - Last Filed: 07/19/25 17:00> Subjective Subjective Date/Time Seen: 07/19/25 10:25 <Ciara Roach PA-C - Last Filed: 07/19/25 10:34> Patient reports: no new complaints, feels better, tolerating liquids well (fulls), flatus and diarrhea <Ciara Roach PA-C - Last Filed: 07/19/25 10:34> Interval history: Patient doing well today. Tolerating full liquids without nausea or vomiting. Had lots of diarrhea yesterday. Minimal abdominal pain. <REMA Grigsby Last Filed: 07/19/25 10:34> Exam Const: General: comfortable and no acute distress <LA NENA Grigsby-C Last Filed: 07/19/25 10:34> Eyes: General: appearance normal, both eyes and all related structures <MoiraREMA Olmos Last Filed: 07/19/25 10:34> Neck: Neck: supple and no JVD <MoiraREMA Olmos Last Filed: 07/19/25 10:34> Resp: Effort & Inspection: normal respiratory effort <MoiraAlexandra Roach PA-C Lora Last Filed: 07/19/25 10:34> Cardio: Rate: regular rate <MoiraAlexandra Roach PA-C Lora Last Filed: 07/19/25 10:34> GI: Inspection: non-distended <MoiraREMA Meyer Last Filed: 07/19/25 10:34> GI Palp: Yes Soft to palpation, No Tenderness to palpation present (GI) and No Guarding due to palpation present (GI) <MoiraAlexandra Roach PA-C Lora Last Filed: 07/19/25 10:34> Skin: General skin exam: normal color and no rashes or lesions noted <MoiraAlexandra Roach PA-C Lora Last Filed: 07/19/25 10:34> Neuro: Speech: normal speech <MoiraREMA Meyer Last Filed: 07/19/25 10:34> Extrem: General: normal to inspection <MoiraREMA Olmos Last Filed: 07/19/25 10:34> Psych: Mental Status: mental status grossly normal <REMA Grigsby Last Filed: 07/19/25 10:34> Objective Data Vital Signs Vital Signs: Vital Signs - 24 hr 07/18/25 12:05 07/18/25 16:01 07/18/25 16:16 Temperature 97.9 F Pulse Rate 60 68 71 Respiratory Rate 18 Blood Pressure 131/58 L Pulse Oximetry 96 07/18/25 20:00 07/18/25 20:36 07/19/25 00:00 Temperature 97.8 F Pulse Rate 73 73 76 Respiratory Rate 16 Blood Pressure 139/65 Pulse Oximetry 97 07/19/25 04:00 07/19/25 05:34 07/19/25 08:00 Temperature 98.3 F Pulse Rate 76 89 77 Respiratory Rate 16 Blood Pressure 130/62 Pulse Oximetry 97 07/19/25 09:10 Temperature Pulse Rate 102 H Respiratory Rate Blood Pressure Pulse Oximetry <Ciara Roach PA-C - Last Filed: 07/19/25 10:34> Intake/Output Intake/Output: Intake & Output 07/16/25 07/17/25 07/18/25 07/19/25 23:59 23:59 23:59 23:59 Intake Total 2131.7 3190 3441.7 1644 Output Total 380 Balance 1751.7 3190 3441.7 1644 <Ciara Roach PA-C - Last Filed: 07/19/25 10:34> Meds/Results Medications: Active Medications Generic Name Dose Route Start Last Admin Trade Name Freq PRN Reason Stop Dose Admin Acetaminophen 650 mg 07/15/25 17:56 07/18/25 00:03 Acetaminophen 325 Mg Tablet PO 650 mg Q4H PRN Administration Mild Pain (1-3) or Fever Amlodipine Besylate 10 mg 07/17/25 09:00 07/19/25 09:10 Amlodipine Besylate 10 Mg Tablet PO 10 mg DAILY STEFANO Administration Buspirone HCl 2.5 mg 07/16/25 17:00 07/19/25 09:10 Buspirone Hcl 2.5 Mg Tablet PO 2.5 mg BID STEFANO Administration Buspirone HCl 5 mg 07/16/25 17:00 07/19/25 09:10 Buspirone Hcl 5 Mg Tablet PO 5 mg BID STEFANO Administration Diclofenac Sodium 1 applic 07/18/25 12:44 07/18/25 18:11 Diclofenac Sodium 1% 100 Gm Gel (*Bkc) TOPICAL 1 applic QID PRN Administration muscle pain Piperacillin Sod/Tazobactam 50 mls @ 100 mls/hr 07/16/25 01:00 07/19/25 05:59 Sod 2.25 gm/ Sodium Chloride IVPB 100 mls/hr Q6H STEFANO Administration Dextrose/Sodium Chloride 1,000 mls @ 100 mls/hr 07/18/25 02:00 07/19/25 01:39 Dextrose 5% Sodium Chloride 0.9% IV CONT 100 mls/hr .Q10H STEFANO Administration Levothyroxine Sodium 100 mcg 07/17/25 06:30 07/19/25 05:59 Levothyroxine Sodium 100 Mcg Tablet PO 100 mcg DAILY@0630 STEFANO Administration Metoprolol Tartrate 50 mg 07/17/25 09:00 07/19/25 09:10 Metoprolol Tartrate 50 Mg Tab PO 50 mg DAILY STEFANO Administration Morphine Sulfate 2 mg 07/15/25 18:05 Morphine Sulfate (*Crx) 4 Mg/Ml Inj IV PUSH Q2H PRN Pain Rated 7-10 Ondansetron HCl 4 mg 07/15/25 18:00 Ondansetron Inj 4 Mg/2 Ml Vial IV PUSH Q4H PRN Nausea Pantoprazole Sodium 40 mg 07/17/25 09:00 07/19/25 09:10 Pantoprazole 40 Mg Tablet PO 40 mg DAILY STEFANO Administration Venlafaxine HCl 75 mg 07/16/25 21:00 07/19/25 09:10 Venlafaxine Hcl Xr 75 Mg Cap.Er.24h PO 75 mg Q12HR STEFANO Administration <Ciara Roach PA-C - Last Filed: 07/19/25 10:34> Radiology Results: ITS Impressions Chest X-Ray 07/15/25 17:15 Impression: No acute cardiopulmonary abnormality. Abdomen/Pelvis CT 07/15/25 17:34 IMPRESSION: 1. Colitis with superimposed probable diverticulitis. Small abscess detailed above. 2. Lobulation of the renal contours, distinction from right renal neoplasm limited. Contrast-enhanced MRI recommended <Ciara Roach PA-C - Last Filed: 07/19/25 10:34> Labs Labs: Laboratory Results - last 24 hr 07/18/25 07/18/25 07/19/25 11:52 17:17 00:18 WBC RBC Hgb Hct MCV MCH MCHC RDW Plt Count MPV Immature Gran % (Auto) Neut % (Auto) Lymph % (Auto) [place] % (Auto) Eos % (Auto) Baso % (Auto) Lymph # (Auto) [place] # (Auto) Eos # (Auto) Baso # (Auto) Abs Immat Gran (auto) Absolute Neuts (auto) Absolute Nucleated RBC Nucleated RBC % Sodium Potassium Chloride Carbon Dioxide Anion Gap BUN Creatinine Estim Creat Clear Calc Estimated GFR Glucose POC Capillary Glucose 150 H 146 H 131 H Calcium Magnesium Total Bilirubin AST ALT Alkaline Phosphatase Total Protein Albumin 07/19/25 07/19/25 05:22 05:50 WBC 8.0 RBC 3.68 L Hgb 10.4 L Hct 34.1 L MCV 92.7 MCH 28.3 MCHC 30.5 L RDW 13.9 Plt Count 355 MPV 11.6 H Immature Gran % (Auto) 0.5 Neut % (Auto) 71.5 Lymph % (Auto) 14.4 L [place] % (Auto) 13.2 H Eos % (Auto) 0.0 Baso % (Auto) 0.4 Lymph # (Auto) 1.16 [place] # (Auto) 1.1 H Eos # (Auto) 0.0 Baso # (Auto) 0.0 Abs Immat Gran (auto) 0.04 H Absolute Neuts (auto) 5.8 Absolute Nucleated RBC 0.000 Nucleated RBC % 0.0 Sodium 137 Potassium 3.2 L Chloride 112 H Carbon Dioxide 18 L Anion Gap 7 BUN 5 L Creatinine 1.26 H Estim Creat Clear Calc 42 Estimated GFR 42 L Glucose 109 POC Capillary Glucose 102 Calcium 7.7 L Magnesium 1.6 Total Bilirubin 0.4 AST 32 ALT 14 Alkaline Phosphatase 84 Total Protein 5.4 L Albumin 2.3 L <Ciara Roach PA-C - Last Filed: 07/19/25 10:34>
[2025-07-19] MEDS: DICLOFENAC SODIUM 1% 100 GM GEL (*BKC) 1 APPLIC TOPICAL (22:11)
[2025-07-20] MEDS: PIPERACILLIN/TAZOBACTAM SOD 2.25 GM in SODIUM CHLORIDE 0.9% IV 50 ML 100 ML IVPB ×2 (00:35→05:28)
[2025-07-20] MEDS: LEVOTHYROXINE SODIUM 100 MCG TABLET PO (05:27)
[2025-07-20 06:00] VITALS: BP 108/90; PULSE 87; RESP 14; TEMP 36.9; O2SAT 96
[2025-07-20 06:25] LABS: Magnesium 1.5 mg/dL (1.6-2.3)
[2025-07-20 07:19] LABS: Hematocrit 32.7 % (37.0-47.0); Hemoglobin 10.1 g/dL (12.0-15.0); Immature Granulocyte Percent A 0.7 % (0-0.5); Lymphocytes Absolute Auto 1.30 K/mm3 (0.9-3.2); Mean Corpuscular HGB Conc 30.9 g/dl (32-36); Mean Corpuscular Hemoglobin 28.5 pg (26-34); Mean Corpuscular Volume 92.1 fl (80-100); Nucleated Red Blood Cells Absolute Auto 0.000 K/mm3 (0.0-0.012); Nucleated Red Blood Cells Perc 0.0 % (0.0-0.2); Platelet Count Result 372 k/mm3 (150-375); Red Blood Count 3.55 M/mm3 (4.2-5.4); White Blood Count 6.9 K/mm3 (4.5-10.0)
[2025-07-20 07:27] LABS: Alanine Aminotransferase 13 U/L (6-35); Albumin Level 2.3 g/dL (3.5-5.1); Alkaline Phosphatase 91 U/L (38-126); Anion Gap 6 mmol/L (4-12); Aspartate Amino Transferase 26 U/L (14-36); Bilirubin,Total 0.3 mg/dL (0.2-1.3); Blood Urea Nitrogen 6 mg/dL (7-17); Calcium 7.8 mg/dL (8.4-10.2); Carbon Dioxide 17 mmol/L (22-30); Chloride 113 mmol/L (98-107); Estimated CRCL calculation 41 ml/min; Estimated Glomerular Filt Rate 40; Glucose 101 mg/dL (65-110); Potassium 3.9 mmol/L (3.4-5.0); Sodium 136 mmol/L (137-145); Total Protein 5.4 g/dL (6.3-8.2)
[2025-07-20 08:01] VITALS: PULSE 84
[2025-07-20 08:25] VITALS: PULSE 87
[2025-07-20] MEDS: VENLAFAXINE HCL XR 75 MG CAP.ER.24H PO (08:25)
[2025-07-20] MEDS: METOPROLOL TARTRATE 50 MG TAB PO (08:25)
[2025-07-20] MEDS: PANTOPRAZOLE 40 MG TABLET PO (08:30)
[2025-07-20] MEDS: busPIRone HCL 2.5 MG TABLET PO (08:30)
[2025-07-20] MEDS: MAGNESIUM OXIDE 200 MG TABLET PO (09:11)
[2025-07-20 12:05] VITALS: PULSE 81
--- NOTE | 2025-07-20 12:24 | P.PNGS_ITS ---
Progress Note: A&P Assessment and Plan (1) Diverticulitis of sigmoid colon: Code(s): K57.32 - Diverticulitis of large intestine without perforation or abscess without bleeding Status: Acute Assessment and Plan: * Tolerating low fiber diet without nausea or vomiting. Minimal abdominal pain. Surgically stable for discharge to SNF where she can continue to have PT/OT to help with ambulation. * Patient should maintain a low fiber diet. Will send home with 10 day course of antibiotics and follow up in [address] Sanders. Plan Discussed patient's case and plan of care with Dr. Sanders. Subjective Subjective Date/Time Seen: 07/20/25 12:24 Patient reports: no new complaints, tolerating a regular diet and afebrile Interval history: Patient doing well today. Sitting up in chair eating regular low-fiber diet. No nausea or vomiting with this. Several bowel movements started yesterday. Continuing to work with PT and OT. Exam Const: General: comfortable and no acute distress GI: Inspection: non-distended GI Palp: Yes Soft to palpation and No Tenderness to palpation present (GI) Auscultation: normal bowel sounds Objective Data Vital Signs Vital Signs: Vital Signs - 24 hr 07/19/25 14:00 07/19/25 16:00 07/19/25 20:00 Temperature 97.0 F L Pulse Rate 75 76 71 Respiratory Rate 18 Blood Pressure 133/59 L Pulse Oximetry 98 Oxygen Delivery 07/19/25 20:35 07/19/25 22:00 07/20/25 06:00 Temperature 98.9 F 98.4 F Pulse Rate 60 60 87 Respiratory Rate 16 14 Blood Pressure 163/71 H 108/90 Pulse Oximetry 94 94 96 Oxygen Delivery Room Air 07/20/25 08:25 07/20/25 08:37 Temperature Pulse Rate 87 Respiratory Rate Blood Pressure Pulse Oximetry Oxygen Delivery Room Air Intake/Output Intake/Output: Intake & Output 07/17/25 07/18/25 07/19/25 07/20/25 23:59 23:59 23:59 23:59 Intake Total 3190 3441.7 4129 704 Balance 3190 3441.7 4129 704 Meds/Results Medications: Active Medications Generic Name Dose Route Start Last Admin Trade Name Freq PRN Reason Stop Dose Admin Acetaminophen 650 mg 07/15/25 17:56 07/18/25 00:03 Acetaminophen 325 Mg Tablet PO 650 mg Q4H PRN Administration Mild Pain (1-3) or Fever Amlodipine Besylate 10 mg 07/17/25 09:00 07/20/25 08:25 Amlodipine Besylate 10 Mg Tablet PO 10 mg DAILY STEFANO Administration Amoxicillin/Clavulanate Potassium 1 tablet 07/20/25 11:30 07/20/25 12:06 Amoxicillin/Clavulanate K 875-125 Mg Tab PO 07/24/25 21:01 1 tablet Q12HR STEFANO Administration Buspirone HCl 2.5 mg 07/16/25 17:00 07/20/25 08:30 Buspirone Hcl 2.5 Mg Tablet PO 2.5 mg BID STEFANO Administration Buspirone HCl 5 mg 07/16/25 17:00 07/20/25 08:30 Buspirone Hcl 5 Mg Tablet PO 5 mg BID STEFANO Administration Diclofenac Sodium 1 applic 07/18/25 12:44 07/19/25 22:11 Diclofenac Sodium 1% 100 Gm Gel (*Bkc) TOPICAL 1 applic QID PRN Administration muscle pain Dextrose/Sodium Chloride 1,000 mls @ 100 mls/hr 07/18/25 02:00 07/19/25 22:08 Dextrose 5% Sodium Chloride 0.9% IV CONT 100 mls/hr .Q10H STEFANO Administration Levothyroxine Sodium 100 mcg 07/17/25 06:30 07/20/25 05:27 Levothyroxine Sodium 100 Mcg Tablet PO 100 mcg DAILY@0630 STEFANO Administration Metoprolol Tartrate 50 mg 07/17/25 09:00 07/20/25 08:25 Metoprolol Tartrate 50 Mg Tab PO 50 mg DAILY STEFANO Administration Morphine Sulfate 2 mg 07/15/25 18:05 Morphine Sulfate (*Crx) 4 Mg/Ml Inj IV PUSH Q2H PRN Pain Rated 7-10 Ondansetron HCl 4 mg 07/15/25 18:00 Ondansetron Inj 4 Mg/2 Ml Vial IV PUSH Q4H PRN Nausea Pantoprazole Sodium 40 mg 07/17/25 09:00 07/20/25 08:30 Pantoprazole 40 Mg Tablet PO 40 mg DAILY STEFANO Administration Venlafaxine HCl 75 mg 07/16/25 21:00 07/20/25 08:25 Venlafaxine Hcl Xr 75 Mg Cap.Er.24h PO 75 mg Q12HR STEFANO Administration Radiology Results: ITS Impressions Chest X-Ray 07/15/25 17:15 Impression: No acute cardiopulmonary abnormality. Abdomen/Pelvis CT 07/15/25 17:34 IMPRESSION: 1. Colitis with superimposed probable diverticulitis. Small abscess detailed above. 2. Lobulation of the renal contours, distinction from right renal neoplasm limited. Contrast-enhanced MRI recommended Labs Labs: Laboratory Results - last 24 hr 07/19/25 07/20/25 07/20/25 18:02 00:47 04:57 WBC 6.9 RBC 3.55 L Hgb 10.1 L Hct 32.7 L MCV 92.1 MCH 28.5 MCHC 30.9 L RDW 14.1 Plt Count 372 MPV 11.6 H Immature Gran % (Auto) 0.7 H Neut % (Auto) 65.5 Lymph % (Auto) 18.8 [place] % (Auto) 14.3 H Eos % (Auto) 0.0 Baso % (Auto) 0.7 Lymph # (Auto) 1.30 [place] # (Auto) 1.0 H Eos # (Auto) 0.0 Baso # (Auto) 0.1 Abs Immat Gran (auto) 0.05 H Absolute Neuts (auto) 4.5 Absolute Nucleated RBC 0.000 Nucleated RBC % 0.0 Sodium 136 L Potassium 3.9 Chloride 113 H Carbon Dioxide 17 L Anion Gap 6 BUN 6 L Creatinine 1.30 H Estim Creat Clear Calc 41 Estimated GFR 40 L Glucose 101 POC Capillary Glucose 119 H 122 H Calcium 7.8 L Magnesium 1.5 L Total Bilirubin 0.3 AST 26 ALT 13 Alkaline Phosphatase 91 Total Protein 5.4 L Albumin 2.3 L 07/20/25 07/20/25 05:44 11:57 WBC RBC Hgb Hct MCV MCH MCHC RDW Plt Count MPV Immature Gran % (Auto) Neut % (Auto) Lymph % (Auto) [place] % (Auto) Eos % (Auto) Baso % (Auto) Lymph # (Auto) [place] # (Auto) Eos # (Auto) Baso # (Auto) Abs Immat Gran (auto) Absolute Neuts (auto) Absolute Nucleated RBC Nucleated RBC % Sodium Potassium Chloride Carbon Dioxide Anion Gap BUN Creatinine Estim Creat Clear Calc Estimated GFR Glucose POC Capillary Glucose 115 H 120 H Calcium Magnesium Total Bilirubin AST ALT Alkaline Phosphatase Total Protein Albumin
--- NOTE | 2025-07-20 12:42 | P.DS_ITS ---
DS: Admitting Diagnosis Discharge Date 07/20/2025 Admitting Diagnosis Colitis DS: Discharge Diagnosis Discharge Diagnosis (1) Colitis: Code(s): K52.9 - Noninfective gastroenteritis and colitis, unspecified Status: Acute Assessment and Plan: - CT abd/pelvis showed colitis with superimposed diverticulitis, small abscess. - WBC 12.4 today, possibly worsening due to diarrhea - continue 0.9 NS/D5. Monitor volume status. - general surgery consulted due to abscess presence. No current surgical intervention planned. CLD. Advance diet per general surgery recs - continue Zosyn - pain medication PRN - advance diet to full diet tonight (2) Diarrhea: Qualifiers: Diarrhea type: unspecified type Qualified Code(s): R19.7 - Diarrhea, unspecified Code(s): R19.7 - Diarrhea, unspecified Status: Acute Assessment and Plan: - C diff negative. Stool PCR pending - avoiding Imodium due to diverticulitis - continue IV fluids, replace electrolytes (3) Chronic kidney disease, stage 3: Qualifiers: Chronic kidney disease stage 3 subtype: unspecified whether 3a or 3b Qualified Code(s): N18.30 - Chronic kidney disease, stage 3 unspecified Code(s): N18.30 - Chronic kidney disease, stage 3 unspecified Status: Acute Assessment and Plan: - creatinine 1.61, BUN 14, GFR 31 upon admission - baseline creatinine: 0.7 - 1.0 - dehydration likely contributing, initially some improvement with IV fluids. Cr trende dup to 1.43 this AM likely due to diarrhea. - patient required straight cath overnight 07/17, no further episodes of retention. Monitor bladder scans and straight cath PRN - continue IV fluids until diet is advanced and diarrhea improved - trend renal function - trend electrolytes, correct as needed (4) Hypokalemia: Code(s): E87.6 - Hypokalemia Status: Acute Assessment and Plan: - K+ 3.2. Mag 1.3. - replacement ordered - recheck in AM (5) Hypertension: Qualifiers: Hypertension type: essential hypertension Qualified Code(s): I10 - Essential (primary) hypertension Code(s): I10 - Essential (primary) hypertension Status: Chronic Assessment and Plan: - BP stable - continue home Norvasc, metoprolol - monitor (6) Hypothyroidism: Qualifiers: Hypothyroidism type: unspecified Qualified Code(s): E03.9 - Hypothyroidism, unspecified Code(s): E03.9 - Hypothyroidism, unspecified Status: Chronic Assessment and Plan: - continue Synthroid (7) Abnormal CT of the abdomen: Code(s): R93.5 - Abnormal findings on diagnostic imaging of other abdominal regions, including retroperitoneum Status: Acute Assessment and Plan: - CT showed lobulation of the renal contours, cannot rule out right renal neoplasm. Contrast-enhanced MRI recommended. - discussed importance of outpatient follow-up with patient (8) Generalized weakness: Code(s): R53.1 - Weakness Status: Acute Assessment and Plan: - patient normally ambulatory with a walker, now having significant weakness. Also having lightheadedness upon standing. - Orthostatic vitals ordered - PT/OT recommended SNF. Care coordination following for placement. Plan DVT Prophylaxis: SCDs Code Status: full code Dispo: SNF. Care coordination following. DS: Summary Hospital Course Reason for hospitalization: Nausea/vomiting/diarrhea, abdominal cramping Hospital Course: Per HPI: 75 y/o F with PMH of CKD stage 3, diastolic dysfunction, hyperlipidemia, diverticulitis, GERD, colon cancer s/p resection, asthma, anxiety/depression, OAB, hypothyroidism, and hypertension presents here with nausea, vomiting, diarrhea, and abdominal cramping. The patient presents here from home on 07/15 for further evaluation of nausea, vomiting, diarrhea, and abdominal cramping. She reports onset 2-3 weeks ago. Abdominal cramping is accompanied by abdominal pain. She describes this as achy, cramping, lower and bilateral but more so on the right, nonradiating, and intermittent. She estimates within the last 24 hours she has had 5-6 episodes of diarrhea. She is also reporting generalized weakness that has been ongoing for the past few weeks, became more significant this morning. She was unable to get off of the couch due to the weakness. Denies associated hematochezia or melena. She denies associated fever, chills, body aches, or urinary symptoms. She reports a history significant for diverticulitis, last episode 2-3 months ago. She reports it was uncomplicated, did not require admission, and treated with PO antibiotics. Initial VS at presentation: To move 98.8? F, HR 82, R 12, 147/74, and 97% on RA. ED workup showed: WBC 9.3, hemoglobin 12.6, potassium 2.9, creatinine 1.61 and GFR 31 (previously 1.0 and GFR 55 in 2022), lactic 2.3, calcium 7.9/albumin 3.1, magnesium 0.18 and initial troponin negative. UA unremarkable. Viral PCR negative. CXR showed no acute cardiopulmonary abnormality. CT of the abdomen/pelvis showed some colitis with superimposed probable diverticulitis, small abscess, lobulation of the renal contours decision from right renal neoplasm limited. General surgery consulted regarding diverticulitis of the sigmoid colon. Patient does not appear to have a large abscess which can be drained at this time. Recommend continuing IV Zosyn with serial abdominal exams and labs at this time. WBC increased periodically up to 10.6 bed then subsequently decreased to within normal limits, then on 07/18 increased again to 12.4. This again the increased down back to within normal limits. Blood work otherwise remained stable. Patient was monitored through the next couple of days along with general surgery who recommended continuing diet and advancing as tolerated per surgery recommendations. Creatinine slightly worse throughout hospitalization, however has an underlying diagnosis of CKD stage 3 with dehydration likely contributing to worsening creatinine function. Hypokalemia was corrected with oral supplementation. Magnesium was also found to be low at 1.3 and was given IV supplementation to replenish. Magnesium was again found low at 1.5 on 07/20 and was given oral supplementation. Diet was continually advanced as tolerated and patient was able to tolerate full low-fiber diet on 07/19 and again on 07/20. Patient otherwise hemodynamically stable to be discharged to SNF. Status at Discharge Functional status at discharge: uses cane/walker Overall status at discharge: patient is progressing back to baseline Time Spent with Patient Time attestation: Total time spent providing and/or coordinating discharge services: 31 Exam Narrative: General: NAD Eyes: EOMI ENT: neck supple Cardiovascular: Regular rate and rhythm Respiratory: Clear to auscultation, respirations even and unlabored on RA Gastrointestinal: Soft, mild lower abdominal tenderness with palpation Genitourinary: no suprapubic tenderness Musculoskeletal: No edema Skin: warm, dry Neuro: Alert. Psych: Mood appropriate Const: General: comfortable and no acute distress Other: , female, elderly, nontoxic appearance HENMT: Face/Nose/Sinus: Normal nares present Mouth: Yes dry mucous membranes Eyes: General: appearance normal, both eyes and all related structures Sclera: sclerae normal Pupils: Equal, round and reactive pupils present EOM: EOMs intact bilaterally Resp: Effort & Inspection: normal respiratory effort Auscultation: clear to auscultation bilaterally Cardio: Rate: regular rate Rhythm: regular rhythm Other: S1-S2 present without murmur, rub, ectopy GI: Other: Abdomen soft, nondistended, normoactive bowel sounds in all quadrants. Tender in the lower quadrants, more so suprapubic. Skin: General skin exam: normal color and no rashes or lesions noted Wounds: no wounds Neuro: Cranial nerves: Yes Equal, round and reactive pupils present Speech: normal speech Motor exam (neuro): 5/5 motor strength present throughout Sensory Exam: normal sensation Other: A/Ox4 Extrem: General: normal to inspection Psych: Mental Status: mental status grossly normal Affect: normal affect Other: good to fair insight and judgement, pleasant DS: Data Data Completed and Pending Labs on day of discharge: Labs from last 24 hours 07/20/25 07/20/25 07/20/25 11:57 05:44 04:57 WBC 6.9 RBC 3.55 L Hgb 10.1 L Hct 32.7 L MCV 92.1 MCH 28.5 MCHC 30.9 L RDW 14.1 Plt Count 372 MPV 11.6 H Immature Gran % (Auto) 0.7 H Neut % (Auto) 65.5 Lymph % (Auto) 18.8 Cataño % (Auto) 14.3 H Eos % (Auto) 0.0 Baso % (Auto) 0.7 Lymph # (Auto) 1.30 Cataño # (Auto) 1.0 H Eos # (Auto) 0.0 Baso # (Auto) 0.1 Abs Immat Gran (auto) 0.05 H Absolute Neuts (auto) 4.5 Absolute Nucleated RBC 0.000 Nucleated RBC % 0.0 Sodium 136 L Potassium 3.9 Chloride 113 H Carbon Dioxide 17 L Anion Gap 6 BUN 6 L Creatinine 1.30 H Estim Creat Clear Calc 41 Estimated GFR 40 L Glucose 101 POC Capillary Glucose 120 H 115 H Calcium 7.8 L Magnesium 1.5 L Total Bilirubin 0.3 AST 26 ALT 13 Alkaline Phosphatase 91 Total Protein 5.4 L Albumin 2.3 L 07/20/25 07/19/25 00:47 18:02 WBC RBC Hgb Hct MCV MCH MCHC RDW Plt Count MPV Immature Gran % (Auto) Neut % (Auto) Lymph % (Auto) Cataño % (Auto) Eos % (Auto) Baso % (Auto) Lymph # (Auto) Cata[place] # (Auto) Eos # (Auto) Baso # (Auto) Abs Immat Gran (auto) Absolute Neuts (auto) Absolute Nucleated RBC Nucleated RBC % Sodium Potassium Chloride Carbon Dioxide Anion Gap BUN Creatinine Estim Creat Clear Calc Estimated GFR Glucose POC Capillary Glucose 122 H 119 H Calcium Magnesium Total Bilirubin AST ALT Alkaline Phosphatase Total Protein Albumin Preliminary micro results at discharge 07/15/25 18:05 Blood Culture - Preliminary Blood 07/15/25 18:25 Blood Culture - Preliminary Blood Discharge Plan Discharge Attending physician on discharge: Raimundo Rush Oca Consulting providers: Ricardo Sanders; Christina Munoz; Hardy Zuniga Discharging Clinician: Hardy Zuniga Anticipated Discharge Date/Time: 07/20/25 12:38 Patient Disposition: SNF Activity: as tolerated Diet: low fiber Discharge Instructions: Discharge disposition: SNF Take medications as prescribed. You will be prescribed Augmentin and Flagyl to be taken for the next 10 days. Augmentin will be taken twice daily and Flagyl(metronidazole) will be taken 3 times daily. Monitor blood pressures Take caution while standing, rising, or moving Change positions slowly taking a break between each position change If you standing feel dizzy sit back down and take a break Encouraged to continue with yearly vaccinations Return to the emergency department if you develop sudden shortness of breath, chest pain, nausea, vomiting, upset stomach or intractable diarrhea Return to the emergency department if you develop fever greater than 101.5 Follow-up with the primary care physician within 1-2 weeks Thank you for choosing [facility] for your healthcare needs Patient Instructions: Low Fiber Diet (DC) Patient Language: Pashto Stand Alone Forms: General Discharge Information Follow-up/Referrals: Christopher,LA NENA Ness [Primary Care Provider, Unknown] Ricardo Sanders MD [Physician, General Surgery] - Call for Appointment Referral Note: 2 weeks Discharge Medications: New amoxicillin-pot clavulanate 875-125 mg tablet 1 tablet PO Q12H Qty: 20 0RF metronidazole 500 mg tablet 500 mg PO Q8H 10 Days Qty: 30 0RF Continued venlafaxine [Effexor XR] 75 mg Capsule,Extended Release 24hr 75 mg PO BID amlodipine 5 mg Tablet 10 mg PO DAILY Rx Instructions: dose increased to 10 mg levothyroxine [Synthroid] 50 mcg Tablet 100 mcg PO DAILY Rx Instructions: dose increased to 75 mg metoprolol tartrate 100 mg tablet 50 mg PO DAILY Patient Comments: PT is taking 50 mg daily ( half a tablet for cost savings) tolnaftate 1 % powder 1 applic topical Q12HR PRN (Reason: Rash) Rx Instructions: Area of redness under bilateral breasts and groin as needed atorvastatin 20 mg tablet 20 mg PO .nightly buspirone 7.5 mg tablet 7.5 mg PO BID celecoxib 200 mg capsule 200 mg PO Q24H pantoprazole 40 mg tablet,delayed release (DR/EC) 40 mg PO DAILY Discontinued lorazepam 0.5 mg Tablet 0.5 mg PO PRN PRN (Reason: Anxiety) losartan 100 mg tablet 100 mg PO QAM Date of admission: 07/16/25 15:25 Primary Care Provider: ChristopherGrover Admitting Provider: Shireen Clinton Attending physician on admission: Shireen Clinton Condition: Stable Quality VTE Prophylaxis VTE prophylaxis: mechanical ordered
--- NOTE | 2025-07-20 14:39 | PCNFU ---
Nutrition Follow-Up Complete: Inadequate energy intake related to NPO status as evidenced by current diet orders Diet order - Goal is met PO intake greater than 50% - Progressing with goal. Continue same goal Goal: Pt current nutrition is Low fiber diet. Ensure Plus Hp BID (350 kcal, 20 g protein). Nutrition recommendation: No new recommendations. Continue current diet as ordered. Agree with orders Last recorded weight is 105.1 kg. Bowel Motility: +3 BMs 07/20 Labs Reviewed: Hgb 10.1, Hct 32.7, Alb 2.3, Na 136, BUN 6, Cre 1.3, Glu 120, Mag 1.5 Meds Noted: Protonix, zofran Skin: no skin issues Additional Notes: Diet was advanced to low fiber and good intakes 90-100%. Ensure HP is ordered and some intakes recorded. Continue current nutrition care plan and orders. Monitor for diet orders, intake, wt, labs. Follow up in 3 days.
== END 2025-07-20 15:35 | DRG 392 ==
LOC: ANHED 17:44 → ANH3MEDSUR 19:04
PROVIDERS: Physician Assistant; Student in an Organized Health Care Education/Training Program; Admitting Provider General Practice; Emergency Provider Emergency Medicine; PCP Physician Assistant Medical; Visit Provider Physician Assistant
DX: K57.32 Diverticulitis of large intestine without perforation or abscess without bleeding (principal); N17.9 Acute kidney failure, unspecified; K52.9 Noninfective gastroenteritis and colitis, unspecified; I12.9 Hypertensive chronic kidney disease with stage 1 through stage 4 chronic kidney disease, or unspecified chronic kidney disease; J45.909 Unspecified asthma, uncomplicated; E83.42 Hypomagnesemia; E87.6 Hypokalemia; E03.9 Hypothyroidism, unspecified; E78.5 Hyperlipidemia, unspecified; K21.9 Gastro-esophageal reflux disease without esophagitis; N18.30 Chronic kidney disease, stage 3 unspecified; N32.81 Overactive bladder; M19.90 Unspecified osteoarthritis, unspecified site; F32.A Depression, unspecified; F41.9 Anxiety disorder, unspecified; Z20.822 Contact with and (suspected) exposure to COVID-19; Z96.641 Presence of right artificial hip joint; Z85.038 Personal history of other malignant neoplasm of large intestine
CPT/HCPCS: 36415; 71046; 74177; 80048; 80053; 81003; 82948; 83605; 83690; 83735; 84100; 84145; 84484; 85025; 86140; 87040; 87493; 87507; 87637; 93005; 96361; 96365; 96366; 96375; 97110; 97161; 97166; 97530; 97535; 99285; A9270; G0378; J0780; J2405; J2543; J3475; J3480; J7030; J7042; Q9967